=== PATIENT | female | born 1940 | race Caucasian/White ===

== ENCOUNTER → 2018-07-30 07:32 | Outpatient (REF) | payer MEDICARE, MEDICAID, SELFPAY ==
[2018-07-30 08:50] LABS: Hemoglobin A1C% w Est Avg Glu 9.5 % (4.0-6.0)
[2018-07-30 09:23] LABS: Cholesterol 132 mg/dL (140-199); HDL Cholesterol 46 mg/dL (40-60); LDL Cholesterol Calculated 44 mg/dL (<100); Triglycerides 208 mg/dL (35-150)
== END ==
LOC: LAB 07:32
PROVIDERS: Visit Provider Internal Medicine
DX: E78.5 Hyperlipidemia, unspecified (principal)
CPT/HCPCS: 36415; 80061; 83036

== ENCOUNTER → 2018-09-19 07:28 | Outpatient (REF) | payer MEDICARE, MEDICAID, SELFPAY ==
[2018-09-19 09:17] LABS: BUN Creatinine Ratio 21.7 (6-22); Blood Urea Nitrogen 26 mg/dL (7-17); Calcium 9.3 mg/dL (8.4-10.2); Carbon Dioxide 27 mmol/L (22-32); Chloride 104 mmol/L (98-107); Estimated Glomerular Filt Rate 43.6 mL/min (>60); Glucose 163 mg/dL (80-110); HEMOLYSIS < 15 (0-50); Potassium 3.9 mmol/L (3.4-5.1); Sodium 142 mmol/L (137-145)
== END ==
LOC: LAB 07:28
PROVIDERS: Visit Provider Internal Medicine
DX: N18.9 Chronic kidney disease, unspecified (principal)
CPT/HCPCS: 36415; 80048

== ENCOUNTER → 2018-10-24 07:31 | Outpatient (REF) | payer MEDICARE, MEDICAID, SELFPAY ==
[2018-10-24 09:04] LABS: Hemoglobin A1C% w Est Avg Glu 9.9 % (4.0-6.0)
== END ==
LOC: LAB 07:31
PROVIDERS: Visit Provider Internal Medicine
DX: E11.9 Type 2 diabetes mellitus without complications (principal)
CPT/HCPCS: 36415; 83036

== ENCOUNTER → 2018-11-21 06:53 | Outpatient (REF) | payer MEDICARE, MEDICAID, SELFPAY ==
[2018-11-21 07:58] LABS: Add Manual Diff / Slide Review NO; Basophils Percent Auto 1.2 % (0-2); Eosinophils Percent Auto 7.3 % (2-4); Hematocrit 35.4 % (36-46); Hemoglobin 11.6 g/dL (12.0-16.0); Lymphocytes Percent Auto 36.9 % (25-40); Mean Corpuscular HGB Conc 32.8 % (30-36); Mean Corpuscular Hemoglobin 28.4 PG (26-34); Mean Corpuscular Volume 86.6 fL (80-100); Monocytes Percent Auto 7.7 % (3-14); Neutrophils Absolute Auto 2800 /uL (1500-7000); Neutrophils Percent Auto 46.9 % (50-75); Platelet Count 186 X10^3/uL (150-400); Red Blood Cell Count 4.09 X10^6/uL (4.0-5.2); Red Cell Distribution Width 14.2 % (11.6-14.8); White Blood Cell Count 5.9 X10^3/uL (4.5-11.0)
[2018-11-21 08:08] LABS: Hemoglobin A1C% w Est Avg Glu 9.5 % (4.0-6.0)
[2018-11-21 08:10] LABS: BUN Creatinine Ratio 22.1 (6-22); Blood Urea Nitrogen 31 mg/dL (7-17); Calcium 9.2 mg/dL (8.4-10.2); Carbon Dioxide 27 mmol/L (22-32); Chloride 103 mmol/L (98-107); Estimated Glomerular Filt Rate 36.5 mL/min (>60); Glucose 222 mg/dL (80-110); HEMOLYSIS 27 (0-50); Potassium 4.4 mmol/L (3.4-5.1); Sodium 140 mmol/L (137-145)
== END ==
LOC: LAB 06:53
PROVIDERS: Visit Provider Internal Medicine
DX: E11.9 Type 2 diabetes mellitus without complications (principal)
CPT/HCPCS: 36415; 80048; 83036; 85025

== ENCOUNTER → 2018-12-20 13:08 | Outpatient (REF) | payer MEDICARE, MEDICAID, SELFPAY ==
[2018-12-20 14:00] LABS: Add Manual Diff / Slide Review NO; Basophils Absolute Auto 0 /uL (0-100); Basophils Percent Auto 0.6 % (0-2); Eosinophils Absolute Auto 300 /uL (0-450); Eosinophils Percent Auto 4.8 % (2-4); Hemoglobin 11.4 g/dL (12.0-16.0); Lymphocytes Absolute Auto 2100 /uL (1100-4500); Lymphocytes Percent Auto 28.3 % (25-40); Mean Corpuscular HGB Conc 33.6 % (30-36); Mean Corpuscular Hemoglobin 28.9 PG (26-34); Monocytes Absolute Auto 600 /uL (0-900); Monocytes Percent Auto 8.1 % (3-14); Neutrophils Absolute Auto 4300 /uL (1500-7000); Neutrophils Percent Auto 58.2 % (50-75); Platelet Count 188 X10^3/uL (150-400); Red Blood Cell Count 3.95 X10^6/uL (4.0-5.2); Red Cell Distribution Width 14.4 % (11.6-14.8); White Blood Cell Count 7.3 X10^3/uL (4.5-11.0)
[2018-12-20 14:03] LABS: BUN Creatinine Ratio 18.6 (6-22); Blood Urea Nitrogen 26 mg/dL (7-17); Calcium 9.2 mg/dL (8.4-10.2); Carbon Dioxide 27 mmol/L (22-32); Chloride 99 mmol/L (98-107); Estimated Glomerular Filt Rate 36.5 mL/min (>60); Glucose 298 mg/dL (80-110); HEMOLYSIS < 15 (0-50); Potassium 4.3 mmol/L (3.4-5.1); Sodium 137 mmol/L (137-145)
== END ==
LOC: LAB 13:08
PROVIDERS: Visit Provider Internal Medicine
DX: R05 Cough (principal); J40 Bronchitis, not specified as acute or chronic
CPT/HCPCS: 80048; 85025

== ENCOUNTER → 2018-12-26 06:59 | Outpatient (REF) | payer MEDICARE, MEDICAID, SELFPAY ==
[2018-12-26 07:59] LABS: BUN Creatinine Ratio 22.3 (6-22); Blood Urea Nitrogen 29 mg/dL (7-17); Calcium 9.3 mg/dL (8.4-10.2); Carbon Dioxide 29 mmol/L (22-32); Chloride 102 mmol/L (98-107); Estimated Glomerular Filt Rate 39.7 mL/min (>60); Glucose 74 mg/dL (80-110); HEMOLYSIS 43 (0-50); Potassium 4.1 mmol/L (3.4-5.1); Sodium 140 mmol/L (137-145)
== END ==
LOC: LAB 06:59
PROVIDERS: Visit Provider Internal Medicine
DX: N18.9 Chronic kidney disease, unspecified (principal)
CPT/HCPCS: 36415; 80048

== ENCOUNTER → 2019-01-16 07:47 | Outpatient (REF) | payer MEDICARE, MEDICAID, SELFPAY ==
[2019-01-16 08:44] LABS: Blood Urea Nitrogen 28 mg/dL (7-17); Calcium 9.4 mg/dL (8.4-10.2); Carbon Dioxide 29 mmol/L (22-32); Chloride 100 mmol/L (98-107); Estimated Glomerular Filt Rate 36.5 mL/min (>60); Glucose 143 mg/dL (80-110); HEMOLYSIS < 15 (0-50); Potassium 4.3 mmol/L (3.4-5.1); Sodium 138 mmol/L (137-145)
== END ==
LOC: LAB 07:47
PROVIDERS: Visit Provider Nurse Practitioner Family
DX: N18.9 Chronic kidney disease, unspecified (principal)
CPT/HCPCS: 36415; 80048

== ENCOUNTER → 2019-01-23 07:09 | Outpatient (REF) | payer MEDICARE, MEDICAID, SELFPAY ==
[2019-01-23 07:58] LABS: Add Manual Diff / Slide Review NO; Basophils Absolute Auto 100 /uL (0-100); Basophils Percent Auto 0.8 % (0-2); Eosinophils Absolute Auto 400 /uL (0-450); Eosinophils Percent Auto 5.8 % (2-4); Hemoglobin 11.9 g/dL (12.0-16.0); Lymphocytes Absolute Auto 3000 /uL (1100-4500); Lymphocytes Percent Auto 39.7 % (25-40); Mean Corpuscular HGB Conc 33.1 % (30-36); Mean Corpuscular Hemoglobin 28.9 PG (26-34); Mean Corpuscular Volume 87.2 fL (80-100); Monocytes Absolute Auto 500 /uL (0-900); Monocytes Percent Auto 6.8 % (3-14); Neutrophils Absolute Auto 3600 /uL (1500-7000); Neutrophils Percent Auto 46.9 % (50-75); Platelet Count 202 X10^3/uL (150-400); Red Blood Cell Count 4.13 X10^6/uL (4.0-5.2); Red Cell Distribution Width 13.6 % (11.6-14.8); White Blood Cell Count 7.6 X10^3/uL (4.5-11.0)
[2019-01-23 08:17] LABS: Hemoglobin A1C% w Est Avg Glu 9.1 % (4.0-6.0)
[2019-01-23 08:50] LABS: BUN Creatinine Ratio 20.7 (6-22); Blood Urea Nitrogen 29 mg/dL (7-17); Calcium 9.5 mg/dL (8.4-10.2); Carbon Dioxide 28 mmol/L (22-32); Chloride 104 mmol/L (98-107); Estimated Glomerular Filt Rate 36.5 mL/min (>60); Glucose 119 mg/dL (80-110); HEMOLYSIS < 15 (0-50); Sodium 140 mmol/L (137-145)
[2019-01-23 18:47] LABS: Appearance Urine UA CLEAR; Bilirubin Urine UA NEGATIVE (NEGATIVE); Color Urine UA YELLOW; Glucose Urine UA 2+ g/dL (Negative); Ketones Urine UA NEGATIVE (NEGATIVE); Leukocyte Esterase Urine UA 1+ (NEGATIVE); Nitrite Urine UA POSITIVE (Negative); Occult Blood Urine UA 1+ (Negative); Protein Urine UA 1+ (Negative); Specific Gravity Urine UA 1.025 (1.000-1.035); Urobilinogen Urine UA 0.2 E.U./dL (0.2)
[2019-01-23 18:54] LABS: Amorphous Sediment Urine 2+; Bacteria Urine Many (>30); Culture Indicated Urine Specimen Cultured; RBC Urine 1-5/HPF (0-5/HPF); Squamous Epithelial Cell Urine 1-5 /HPF; Transitional Epi Cells Urine 5-10/HPF (0-5/HPF); WBC Urine 30-100/HPF (0-5/HPF)
== END ==
LOC: LAB 07:09
PROVIDERS: Visit Provider Nurse Practitioner Family
DX: Z79.899 Other long term (current) drug therapy (principal)
CPT/HCPCS: 36415; 80048; 81001; 83036; 85025; 87077; 87086; 87186

== ENCOUNTER → 2019-02-25 08:36 | Outpatient (REF) | payer MEDICARE, MEDICAID, SELFPAY ==
[2019-02-25 09:10] LABS: BUN Creatinine Ratio 22.1 (6-22); Blood Urea Nitrogen 31 mg/dL (7-17); Calcium 9.8 mg/dL (8.4-10.2); Carbon Dioxide 30 mmol/L (22-32); Chloride 103 mmol/L (98-107); Estimated Glomerular Filt Rate 36.5 mL/min (>60); Glucose 87 mg/dL (80-110); HEMOLYSIS < 15 (0-50); Potassium 4.1 mmol/L (3.4-5.1); Sodium 140 mmol/L (137-145)
[2019-02-25 10:02] LABS: Hemoglobin A1C% w Est Avg Glu 9.2 % (4.0-6.0)
== END ==
LOC: LAB 08:36
PROVIDERS: Nurse Practitioner Family; Visit Provider Registered Nurse
DX: E11.9 Type 2 diabetes mellitus without complications (principal); N18.9 Chronic kidney disease, unspecified
CPT/HCPCS: 36415; 80048; 83036

== ENCOUNTER → 2019-03-31 10:37 | Outpatient (CLI) | payer MEDICARE, MEDICAID, SELFPAY ==
--- NOTE | 2019-03-31 | DI.CT.S_ITS ---
PROCEDURE: CT CHEST WO CON INDICATIONS: CHRONIC COUGH TECHNIQUE: Noncontrast 5 mm thick sections acquired from the pulmonary apices to the posterior costophrenic angles. 7 mm thick coronal and sagittal MIP reformats were then acquired. For radiation dose reduction, the following was used: automated exposure control, adjustment of mA and/or kV according to patient size. COMPARISON: None. FINDINGS: Image quality: Excellent. Lungs and pleura: No acute air space opacities. No pleural effusions or pneumothorax. Central and peripheral airways are patent and normal in caliber. Mediastinum: Heart size is normal. No pericardial effusion. No mediastinal adenopathy by size criteria. Thoracic aorta and central pulmonary arteries are normal in size. Esophagus is normal in caliber. No hiatal hernia. Bones and chest wall: No suspicious bony lesions. No vertebral body compression fractures. No axillary or supraclavicular adenopathy by size criteria. Thyroid gland appears normal where well visualized. Abdomen: Visualized upper abdominal solid organs and bowel loops appear normal in the absence of contrast. Note is made of what appears to be a single small 3 x 4 mm calcification within the gallbladder lumen seen at the inferior margin of the imaging. IMPRESSION: Source of chronic cough is not found. Incidental note made of a 3 x 4 mm calculus within the posterior gallbladder lumen at the inferior imaging margin. No adjacent inflammation. Dictated by: Kane Estrada M.D. on 03/31/2019 at 14:20 Approved by: Kane Estrada M.D. on 03/31/2019 at 14:21
== END ==
PROVIDERS: Visit Provider Internal Medicine
DX: R05 Cough (principal); K80.20 Calculus of gallbladder without cholecystitis without obstruction
CPT/HCPCS: 71250

== ENCOUNTER → 2019-04-01 07:00 | Outpatient (ROUT) | payer MEDICARE, MEDICAID, SELFPAY ==
[2019-04-01 09:08] LABS: Blood Urea Nitrogen 26 mg/dL (7-17); Calcium 9.6 mg/dL (8.4-10.2); Carbon Dioxide 32 mmol/L (22-32); Chloride 100 mmol/L (98-107); Estimated Glomerular Filt Rate 39.7 mL/min (>60); Glucose 141 mg/dL (80-110); HEMOLYSIS < 15 (0-50); Potassium 3.4 mmol/L (3.4-5.1); Sodium 142 mmol/L (137-145)
== END ==
PROVIDERS: Visit Provider Internal Medicine
DX: I10 Essential (primary) hypertension (principal); Z79.899 Other long term (current) drug therapy
CPT/HCPCS: 36415; 80048

== ENCOUNTER → 2019-04-24 07:21 | Outpatient (ROUT) | payer MEDICARE, MEDICAID, SELFPAY ==
[2019-04-24 08:11] LABS: Add Manual Diff / Slide Review NO; Basophils Absolute Auto 100 /uL (0-100); Basophils Percent Auto 0.9 % (0-2); Eosinophils Absolute Auto 500 /uL (0-450); Eosinophils Percent Auto 6.7 % (2-4); Hematocrit 35.3 % (36-46); Hemoglobin A1C% w Est Avg Glu 9.7 % (4.0-6.0); Lymphocytes Absolute Auto 2500 /uL (1100-4500); Lymphocytes Percent Auto 36.1 % (25-40); Mean Corpuscular HGB Conc 33.9 % (30-36); Mean Corpuscular Hemoglobin 29.2 PG (26-34); Mean Corpuscular Volume 86.2 fL (80-100); Monocytes Absolute Auto 600 /uL (0-900); Monocytes Percent Auto 7.9 % (3-14); Neutrophils Absolute Auto 3400 /uL (1500-7000); Neutrophils Percent Auto 48.4 % (50-75); Platelet Count 190 X10^3/uL (150-400); Red Cell Distribution Width 13.6 % (11.6-14.8)
[2019-04-24 08:13] LABS: BUN Creatinine Ratio 22.1 (6-22); Blood Urea Nitrogen 31 mg/dL (7-17); Calcium 9.3 mg/dL (8.4-10.2); Carbon Dioxide 36 mmol/L (22-32); Chloride 96 mmol/L (98-107); Estimated Glomerular Filt Rate 36.5 mL/min (>60); Glucose 172 mg/dL (80-110); HEMOLYSIS < 15 (0-50); Potassium 2.9 mmol/L (3.4-5.1); Sodium 139 mmol/L (137-145)
== END ==
PROVIDERS: Visit Provider Nurse Practitioner Family
DX: N18.9 Chronic kidney disease, unspecified (principal); E11.9 Type 2 diabetes mellitus without complications
CPT/HCPCS: 36415; 80048; 83036; 85025

== ENCOUNTER → 2019-04-29 07:23 | Outpatient (ROUT) | payer MEDICARE, MEDICAID, SELFPAY ==
[2019-04-29 08:33] LABS: HEMOLYSIS < 15 (0-50); Magnesium 1.6 mg/dL (1.6-2.3)
== END ==
PROVIDERS: Visit Provider Internal Medicine
DX: E87.6 Hypokalemia (principal)
CPT/HCPCS: 36415; 83735; 84132

== ENCOUNTER → 2019-05-01 07:06 | Outpatient (ROUT) | payer MEDICARE, MEDICAID, SELFPAY ==
[2019-05-01 08:27] LABS: HEMOLYSIS < 15 (0-50); Potassium 3.4 mmol/L (3.4-5.1)
== END ==
PROVIDERS: Visit Provider Nurse Practitioner Family
DX: N28.9 Disorder of kidney and ureter, unspecified (principal)
CPT/HCPCS: 36415; 84132

== ENCOUNTER → 2019-05-04 03:48 | Outpatient (ROUT) | payer MEDICARE, MEDICAID, SELFPAY | PROVIDERS: Visit Provider Internal Medicine | DX: H44.002 Unspecified purulent endophthalmitis, left eye (principal) | CPT/HCPCS: 87070; 87077; 87186; 87205 ==

== ENCOUNTER → 2019-05-06 11:51 | Outpatient (ROUT) | payer MEDICARE, MEDICAID, SELFPAY | PROVIDERS: Visit Provider Internal Medicine | DX: J02.9 Acute pharyngitis, unspecified (principal) | CPT/HCPCS: 87070 ==

== ENCOUNTER → 2019-05-08 07:20 | Outpatient (ROUT) | payer MEDICARE, MEDICAID, SELFPAY ==
[2019-05-08 08:59] LABS: BUN Creatinine Ratio 17.8 (6-22); Blood Urea Nitrogen 32 mg/dL (7-17); Calcium 9.2 mg/dL (8.4-10.2); Carbon Dioxide 33 mmol/L (22-32); Chloride 94 mmol/L (98-107); Estimated Glomerular Filt Rate 27.3 mL/min (>60); Glucose 322 mg/dL (80-110); HEMOLYSIS 22 (0-50); Potassium 3.9 mmol/L (3.4-5.1); Sodium 137 mmol/L (137-145)
== END ==
PROVIDERS: Visit Provider Nurse Practitioner Family
DX: E87.6 Hypokalemia (principal); I10 Essential (primary) hypertension; Z79.899 Other long term (current) drug therapy
CPT/HCPCS: 36415; 80048

== ENCOUNTER → 2019-05-13 08:27 | Outpatient (ROUT) | payer MEDICARE, MEDICAID, SELFPAY ==
[2019-05-13 10:31] LABS: BUN Creatinine Ratio 17.5 (6-22); Blood Urea Nitrogen 28 mg/dL (7-17); Calcium 9.3 mg/dL (8.4-10.2); Carbon Dioxide 30 mmol/L (22-32); Chloride 97 mmol/L (98-107); Estimated Glomerular Filt Rate 31.3 mL/min (>60); Glucose 222 mg/dL (80-110); HEMOLYSIS < 15 (0-50); Potassium 4.2 mmol/L (3.4-5.1); Sodium 137 mmol/L (137-145)
== END ==
PROVIDERS: Visit Provider Internal Medicine
DX: N18.9 Chronic kidney disease, unspecified (principal); N17.9 Acute kidney failure, unspecified
CPT/HCPCS: 36415; 80048

== ENCOUNTER → 2019-05-29 07:04 | Outpatient (ROUT) | payer MEDICARE, MEDICAID, SELFPAY ==
[2019-05-29 07:56] LABS: Add Manual Diff / Slide Review NO; Basophils Absolute Auto 100 /uL (0-100); Basophils Percent Auto 1.3 % (0-2); Eosinophils Absolute Auto 500 /uL (0-450); Eosinophils Percent Auto 10.1 % (2-4); Hematocrit 38.1 % (36-46); Hemoglobin 12.2 g/dL (12.0-16.0); Lymphocytes Absolute Auto 2400 /uL (1100-4500); Lymphocytes Percent Auto 45.8 % (25-40); Mean Corpuscular HGB Conc 32.2 % (30-36); Mean Corpuscular Hemoglobin 28.1 PG (26-34); Mean Corpuscular Volume 87.4 fL (80-100); Monocytes Absolute Auto 400 /uL (0-900); Monocytes Percent Auto 7.1 % (3-14); Neutrophils Absolute Auto 1900 /uL (1500-7000); Neutrophils Percent Auto 35.7 % (50-75); Platelet Count 218 X10^3/uL (150-400); Red Blood Cell Count 4.36 X10^6/uL (4.0-5.2); Red Cell Distribution Width 14.8 % (11.6-14.8); White Blood Cell Count 5.3 X10^3/uL (4.5-11.0)
[2019-05-29 08:13] LABS: Alanine Aminotransferase 22 IU/L (9-52); Albumin 3.6 g/dL (3.5-5.0); Albumin Globulin Ratio 1.2 (1.0-2.8); Alkaline Phosphatase 67 U/L (38-126); Aspartate Aminotransferase 25 IU/L (14-36); BUN Creatinine Ratio 17.5 (6-22); Bilirubin Total 0.3 mg/dL (0.2-1.3); Blood Urea Nitrogen 21 mg/dL (7-17); Calcium 9.4 mg/dL (8.4-10.2); Carbon Dioxide 30 mmol/L (22-32); Chloride 104 mmol/L (98-107); Estimated Glomerular Filt Rate 43.4 mL/min (>60); Globulin 2.9 g/dL (1.7-4.1); Glucose 156 mg/dL (80-110); HEMOLYSIS 15 (0-50); Potassium 4.2 mmol/L (3.4-5.1); Sodium 140 mmol/L (137-145); Total Protein 6.5 g/dL (6.3-8.2)
== END ==
PROVIDERS: Visit Provider Nurse Practitioner Family
DX: I10 Essential (primary) hypertension (principal); Z79.899 Other long term (current) drug therapy; E11.9 Type 2 diabetes mellitus without complications; N18.9 Chronic kidney disease, unspecified
CPT/HCPCS: 36415; 80053; 85025

== ENCOUNTER → 2019-07-03 07:06 | Outpatient (ROUT) | payer MEDICARE, MEDICAID, SELFPAY ==
[2019-07-03 07:34] LABS: Add Manual Diff / Slide Review NO; Basophils Absolute Auto 100 /uL (0-100); Basophils Percent Auto 0.9 % (0-2); Eosinophils Absolute Auto 600 /uL (0-450); Eosinophils Percent Auto 8.9 % (2-4); Hematocrit 37.7 % (36-46); Hemoglobin 12.4 g/dL (12.0-16.0); Lymphocytes Absolute Auto 2900 /uL (1100-4500); Lymphocytes Percent Auto 43.9 % (25-40); Mean Corpuscular Hemoglobin 28.3 PG (26-34); Mean Corpuscular Volume 85.8 fL (80-100); Monocytes Absolute Auto 400 /uL (0-900); Monocytes Percent Auto 6.7 % (3-14); Neutrophils Absolute Auto 2600 /uL (1500-7000); Neutrophils Percent Auto 39.6 % (50-75); Platelet Count 202 X10^3/uL (150-400); Red Blood Cell Count 4.39 X10^6/uL (4.0-5.2); Red Cell Distribution Width 14.7 % (11.6-14.8); White Blood Cell Count 6.6 X10^3/uL (4.5-11.0)
[2019-07-03 07:54] LABS: Hemoglobin A1C% w Est Avg Glu 9.5 % (4.0-6.0)
[2019-07-03 08:44] LABS: Blood Urea Nitrogen 18 mg/dL (7-17); Calcium 9.3 mg/dL (8.4-10.2); Carbon Dioxide 31 mmol/L (22-32); Chloride 104 mmol/L (98-107); Estimated Glomerular Filt Rate 43.4 mL/min (>60); Glucose 107 mg/dL (80-110); HEMOLYSIS < 15 (0-50); Potassium 3.9 mmol/L (3.4-5.1); Sodium 141 mmol/L (137-145)
== END ==
PROVIDERS: Visit Provider Nurse Practitioner Family
DX: N18.9 Chronic kidney disease, unspecified (principal); E11.9 Type 2 diabetes mellitus without complications
CPT/HCPCS: 36415; 80048; 83036; 85025

== ENCOUNTER → 2019-07-21 09:26 | Outpatient (CLI) | payer MEDICARE, MEDICAID, SELFPAY ==
--- NOTE | 2019-07-21 | DI.MRI.S_ITS ---
PROCEDURE: MR CERVICAL SPINE WO CON INDICATIONS: CERVICAL RADICULOPATHY TECHNIQUE: Noncontrast sagittal T1 spin echo and T2 fast spin echo, sagittal STIR, foraminal oblique sagittal T2 fast spin echo, and axial gradient echo or T2 fast spin echo through the cervical spine. COMPARISON: [facility], CR, XR CHEST 2V, 03/15/2018, 10:43. [facility], CT, CT CHEST WO CON, 03/31/2019, 11:08. FINDINGS: Image quality: Diagnostic Alignment and Curvature: There is normal bony alignment. Bone Marrow: Marrow demonstrates normal overall signal. Spinal Cord: Visualized spinal cord has normal size and signal. No cerebellar tonsillar herniation. Paraspinous Soft Tissues: No paravertebral masses. Prevertebral soft tissues are normal in thickness. C2-C3: The disc height is well-preserved. Loss of disc signal is seen at this level. A mild degree of generalized disc osteophyte complex is seen. Mild bilateral neural foraminal narrowing is seen. No significant central canal narrowing is seen. C3-C4: The disc height is well-preserved. Loss of disc signal is seen at this level. Moderate generalized disc osteophyte complex is seen. There is moderate to prominent right-sided and moderate left-sided neural foraminal narrowing seen. There is moderate to severe right-sided and moderate left-sided neural foraminal narrowing seen. Mild central canal narrowing is seen. C4-C5: Moderate loss of disc height is seen. Loss of disc signal is seen. Moderate to prominent disc osteophyte complex is seen. Uncovertebral joint hypertrophy is seen at this level. Moderate facet joint hypertrophy is seen. Moderate to severe bilateral neural foraminal narrowing is seen, right worse than left. Moderate central canal narrowing is seen. C5-C6: Moderate loss of disc height is seen. Loss of disc signal is seen. Moderate generalized disc osteophyte complex is seen. [id number] facet hypertrophy is seen. There is moderate to severe bilateral neural foraminal narrowing seen, right worse than left. Moderate central canal narrowing is seen, with associated mass effect upon the ventral spinal cord. C6-C7: There is at least moderate loss of disc height and disc signal. Moderate to prominent disc osteophyte complex is seen. There is moderate to severe bilateral neural foraminal narrowing seen, right worse than left. Moderate central canal narrowing is seen. C7-T1: Moderate loss of disc height is seen. Loss of disc signal is seen. Moderate generalized disc osteophyte complex is seen. Moderate to severe bilateral neural foraminal narrowing is seen. Moderate central canal narrowing is seen. IMPRESSION: Multiple levels of relatively prominent cervical spine degenerative changes are seen, which are overall most prominent at the C6-C7 level. Dictated by: Jonny Canas M.D. on 07/21/2019 at 10:43 Approved by: Jonny Canas M.D. on 07/21/2019 at 10:49
== END ==
PROVIDERS: Visit Provider Registered Nurse
DX: M47.22 Other spondylosis with radiculopathy, cervical region (principal)
CPT/HCPCS: 72141

== ENCOUNTER → 2019-09-26 08:06 | Outpatient (ROUT) | payer MEDICARE, MEDICAID, SELFPAY ==
[2019-09-26 09:55] LABS: Free T3, Triiodothyronine Free 3.33 pg/mL (2.77-5.27); Free T4, Direct Thyroxine 0.77 ng/dL (0.78-2.19)
[2019-09-26 10:08] LABS: Thyroid Stimulating Hormone 1.29 uIU/mL (0.47-4.68)
== END ==
PROVIDERS: Visit Provider Internal Medicine
DX: E03.9 Hypothyroidism, unspecified (principal)
CPT/HCPCS: 36415; 84439; 84443; 84481

== ENCOUNTER → 2019-10-02 07:41 | Outpatient (ROUT) | payer MEDICARE, MEDICAID, SELFPAY ==
[2019-10-02 08:09] LABS: BUN Creatinine Ratio 17.7 (6-22); Blood Urea Nitrogen 23 mg/dL (7-17); Calcium 9.3 mg/dL (8.4-10.2); Carbon Dioxide 30 mmol/L (22-32); Chloride 104 mmol/L (98-107); Estimated Glomerular Filt Rate 39.6 mL/min (>60); Glucose 112 mg/dL (80-110); HEMOLYSIS < 15 (0-50); Potassium 3.9 mmol/L (3.4-5.1); Sodium 139 mmol/L (137-145)
[2019-10-02 08:12] LABS: Hemoglobin A1C% w Est Avg Glu 9.2 % (4.0-6.0)
== END ==
PROVIDERS: Visit Provider Nurse Practitioner Family
DX: E11.9 Type 2 diabetes mellitus without complications (principal)
CPT/HCPCS: 36415; 80048; 83036

== ENCOUNTER → 2019-10-10 14:53 | Outpatient (ROUT) | payer MEDICARE, MEDICAID, SELFPAY ==
[2019-10-10 15:17] LABS: BUN Creatinine Ratio 14.6 (6-22); Blood Urea Nitrogen 19 mg/dL (7-17); Carbon Dioxide 29 mmol/L (22-32); Chloride 101 mmol/L (98-107); Estimated Glomerular Filt Rate 39.6 mL/min (>60); Glucose 351 mg/dL (80-110); HEMOLYSIS < 15 (0-50); Magnesium 1.5 mg/dL (1.6-2.3); Potassium 4.1 mmol/L (3.4-5.1); Sodium 137 mmol/L (137-145)
== END ==
PROVIDERS: Visit Provider Internal Medicine
DX: N18.9 Chronic kidney disease, unspecified (principal); R25.1 Tremor, unspecified
CPT/HCPCS: 80048; 83735

== ENCOUNTER → 2019-12-25 07:37 | Outpatient (ROUT) | payer MEDICARE, MEDICAID, SELFPAY ==
[2019-12-25 08:20] LABS: Blood Urea Nitrogen 24 mg/dL (7-17); Calcium 9.1 mg/dL (8.4-10.2); Carbon Dioxide 28 mmol/L (22-32); Chloride 104 mmol/L (98-107); Estimated Glomerular Filt Rate 43.4 mL/min (>60); Glucose 136 mg/dL (80-110); HEMOLYSIS 39 (0-50); Potassium 4.5 mmol/L (3.4-5.1); Sodium 140 mmol/L (137-145)
[2019-12-25 19:28] LABS: Appearance Urine UA CLEAR; Bilirubin Urine UA NEGATIVE (NEGATIVE); Color Urine UA YELLOW; Glucose Urine UA 1+ g/dL (Negative); Ketones Urine UA NEGATIVE (NEGATIVE); Leukocyte Esterase Urine UA TRACE (NEGATIVE); Nitrite Urine UA POSITIVE (Negative); Occult Blood Urine UA TRACE-LYSED (Negative); Protein Urine UA 1+ (Negative); Urobilinogen Urine UA 0.2 E.U./dL (0.2)
[2019-12-25 19:37] LABS: RBC Urine 1-5/HPF (0-5/HPF); WBC Urine 5-10/HPF (0-5/HPF)
[2019-12-25 19:38] LABS: Bacteria Urine Many (>30); Culture Indicated Urine Specimen Cultured; Squamous Epithelial Cell Urine 1-5 /HPF (0-5/HPF)
== END ==
PROVIDERS: Nurse Practitioner Family; Visit Provider Internal Medicine
DX: I10 Essential (primary) hypertension (principal)
CPT/HCPCS: 36415; 80048; 81001; 87077; 87086; 87186

== ENCOUNTER → 2020-01-01 07:40 | Outpatient (ROUT) | payer MEDICARE, MEDICAID, SELFPAY ==
[2020-01-01 08:24] LABS: Add Manual Diff / Slide Review NO; Basophils Absolute Auto 100 /uL (0-100); Basophils Percent Auto 0.8 % (0-2); Eosinophils Absolute Auto 500 /uL (0-450); Eosinophils Percent Auto 6.2 % (2-4); Hematocrit 39.2 % (36-46); Hemoglobin 12.9 g/dL (12.0-16.0); Lymphocytes Absolute Auto 2900 /uL (1100-4500); Lymphocytes Percent Auto 38.7 % (25-40); Mean Corpuscular Hemoglobin 28.9 PG (26-34); Mean Corpuscular Volume 87.4 fL (80-100); Monocytes Absolute Auto 400 /uL (0-900); Monocytes Percent Auto 5.9 % (3-14); Neutrophils Absolute Auto 3700 /uL (1500-7000); Neutrophils Percent Auto 48.4 % (50-75); Platelet Count 202 X10^3/uL (150-400); Red Blood Cell Count 4.48 X10^6/uL (4.0-5.2); Red Cell Distribution Width 14.1 % (11.6-14.8); White Blood Cell Count 7.6 X10^3/uL (4.5-11.0)
[2020-01-01 08:47] LABS: BUN Creatinine Ratio 16.2 (6-22); Blood Urea Nitrogen 21 mg/dL (7-17); Calcium 9.7 mg/dL (8.4-10.2); Carbon Dioxide 27 mmol/L (22-32); Chloride 105 mmol/L (98-107); Estimated Glomerular Filt Rate 39.6 mL/min (>60); Glucose 150 mg/dL (80-110); HEMOLYSIS < 15 (0-50); Sodium 142 mmol/L (137-145)
== END ==
PROVIDERS: Visit Provider Nurse Practitioner Family
DX: I10 Essential (primary) hypertension (principal)
CPT/HCPCS: 36415; 80048; 85025

== ENCOUNTER → 2020-01-06 07:53 | Outpatient (ROUT) | payer MEDICARE, MEDICAID, SELFPAY ==
[2020-01-06 08:29] LABS: Hemoglobin A1C% w Est Avg Glu 8.8 % (4.0-6.0)
[2020-01-06 08:51] LABS: BUN Creatinine Ratio 14.6 (6-22); Blood Urea Nitrogen 19 mg/dL (7-17); Calcium 9.8 mg/dL (8.4-10.2); Carbon Dioxide 30 mmol/L (22-32); Chloride 103 mmol/L (98-107); Estimated Glomerular Filt Rate 39.6 mL/min (>60); Glucose 131 mg/dL (80-110); HEMOLYSIS < 15 (0-50); Potassium 4.1 mmol/L (3.4-5.1); Sodium 143 mmol/L (137-145)
== END ==
PROVIDERS: Visit Provider Nurse Practitioner Family
DX: E11.9 Type 2 diabetes mellitus without complications (principal)
CPT/HCPCS: 36415; 80048; 83036

== ENCOUNTER → 2020-03-30 08:48 | Outpatient (ROUT) | payer MEDICARE, MEDICAID, SELFPAY ==
[2020-03-30 10:15] LABS: Hemoglobin A1C% w Est Avg Glu 8.4 % (4.0-6.0)
[2020-03-30 10:28] LABS: Blood Urea Nitrogen 23 mg/dL (7-17); Calcium 8.9 mg/dL (8.4-10.2); Carbon Dioxide 27 mmol/L (22-32); Chloride 108 mmol/L (98-107); Cholesterol 112 mg/dL (140-199); Glucose 119 mg/dL (80-110); HDL Cholesterol 40 mg/dL (40-60); HEMOLYSIS 18 (0-50); LDL Cholesterol Calculated 40 mg/dL (<100); Potassium 4.2 mmol/L (3.4-5.1); Sodium 142 mmol/L (137-145); Triglycerides 162 mg/dL (35-150)
== END ==
PROVIDERS: Visit Provider Nurse Practitioner Family
DX: E11.9 Type 2 diabetes mellitus without complications (principal); N18.9 Chronic kidney disease, unspecified; E78.5 Hyperlipidemia, unspecified
CPT/HCPCS: 36415; 80048; 80061; 83036

== ENCOUNTER → 2020-06-28 21:26 | Outpatient (ROUT) | payer MEDICARE, MEDICAID, SELFPAY ==
[2020-06-28 22:14] LABS: Bilirubin Urine UA NEGATIVE (NEGATIVE); Color Urine UA YELLOW; Glucose Urine UA NEGATIVE (Negative); Ketones Urine UA NEGATIVE (NEGATIVE); Leukocyte Esterase Urine UA TRACE (NEGATIVE); Nitrite Urine UA POSITIVE (Negative); Occult Blood Urine UA TRACE-INTACT (Negative); Protein Urine UA 3+ (Negative); Specific Gravity Urine UA >=1.030 (1.000-1.035); Urobilinogen Urine UA 0.2 E.U./dL (0.2)
[2020-06-28 22:24] LABS: Appearance Urine UA CLOUDY
[2020-06-28 23:23] LABS: Bacteria Urine Many (>30); Culture Indicated Urine Specimen Cultured; RBC Urine 1-5/HPF (0-5/HPF); Squamous Epithelial Cell Urine 1-5 /HPF (0-5/HPF); WBC Urine 10-30/HPF (0-5/HPF)
== END ==
PROVIDERS: Visit Provider Internal Medicine
DX: R30.0 Dysuria (principal); R35.0 Frequency of micturition
CPT/HCPCS: 81001; 87077; 87086; 87186

== ENCOUNTER → 2020-07-08 08:22 | Outpatient (ROUT) | payer MEDICARE, MEDICAID, SELFPAY ==
[2020-07-08 08:39] LABS: Add Manual Diff / Slide Review NO; Basophils Absolute Auto 100 /uL (0-100); Basophils Percent Auto 0.8 % (0-2); Eosinophils Absolute Auto 400 /uL (0-450); Eosinophils Percent Auto 6.2 % (2-4); Hemoglobin 11.6 g/dL (12.0-16.0); Lymphocytes Absolute Auto 2300 /uL (1100-4500); Lymphocytes Percent Auto 37.4 % (25-40); Mean Corpuscular HGB Conc 33.1 % (30-36); Mean Corpuscular Volume 87.7 fL (80-100); Monocytes Absolute Auto 500 /uL (0-900); Monocytes Percent Auto 7.6 % (3-14); Neutrophils Absolute Auto 3000 /uL (1500-7000); Platelet Count 177 X10^3/uL (150-400); Red Cell Distribution Width 13.8 % (11.6-14.8); White Blood Cell Count 6.2 X10^3/uL (4.5-11.0)
[2020-07-08 08:54] LABS: BUN Creatinine Ratio 12.4 (6-22); Blood Urea Nitrogen 17 mg/dL (7-17); Calcium 8.8 mg/dL (8.4-10.2); Carbon Dioxide 29 mmol/L (22-32); Chloride 106 mmol/L (98-107); Estimated Glomerular Filt Rate 37.2 mL/min (>60); Glucose 108 mg/dL (80-110); HEMOLYSIS < 15 (0-50); Potassium 4.1 mmol/L (3.4-5.1); Sodium 139 mmol/L (137-145)
== END ==
PROVIDERS: Visit Provider Nurse Practitioner Family
DX: R60.9 Edema, unspecified (principal); E11.9 Type 2 diabetes mellitus without complications; N39.0 Urinary tract infection, site not specified
CPT/HCPCS: 36415; 80048; 85025

== ENCOUNTER → 2020-08-02 16:41 | Outpatient (ROUT) | payer MEDICARE, MEDICAID, SELFPAY ==
[2020-08-02 17:07] LABS: Appearance Urine UA CLEAR; Bilirubin Urine UA NEGATIVE (NEGATIVE); Color Urine UA YELLOW; Glucose Urine UA NEGATIVE (Negative); Ketones Urine UA NEGATIVE (NEGATIVE); Leukocyte Esterase Urine UA 1+ (NEGATIVE); Nitrite Urine UA NEGATIVE (Negative); Occult Blood Urine UA 1+ (Negative); Protein Urine UA 2+ (Negative); Specific Gravity Urine UA 1.025 (1.000-1.035); Urobilinogen Urine UA 0.2 E.U./dL (0.2)
[2020-08-02 17:11] LABS: Bacteria Urine Many (>30); Culture Indicated Urine Specimen Cultured; Granular Casts Urine 1-5/LPF; Hyaline Casts Urine 1-5/LPF; Mucus Urine 2+ (Negative); RBC Urine 1-5/HPF (0-5/HPF); Renal Epithelial Cells Urine 0-1/HPF (0-1/HPF); Squamous Epithelial Cell Urine 1-5 /HPF (0-5/HPF); Transitional Epi Cells Urine 1-5/HPF (0-5/HPF); WBC Urine 10-30/HPF (0-5/HPF)
== END ==
PROVIDERS: Visit Provider Internal Medicine
DX: R30.0 Dysuria (principal); R39.15 Urgency of urination; R35.0 Frequency of micturition
CPT/HCPCS: 81001; 87077; 87086; 87186

== ENCOUNTER → 2020-08-05 11:44 | Outpatient (ROUT) | payer MEDICARE, MEDICAID, SELFPAY ==
[2020-08-05 11:52] LABS: Add Manual Diff / Slide Review NO; Basophils Absolute Auto 100 /uL (0-100); Basophils Percent Auto 0.9 % (0-2); Eosinophils Absolute Auto 400 /uL (0-450); Eosinophils Percent Auto 6.2 % (2-4); Hematocrit 36.9 % (36-46); Hemoglobin 12.3 g/dL (12.0-16.0); Lymphocytes Absolute Auto 2500 /uL (1100-4500); Lymphocytes Percent Auto 35.6 % (25-40); Mean Corpuscular HGB Conc 33.5 % (30-36); Mean Corpuscular Hemoglobin 29.2 PG (26-34); Mean Corpuscular Volume 87.4 fL (80-100); Monocytes Absolute Auto 500 /uL (0-900); Neutrophils Absolute Auto 3500 /uL (1500-7000); Neutrophils Percent Auto 50.3 % (50-75); Platelet Count 187 X10^3/uL (150-400); Red Blood Cell Count 4.22 X10^6/uL (4.0-5.2); Red Cell Distribution Width 13.8 % (11.6-14.8)
[2020-08-05 12:05] LABS: BUN Creatinine Ratio 19.3 (6-22); Blood Urea Nitrogen 23 mg/dL (7-17); Calcium 9.2 mg/dL (8.4-10.2); Carbon Dioxide 27 mmol/L (22-32); Chloride 107 mmol/L (98-107); Estimated Glomerular Filt Rate 43.8 mL/min (>60); Glucose 182 mg/dL (80-110); HEMOLYSIS < 15 (0-50); Potassium 4.5 mmol/L (3.4-5.1); Sodium 141 mmol/L (137-145)
== END ==
PROVIDERS: Visit Provider Internal Medicine
DX: M54.5 Low back pain (principal)
CPT/HCPCS: 80048; 85025

== ENCOUNTER → 2020-09-30 18:58 | Outpatient (ROUT) | payer MEDICARE, MEDICAID, SELFPAY ==
[2020-09-30 19:01] LABS: RBC Urine None Seen (0-5/HPF); WBC Urine None Seen (0-5/HPF)
[2020-09-30 19:22] LABS: Appearance Urine UA SL CLOUDY; Bilirubin Urine UA NEGATIVE (NEGATIVE); Color Urine UA YELLOW; Glucose Urine UA TRACE g/dL (Negative); Ketones Urine UA NEGATIVE (NEGATIVE); Leukocyte Esterase Urine UA NEGATIVE (NEGATIVE); Nitrite Urine UA NEGATIVE (Negative); Occult Blood Urine UA TRACE-INTACT (Negative); Protein Urine UA 2+ (Negative); Specific Gravity Urine UA 1.015 (1.000-1.035); Urobilinogen Urine UA 0.2 E.U./dL (0.2)
[2020-09-30 19:32] LABS: pH Urine UA 5.5 (4.5-8.0)
[2020-09-30 19:33] LABS: Bacteria Urine Many (>30); Culture Indicated Urine Specimen Cultured
== END ==
PROVIDERS: Visit Provider Nurse Practitioner Family
DX: R10.30 Lower abdominal pain, unspecified (principal); R35.0 Frequency of micturition
CPT/HCPCS: 81001; 87077; 87086; 87186

== ENCOUNTER → 2020-10-21 07:39 | Outpatient (ROUT) | payer MEDICARE, MEDICAID, SELFPAY ==
[2020-10-21 08:48] LABS: BUN Creatinine Ratio 16.8 (6-22); Blood Urea Nitrogen 21 mg/dL (7-17); Calcium 9.1 mg/dL (8.4-10.2); Carbon Dioxide 35 mmol/L (22-32); Chloride 105 mmol/L (98-107); Estimated Glomerular Filt Rate 41.3 mL/min (>60); Glucose 93 mg/dL (80-110); HEMOLYSIS < 15 (0-50); Sodium 143 mmol/L (137-145)
== END ==
PROVIDERS: Visit Provider Nurse Practitioner Family
DX: N18.9 Chronic kidney disease, unspecified (principal)
CPT/HCPCS: 36415; 80048

== ENCOUNTER → 2020-10-28 08:29 | Outpatient (ROUT) | payer MEDICARE, MEDICAID, SELFPAY ==
[2020-10-28 09:05] LABS: Alanine Aminotransferase 13 IU/L (<35); Albumin 3.8 g/dL (3.5-5.0); Albumin Globulin Ratio 1.3 (1.0-2.8); Alkaline Phosphatase 61 U/L (38-126); Aspartate Aminotransferase 25 IU/L (14-36); BUN Creatinine Ratio 16.8 (6-22); Bilirubin Total 0.3 mg/dL (0.2-1.3); Blood Urea Nitrogen 20 mg/dL (7-17); Calcium 9.1 mg/dL (8.4-10.2); Carbon Dioxide 33 mmol/L (22-32); Chloride 105 mmol/L (98-107); Estimated Glomerular Filt Rate 43.8 mL/min (>60); Globulin 2.9 g/dL (1.7-4.1); Glucose 90 mg/dL (80-110); HEMOLYSIS < 15 (0-50); Potassium 3.8 mmol/L (3.4-5.1); Sodium 140 mmol/L (137-145); Total Protein 6.7 g/dL (6.3-8.2)
== END ==
PROVIDERS: Visit Provider Nurse Practitioner Gerontology
DX: N18.9 Chronic kidney disease, unspecified (principal); Z79.899 Other long term (current) drug therapy
CPT/HCPCS: 36415; 80053

== ENCOUNTER → 2021-01-16 18:16 | Outpatient (ROUT) | payer MEDICARE, MEDICAID, SELFPAY ==
[2021-01-16 18:21] LABS: RBC Urine None Seen (0-5/HPF)
[2021-01-16 18:26] LABS: Appearance Urine UA CLOUDY; Bilirubin Urine UA NEGATIVE (NEGATIVE); Color Urine UA YELLOW; Glucose Urine UA 1+ g/dL (Negative); Ketones Urine UA NEGATIVE (NEGATIVE); Leukocyte Esterase Urine UA NEGATIVE (NEGATIVE); Nitrite Urine UA NEGATIVE (Negative); Occult Blood Urine UA 1+ (Negative); Protein Urine UA 2+ (Negative); Urobilinogen Urine UA 0.2 E.U./dL (0.2)
[2021-01-16 18:48] LABS: Bacteria Urine Many (>30); Culture Indicated Urine Specimen Cultured; Squamous Epithelial Cell Urine 0-1 /HPF (0-5/HPF); WBC Urine 10-30/HPF (0-5/HPF)
== END ==
PROVIDERS: Visit Provider Nurse Practitioner Family
DX: R39.89 Other symptoms and signs involving the genitourinary system (principal)
CPT/HCPCS: 81001; 87077; 87086; 87186

== ENCOUNTER → 2021-01-18 08:41 | Outpatient (ROUT) | payer MEDICARE, MEDICAID, SELFPAY ==
[2021-01-18 09:00] LABS: Add Manual Diff / Slide Review NO; Basophils Absolute Auto 100 /uL (0-100); Basophils Percent Auto 0.8 % (0-2); Eosinophils Absolute Auto 400 /uL (0-450); Eosinophils Percent Auto 5.7 % (2-4); Hematocrit 36.8 % (36-46); Lymphocytes Absolute Auto 2500 /uL (1100-4500); Mean Corpuscular HGB Conc 32.6 % (30-36); Mean Corpuscular Hemoglobin 28.9 PG (26-34); Mean Corpuscular Volume 88.5 fL (80-100); Monocytes Absolute Auto 500 /uL (0-900); Monocytes Percent Auto 7.5 % (3-14); Neutrophils Absolute Auto 3500 /uL (1500-7000); Platelet Count 211 X10^3/uL (150-400); Red Blood Cell Count 4.15 X10^6/uL (4.0-5.2); Red Cell Distribution Width 13.8 % (11.6-14.8)
[2021-01-18 09:13] LABS: Blood Urea Nitrogen 19 mg/dL (7-17); Calcium 9.2 mg/dL (8.4-10.2); Carbon Dioxide 29 mmol/L (22-32); Chloride 107 mmol/L (98-107); Estimated Glomerular Filt Rate 43.8 mL/min (>60); Glucose 90 mg/dL (80-110); HEMOLYSIS < 15 (0-50); Sodium 141 mmol/L (137-145)
== END ==
PROVIDERS: Visit Provider Nurse Practitioner Family
DX: N18.9 Chronic kidney disease, unspecified (principal)
CPT/HCPCS: 36415; 80048; 85025

== ENCOUNTER → 2021-01-25 08:46 | Outpatient (ROUT) | payer MEDICARE, MEDICAID, SELFPAY ==
[2021-01-25 09:21] LABS: Add Manual Diff / Slide Review NO; Basophils Absolute Auto 100 /uL (0-100); Basophils Percent Auto 1.2 % (0-2); Eosinophils Absolute Auto 400 /uL (0-450); Eosinophils Percent Auto 5.7 % (2-4); Hematocrit 37.7 % (36-46); Hemoglobin 12.3 g/dL (12.0-16.0); Lymphocytes Absolute Auto 2700 /uL (1100-4500); Lymphocytes Percent Auto 38.9 % (25-40); Mean Corpuscular HGB Conc 32.6 % (30-36); Mean Corpuscular Volume 89.1 fL (80-100); Monocytes Absolute Auto 400 /uL (0-900); Monocytes Percent Auto 6.2 % (3-14); Neutrophils Absolute Auto 3400 /uL (1500-7000); Platelet Count 213 X10^3/uL (150-400); Red Blood Cell Count 4.23 X10^6/uL (4.0-5.2); Red Cell Distribution Width 13.7 % (11.6-14.8)
[2021-01-25 09:41] LABS: BUN Creatinine Ratio 13.1 (6-22); Blood Urea Nitrogen 23 mg/dL (7-17); Calcium 9.5 mg/dL (8.4-10.2); Carbon Dioxide 26 mmol/L (22-32); Chloride 107 mmol/L (98-107); Estimated Glomerular Filt Rate 27.9 mL/min (>60); Glucose 95 mg/dL (80-110); HEMOLYSIS < 15 (0-50); Potassium 4.5 mmol/L (3.4-5.1); Sodium 141 mmol/L (137-145)
[2021-01-25 12:55] LABS: Clostridium Difficile Tox PCR Positive for C. diff
[2021-01-26 14:34] LABS: C difficie Toxins A and B, EIA Positive (Negative)
== END ==
PROVIDERS: Visit Provider Nurse Practitioner Gerontology
DX: R19.7 Diarrhea, unspecified (principal); N18.9 Chronic kidney disease, unspecified
CPT/HCPCS: 36415; 80048; 85025; 87493

== ENCOUNTER → 2021-02-01 08:00 | Outpatient (ROUT) | payer MEDICARE, MEDICAID, SELFPAY ==
[2021-02-01 08:50] LABS: Add Manual Diff / Slide Review NO; Basophils Absolute Auto 100 /uL (0-100); Basophils Percent Auto 1.7 % (0-2); Eosinophils Absolute Auto 300 /uL (0-450); Eosinophils Percent Auto 4.8 % (2-4); Hemoglobin 12.3 g/dL (12.0-16.0); Lymphocytes Absolute Auto 2700 /uL (1100-4500); Lymphocytes Percent Auto 40.9 % (25-40); Mean Corpuscular HGB Conc 33.1 % (30-36); Mean Corpuscular Hemoglobin 29.4 PG (26-34); Mean Corpuscular Volume 88.6 fL (80-100); Monocytes Absolute Auto 500 /uL (0-900); Neutrophils Absolute Auto 3000 /uL (1500-7000); Neutrophils Percent Auto 45.6 % (50-75); Platelet Count 192 X10^3/uL (150-400); Red Blood Cell Count 4.18 X10^6/uL (4.0-5.2); Red Cell Distribution Width 13.5 % (11.6-14.8); White Blood Cell Count 6.5 X10^3/uL (4.5-11.0)
[2021-02-01 09:14] LABS: Blood Urea Nitrogen 24 mg/dL (7-17); Calcium 9.4 mg/dL (8.4-10.2); Carbon Dioxide 28 mmol/L (22-32); Chloride 106 mmol/L (98-107); Estimated Glomerular Filt Rate 38.5 mL/min (>60); Glucose 97 mg/dL (80-110); HEMOLYSIS < 15 (0-50); Potassium 4.6 mmol/L (3.4-5.1); Sodium 140 mmol/L (137-145)
== END ==
PROVIDERS: Visit Provider Nurse Practitioner Family
DX: N17.9 Acute kidney failure, unspecified (principal); A04.72 Enterocolitis due to Clostridium difficile, not specified as recurrent
CPT/HCPCS: 36415; 80048; 85025

== ENCOUNTER → 2021-02-15 10:16 | Outpatient (ROUT) | payer MEDICARE, MEDICAID, SELFPAY ==
[2021-02-15 11:42] LABS: Add Manual Diff / Slide Review NO; Basophils Absolute Auto 0 /uL (0-100); Basophils Percent Auto 0.5 % (0-2); Eosinophils Absolute Auto 400 /uL (0-450); Eosinophils Percent Auto 6.5 % (2-4); Hematocrit 33.4 % (36-46); Hemoglobin 11.2 g/dL (12.0-16.0); Lymphocytes Absolute Auto 2300 /uL (1100-4500); Lymphocytes Percent Auto 35.6 % (25-40); Mean Corpuscular HGB Conc 33.4 % (30-36); Mean Corpuscular Hemoglobin 29.7 PG (26-34); Mean Corpuscular Volume 89.1 fL (80-100); Monocytes Absolute Auto 400 /uL (0-900); Monocytes Percent Auto 6.6 % (3-14); Neutrophils Absolute Auto 3200 /uL (1500-7000); Neutrophils Percent Auto 50.8 % (50-75); Platelet Count 173 X10^3/uL (150-400); Red Blood Cell Count 3.75 X10^6/uL (4.0-5.2); Red Cell Distribution Width 13.5 % (11.6-14.8); White Blood Cell Count 6.4 X10^3/uL (4.5-11.0)
[2021-02-15 12:16] LABS: Blood Urea Nitrogen 22 mg/dL (7-17); Calcium 8.7 mg/dL (8.4-10.2); Carbon Dioxide 28 mmol/L (22-32); Chloride 104 mmol/L (98-107); Glucose 174 mg/dL (80-110); HEMOLYSIS < 15 (0-50); Potassium 4.2 mmol/L (3.4-5.1); Sodium 139 mmol/L (137-145)
[2021-02-15 12:31] LABS: BUN Creatinine Ratio 15.1 (6-22); Estimated Glomerular Filt Rate 34.6 mL/min (>60)
== END ==
PROVIDERS: Visit Provider Nurse Practitioner Family
DX: A49.8 Other bacterial infections of unspecified site (principal)
CPT/HCPCS: 36415; 80048; 85025

== ENCOUNTER → 2021-03-01 07:55 | Outpatient (ROUT) | payer MEDICARE, MEDICAID, SELFPAY ==
[2021-03-01 09:35] LABS: BUN Creatinine Ratio 15.8 (6-22); Blood Urea Nitrogen 23 mg/dL (7-17); Calcium 9.5 mg/dL (8.4-10.2); Carbon Dioxide 31 mmol/L (22-32); Chloride 103 mmol/L (98-107); Estimated Glomerular Filt Rate 34.6 mL/min (>60); Glucose 137 mg/dL (80-110); HEMOLYSIS < 15 (0-50); Potassium 4.4 mmol/L (3.4-5.1); Sodium 140 mmol/L (137-145)
== END ==
PROVIDERS: Visit Provider Nurse Practitioner Family
DX: N18.9 Chronic kidney disease, unspecified (principal)
CPT/HCPCS: 36415; 80048

== ENCOUNTER → 2021-03-15 07:29 | Outpatient (ROUT) | payer MEDICARE, MEDICAID, SELFPAY ==
[2021-03-15 08:59] LABS: Cholesterol 145 mg/dL (140-199); HDL Cholesterol 57 mg/dL (40-60); LDL Cholesterol Calculated 46 mg/dL (<100); Triglycerides 208 mg/dL (35-150)
== END ==
PROVIDERS: Visit Provider Nurse Practitioner Gerontology
DX: E78.5 Hyperlipidemia, unspecified (principal)
CPT/HCPCS: 36415; 80061

== ENCOUNTER → 2021-03-22 08:05 | Outpatient (ROUT) | payer MEDICARE, MEDICAID, SELFPAY ==
[2021-03-22 08:51] LABS: BUN Creatinine Ratio 16.5 (6-22); Blood Urea Nitrogen 21 mg/dL (7-17); Calcium 9.2 mg/dL (8.4-10.2); Carbon Dioxide 29 mmol/L (22-32); Chloride 102 mmol/L (98-107); Estimated Glomerular Filt Rate 40.6 mL/min (>60); Glucose 193 mg/dL (80-110); HEMOLYSIS < 15 (0-50); Potassium 4.3 mmol/L (3.4-5.1); Sodium 139 mmol/L (137-145)
== END ==
PROVIDERS: Visit Provider Nurse Practitioner Family
DX: N18.9 Chronic kidney disease, unspecified (principal)
CPT/HCPCS: 36415; 80048

== ENCOUNTER → 2021-03-29 08:21 | Outpatient (ROUT) | payer MEDICARE, MEDICAID, SELFPAY ==
[2021-03-29 09:22] LABS: BUN Creatinine Ratio 18.7 (6-22); Blood Urea Nitrogen 23 mg/dL (7-17); Calcium 9.6 mg/dL (8.4-10.2); Carbon Dioxide 28 mmol/L (22-32); Chloride 104 mmol/L (98-107); Estimated Glomerular Filt Rate 42.1 mL/min (>60); Glucose 179 mg/dL (80-110); HEMOLYSIS < 15 (0-50); Potassium 4.3 mmol/L (3.4-5.1); Sodium 139 mmol/L (137-145)
== END ==
PROVIDERS: Visit Provider Internal Medicine
DX: Z79.899 Other long term (current) drug therapy (principal)
CPT/HCPCS: 36415; 80048

== ENCOUNTER → 2021-04-05 14:08 | Outpatient (CLI) | payer MEDICARE, MEDICAID, SELFPAY ==
--- NOTE | 2021-04-05 14:16 | DI.US.S_ITS ---
PROCEDURE: US ABDOMEN LIMITED INDICATIONS: RIGHT UPPER QUADRANT PAIN TECHNIQUE: Real-time focused scanning was performed of the abdomen, with image documentation. COMPARISON: None. FINDINGS: Liver measures 17.0 cm in length. There is diffuse increased echogenicity throughout. No focal hepatic lesion. There are numerous gallstones. 5.7 mm gallstone seen at the gallbladder neck demonstrates non mobile appearance. No definite gallbladder wall thickening the gallbladder wall measures 1.4 mm. No pericholecystic fluid or sonographic Bruce sign. Intra and extrahepatic bile ducts appear nondilated. There is dilatation of the pancreatic duct at the head measuring 6 mm. Otherwise pancreas is grossly unremarkable. IMPRESSION: Cholelithiasis. Elsewhere, no additional specific sonographic criteria for acute cholecystitis. Recommend clinical correlation and with LFTs. Prominent pancreatic ductal dilatation at the head, of unclear etiology or age. This could be further assessed with MRCP or pancreatic protocol contrast enhanced MRI as clinically necessary. Coarse echogenic liver suggesting diffuse hepatocellular disease/fatty infiltration. Please correlate with LFTs. Dictated by: Juan Causey M.D. on 04/05/2021 at 15:59 Approved by: Juan Causey M.D. on 04/05/2021 at 16:01
[2021-04-05 15:54] LABS: Add Manual Diff / Slide Review NO; Basophils Absolute Auto 100 /uL (0-100); Basophils Percent Auto 0.7 % (0-2); Eosinophils Absolute Auto 300 /uL (0-450); Eosinophils Percent Auto 3.9 % (2-4); Hematocrit 39.5 % (36-46); Hemoglobin 12.9 g/dL (12.0-16.0); Lymphocytes Absolute Auto 2600 /uL (1100-4500); Lymphocytes Percent Auto 33.6 % (25-40); Mean Corpuscular HGB Conc 32.8 % (30-36); Mean Corpuscular Hemoglobin 29.1 PG (26-34); Mean Corpuscular Volume 88.6 fL (80-100); Monocytes Absolute Auto 400 /uL (0-900); Monocytes Percent Auto 5.4 % (3-14); Neutrophils Absolute Auto 4400 /uL (1500-7000); Neutrophils Percent Auto 56.4 % (50-75); Platelet Count 240 X10^3/uL (150-400); Red Blood Cell Count 4.45 X10^6/uL (4.0-5.2); Red Cell Distribution Width 13.3 % (11.6-14.8); White Blood Cell Count 7.9 X10^3/uL (4.5-11.0)
[2021-04-05 16:09] LABS: Alanine Aminotransferase 15 IU/L (<35); Albumin 4.4 g/dL (3.5-5.0); Albumin Globulin Ratio 1.4 (1.0-2.8); Alkaline Phosphatase 116 U/L (38-126); Amylase 77 U/L (30-110); Aspartate Aminotransferase 24 IU/L (14-36); BUN Creatinine Ratio 17.4 (6-22); Bilirubin Total 0.3 mg/dL (0.2-1.3); Blood Urea Nitrogen 23 mg/dL (7-17); Calcium 10.1 mg/dL (8.4-10.2); Carbon Dioxide 30 mmol/L (22-32); Chloride 104 mmol/L (98-107); Estimated Glomerular Filt Rate 38.8 mL/min (>60); Globulin 3.2 g/dL (1.7-4.1); Glucose 149 mg/dL (80-110); HEMOLYSIS < 15 (0-50); Potassium 4.4 mmol/L (3.4-5.1); Sodium 143 mmol/L (137-145); Total Protein 7.6 g/dL (6.3-8.2)
== END ==
PROVIDERS: PCP Internal Medicine; Referring Provider Nurse Practitioner Gerontology; Visit Provider Internal Medicine
DX: R10.11 Right upper quadrant pain (principal); K80.20 Calculus of gallbladder without cholecystitis without obstruction; K86.89 Other specified diseases of pancreas
CPT/HCPCS: 36415; 76705; 80053; 82150; 85025

== ENCOUNTER → 2021-04-06 15:17 | Outpatient (CLI) | payer MEDICARE, MEDICAID, SELFPAY ==
--- NOTE | 2021-04-06 | DI.RAD.S_ITS ---
PROCEDURE: XR RIBS RT 2V INDICATIONS: PAIN TECHNIQUE: 2 views of the right ribs were acquired. COMPARISON: [facility], CT, CT CHEST WO CON, 03/31/2019, 11:08. FINDINGS: Surgical changes and devices: None. Bones and chest wall: Question of nondisplaced fracture at the right lateral 9th rib. No dislocations. No suspicious bony lesions. Overlying soft tissues appear unremarkable. Lungs and pleura: The visualized lung appears clear. No pleural effusions or pneumothorax are visible. IMPRESSION: Motion artifact. Question of nondisplaced fracture at the right lateral 9th rib. Correlate for point tenderness. Dictated by: Luis Alberto Garcia M.D. on 04/06/2021 at 17:25 Approved by: Luis Alberto Garcia M.D. on 04/06/2021 at 17:27
--- NOTE | 2021-04-06 15:24 | DI.RAD.S_ITS ---
PROCEDURE: XR CHEST 2V INDICATIONS: Chest pain/Dyspnea/Hx of fall TECHNIQUE: 2 views of the chest were acquired. COMPARISON: [facility], CR, XR RIBS RT 2V, 04/06/2021, 15:34. [facility], CT, CT CHEST WO CON, 03/31/2019, 11:08. FINDINGS: Surgical changes and devices: None. Lungs and pleura: Prominent diffuse interstitial markings bilaterally, this appears similar to 2018. No consolidation. No pleural effusions or pneumothorax. Mediastinum: Mediastinal contours are normal. Heart size is normal. Bones and chest wall: No suspicious bony abnormalities. No fractures identified on this exam. Soft tissues appear unremarkable. IMPRESSION: No acute cardiopulmonary abnormality. Prominent diffuse interstitial markings. This could represent pulmonary edema or interstitial lung disease. Dictated by: Luis Alberto Garcia M.D. on 04/06/2021 at 17:22 Approved by: Luis Alberto aGrcia M.D. on 04/06/2021 at 17:25
[2021-04-06 16:49] LABS: D Dimer 337 ng/mL (<230)
== END ==
PROVIDERS: PCP Internal Medicine; Referring Provider Internal Medicine; Visit Provider Internal Medicine
DX: R06.00 Dyspnea, unspecified (principal); R07.9 Chest pain, unspecified; Z91.81 History of falling
CPT/HCPCS: 36415; 71046; 71100; 85379

== ENCOUNTER → 2021-04-07 07:52 | Outpatient (ROUT) | payer MEDICARE, MEDICAID, SELFPAY ==
[2021-04-07 08:55] LABS: NT-proBNP (BNP-Adult 18+) 212 pg/mL (<450)
== END ==
PROVIDERS: PCP Internal Medicine; Visit Provider Internal Medicine
DX: I50.9 Heart failure, unspecified (principal)
CPT/HCPCS: 36415; 83880

== ENCOUNTER → 2021-06-21 07:47 | Outpatient (ROUT) | payer MEDICARE, MEDICAID, SELFPAY ==
[2021-06-21 09:14] LABS: BUN Creatinine Ratio 16.8 (6-22); Blood Urea Nitrogen 20 mg/dL (7-17); Calcium 9.6 mg/dL (8.4-10.2); Carbon Dioxide 27 mmol/L (22-32); Chloride 104 mmol/L (98-107); Estimated Glomerular Filt Rate 43.6 mL/min (>60); Glucose 160 mg/dL (80-110); HEMOLYSIS < 15 (0-50); Potassium 3.8 mmol/L (3.4-5.1); Sodium 141 mmol/L (137-145)
== END ==
PROVIDERS: PCP Internal Medicine; Visit Provider Nurse Practitioner Family
DX: N18.9 Chronic kidney disease, unspecified (principal)
CPT/HCPCS: 36415; 80048

== ENCOUNTER → 2021-06-27 12:59 | Outpatient (ROUT) | payer MEDICARE, MEDICAID, SELFPAY ==
[2021-06-27 13:10] LABS: Appearance Urine UA CLOUDY; Bilirubin Urine UA NEGATIVE (NEGATIVE); Color Urine UA YELLOW; Glucose Urine UA 2+ g/dL (Negative); Ketones Urine UA NEGATIVE (NEGATIVE); Leukocyte Esterase Urine UA TRACE (NEGATIVE); Nitrite Urine UA NEGATIVE (Negative); Occult Blood Urine UA 1+ (Negative); Protein Urine UA 3+ (Negative); Specific Gravity Urine UA 1.025 (1.000-1.035); Urobilinogen Urine UA 0.2 E.U./dL (0.2)
[2021-06-27 13:28] LABS: Bacteria Urine Many (>30); Culture Indicated Urine Specimen Cultured; RBC Urine 5-10/HPF (0-5/HPF); WBC Urine 10-30/HPF (0-5/HPF)
== END ==
PROVIDERS: PCP Internal Medicine; Visit Provider Nurse Practitioner Gerontology
DX: R30.0 Dysuria (principal); R35.0 Frequency of micturition; R10.819 Abdominal tenderness, unspecified site
CPT/HCPCS: 81001; 87077; 87086; 87186

== ENCOUNTER → 2021-06-28 16:47 | Outpatient (ROUT) | payer MEDICARE, MEDICAID, SELFPAY ==
[2021-06-28 18:00] LABS: Clostridium Difficile Tox PCR Negative for C. diff (Negative)
== END ==
PROVIDERS: PCP Internal Medicine; Visit Provider Internal Medicine
DX: R19.7 Diarrhea, unspecified (principal)
CPT/HCPCS: 87493

== ENCOUNTER → 2021-07-12 08:51 | Outpatient (ROUT) | payer MEDICARE, MEDICAID, SELFPAY ==
[2021-07-12 10:24] LABS: BUN Creatinine Ratio 28.6 (6-22); Blood Urea Nitrogen 46 mg/dL (7-17); Calcium 9.4 mg/dL (8.4-10.2); Carbon Dioxide 28 mmol/L (22-32); Chloride 106 mmol/L (98-107); Estimated Glomerular Filt Rate 30.8 mL/min (>60); Glucose 219 mg/dL (80-110); HEMOLYSIS < 15 (0-50); Potassium 4.6 mmol/L (3.4-5.1); Sodium 140 mmol/L (137-145)
== END ==
PROVIDERS: PCP Internal Medicine; Visit Provider Nurse Practitioner Family
DX: Z51.81 Encounter for therapeutic drug level monitoring (principal)
CPT/HCPCS: 36415; 80048

== ENCOUNTER → 2021-07-19 07:57 | Outpatient (ROUT) | payer MEDICARE, MEDICAID, SELFPAY ==
[2021-07-19 08:21] LABS: Add Manual Diff / Slide Review NO; Basophils Absolute Auto 0 /uL (0-100); Basophils Percent Auto 0.7 % (0-2); Eosinophils Absolute Auto 400 /uL (0-450); Eosinophils Percent Auto 6.2 % (2-4); Hematocrit 39.1 % (36-46); Hemoglobin 12.6 g/dL (12.0-16.0); Lymphocytes Absolute Auto 3100 /uL (1100-4500); Mean Corpuscular HGB Conc 32.2 % (30-36); Mean Corpuscular Hemoglobin 28.8 PG (26-34); Mean Corpuscular Volume 89.4 fL (80-100); Monocytes Absolute Auto 400 /uL (0-900); Monocytes Percent Auto 5.9 % (3-14); Neutrophils Absolute Auto 3000 /uL (1500-7000); Neutrophils Percent Auto 43.2 % (50-75); Platelet Count 203 X10^3/uL (150-400); Red Blood Cell Count 4.37 X10^6/uL (4.0-5.2); Red Cell Distribution Width 13.4 % (11.6-14.8)
[2021-07-19 08:47] LABS: BUN Creatinine Ratio 24.5 (6-22); Blood Urea Nitrogen 35 mg/dL (7-17); Calcium 9.3 mg/dL (8.4-10.2); Carbon Dioxide 27 mmol/L (22-32); Chloride 106 mmol/L (98-107); Estimated Glomerular Filt Rate 35.3 mL/min (>60); Glucose 238 mg/dL (80-110); HEMOLYSIS < 15 (0-50); Potassium 4.5 mmol/L (3.4-5.1); Sodium 140 mmol/L (137-145)
== END ==
PROVIDERS: PCP Internal Medicine; Visit Provider Nurse Practitioner Family
DX: N18.9 Chronic kidney disease, unspecified (principal); R19.7 Diarrhea, unspecified
CPT/HCPCS: 36415; 80048; 85025; 87177; 87205

== ENCOUNTER → 2021-08-04 16:46 | Outpatient (ROUT) | payer MEDICARE, MEDICAID, SELFPAY ==
[2021-08-04 17:06] LABS: Appearance Urine UA SL CLOUDY; Bilirubin Urine UA NEGATIVE (NEGATIVE); Color Urine UA YELLOW; Glucose Urine UA 1+ g/dL (Negative); Ketones Urine UA NEGATIVE (NEGATIVE); Leukocyte Esterase Urine UA TRACE (NEGATIVE); Nitrite Urine UA NEGATIVE (Negative); Occult Blood Urine UA 3+ (Negative); Protein Urine UA 1+ (Negative); Urobilinogen Urine UA 0.2 E.U./dL (0.2)
[2021-08-04 17:14] LABS: Bacteria Urine Many (>30); Culture Indicated Urine Specimen Cultured; RBC Urine 30-100/HPF (0-5/HPF); WBC Urine 30-100/HPF (0-5/HPF)
== END ==
PROVIDERS: PCP Internal Medicine; Visit Provider Nurse Practitioner Family
DX: N39.0 Urinary tract infection, site not specified (principal)
CPT/HCPCS: 81001; 87077; 87086; 87186

== ENCOUNTER → 2021-08-05 12:58 | Outpatient (ROUT) | payer MEDICARE, MEDICAID, SELFPAY ==
[2021-08-05 15:00] LABS: Clostridium Difficile Tox PCR Negative for C. diff (Negative)
== END ==
PROVIDERS: PCP Internal Medicine; Visit Provider Nurse Practitioner Family
DX: R19.7 Diarrhea, unspecified (principal)
CPT/HCPCS: 87493

== ENCOUNTER → 2021-08-09 16:52 | Outpatient (ROUT) | payer MEDICARE, MEDICAID, SELFPAY ==
[2021-08-09 16:59] LABS: Add Manual Diff / Slide Review NO; Basophils Absolute Auto 100 /uL (0-100); Eosinophils Absolute Auto 500 /uL (0-450); Eosinophils Percent Auto 6.7 % (2-4); Hematocrit 36.9 % (36-46); Hemoglobin 12.1 g/dL (12.0-16.0); Lymphocytes Absolute Auto 2400 /uL (1100-4500); Lymphocytes Percent Auto 34.7 % (25-40); Mean Corpuscular HGB Conc 32.7 % (30-36); Mean Corpuscular Hemoglobin 29.3 PG (26-34); Mean Corpuscular Volume 89.5 fL (80-100); Monocytes Absolute Auto 400 /uL (0-900); Monocytes Percent Auto 6.3 % (3-14); Neutrophils Absolute Auto 3600 /uL (1500-7000); Neutrophils Percent Auto 51.3 % (50-75); Platelet Count 182 X10^3/uL (150-400); Red Blood Cell Count 4.12 X10^6/uL (4.0-5.2); Red Cell Distribution Width 13.5 % (11.6-14.8)
[2021-08-09 17:06] LABS: BUN Creatinine Ratio 31.5 (6-22); Blood Urea Nitrogen 45 mg/dL (7-17); Calcium 9.2 mg/dL (8.4-10.2); Carbon Dioxide 25 mmol/L (22-32); Chloride 103 mmol/L (98-107); Estimated Glomerular Filt Rate 35.3 mL/min (>60); Glucose 353 mg/dL (80-110); HEMOLYSIS < 15 (0-50); Sodium 135 mmol/L (137-145)
[2021-08-09 17:17] LABS: Potassium 5.5 mmol/L (3.4-5.1)
== END ==
PROVIDERS: PCP Internal Medicine; Visit Provider Internal Medicine
DX: R30.0 Dysuria (principal); R10.9 Unspecified abdominal pain; R11.0 Nausea
CPT/HCPCS: 80048; 85025

== ENCOUNTER → 2021-08-12 20:07 | Outpatient (ROUT) | payer MEDICARE, MEDICAID, SELFPAY ==
[2021-08-12 20:26] LABS: BUN Creatinine Ratio 24.3 (6-22); Blood Urea Nitrogen 35 mg/dL (7-17); Calcium 9.4 mg/dL (8.4-10.2); Carbon Dioxide 27 mmol/L (22-32); Chloride 103 mmol/L (98-107); Glucose 291 mg/dL (80-110); HEMOLYSIS < 15 (0-50); Potassium 4.7 mmol/L (3.4-5.1); Sodium 137 mmol/L (137-145)
== END ==
PROVIDERS: PCP Internal Medicine; Visit Provider Internal Medicine
DX: E87.5 Hyperkalemia (principal); N19 Unspecified kidney failure
CPT/HCPCS: 80048

== ENCOUNTER → 2021-08-16 07:53 | Outpatient (ROUT) | payer MEDICARE, MEDICAID, SELFPAY ==
[2021-08-16 09:31] LABS: BUN Creatinine Ratio 23.9 (6-22); Blood Urea Nitrogen 37 mg/dL (7-17); Calcium 9.2 mg/dL (8.4-10.2); Carbon Dioxide 30 mmol/L (22-32); Chloride 102 mmol/L (98-107); Estimated Glomerular Filt Rate 32.2 mL/min (>60); Glucose 235 mg/dL (80-110); HEMOLYSIS < 15 (0-50); Potassium 4.4 mmol/L (3.4-5.1); Sodium 137 mmol/L (137-145)
== END ==
PROVIDERS: PCP Internal Medicine; Visit Provider Nurse Practitioner Family
DX: N18.9 Chronic kidney disease, unspecified (principal)
CPT/HCPCS: 36415; 80048

== ENCOUNTER → 2021-08-19 13:50 | Outpatient (CLI) | payer MEDICARE, MEDICAID, SELFPAY ==
--- NOTE | 2021-08-19 | DI.MRI.S_ITS ---
PROCEDURE: MR ABDOMEN WO/W CON INDICATIONS: Other specified diseases of pancreas TECHNIQUE: Coronal HASTE, axial 2D FLASH in- and [id number]; axial breath-hold T2 FSE with fat saturation from the hepatic dome to the iliac crests. Oblique coronal thin-slice and radial thick slab HASTE through the biliary system. Dynamic axial VIBE during administration of contrast. Post-contrast coronal VIBE or 2D FLASH with fat saturation from the hepatic dome to the iliac crests. Optional diffusion weighted imaging and ADC may be performed. COMPARISON: [facility], US, US ABDOMEN LIMITED, 04/05/2021, 14:23. FINDINGS: Image quality: There is extensive motion artifact limiting evaluation. Pancreas and biliary system: The gallbladder is nondistended with a few small filling defects consistent with gallstones. No biliary ductal dilatation. No discrete filling defects to suggest choledocholithiasis. The pancreatic duct is at the upper limits of normal in caliber, measuring 3-4 mm. No definite obstruting mass identified. No peripancreatic edema or fluid collections. Solid organs: The liver demonstrates signal dropout on [id number] imaging consistent with fatty infiltration. No discrete hepatic mass identified, with evaluation limited by motion artifact. The spleen is normal in size. No adrenal nodules. Kidneys demonstrate no hydronephrosis. Nodes and vessels: No retroperitoneal or mesenteric adenopathy by size criteria. Aorta and inferior vena cava are normal in size. Bowel and peritoneum: Visualized bowel loops are normal in caliber. No free fluid. Lung bases: No basal pleural effusions. Heart size is mildly enlarged. Bones and soft tissues: No ventral hernias. Bone marrow is normal in overall signal. IMPRESSION: 1. Pancreatic duct is at the upper limits of normal in caliber. No discrete pancreatic mass identified. 2. No MRI evidence of pancreatitis. 3. Cholelithiasis without biliary ductal dilatation or definite choledocholithiasis. Dictated by: Bassem Acosta M.D. on 08/22/2021 at 9:47 Approved by: Bassem Acosta M.D. on 08/22/2021 at 10:11
== END ==
PROVIDERS: PCP Internal Medicine; Referring Provider Internal Medicine; Visit Provider Nurse Practitioner Family
DX: K86.89 Other specified diseases of pancreas (principal); K80.20 Calculus of gallbladder without cholecystitis without obstruction
CPT/HCPCS: 74183; A9579

== ENCOUNTER → 2021-09-01 12:52 | Outpatient (ROUT) | payer MEDICARE, MEDICAID, SELFPAY ==
[2021-09-01 12:57] LABS: Add Manual Diff / Slide Review NO; Basophils Absolute Auto 0 /uL (0-100); Basophils Percent Auto 0.4 % (0-2); Eosinophils Absolute Auto 200 /uL (0-450); Eosinophils Percent Auto 1.7 % (2-4); Hematocrit 35.4 % (36-46); Hemoglobin 11.6 g/dL (12.0-16.0); Lymphocytes Absolute Auto 4700 /uL (1100-4500); Lymphocytes Percent Auto 41.9 % (25-40); Mean Corpuscular HGB Conc 32.7 % (30-36); Mean Corpuscular Hemoglobin 28.8 PG (26-34); Mean Corpuscular Volume 87.9 fL (80-100); Monocytes Absolute Auto 700 /uL (0-900); Monocytes Percent Auto 6.6 % (3-14); Neutrophils Absolute Auto 5600 /uL (1500-7000); Neutrophils Percent Auto 49.4 % (50-75); Platelet Count 255 X10^3/uL (150-400); Red Blood Cell Count 4.03 X10^6/uL (4.0-5.2); Red Cell Distribution Width 13.5 % (11.6-14.8); White Blood Cell Count 11.3 X10^3/uL (4.5-11.0)
[2021-09-01 13:10] LABS: BUN Creatinine Ratio 26.9 (6-22); Blood Urea Nitrogen 46 mg/dL (7-17); Calcium 9.3 mg/dL (8.4-10.2); Carbon Dioxide 29 mmol/L (22-32); Chloride 99 mmol/L (98-107); Estimated Glomerular Filt Rate 28.7 mL/min (>60); Glucose 150 mg/dL (80-110); HEMOLYSIS < 15 (0-50); Potassium 3.8 mmol/L (3.4-5.1); Sodium 139 mmol/L (137-145)
[2021-09-01 16:34] LABS: NT-proBNP (BNP-Adult 18+) 240 pg/mL (<450)
== END ==
PROVIDERS: PCP Internal Medicine; Visit Provider Nurse Practitioner Family
DX: R60.9 Edema, unspecified (principal); R41.0 Disorientation, unspecified
CPT/HCPCS: 80048; 83880; 85025

== ENCOUNTER → 2021-09-13 08:28 | Outpatient (ROUT) | payer MEDICARE, MEDICAID, SELFPAY ==
[2021-09-13 09:24] LABS: BUN Creatinine Ratio 23.7 (6-22); Blood Urea Nitrogen 33 mg/dL (7-17); Calcium 9.5 mg/dL (8.4-10.2); Carbon Dioxide 32 mmol/L (22-32); Chloride 105 mmol/L (98-107); Estimated Glomerular Filt Rate 36.5 mL/min (>60); Glucose 206 mg/dL (80-110); HEMOLYSIS < 15 (0-50); Potassium 3.7 mmol/L (3.4-5.1); Sodium 143 mmol/L (137-145)
== END ==
PROVIDERS: PCP Internal Medicine; Visit Provider Nurse Practitioner Family
DX: N18.9 Chronic kidney disease, unspecified (principal)
CPT/HCPCS: 36415; 80048

== ENCOUNTER 2021-09-23 16:12 | Emergency (ER) | payer MEDICARE, MEDICAID, SELFPAY ==
[2021-09-23] VITALS (23 sets, daily range): BP systolic 138–218; BP diastolic 75–163; PULSE 79–91; RESP 18–25; TEMP 37.3–37.7; O2SAT 92–96; BMI 34.9
--- NOTE | 2021-09-23 16:33 | DI.RAD.S_ITS ---
PROCEDURE: XR CHEST 1V INDICATIONS: Covid 19 TECHNIQUE: One view of the chest was acquired. COMPARISON: [facility], CR, XR RIBS RT 2V, 04/06/2021, 15:34. [facility], CR, XR CHEST 2V, 04/06/2021, 15:32. [facility], CR, XR CHEST 2V, 03/15/2018, 10:43. FINDINGS: Surgical changes and devices: None. Lungs and pleura: Interstitial prominence is decreased and could be related to technique. No consolidation. No pleural effusions or pneumothorax. Mediastinum: Mediastinal contours appear unchanged. Heart size is at the upper limits of normal. Bones and chest wall: No suspicious bony lesions. Overlying soft tissues appear unremarkable. IMPRESSION: No focal airspace opacities identified. Dictated by: Luis Alberto Garcia M.D. on 09/23/2021 at 16:53 Approved by: Luis Alberto Garcia M.D. on 09/23/2021 at 16:55
[2021-09-23 17:16] LABS: Add Manual Diff / Slide Review NO; Basophils Absolute Auto 0 /uL (0-100); Basophils Percent Auto 0.6 % (0-2); Eosinophils Absolute Auto 200 /uL (0-450); Eosinophils Percent Auto 2.9 % (2-4); Hematocrit 36.1 % (36-46); Hemoglobin 11.9 g/dL (12.0-16.0); Lymphocytes Absolute Auto 1200 /uL (1100-4500); Mean Corpuscular Hemoglobin 29.3 PG (26-34); Mean Corpuscular Volume 88.8 fL (80-100); Monocytes Absolute Auto 800 /uL (0-900); Monocytes Percent Auto 12.7 % (3-14); Neutrophils Absolute Auto 4100 /uL (1500-7000); Neutrophils Percent Auto 64.8 % (50-75); Platelet Count 176 X10^3/uL (150-400); Red Blood Cell Count 4.06 X10^6/uL (4.0-5.2); White Blood Cell Count 6.4 X10^3/uL (4.5-11.0)
[2021-09-23 17:25] LABS: D Dimer 212 ng/mL (<230)
[2021-09-23 17:26] LABS: Lactate (Lactic Acid) 1.5 mmol/L (0.7-2.1)
[2021-09-23 17:27] LABS: BUN Creatinine Ratio 21.5 (6-22); Blood Urea Nitrogen 32 mg/dL (7-17); Calcium 9.4 mg/dL (8.4-10.2); Carbon Dioxide 28 mmol/L (22-32); Chloride 100 mmol/L (98-107); Creatine Kinase 57 U/L (30-135); Estimated Glomerular Filt Rate 33.7 mL/min (>60); Glucose 346 mg/dL (80-110); HEMOLYSIS < 15 (0-50); Magnesium 1.6 mg/dL (1.6-2.3); Potassium 3.9 mmol/L (3.4-5.1); Sodium 136 mmol/L (137-145)
[2021-09-23 17:39] LABS: NT-proBNP (BNP-Adult 18+) 241 pg/mL (<450); Troponin I < 0.012 ng/mL (0.01-0.034)
[2021-09-23 17:59] LABS: COVID19 -Nasal RAPID POSITIVE (Negative)
--- NOTE | 2021-09-23 18:07 | ED.SOB ---
HPI - SOB/Dyspnea General Chief Complaint: Shortness of Breath/Dyspnea Stated Complaint: Covid + Time Seen by Provider: 09/23/21 16:30 Source: patient Mode of arrival: EMS Limitations: no limitations History of Present Illness HPI Narrative: The patient arrives from [facility] due to reported difficulty breathing. She has COVID. Upon arrival she is normotensive, afebrile, with O2 sats in the upper 90s on room air. The patient is very poor historian. She has a mild headache. His no visual changes or sore throat. She has no chest discomfort, cough or dyspnea. She has no GI symptoms. She denies edema. Her med list obtain. She is treated for hypertension, diabetes, neuropathy, hyperlipidemia, and osteoarthritis. She has no chronic respiratory illnesses. Related Data Allergies Allergy/AdvReac Type Severity Reaction Status Date / Time No Known Drug Allergies Allergy Verified 09/23/21 16:20 Review of Systems Review of Systems Narrative: See HPI. RS is quite limited due to the patient's inability to communicate her medical situation. Patient History Medical History (Updated 09/23/21 @ 19:09 by Nabor Finnegan MD) Diabetes Hyperlipidemia Hypertension Major depression Neuropathy Osteoarthritis Social History Smoking Status: Unknown if ever smoked Smoking Status: Unknown if ever smoked alcohol intake frequency: holidays/special occasions only Substance Use Type: does not use Exam Initial Vital Signs Initial Vital Signs: Vital Signs Temperature 99.1 F 09/23/21 16:15 Pulse Rate 88 09/23/21 16:15 Respiratory Rate 19 09/23/21 16:15 Blood Pressure 191/86 H 09/23/21 16:15 Pulse Oximetry 96 09/23/21 16:15 Const General: cooperative and comfortable Nutritional Appearance: obese HENMT Head: normocephalic and atraumatic Ears: TM's normal bilaterally Face and sinus: sinuses tender Mouth: oral mucosae normal Throat: posterior oropharynx normal Eyes Conjunctivae: conjunctivae normal Pupils: PERRL EOM: EOM intact bilaterally Neck Neck: normal visual inspection and full ROM Chest Chest: normal inspection of the chest Resp Effort & Inspection: normal respiratory effort Auscultation: clear to auscultation bilaterally Cardio Rate: regular rate Rhythm: regular rhythm Heart Sounds: S1 normal, S2 normal and no murmurs GI Inspection: obesity Palpation: soft, No mass and No tender Auscultation: normal bowel sounds Back/Spine/Pelvis Back: normal to inspection Skin General: no rashes or lesions noted Neuro General: patient alert, patient awake and oriented (Oriented to person place.) Extrem General: normal to inspection, full ROM, no pedal edema and no calf tenderness Psych Appearance: grossly normal Mental Status: mental status grossly normal Course Course Course Narrative: The patient positive for COVID. She is not coughing. Lungs are clear. O2 sats on room air are 96%. Her chest x-ray is clear. She is doing okay. A note initial blood pressure was 200 systolic. I gave her labetalol. She has four hypertensive medications prescribed. She has as needed clonidine prescribed, 0.1 mg was given. Her blood pressures improved prior to discharge. The case was discussed with Dr. Fenton. Regeneron may be given at the facility. Orders Ordered: ED Orders 09/23/21 16:31 Consult to Respiratory Therapy Evaluate & Treat Blood Culture Stat 09/23/21 16:33 XR chest 1V Stat 09/23/21 17:05 Basic Metabolic Panel Stat Complete Blood Count AUTO DIFF Stat D Dimer Stat Lactate (Lactic Acid) Stat Magnesium Stat NT-proBNP (BNP-Adult 18+) Stat Troponin & CK Cardiac Panel Stat 09/23/21 17:42 COVID19 -Nasal swab/Pre-Proc Stat Discontinued Medications Labetalol HCl (Labetalol 20 Mg/4 Ml Syringe) 10 mg IV NOW ONE Stop: 09/23/21 18:17 Last Admin: 09/23/21 18:29 Dose: 10 mg Documented by: ANN-MARIE Vital Signs Vital signs: Vital Signs - 8 hr 09/23/21 16:15 09/23/21 16:39 09/23/21 17:00 Temperature 99.1 F Pulse Rate 88 85 85 Respiratory Rate 19 24 23 Blood Pressure 191/86 H Pulse Oximetry 96 94 94 09/23/21 17:01 09/23/21 17:30 09/23/21 17:31 Temperature Pulse Rate 87 87 91 H Respiratory Rate 25 H 23 24 Blood Pressure 196/75 H 214/163 H Pulse Oximetry 96 96 96 09/23/21 17:45 09/23/21 18:00 09/23/21 18:01 Temperature Pulse Rate 80 83 86 Respiratory Rate 18 19 24 Blood Pressure 201/76 H Pulse Oximetry 95 94 92 09/23/21 18:15 09/23/21 18:28 09/23/21 18:29 Temperature 99.9 F H Pulse Rate 85 81 81 Respiratory Rate 24 21 Blood Pressure 202/83 H 202/83 H Pulse Oximetry 94 95 MDM - SOB/Dyspnea Lab Data Result diagrams: 09/23/21 17:05 09/23/21 17:05 Labs: Lab Results 09/23/21 09/23/21 09/23/21 Range/Units 17:05 17:05 17:05 WBC 6.4 (4.5-11.0) X10^3/uL RBC 4.06 (4.0-5.2) X10^6/uL Hgb 11.9 L (12.0-16.0) g/dL Hct 36.1 (36-46) % MCV 88.8 (80-100) fL MCH 29.3 (26-34) PG MCHC 33.0 (30-36) % RDW 14.0 (11.6-14.8) % Plt Count 176 (150-400) X10^3/uL Neut % (Auto) 64.8 (50-75) % Lymph % (Auto) 19.0 L (25-40) % [place] % (Auto) 12.7 (3-14) % Eos % (Auto) 2.9 (2-4) % Baso % (Auto) 0.6 (0-2) % Neut # (Auto) 4100 (3319-9121) /uL Lymph # (Auto) 1200 (6990-3431) /uL [place] # (Auto) 800 (0-900) /uL Eos # (Auto) 200 (0-450) /uL Baso # (Auto) 0 (0-100) /uL D-Dimer 212 (<230) ng/mL Sodium 136 L (137-145) mmol/L Potassium 3.9 (3.4-5.1) mmol/L Chloride 100 (98-107) mmol/L Carbon Dioxide 28 (22-32) mmol/L BUN 32 H (7-17) mg/dL Creatinine 1.49 H (0.52-1.04) mg/dL Estimated GFR 33.7 L (>60) mL/min BUN/Creatinine Ratio 21.5 (6-22) Glucose 346 H (80-110) mg/dL Lactate (0.7-2.1) mmol/L Calcium 9.4 (8.4-10.2) mg/dL Magnesium 1.6 (1.6-2.3) mg/dL Total Creatine Kinase 57 (30-135) U/L CK-MB (CK-2) TNP CK-MB (CK-2) Rel Index TNP Troponin I < 0.012 (0.01-0.034) ng/mL NT-Pro-B Natriuret Pep 241 (<450) pg/mL SARS-CoV-2 (PCR) (Negative) 09/23/21 09/23/21 Range/Units 17:05 17:42 WBC (4.5-11.0) X10^3/uL RBC (4.0-5.2) X10^6/uL Hgb (12.0-16.0) g/dL Hct (36-46) % MCV (80-100) fL MCH (26-34) PG MCHC (30-36) % RDW (11.6-14.8) % Plt Count (150-400) X10^3/uL Neut % (Auto) (50-75) % Lymph % (Auto) (25-40) % [place] % (Auto) (3-14) % Eos % (Auto) (2-4) % Baso % (Auto) (0-2) % Neut # (Auto) (3645-6885) /uL Lymph # (Auto) (7464-5536) /uL [place] # (Auto) (0-900) /uL Eos # (Auto) (0-450) /uL Baso # (Auto) (0-100) /uL D-Dimer (<230) ng/mL Sodium (137-145) mmol/L Potassium (3.4-5.1) mmol/L Chloride (98-107) mmol/L Carbon Dioxide (22-32) mmol/L BUN (7-17) mg/dL Creatinine (0.52-1.04) mg/dL Estimated GFR (>60) mL/min BUN/Creatinine Ratio (6-22) Glucose (80-110) mg/dL Lactate 1.5 (0.7-2.1) mmol/L Calcium (8.4-10.2) mg/dL Magnesium (1.6-2.3) mg/dL Total Creatine Kinase (30-135) U/L CK-MB (CK-2) CK-MB (CK-2) Rel Index Troponin I (0.01-0.034) ng/mL NT-Pro-B Natriuret Pep (<450) pg/mL SARS-CoV-2 (PCR) Positive H (Negative) Discharge Plan Departure Patient Disposition: Home Clinical Impression: COVID-19 Hypertension Qualifiers: Hypertension type: unspecified Qualified Code(s): I10 - Essential (primary) hypertension Instructions: DI for COVID-19 (Suspected or Confirmed ) Activity Restrictions/Additional Instructions: Continue current medications. Your case was discussed with Dr. Fenton. She will follow-up with you at living facility. Referrals: Angle Fenton MD [Primary Care Provider] -
[2021-09-23] MEDS: LABETALOL 20 MG/4 ML SYRINGE 10 MG IV (18:29)
[2021-09-23] MEDS: cloNIDine 0.1 MG TABLET PO (18:55)
[2021-09-23] MEDS: ACETAMINOPHEN 325 MG TABLET 975 MG PO (19:24)
== END 2021-09-23 20:17 | disposition home or self-care (01) ==
PROVIDERS: Emergency Provider Emergency Medicine; PCP Internal Medicine
DX: U07.1 COVID-19 (principal); I10 Essential (primary) hypertension
CPT/HCPCS: 36415; 71045; 80048; 82550; 83605; 83735; 83880; 84484; 85025; 85379; 87635; 96374; 99284; C9803

== ENCOUNTER → 2021-10-11 08:14 | Outpatient (ROUT) | payer MEDICARE, MEDICAID, SELFPAY ==
[2021-10-11 09:09] LABS: BUN Creatinine Ratio 22.2 (6-22); Blood Urea Nitrogen 34 mg/dL (7-17); Carbon Dioxide 33 mmol/L (22-32); Chloride 100 mmol/L (98-107); Estimated Glomerular Filt Rate 32.7 mL/min (>60); Glucose 132 mg/dL (80-110); HEMOLYSIS < 15 (0-50); Potassium 3.7 mmol/L (3.4-5.1); Sodium 140 mmol/L (137-145)
== END ==
PROVIDERS: PCP Internal Medicine; Visit Provider Nurse Practitioner Gerontology
DX: N18.9 Chronic kidney disease, unspecified (principal)
CPT/HCPCS: 36415; 80048

== ENCOUNTER → 2021-10-13 18:34 | Outpatient (ROUT) | payer MEDICARE, MEDICAID, SELFPAY ==
[2021-10-13 19:20] LABS: Appearance Urine UA CLEAR; Bilirubin Urine UA NEGATIVE (NEGATIVE); Color Urine UA YELLOW; Glucose Urine UA 2+ g/dL (Negative); Ketones Urine UA NEGATIVE (NEGATIVE); Leukocyte Esterase Urine UA NEGATIVE (NEGATIVE); Nitrite Urine UA NEGATIVE (Negative); Occult Blood Urine UA TRACE-LYSED (Negative); Protein Urine UA 2+ (Negative); Specific Gravity Urine UA 1.015 (1.000-1.035); Urobilinogen Urine UA 0.2 E.U./dL (0.2)
[2021-10-13 19:53] LABS: pH Urine UA 6.5 (4.5-8.0)
[2021-10-13 19:54] LABS: Bacteria Urine None Seen; Culture Indicated Urine Cult Not Indicated; RBC Urine None Seen (0-5/HPF); Squamous Epithelial Cell Urine 0-1 /HPF (0-5/HPF); WBC Urine 0-1/HPF (0-5/HPF)
== END ==
PROVIDERS: PCP Internal Medicine; Visit Provider Internal Medicine
DX: R30.0 Dysuria (principal); R35.0 Frequency of micturition; R39.15 Urgency of urination
CPT/HCPCS: 81001

== ENCOUNTER → 2021-12-03 18:15 | Outpatient (ROUT) | payer MEDICARE, MEDICAID, SELFPAY ==
[2021-12-03 18:25] LABS: Appearance Urine UA CLEAR; Bilirubin Urine UA NEGATIVE (NEGATIVE); Color Urine UA YELLOW; Glucose Urine UA 2+ g/dL (Negative); Ketones Urine UA TRACE (NEGATIVE); Leukocyte Esterase Urine UA NEGATIVE (NEGATIVE); Nitrite Urine UA NEGATIVE (Negative); Occult Blood Urine UA TRACE-LYSED (Negative); Protein Urine UA 2+ (Negative); Specific Gravity Urine UA 1.015 (1.000-1.035); Urobilinogen Urine UA 0.2 E.U./dL (0.2)
[2021-12-03 18:31] LABS: Amorphous Sediment Urine 1+; Bacteria Urine Many (>30); Culture Indicated Urine Specimen Cultured; RBC Urine 0-1/HPF (0-5/HPF); WBC Urine 5-10/HPF (0-5/HPF)
== END ==
PROVIDERS: PCP Internal Medicine; Visit Provider Internal Medicine
DX: N39.0 Urinary tract infection, site not specified (principal)
CPT/HCPCS: 81001; 87077; 87086; 87186

== ENCOUNTER → 2022-01-10 07:59 | Outpatient (ROUT) | payer MEDICARE, MEDICAID, SELFPAY ==
[2022-01-10 08:56] LABS: Add Manual Diff / Slide Review NO; Basophils Absolute Auto 100 /uL (0-100); Basophils Percent Auto 0.7 % (0-2); Eosinophils Absolute Auto 300 /uL (0-450); Eosinophils Percent Auto 4.8 % (2-4); Hematocrit 36.2 % (36-46); Hemoglobin 12.2 g/dL (12.0-16.0); Lymphocytes Absolute Auto 2900 /uL (1100-4500); Lymphocytes Percent Auto 41.1 % (25-40); Mean Corpuscular HGB Conc 33.8 % (30-36); Mean Corpuscular Hemoglobin 29.1 PG (26-34); Mean Corpuscular Volume 86.2 fL (80-100); Monocytes Absolute Auto 400 /uL (0-900); Monocytes Percent Auto 6.3 % (3-14); Neutrophils Absolute Auto 3300 /uL (1500-7000); Neutrophils Percent Auto 47.1 % (50-75); Platelet Count 208 X10^3/uL (150-400); Red Cell Distribution Width 13.4 % (11.6-14.8)
[2022-01-10 09:23] LABS: Alanine Aminotransferase 15 IU/L (<35); Albumin 4.1 g/dL (3.5-5.0); Albumin Globulin Ratio 1.3 (1.0-2.8); Alkaline Phosphatase 72 U/L (38-126); Aspartate Aminotransferase 21 IU/L (14-36); Bilirubin Total 0.3 mg/dL (0.2-1.3); Blood Urea Nitrogen 32 mg/dL (7-17); Calcium 9.5 mg/dL (8.4-10.2); Carbon Dioxide 31 mmol/L (22-32); Chloride 102 mmol/L (98-107); Estimated Glomerular Filt Rate 40.1 mL/min (>60); Globulin 3.1 g/dL (1.7-4.1); Glucose 194 mg/dL (80-110); HEMOLYSIS < 15 (0-50); Lipase 74 U/L (23-300); Potassium 3.7 mmol/L (3.4-5.1); Sodium 138 mmol/L (137-145); Total Protein 7.2 g/dL (6.3-8.2)
[2022-01-10 09:32] LABS: Hemoglobin A1C% w Est Avg Glu 11.6 % (4.0-6.0)
== END ==
PROVIDERS: PCP Internal Medicine; Visit Provider Nurse Practitioner Family
DX: E11.9 Type 2 diabetes mellitus without complications (principal); R10.84 Generalized abdominal pain
CPT/HCPCS: 36415; 80053; 83036; 83690; 85025

== ENCOUNTER → 2022-01-19 19:42 | Outpatient (ROUT) | payer MEDICARE, MEDICAID, SELFPAY ==
[2022-01-19 20:04] LABS: Appearance Urine UA SL CLOUDY; Bilirubin Urine UA NEGATIVE (NEGATIVE); Color Urine UA YELLOW; Glucose Urine UA 2+ g/dL (Negative); Ketones Urine UA NEGATIVE (NEGATIVE); Leukocyte Esterase Urine UA 1+ (NEGATIVE); Nitrite Urine UA NEGATIVE (Negative); Occult Blood Urine UA TRACE-INTACT (Negative); Protein Urine UA 2+ (Negative); Urobilinogen Urine UA 0.2 E.U./dL (0.2)
[2022-01-19 20:17] LABS: Bacteria Urine Many (>30); Culture Indicated Urine Specimen Cultured; RBC Urine 0-1/HPF (0-5/HPF); Squamous Epithelial Cell Urine 1-5 /HPF (0-5/HPF); Transitional Epi Cells Urine 1-5/HPF (0-5/HPF); WBC Urine 10-30/HPF (0-5/HPF)
== END ==
PROVIDERS: Visit Provider Nurse Practitioner Family
DX: R10.9 Unspecified abdominal pain (principal)
CPT/HCPCS: 81001; 87077; 87086; 87186

== ENCOUNTER → 2022-02-09 10:40 | Outpatient (CLI) | payer MEDICARE, MEDICAID, SELFPAY ==
--- NOTE | 2022-02-09 | DI.US.S_ITS ---
PROCEDURE: US ABDOMEN COMPLETE INDICATIONS: ABDOMINAL PAIN TECHNIQUE: Real-time scanning was performed of the abdominal and retroperitoneal organs, with image documentation. COMPARISON: [facility], MR, MR ABDOMEN WO/W CON, 08/19/2021, 14:01. FINDINGS: Liver: Liver is diffusely increased in echogenicity. No focal hepatic abnormalities identified. Normal hepatic size. Gallbladder: Solitary gallstones present. No gallbladder wall thickening or pericholecystic fluid. Negative sonographic Bruce sign. Biliary ducts: Intrahepatic bile ducts are non-dilated. Extrahepatic bile duct caliber measures 7.4 mm. Normal is 6-7 mm or less in diameter, or 10 mm or less post-cholecystectomy. Pancreas: Visualized portions of the pancreas are sonographically normal. Spleen: Spleen is normal in size and homogeneous in echotexture. Kidneys: Kidneys are normal in size and echotexture. Right kidney measures 10.4 cm long; left kidney measures 10.1 cm long. No hydronephrosis or nephrolithiasis. No solid masses. Aorta: Visualized aorta is normal in caliber at less than 3 cm. [place]: Not well seen. IVC: Intrahepatic inferior vena cava is patent. Miscellaneous: No free abdominal fluid. IMPRESSION: 1. Increased hepatic echogenicity noted possibly related to hepatic steatosis but other sources of hepatocellular disease cannot be excluded. Recommend clinical correlation. 2. Cholelithiasis without acute cholecystitis. If sonographically occult acute cholecystitis is suspected, nuclear medicine HIDA scan could be performed for further evaluation. Dictated by: Adair Teran RRA Interpreted: Jean-Pierre Ingram MD on 02/09/2022 at 11:43 Approved by: Jean-Pierre Ingram M.D. on 02/09/2022 at 12:40
== END ==
PROVIDERS: PCP Internal Medicine; Referring Provider Nurse Practitioner Gerontology; Visit Provider Nurse Practitioner Gerontology
DX: K80.20 Calculus of gallbladder without cholecystitis without obstruction; R10.9 Unspecified abdominal pain
CPT/HCPCS: 76700

== ENCOUNTER → 2022-02-21 07:50 | Outpatient (ROUT) | payer MEDICARE, MEDICAID, SELFPAY ==
[2022-02-21 08:29] LABS: Alanine Aminotransferase 13 IU/L (<35); Albumin 3.9 g/dL (3.5-5.0); Albumin Globulin Ratio 1.3 (1.0-2.8); Alkaline Phosphatase 72 U/L (38-126); Aspartate Aminotransferase 20 IU/L (14-36); BUN Creatinine Ratio 24.4 (6-22); Bilirubin Total 0.4 mg/dL (0.2-1.3); Blood Urea Nitrogen 33 mg/dL (7-17); Calcium 9.3 mg/dL (8.4-10.2); Carbon Dioxide 31 mmol/L (22-32); Chloride 103 mmol/L (98-107); Estimated Glomerular Filt Rate 39.7 mL/min (>60); Glucose 166 mg/dL (80-110); HEMOLYSIS < 15 (0-50); Potassium 3.8 mmol/L (3.4-5.1); Sodium 142 mmol/L (137-145); Total Protein 6.9 g/dL (6.3-8.2)
== END ==
PROVIDERS: PCP Internal Medicine; Visit Provider Nurse Practitioner Gerontology
DX: N18.9 Chronic kidney disease, unspecified (principal)
CPT/HCPCS: 36415; 80053

== ENCOUNTER 2022-03-21 18:22 | Emergency (ER) | payer MEDICARE, MEDICAID, SELFPAY ==
[2022-03-21] VITALS (8 sets, daily range): BP systolic 166–234; BP diastolic 70–99; PULSE 62–80; RESP 19–24; TEMP 36.6; O2SAT 92–97; BMI 41.3
--- NOTE | 2022-03-21 18:31 | DI.CT.S_ITS ---
PROCEDURE: CT HEAD/BRAIN WO CON INDICATIONS: fall, hit head, on plavix, headache, hx dementia, left shoul TECHNIQUE: Noncontrast 4.5 mm thick angled axial sections acquired from the foramen magnum to the vertex, with coronal and sagittal reformats. For radiation dose reduction, the following was used: automated exposure control, adjustment of mA and/or kV according to patient size. COMPARISON: None. FINDINGS: Image quality: Excellent. CSF spaces: Basal cisterns are patent. No extra-axial fluid collections. The ventricles are symmetric in size and shape. Brain: No intracranial bleeds or masses. There is cerebral volume loss for age, with resultant ventricular and sulcal prominence. There are periventricular and deep white matter chronic small vessel ischemic changes. There is basal ganglia calcification. There is intracranial internal carotid artery atherosclerosis. Skull and face: Calvarium and visualized facial bones appear intact, without suspicious lesions. Sinuses: There is mucosal thickening in maxillary sinuses bilaterally. The mastoids are clear. IMPRESSION: 1. No acute intracranial abnormalities. 2. Cerebral volume loss and chronic microvascular ischemic changes. 3. Bilateral maxillary sinus disease. Dictated by: Jean-Pierre Ingram M.D. on 03/21/2022 at 18:01 Approved by: Jean-Pierre Ingram M.D. on 03/21/2022 at 18:03
--- NOTE | 2022-03-21 18:31 | DI.RAD.S_ITS ---
PROCEDURE: XR CHEST 1V INDICATIONS: fall, hit head, on plavix, headache, hx dementia, left shoul TECHNIQUE: One view of the chest was acquired. COMPARISON: [facility], CR, XR CHEST 1V, 09/23/2021, 16:37. [facility], CR, XR CHEST 2V, 04/06/2021, 15:32. FINDINGS: Surgical changes and devices: None. Lungs and pleura: There is interstitial prominence. No focal consolidation. No pleural effusions or pneumothorax. Mediastinum: Mediastinal contours appear normal. Heart size is normal. Bones and chest wall: No suspicious bony lesions. Overlying soft tissues appear unremarkable. IMPRESSION: No acute cardiopulmonary disease. Dictated by: Jean-Pierre Ingram M.D. on 03/21/2022 at 17:56 Approved by: Jean-Pierre Ingram M.D. on 03/21/2022 at 17:57
--- NOTE | 2022-03-21 18:31 | DI.RAD.S_ITS ---
PROCEDURE: XR SHOULDER LT MIN 2V INDICATIONS: fall, hit head, on plavix, headache, hx dementia, left shoul TECHNIQUE: 3 views of the shoulder were acquired. COMPARISON: None. FINDINGS: Bones: No fractures or dislocations. No suspicious bony lesions. Moderate degenerative joint disease. Visualized ribs appear intact. Soft tissues: No suspicious soft tissue calcifications. IMPRESSION: 1. No acute osseous abnormalities. If clinical symptoms persist or clinical suspicion for pathology is high, a repeat examination in 7-10 days, or advanced imaging such as CT or MRI is suggested for further evaluation. 2. Moderate degenerative joint disease. Dictated by: Jean-Pierre Ingram M.D. on 03/21/2022 at 18:09 Approved by: Jean-Pierre Ingram M.D. on 03/21/2022 at 18:11
--- NOTE | 2022-03-21 18:31 | DI.CT.S_ITS ---
PROCEDURE: CT CERVICAL SPINE WO CON INDICATIONS: fall, hit head, on plavix, headache, hx dementia, left shoul TECHNIQUE: Noncontrast 3 mm thick sections acquired from the skull base to the T4 level. Sagittal and coronal reformats were then constructed. For radiation dose reduction, the following was used: automated exposure control, adjustment of mA and/or kV according to patient size. COMPARISON: None. FINDINGS: Image quality: Excellent. Bones: No fractures or dislocations. There is mild levoscoliosis. Severe degenerative changes are noted in cervical spine. There is grade 1 anterolisthesis of C3 on C4. Visualized superior ribs are intact. Soft tissues: Prevertebral soft tissues are normal in thickness. No paravertebral hematomas. No apical pneumothoraces. There are atherosclerotic calcifications in carotid arteries bilaterally. IMPRESSION: 1. No acute cervical spine injuries. 2. Severe degenerative changes in cervical spine. Dictated by: Jean-Pierre Ingram M.D. on 03/21/2022 at 17:58 Approved by: Jean-Pierre Ingram M.D. on 03/21/2022 at 18:00
--- NOTE | 2022-03-21 18:32 | ED_ITS ---
HPI - Fall General Chief Complaint: Fall Stated Complaint: GLF Time Seen by Provider: 03/21/22 18:30 Source: patient and EMS Mode of arrival: EMS Limitations: no limitations History of Present Illness HPI Narrative: This is an 81-year-old female with history of dementia and diabetes. Patient is reportedly at her baseline mental status. She does not recall her fall but is reported by caregivers at her facility that she was walking to the scale, was walking too quickly lost her balance and fell into the wall. She did hit her head. She has headache that developed 2 hours after the incident. She is on Plavix. She has some left shoulder pain. She also has some discomfort in her knees. Patient denies any current chest pain. No nausea or vomiting. No GI or urinary symptoms. Related Data Home Medications Medication Instructions Recorded Confirmed albuterol sulfate 90 mcg/actuation 2 puff INHALATION TID 03/21/22 03/21/22 aerosol inhaler amlodipine 10 mg tablet 10 mg PO DAILY 03/21/22 03/21/22 chlorthalidone 25 mg tablet 12.5 mg PO BEDTIME 03/21/22 03/21/22 chlorthalidone 25 mg tablet 25 mg PO DAILY 03/21/22 03/21/22 citalopram 10 mg tablet 10 mg PO DAILY 03/21/22 03/21/22 clonidine HCl 0.1 mg tablet 0.1 mg PO DAILY 03/21/22 03/21/22 clopidogrel 75 mg tablet 75 mg PO DAILY 03/21/22 03/21/22 fluticasone propionate 110 2 puff INHALATION BID 03/21/22 03/21/22 mcg/actuation HFA aerosol inhaler (Flovent HFA) gabapentin 300 mg capsule 300 mg PO BID 03/21/22 03/21/22 insulin glargine 100 unit/mL (3 44 unit SUBCUT BID 03/21/22 03/21/22 mL) subcutaneous pen (Lantus Solostar U-100 Insulin) insulin lispro 100 unit/mL 6 unit SUBCUT DAILY 03/21/22 03/21/22 subcutaneous pen (Humalog KwikPen (U-100) Insulin) loratadine 10 mg tablet (Allergy 10 mg PO DAILY 03/21/22 03/21/22 Relief (loratadine)) lorazepam 0.5 mg tablet 0.5 mg PO Q4HR PRN 03/21/22 03/21/22 metformin 1,000 mg tablet 1,000 mg PO BID 03/21/22 03/21/22 metoprolol tartrate 25 mg tablet 25 mg PO BID 03/21/22 03/21/22 simvastatin 20 mg tablet 20 mg PO BEDTIME 03/21/22 03/21/22 Previous Rx's Medication Instructions Recorded nitrofurantoin 100 mg PO BID 5 Days #10 cap 03/21/22 monohydrate/macrocrystals 100 mg capsule (Macrobid) Allergies Allergy/AdvReac Type Severity Reaction Status Date / Time Penicillins Allergy Unknown Verified 03/21/22 18:32 procaine [From Novocain] Allergy Unknown Verified 03/21/22 18:32 Review of Systems Review of Systems ROS Unobtainable: All systems reviewed & are unremarkable except as noted in HPI and below Patient History Medical History Diabetes Hyperlipidemia Hypertension Major depression Neuropathy Osteoarthritis Social History Smoking Status: Never smoker Smoking Status: Never smoker alcohol intake frequency: holidays/special occasions only Substance Use Type: does not use Exam Initial Vital Signs Initial Vital Signs: Vital Signs Temperature 97.8 F 03/21/22 18:30 Pulse Rate 72 03/21/22 18:30 Respiratory Rate 20 03/21/22 18:30 Blood Pressure 196/80 H 03/21/22 18:30 Pulse Oximetry 96 03/21/22 18:30 GEN:Patient appears in mild distress. HEAD: No evidence of trauma, no raccoon/Amaya sign. NECK: Nontender, painless range of motion, trachea midline Positive Nexus criteria, there is no midline line tenderness, distracting injury, + altered mental status (dementia reportedly a baseline) no neuro deficit, recent EtOH. EYES: PERRLA, EOMI ENT: External inspection normal, trachea is midline, TM's are normal no hemotypanum, Nares are clear, no septal hematoma, no dental or oral injury, airway is normal and with normal occlusion, No bony tenderness RESP: Chest is nontender and has symmetric movement, no ecchymosis, breath sounds are normal no crackles, wheezes or rales CVS: Heart sounds are normal, no murmur noted, No JVD. ABG/GI: Nontender, soft, normal bowel sounds, no distention, no organomegaly, pelvic rock is negative NEURO: Oriented AOx3, neuro is grossly intact, sensation and motor is normal all 4 extremities moving, cranial nerves II through XII are intact, GCS is 14 PSYCH: Normal mood and affect SKIN: Intact, warm and dry, no crepitus and without decubitus BACK: No CVA tenderness, no vertebral tenderness, no step-off's, no crepitus EXT: Atraumatic, patient's left shoulder has some tenderness over the AC joint she has full digit. No crepitus, no ecchymosis or skin changes appreciated. 5/5 muscle strength in upper extremities. Patient able to lift both legs off the bed without issue. Are nontender, no pedal edema, normal color and temperature, normal range of motion of extremities with normal tendon exam, 2+ pulses in all four extremities Scores GCS Slater coma scale eye opening: Spontaneous Herb coma scale verbal response: Orientated Herb coma scale motor response: Obey commands Herb coma scale total score: 15 Course Orders Ordered: Discontinued Medications Acetaminophen (Acetaminophen 325 Mg Tablet) 650 mg PO NOW ONE Stop: 03/21/22 18:33 Last Admin: 03/21/22 19:08 Dose: 650 mg Documented by: CIARA Clonidine HCl (Clonidine 0.1 Mg Tablet) 0.1 mg PO NOW ONE Stop: 03/21/22 20:04 Last Admin: 03/21/22 20:12 Dose: 0.1 mg Documented by: CIARA Dextrose (Dextrose 50 % In Water 25 Gm/50 Ml Syringe) 25 gm IV PRN PRN; Protocol PRN Reason: Hypoglycemia Sodium Chloride (Normal Saline 0.9%) 1,000 mls @ 1,000 mls/hr IV BOLUS ONE Stop: 03/21/22 19:30 Last Infusion: 03/21/22 21:28 Dose: 0 mls/hr Documented by: Admin: 03/21/22 19:08 Dose: 1,000 mls/hr Documented by: CIARA Insulin Human Lispro (Insulin Lispro 100 Unit/Ml 3ml Vial) 5 unit SUBCUT NOW ONE Stop: 03/21/22 20:05 Last Admin: 03/21/22 20:13 Dose: 5 unit Documented by: CIARA Cosigned by: KAILASH Nitrofurantoin Macrocrystals (Nitrofurantoin 100mg Prepack) 1 bottle MISC SEEINSTR ONE Stop: 03/21/22 20:49 Nitrofurantoin Macrocrystals (Nitrofurantoin Er 100 Mg Capsule) 100 mg PO NOW ONE Stop: 03/21/22 21:27 Last Admin: 03/21/22 21:29 Dose: 100 mg Documented by: CIARA Reevaluation(s) Reevaluation #1: On recheck patient mentation has continued to be the same. Vital Signs Vital signs: Vital Signs - 8 hr 03/21/22 18:30 Temperature 97.8 F Pulse Rate 72 Respiratory Rate 20 Blood Pressure 196/80 H Pulse Oximetry 96 - Fall Lab Data Result diagrams: 03/21/22 18:35 03/21/22 18:35 Labs: Lab Results 03/21/22 03/21/22 03/21/22 Range/Units 18:35 18:35 18:35 WBC 6.3 (4.5-11.0) X10^3/uL RBC 4.18 (4.0-5.2) X10^6/uL Hgb 12.1 (12.0-16.0) g/dL Hct 36.6 (36-46) % MCV 87.5 (80-100) fL MCH 29.0 (26-34) PG MCHC 33.1 (30-36) % RDW 13.4 (11.6-14.8) % Plt Count 191 (150-400) X10^3/uL Neut % (Auto) 58.6 (50-75) % Lymph % (Auto) 30.3 (25-40) % Barber % (Auto) 6.9 (3-14) % Eos % (Auto) 3.5 (2-4) % Baso % (Auto) 0.7 (0-2) % Neut # (Auto) 3700 (6674-1391) /uL Lymph # (Auto) 1900 (4246-1910) /uL Barber # (Auto) 400 (0-900) /uL Eos # (Auto) 200 (0-450) /uL Baso # (Auto) 0 (0-100) /uL PT 10.0 L (10.1-12.7) SECONDS INR 0.9 (0.9-1.3) APTT 33 (26.4-36.2) SECONDS Sodium 136 L (137-145) mmol/L Potassium 4.4 (3.4-5.1) mmol/L Chloride 97 L (98-107) mmol/L Carbon Dioxide 29 (22-32) mmol/L BUN 39 H (7-17) mg/dL Creatinine 1.63 H (0.52-1.04) mg/dL Estimated GFR 32 L (>60) mL/min BUN/Creatinine Ratio 23.9 H (6-22) Glucose 429 H (80-110) mg/dL Calcium 9.3 (8.4-10.2) mg/dL Total Bilirubin 0.3 (0.2-1.3) mg/dL AST 23 (14-36) IU/L ALT 20 (<35) IU/L Alkaline Phosphatase 111 (38-126) U/L Total Protein 7.5 (6.3-8.2) g/dL Albumin 4.5 (3.5-5.0) g/dL Globulin 3.0 (1.7-4.1) g/dL Albumin/Globulin Ratio 1.5 (1.0-2.8) Procalcitonin 0.07 (<0.5) ng/mL Urine Color Urine Appearance Urine pH (4.5-8.0) Ur Specific Ramona (1.000-1.035) Urine Protein (Negative) Urine Glucose (UA) (Negative) g/dL Urine Ketones (NEGATIVE) Urine Occult Blood (Negative) Urine Nitrate (Negative) Urine Bilirubin (NEGATIVE) Urine Urobilinogen (0.2) E.U./dL Ur Leukocyte Esterase (NEGATIVE) Urine RBC (0-5/HPF) Urine WBC (0-5/HPF) Ur Squamous Epith Cells (0-5/HPF) Ur Transition Epith Cell (0-5/HPF) Urine Bacteria (None) Ur Culture Indicated? Ketones 0.12 (<0.27) mmol/L 03/21/22 Range/Units 19:58 WBC (4.5-11.0) X10^3/uL RBC (4.0-5.2) X10^6/uL Hgb (12.0-16.0) g/dL Hct (36-46) % MCV (80-100) fL MCH (26-34) PG MCHC (30-36) % RDW (11.6-14.8) % Plt Count (150-400) X10^3/uL Neut % (Auto) (50-75) % Lymph % (Auto) (25-40) % Barber % (Auto) (3-14) % Eos % (Auto) (2-4) % Baso % (Auto) (0-2) % Neut # (Auto) (7544-8184) /uL Lymph # (Auto) (8027-6098) /uL Barber # (Auto) (0-900) /uL Eos # (Auto) (0-450) /uL Baso # (Auto) (0-100) /uL PT (10.1-12.7) SECONDS INR (0.9-1.3) APTT (26.4-36.2) SECONDS Sodium (137-145) mmol/L Potassium (3.4-5.1) mmol/L Chloride (98-107) mmol/L Carbon Dioxide (22-32) mmol/L BUN (7-17) mg/dL Creatinine (0.52-1.04) mg/dL Estimated GFR (>60) mL/min BUN/Creatinine Ratio (6-22) Glucose (80-110) mg/dL Calcium (8.4-10.2) mg/dL Total Bilirubin (0.2-1.3) mg/dL AST (14-36) IU/L ALT (<35) IU/L Alkaline Phosphatase (38-126) U/L Total Protein (6.3-8.2) g/dL Albumin (3.5-5.0) g/dL Globulin (1.7-4.1) g/dL Albumin/Globulin Ratio (1.0-2.8) Procalcitonin (<0.5) ng/mL Urine Color Yellow Urine Appearance Clear Urine pH 5.0 (4.5-8.0) Ur Specific Ramona 1.020 (1.000-1.035) Urine Protein 1+ H (Negative) Urine Glucose (UA) 2+ H (Negative) g/dL Urine Ketones Negative (NEGATIVE) Urine Occult Blood Trace-intact (Negative) Urine Nitrate Negative (Negative) Urine Bilirubin Negative (NEGATIVE) Urine Urobilinogen 0.2 (0.2) E.U./dL Ur Leukocyte Esterase Negative (NEGATIVE) Urine RBC 1-5/hpf (0-5/HPF) Urine WBC 5-10/hpf H (0-5/HPF) Ur Squamous Epith Cells 0-1 /hpf (0-5/HPF) Ur Transition Epith Cell 0-1/hpf (0-5/HPF) Urine Bacteria None seen (None) Ur Culture Indicated? Specimen cultured Ketones (<0.27) mmol/L Point of Care Testing Glucose POC [address] scan - head: Radiologist's Impression: Ramonita Nesbitt??81??F??1940 ? Allergy/Adv: Penicillins, procaine Close Shoulder X-Ray (Signed) Michelle Ingram - 03/21/[address] (Signed) Michelle Ingram - 03/21/22 Chest X-Ray (Signed) Michelle Ingram - 03/21/[address] (Signed) Michelle Ingram - 03/21/22 Abdomen Ultrasound (Signed) Michelle Ingram - 02/09/22 Chest X-Ray (Signed) Call,Luis Alberto - 09/23/21 Abdomen MRI (Signed) Bassem Acosta - 08/19/21 Chest X-Ray (Signed) Call,Luis Alberto - 04/06/21 Ribs X-Ray (Signed) Call,Luis Alberto - 04/06/21 Abdomen Ultrasound (Signed) Juan Causey - 04/05/21 Cervical Spine MRI (Signed) Jonny Canas - 07/21/[address] (Signed) Kane Estrada - 03/31/19 DI Result CC 06/13/18 Chest X-Ray (Signed) Rodrick Gastelum - 03/15/18 Launch?[place] [address] CT Scan Report Signed Patient: Ramonita Nesbitt MR#: [id number] : 1940 Acct:[id number] Age/Sex: 81 / F Date of Service: 03/21/22 Loc: ED Accession Number: [id number] ?? Procedure: CT head/brain wo con Ordering Provider: Lotus Mendoza D.O. PROCEDURE:? CT HEAD/BRAIN WO CON ? INDICATIONS:? fall, hit head, on plavix, headache, hx dementia, left shoul ? TECHNIQUE:? Noncontrast 4.5 mm thick angled axial sections acquired from the foramen magnum to the vertex, with coronal and sagittal reformats.? For radiation dose reduction, the following was used:? automated exposure control, adjustment of mA and/or kV according to patient size.? ? COMPARISON:? None. ? FINDINGS:? Image quality:? Excellent.? ? CSF spaces:? Basal cisterns are patent.? No extra-axial fluid collections.? The ventricles are symmetric in size and shape.? ? Brain:? No intracranial bleeds or masses.? There is cerebral volume loss for age, with resultant ventricular and sulcal prominence.? There are periventricular and deep white matter chronic small vessel ischemic changes.? There is basal ganglia calcifi cation. There is intracranial internal carotid artery atherosclerosis.? ? Skull and face:? Calvarium and visualized facial bones appear intact, without suspicious lesions.? ? Sinuses:? There is mucosal thickening in maxillary sinuses bilaterally.? The mastoids are clear.? ? IMPRESSION:? ? 1. No acute intracranial abnormalities. 2. Cerebral volume loss and chronic microvascular ischemic changes. 3.? Bilateral maxillary sinus disease. ? ? Dictated by: Jean-Pierre Ingram M.D. on 03/21/2022 at 18:01 ? ? Approved by: Jean-Pierre Ingram M.D. on 03/21/2022 at 18:03?? Extremity x-ray #1: Radiologist's Impression: [place] [address] XRay Report Signed Patient: Ramonita Nesbitt MR#: [id number] : 1940 Acct:[id number] Age/Sex: 81 / F Date of Service: 03/21/22 Loc: ED Accession Number: [id number] ?? Procedure: XR shoulder LT min 2V Ordering Provider: Lotus Mendoza D.O. PROCEDURE:? XR SHOULDER LT MIN 2V ? INDICATIONS:? fall, hit head, on plavix, headache, hx dementia, left shoul ? TECHNIQUE:? 3 views of the shoulder were acquired.? ? COMPARISON:? None. ? FINDINGS:? ? Bones:? No fractures or dislocations.? No suspicious bony lesions.? Moderate degenerative joint disease.? Visualized ribs appear intact.? ? Soft tissues:? No suspicious soft tissue calcifications.? ? IMPRESSION:? ? 1. No acute osseous abnormalities.? If clinical symptoms persist or clinical suspicion for pathology is high, a repeat examination in 7-10 days, or advanced imaging such as CT or MRI is suggested for further evaluation. ? 2. Moderate degenerative joint disease.? Dictated by: Jean-Pierre Ingram M.D. on 03/21/2022 at 18:09 ? ? Approved by: Jean-Pierre Ingram M.D. on 03/21/2022 at 18:11 Chest x-ray: Radiologist's Impression: Ramonita Nesbitt??81??F??1940 ? Allergy/Adv: Penicillins, procaine Close Shoulder X-Ray (Signed) Michelle Ingram - 03/21/[address] (Signed) Michelle Ingram - 03/21/22 Chest X-Ray (Signed) Michelle Ingram - 03/21/[address] (Signed) Michelle Ingram - 03/21/22 Abdomen Ultrasound (Signed) Michelle Ingram - 02/09/22 Chest X-Ray (Signed) Call,Luis Alberto - 09/23/21 Abdomen MRI (Signed) Bassem Acosta - 08/19/21 Chest X-Ray (Signed) Call,Luis Alberto - 04/06/21 Ribs X-Ray (Signed) Call,Luis Alberto - 04/06/21 Abdomen Ultrasound (Signed) Juan Causey - 04/05/21 Cervical Spine MRI (Signed) Jonny Canas - 07/21/[address] (Signed) Kane Estrada - 03/31/19 DI Result CC 06/13/18 Chest X-Ray (Signed) Rodrick Gastelum - 03/15/18 Launch?[address] [address] XRay Report Signed Patient: Ramonita Nesbitt MR#: [id number] : 1940 Acct:[id number] Age/Sex: 81 / F Date of Service: 03/21/22 Loc: ED Accession Number: [id number] ?? Procedure: XR chest 1V Ordering Provider: Lotus Mendoza D.O. PROCEDURE:? XR CHEST 1V ? INDICATIONS:? fall, hit head, on plavix, headache, hx dementia, left shoul ? TECHNIQUE:? One view of the chest was acquired.? ? COMPARISON:? [facility], CR, XR CHEST 1V, 09/23/2021, 16:37.? [facility], CR, XR CHEST 2V, 04/06/2021, 15:32. ? FINDINGS:? ? Surgical changes and devices:? None.? ? Lungs and pleura:? There is interstitial prominence.? No focal consolidation.? No pleural effusions or pneumothorax.? ? Mediastinum:? Mediastinal contours appear normal.? Heart size is normal.? ? Bones and chest wall:? No suspicious bony lesions.? Overlying soft tissues appear unremarkable.? ? IMPRESSION:? No acute cardiopulmonary disease. ? ? Dictated by: Jean-Pierre Ingram M.D. on 03/21/2022 at 17:56 ? ? Approved by: Jean-Pierre Ingram M.D. on 03/21/2022 at 17:57?? MDM Narrative Medical decision making narrative: This is an 81-year-old female with reported dementia at her reported baseline. Patient knows her name she knows she is at the hospital but does not of the town or year. Patient had a witnessed ground level fall where she lost her balance and fell into a wall. Patient began complaining of headache and arrives approximately 2 hours after the incident. She is on Plavix necessitating evaluation with head CT based on her chronic dementia as well. Head CT and C- spine were obtained, patient has good movement at the shoulder but x-ray was also obtained. Glucose was reportedly 500 by EMS she does have a history of diabetes. She believes she has taken her medications today but does not know what they are called. Patient has not had her Catapres or metoprolol today on evaluation. She also takes insulin including Humalog. Patient's imaging is negative for fracture or bleed. Patient has good range of motion of shoulder. She had her labs show an elevated glucose but no signs of DKA, patient blood pressure improved after dose of oral Catapres and her home dose, she has possible UTI based on her urine sample and was started on oral antibiotic. Patient was given a dose of Humalog and fluids and glucose was improving to the 300 range. Patient appears to be appropriate for discharge back to her facility for continued management of her diabetes. Discharge Plan Departure Patient Disposition: Home Clinical Impression: Left shoulder pain, Fall from ground level, Acute UTI Instructions: DI for Urinary Tract Infection (UTI) Activity Restrictions/Additional Instructions: Follow-up with your physician for recheck. Continue home medications as prescribed. Your urine shows changes consistent with infection. Take antibiotics until completely gone. Prescription sent to [facility] in [place]. Please return for fevers, altered mental status, new chest pain or shortness of breath, persistent vomiting, new numbness, weakness or loss of sensation or other new or concerning symptoms. Prescriptions: New nitrofurantoin monohyd/m-cryst [Macrobid] 100 mg capsule 100 mg PO BID 5 Days Qty: 10 0RF Rx Instructions: must administer with a meal/food No Action clonidine HCl 0.1 mg Tablet 0.1 mg PO DAILY 0RF citalopram 10 mg Tablet 10 mg PO DAILY 0RF clopidogrel 75 mg Tablet 75 mg PO DAILY 0RF chlorthalidone 25 mg Tablet 25 mg PO DAILY 0RF Rx Instructions: give if systolic BP is more than 150/ chlorthalidone 25 mg Tablet 12.5 mg PO BEDTIME 0RF lorazepam 0.5 mg Tablet 0.5 mg PO Q4HR PRN (Reason: Anxiety) 0RF amlodipine 10 mg tablet 10 mg PO DAILY 0RF simvastatin 20 mg Tablet 20 mg PO BEDTIME 0RF metformin 1,000 mg Tablet 1,000 mg PO BID 0RF gabapentin 300 mg Capsule 300 mg PO BID 0RF albuterol sulfate 90 mcg/actuation Hfa Aerosol Inhaler 2 puff INHALATION TID 0RF loratadine [Allergy Relief (loratadine)] 10 mg Tablet 10 mg PO DAILY 0RF Flovent HFA 110 mcg/actuation Hfa Aerosol Inhaler 2 puff INHALATION BID 0RF insulin lispro [Humalog KwikPen Insulin] 100 unit/mL Insulin Pen 6 unit SUBCUT DAILY 0RF metoprolol tartrate 25 mg Tablet 25 mg PO BID 0RF Lantus Solostar U-100 Insulin 100 unit/mL (3 mL) Insulin Pen 44 unit SUBCUT BID 0RF Referrals: Angle Fenton MD [Primary Care Provider] -
[2022-03-21 18:51] LABS: Add Manual Diff / Slide Review NO; Basophils Absolute Auto 0 /uL (0-100); Basophils Percent Auto 0.7 % (0-2); Eosinophils Absolute Auto 200 /uL (0-450); Eosinophils Percent Auto 3.5 % (2-4); Hematocrit 36.6 % (36-46); Hemoglobin 12.1 g/dL (12.0-16.0); Lymphocytes Absolute Auto 1900 /uL (1100-4500); Lymphocytes Percent Auto 30.3 % (25-40); Mean Corpuscular HGB Conc 33.1 % (30-36); Mean Corpuscular Volume 87.5 fL (80-100); Monocytes Absolute Auto 400 /uL (0-900); Monocytes Percent Auto 6.9 % (3-14); Neutrophils Absolute Auto 3700 /uL (1500-7000); Neutrophils Percent Auto 58.6 % (50-75); Platelet Count 191 X10^3/uL (150-400); Red Blood Cell Count 4.18 X10^6/uL (4.0-5.2); Red Cell Distribution Width 13.4 % (11.6-14.8); White Blood Cell Count 6.3 X10^3/uL (4.5-11.0)
[2022-03-21 18:57] LABS: HEMOLYSIS < 15 (0-50)
[2022-03-21 19:00] LABS: INR 0.9 (0.9-1.3)
[2022-03-21 19:03] LABS: PTT Partial Thromboplastin Tim 33 SECONDS (26.4-36.2)
[2022-03-21 19:04] LABS: Alanine Aminotransferase 20 IU/L (<35); Albumin 4.5 g/dL (3.5-5.0); Albumin Globulin Ratio 1.5 (1.0-2.8); Alkaline Phosphatase 111 U/L (38-126); Aspartate Aminotransferase 23 IU/L (14-36); BUN Creatinine Ratio 23.9 (6-22); Bilirubin Total 0.3 mg/dL (0.2-1.3); Blood Urea Nitrogen 39 mg/dL (7-17); Calcium 9.3 mg/dL (8.4-10.2); Carbon Dioxide 29 mmol/L (22-32); Chloride 97 mmol/L (98-107); Estimated Glomerular Filt Rate 32 mL/min (>60); Glucose 429 mg/dL (80-110); Potassium 4.4 mmol/L (3.4-5.1); Sodium 136 mmol/L (137-145); Total Protein 7.5 g/dL (6.3-8.2)
[2022-03-21] MEDS: SODIUM CHLORIDE 0.9% 1,000 ML 1000 ML IV (19:08)
[2022-03-21] MEDS: ACETAMINOPHEN 325 MG TABLET 650 MG PO (19:08)
[2022-03-21 19:20] LABS: Procalcitonin 0.07 ng/mL (<0.5)
[2022-03-21 19:34] LABS: Ketones (Beta-Hydroxybutyrate) 0.12 mmol/L (<0.27)
[2022-03-21] MEDS: cloNIDine 0.1 MG TABLET PO (20:12)
[2022-03-21] MEDS: INSULIN LISPRO 100 UNIT/ML 3ML VIAL SUBCUT (20:13)
[2022-03-21 20:16] LABS: Appearance Urine UA CLEAR; Bilirubin Urine UA NEGATIVE (NEGATIVE); Color Urine UA YELLOW; Glucose Urine UA 2+ g/dL (Negative); Ketones Urine UA NEGATIVE (NEGATIVE); Leukocyte Esterase Urine UA NEGATIVE (NEGATIVE); Nitrite Urine UA NEGATIVE (Negative); Occult Blood Urine UA TRACE-INTACT (Negative); Protein Urine UA 1+ (Negative); Urobilinogen Urine UA 0.2 E.U./dL (0.2)
[2022-03-21 20:32] LABS: Bacteria Urine None Seen; Culture Indicated Urine Specimen Cultured; RBC Urine 1-5/HPF (0-5/HPF); Squamous Epithelial Cell Urine 0-1 /HPF (0-5/HPF); Transitional Epi Cells Urine 0-1/HPF (0-5/HPF); WBC Urine 5-10/HPF (0-5/HPF)
[2022-03-21] MEDS: NITROFURANTOIN ER 100 MG CAPSULE PO (21:29)
== END 2022-03-21 21:39 | disposition home or self-care (01) ==
PROVIDERS: Emergency Provider Emergency Medicine; PCP Internal Medicine
DX: M25.512 Pain in left shoulder (principal); M25.562 Pain in left knee; M25.561 Pain in right knee; N39.0 Urinary tract infection, site not specified; W18.30XA Fall on same level, unspecified, initial encounter; Z79.01 Long term (current) use of anticoagulants
CPT/HCPCS: 36415; 70450; 71045; 72125; 73030; 80053; 81001; 82009; 82962; 84145; 85025; 85610; 85730; 87077; 87086; 87186; 96372; 99284; J1815

== ENCOUNTER → 2022-03-28 08:10 | Outpatient (ROUT) | payer MEDICARE, MEDICAID, SELFPAY ==
[2022-03-28 08:44] LABS: Blood Urea Nitrogen 43 mg/dL (7-17); Carbon Dioxide 30 mmol/L (22-32); Chloride 104 mmol/L (98-107); Estimated Glomerular Filt Rate 21 mL/min (>60); Glucose 127 mg/dL (80-110); HEMOLYSIS < 15 (0-50); Potassium 3.9 mmol/L (3.4-5.1); Sodium 140 mmol/L (137-145)
== END ==
PROVIDERS: PCP Internal Medicine; Visit Provider Nurse Practitioner Family
DX: R60.9 Edema, unspecified (principal); N18.9 Chronic kidney disease, unspecified
CPT/HCPCS: 36415; 80048

== ENCOUNTER → 2022-04-04 08:15 | Outpatient (ROUT) | payer MEDICARE, MEDICAID, SELFPAY ==
[2022-04-04 09:04] LABS: BUN Creatinine Ratio 24.1 (6-22); Blood Urea Nitrogen 33 mg/dL (7-17); Calcium 9.6 mg/dL (8.4-10.2); Carbon Dioxide 30 mmol/L (22-32); Chloride 102 mmol/L (98-107); Estimated Glomerular Filt Rate 39 mL/min (>60); Glucose 224 mg/dL (80-110); HEMOLYSIS < 15 (0-50); Potassium 4.3 mmol/L (3.4-5.1); Sodium 141 mmol/L (137-145)
== END ==
PROVIDERS: PCP Internal Medicine; Visit Provider Nurse Practitioner Family
DX: N17.9 Acute kidney failure, unspecified (principal)
CPT/HCPCS: 36415; 80048

== ENCOUNTER → 2022-05-02 08:01 | Outpatient (ROUT) | payer MEDICARE, MEDICAID, SELFPAY ==
[2022-05-02 08:55] LABS: Add Manual Diff / Slide Review NO; Basophils Absolute Auto 0 /uL (0-100); Basophils Percent Auto 0.7 % (0-2); Eosinophils Absolute Auto 400 /uL (0-450); Eosinophils Percent Auto 7.6 % (2-4); Hematocrit 37.7 % (36-46); Hemoglobin 12.2 g/dL (12.0-16.0); Lymphocytes Absolute Auto 2300 /uL (1100-4500); Mean Corpuscular HGB Conc 32.3 % (30-36); Mean Corpuscular Hemoglobin 28.6 PG (26-34); Mean Corpuscular Volume 88.4 fL (80-100); Monocytes Absolute Auto 400 /uL (0-900); Monocytes Percent Auto 7.6 % (3-14); Neutrophils Absolute Auto 2300 /uL (1500-7000); Neutrophils Percent Auto 42.1 % (50-75); Platelet Count 207 X10^3/uL (150-400); Red Blood Cell Count 4.27 X10^6/uL (4.0-5.2); Red Cell Distribution Width 13.9 % (11.6-14.8); White Blood Cell Count 5.6 X10^3/uL (4.5-11.0)
[2022-05-02 09:09] LABS: BUN Creatinine Ratio 24.8 (6-22); Blood Urea Nitrogen 34 mg/dL (7-17); Calcium 9.4 mg/dL (8.4-10.2); Carbon Dioxide 32 mmol/L (22-32); Chloride 102 mmol/L (98-107); Estimated Glomerular Filt Rate 39 mL/min (>60); Glucose 197 mg/dL (80-110); HEMOLYSIS < 15 (0-50); Potassium 3.8 mmol/L (3.4-5.1); Sodium 143 mmol/L (137-145)
[2022-05-02 09:11] LABS: Hemoglobin A1C% w Est Avg Glu 10.1 % (4.0-6.0)
[2022-05-14 19:28] LABS: Appearance Urine UA CLOUDY; Bilirubin Urine UA NEGATIVE (NEGATIVE); Color Urine UA YELLOW; Glucose Urine UA 1+ g/dL (Negative); Ketones Urine UA NEGATIVE (NEGATIVE); Leukocyte Esterase Urine UA 1+ (NEGATIVE); Nitrite Urine UA POSITIVE (Negative); Occult Blood Urine UA 2+ (Negative); Protein Urine UA 3+ (Negative); Specific Gravity Urine UA >=1.030 (1.000-1.035); Urobilinogen Urine UA 0.2 E.U./dL (0.2)
[2022-05-14 19:32] LABS: RBC Urine 1-5/HPF (0-5/HPF); WBC Urine 30-100/HPF (0-5/HPF)
[2022-05-14 19:33] LABS: Amorphous Sediment Urine 1+; Bacteria Urine Many (>30); Mucus Urine 1+ (Negative); Squamous Epithelial Cell Urine 0-1 /HPF (0-5/HPF)
== END ==
PROVIDERS: PCP Internal Medicine; Visit Provider Nurse Practitioner Gerontology
DX: E11.9 Type 2 diabetes mellitus without complications (principal)
CPT/HCPCS: 36415; 80048; 81001; 83036; 85025; 87077; 87086; 87186

== ENCOUNTER → 2022-05-30 08:14 | Outpatient (ROUT) | payer MEDICARE, MEDICAID, SELFPAY ==
[2022-05-30 09:37] LABS: BUN Creatinine Ratio 20.6 (6-22); Blood Urea Nitrogen 28 mg/dL (7-17); Calcium 9.2 mg/dL (8.4-10.2); Carbon Dioxide 27 mmol/L (22-32); Chloride 102 mmol/L (98-107); Estimated Glomerular Filt Rate 39 mL/min (>60); Glucose 180 mg/dL (80-110); HEMOLYSIS < 15 (0-50); Potassium 3.7 mmol/L (3.4-5.1); Sodium 140 mmol/L (137-145)
== END ==
PROVIDERS: PCP Internal Medicine; Visit Provider Nurse Practitioner Family
DX: N18.9 Chronic kidney disease, unspecified (principal)
CPT/HCPCS: 36415; 80048

== ENCOUNTER → 2022-06-10 10:42 | Outpatient (ROUT) | payer MEDICARE, MEDICAID, SELFPAY ==
[2022-06-10 10:53] LABS: Appearance Urine UA CLOUDY; Bilirubin Urine UA NEGATIVE (NEGATIVE); Color Urine UA YELLOW; Glucose Urine UA TRACE g/dL (Negative); Ketones Urine UA NEGATIVE (NEGATIVE); Leukocyte Esterase Urine UA 1+ (NEGATIVE); Nitrite Urine UA NEGATIVE (Negative); Occult Blood Urine UA 1+ (Negative); Protein Urine UA 3+ (Negative); Specific Gravity Urine UA 1.025 (1.000-1.035); Urobilinogen Urine UA 0.2 E.U./dL (0.2)
[2022-06-10 10:54] LABS: Amorphous Sediment Urine 1+; RBC Urine 1-5/HPF (0-5/HPF); Squamous Epithelial Cell Urine 0-1 /HPF (0-5/HPF); WBC Urine 30-100/HPF (0-5/HPF)
[2022-06-10 10:55] LABS: Bacteria Urine Many (>30); Culture Indicated Urine Specimen Cultured; Mucus Urine 1+ (Negative)
== END ==
PROVIDERS: PCP Internal Medicine; Visit Provider Internal Medicine
DX: R41.82 Altered mental status, unspecified (principal)
CPT/HCPCS: 81001; 87077; 87086; 87186

== ENCOUNTER → 2022-06-15 19:12 | Outpatient (ROUT) | payer MEDICARE, MEDICAID, SELFPAY ==
[2022-06-15 19:27] LABS: Add Manual Diff / Slide Review NO; Basophils Absolute Auto 100 /uL (0-100); Basophils Percent Auto 0.6 % (0-2); Eosinophils Absolute Auto 400 /uL (0-450); Eosinophils Percent Auto 4.9 % (2-4); Hematocrit 35.8 % (36-46); Hemoglobin 11.7 g/dL (12.0-16.0); Lymphocytes Absolute Auto 2600 /uL (1100-4500); Lymphocytes Percent Auto 30.5 % (25-40); Mean Corpuscular HGB Conc 32.6 % (30-36); Mean Corpuscular Hemoglobin 28.8 PG (26-34); Mean Corpuscular Volume 88.3 fL (80-100); Monocytes Absolute Auto 700 /uL (0-900); Monocytes Percent Auto 8.2 % (3-14); Neutrophils Absolute Auto 4800 /uL (1500-7000); Neutrophils Percent Auto 55.8 % (50-75); Platelet Count 218 X10^3/uL (150-400); Red Blood Cell Count 4.05 X10^6/uL (4.0-5.2); Red Cell Distribution Width 14.2 % (11.6-14.8); White Blood Cell Count 8.6 X10^3/uL (4.5-11.0)
[2022-06-15 20:04] LABS: BUN Creatinine Ratio 21.3 (6-22); Blood Urea Nitrogen 39 mg/dL (7-17); Calcium 8.3 mg/dL (8.4-10.2); Carbon Dioxide 29 mmol/L (22-32); Chloride 97 mmol/L (98-107); Estimated Glomerular Filt Rate 27 mL/min (>60); Glucose 331 mg/dL (80-110); HEMOLYSIS < 15 (0-50); Potassium 3.6 mmol/L (3.4-5.1); Sodium 137 mmol/L (137-145)
== END ==
PROVIDERS: PCP Internal Medicine; Visit Provider Nurse Practitioner Family
DX: R10.9 Unspecified abdominal pain (principal); R19.7 Diarrhea, unspecified; N18.9 Chronic kidney disease, unspecified
CPT/HCPCS: 80048; 85025

== ENCOUNTER → 2022-07-24 11:10 | Outpatient (CLI) | payer MEDICARE, MEDICAID, SELFPAY ==
--- NOTE | 2022-07-24 | DI.CT.S_ITS ---
PROCEDURE: CT KIDNEY URETER BLADDER (KUB) INDICATIONS: URINARY TRACT INFECTION TECHNIQUE: Axial sections were acquired from the lung bases to the pubic symphysis. Coronal and sagittal reformats were performed. For radiation dose reduction, the following was used: automated exposure control, adjustment of mA and/or kV according to patient size. COMPARISON: None. FINDINGS: Image quality: Excellent. Lung bases: Unremarkable. Heart: No significant findings. URINARY: Right Kidney: Under rotated right kidney without hydronephrosis or nephrolithiasis. Physiologic perinephric stranding. Right Ureter: No hydroureter or urolithiasis. Left Kidney: Normal renal contour. No hydronephrosis or nephrolithiasis. Symmetric physiologic perinephric stranding. Left Ureter: No hydroureter or urolithiasis. Bladder: There is very mild perivesicular inflammation seen best on the coronal images. No bladder calculi. ABDOMEN: Liver: The liver is mainly normal signal, however there is a wedge-shaped area of heterogeneous density along the inferior margin of segment V but without discrete mass effect. Gallbladder: A single subcentimeter stone is dependent within the gallbladder body. No wall thickening. Biliary ducts: Nondilated. Pancreas: Normal. Spleen: Unremarkable. Adrenal Glands: No nodules. Stomach and Bowel: There are surgical changes of bowel anastomosis in the right lower quadrant. Small bowel is largely decompressed. There is semi solid stool throughout the colon. No pericolonic inflammation. The stomach is decompressed. Peritoneum: No abnormal intraperitoneal fluid. No free air. Ventral Wall: Tiny fat containing periumbilical hernia. Abdominal Nodes: No suspicious retroperitoneal adenopathy. No mesenteric mass. Vessels: Aorta and inferior vena cava are normal in size. Mild abdominal aortic atherosclerotic calcification. PELVIS: Pelvic Organs: The uterus is absent. Ovarian tissue was not identified Pelvic Nodes: Mildly prominent bilateral external iliac chain lymph nodes, left greater than right Miscellaneous: No inguinal hernias are seen. Bones: . Multilevel disc degeneration and prominent endplate spurring throughout the spine. IMPRESSION: 1. No obstructive uropathy or urinary calcification. 2. Mild perivesicular inflammation consistent with known history of urinary tract infection. 3. Mild bilateral pelvic adenopathy, presumably reactive to cystitis. Dictated by: Lesia Britton M.D. on 07/24/2022 at 16:20 Approved by: Lesia Britton M.D. on 07/24/2022 at 16:33
== END ==
PROVIDERS: PCP Internal Medicine; Referring Provider Internal Medicine; Visit Provider Registered Nurse
DX: N39.0 Urinary tract infection, site not specified (principal); R59.0 Localized enlarged lymph nodes
CPT/HCPCS: 74176

== ENCOUNTER → 2022-07-26 09:34 | Outpatient (CLI) | payer MEDICARE, MEDICAID, SELFPAY ==
[2022-07-26 10:35] LABS: Add Manual Diff / Slide Review NO; Basophils Absolute Auto 0 /uL (0-100); Basophils Percent Auto 0.7 % (0-2); Eosinophils Absolute Auto 500 /uL (0-450); Eosinophils Percent Auto 6.7 % (2-4); Hematocrit 38.3 % (36-46); Hemoglobin 12.7 g/dL (12.0-16.0); Lymphocytes Absolute Auto 2200 /uL (1100-4500); Mean Corpuscular HGB Conc 33.1 % (30-36); Mean Corpuscular Hemoglobin 29.1 PG (26-34); Mean Corpuscular Volume 87.9 fL (80-100); Monocytes Absolute Auto 400 /uL (0-900); Monocytes Percent Auto 6.4 % (3-14); Neutrophils Absolute Auto 3600 /uL (1500-7000); Neutrophils Percent Auto 53.2 % (50-75); Platelet Count 205 X10^3/uL (150-400); Red Blood Cell Count 4.36 X10^6/uL (4.0-5.2); White Blood Cell Count 6.8 X10^3/uL (4.5-11.0)
[2022-07-26 10:59] LABS: Alanine Aminotransferase 16 IU/L (<35); Albumin Globulin Ratio 1.3 (1.0-2.8); Alkaline Phosphatase 84 U/L (38-126); Aspartate Aminotransferase 20 IU/L (14-36); BUN Creatinine Ratio 23.2 (6-22); Bilirubin Total 0.4 mg/dL (0.2-1.3); Blood Urea Nitrogen 32 mg/dL (7-17); Calcium 8.8 mg/dL (8.4-10.2); Carbon Dioxide 28 mmol/L (22-32); Chloride 98 mmol/L (98-107); Estimated Glomerular Filt Rate 38 mL/min (>60); Globulin 3.1 g/dL (1.7-4.1); Glucose 377 mg/dL (80-110); HEMOLYSIS < 15 (0-50); Potassium 3.9 mmol/L (3.4-5.1); Sodium 138 mmol/L (137-145); Total Protein 7.1 g/dL (6.3-8.2)
[2022-07-26 19:21] LABS: Appearance Urine UA CLOUDY; Bilirubin Urine UA NEGATIVE (NEGATIVE); Color Urine UA YELLOW; Glucose Urine UA TRACE g/dL (Negative); Ketones Urine UA TRACE (NEGATIVE); Leukocyte Esterase Urine UA TRACE (NEGATIVE); Nitrite Urine UA NEGATIVE (Negative); Occult Blood Urine UA 1+ (Negative); Protein Urine UA 2+ (Negative); Specific Gravity Urine UA 1.015 (1.000-1.035); Urobilinogen Urine UA 0.2 E.U./dL (0.2)
[2022-07-26 19:27] LABS: Bacteria Urine Many (>30); Culture Indicated Urine Specimen Cultured; RBC Urine 0-1/HPF (0-5/HPF); Squamous Epithelial Cell Urine 0-1 /HPF (0-5/HPF); Transitional Epi Cells Urine 0-1/HPF (0-5/HPF); WBC Urine 10-30/HPF (0-5/HPF)
== END ==
PROVIDERS: PCP Internal Medicine; Referring Provider Nurse Practitioner Gerontology; Visit Provider Nurse Practitioner Gerontology
DX: E11.9 Type 2 diabetes mellitus without complications (principal); I10 Essential (primary) hypertension
CPT/HCPCS: 80053; 81001; 85025; 87077; 87086; 87186

== ENCOUNTER → 2022-08-01 07:36 | Outpatient (ROUT) | payer MEDICARE, MEDICAID, SELFPAY ==
[2022-08-01 08:52] LABS: Hemoglobin A1C% w Est Avg Glu 9.6 % (4.0-6.0)
[2022-08-01 09:24] LABS: BUN Creatinine Ratio 20.9 (6-22); Blood Urea Nitrogen 31 mg/dL (7-17); Calcium 9.2 mg/dL (8.4-10.2); Carbon Dioxide 34 mmol/L (22-32); Chloride 99 mmol/L (98-107); Estimated Glomerular Filt Rate 35 mL/min (>60); Glucose 145 mg/dL (80-110); HEMOLYSIS < 15 (0-50); Potassium 3.4 mmol/L (3.4-5.1); Sodium 140 mmol/L (137-145)
== END ==
PROVIDERS: PCP Internal Medicine; Visit Provider Nurse Practitioner Family
DX: N18.9 Chronic kidney disease, unspecified (principal); E11.9 Type 2 diabetes mellitus without complications
CPT/HCPCS: 36415; 80048; 83036

== ENCOUNTER → 2022-08-15 22:16 | Outpatient (ROUT) | payer MEDICARE, MEDICAID, SELFPAY ==
[2022-08-15 22:23] LABS: Appearance Urine UA CLOUDY; Bilirubin Urine UA NEGATIVE (NEGATIVE); Color Urine UA YELLOW; Glucose Urine UA 1+ g/dL (Negative); Ketones Urine UA NEGATIVE (NEGATIVE); Leukocyte Esterase Urine UA TRACE (NEGATIVE); Nitrite Urine UA NEGATIVE (Negative); Occult Blood Urine UA TRACE-LYSED (Negative); Protein Urine UA 1+ (Negative); Urobilinogen Urine UA 0.2 E.U./dL (0.2)
[2022-08-15 22:32] LABS: Bacteria Urine Many (>30); Culture Indicated Urine Specimen Cultured; RBC Urine None Seen (0-5/HPF); Squamous Epithelial Cell Urine 1-5 /HPF (0-5/HPF); WBC Urine 5-10/HPF (0-5/HPF)
== END ==
PROVIDERS: PCP Internal Medicine; Visit Provider Nurse Practitioner Gerontology
DX: R39.15 Urgency of urination (principal)
CPT/HCPCS: 81001; 87077; 87086; 87186

== ENCOUNTER → 2022-08-24 15:55 | Outpatient (CLI) | payer MEDICARE, MEDICAID, SELFPAY ==
--- NOTE | 2022-08-24 15:57 | DI.US.S_ITS ---
PROCEDURE: US PERIPH VENOUS LOW EXTREM RT INDICATIONS: RT LEG SWELLING/RULE OUT DVT TECHNIQUE: Real-time imaging, as well as color and pulse Doppler interrogation, were performed of the lower extremity deep veins from the inguinal ligament to the popliteal fossa. COMPARISON: None. FINDINGS: The common femoral, femoral and popliteal veins are normally compressible, and free of intraluminal thrombus. Color and pulse Doppler demonstrate normal phasic intraluminal flow. There is normal augmentation response to distal compression maneuver. IMPRESSION: No deep venous thrombosis identified within the right lower extremity. Dictated by: Adair Teran [facility] Interpreted: Shad Hernandez MD on 08/24/2022 at 16:56 Approved by: Shad Hernandez M.D. on 08/25/2022 at 8:55
== END ==
PROVIDERS: PCP Internal Medicine; Referring Provider Nurse Practitioner Family; Visit Provider Nurse Practitioner Family
DX: R22.41 Localized swelling, mass and lump, right lower limb (principal)
CPT/HCPCS: 93971

== ENCOUNTER → 2022-09-05 13:46 | Outpatient (ROUT) | payer MEDICARE, MEDICAID, SELFPAY ==
[2022-09-05 13:55] LABS: BUN Creatinine Ratio 19.5 (6-22); Blood Urea Nitrogen 32 mg/dL (7-17); Calcium 9.1 mg/dL (8.4-10.2); Carbon Dioxide 28 mmol/L (22-32); Chloride 99 mmol/L (98-107); Estimated Glomerular Filt Rate 31 mL/min (>60); Glucose 183 mg/dL (80-110); HEMOLYSIS < 15 (0-50); Sodium 140 mmol/L (137-145)
== END ==
PROVIDERS: PCP Internal Medicine; Visit Provider Nurse Practitioner Family
DX: N18.9 Chronic kidney disease, unspecified (principal)
CPT/HCPCS: 80048

== ENCOUNTER → 2022-10-10 07:57 | Outpatient (ROUT) | payer MEDICARE, MEDICAID, SELFPAY ==
[2022-10-10 10:08] LABS: BUN Creatinine Ratio 22.5 (6-22); Blood Urea Nitrogen 34 mg/dL (7-17); Calcium 9.4 mg/dL (8.4-10.2); Carbon Dioxide 30 mmol/L (22-32); Chloride 103 mmol/L (98-107); Estimated Glomerular Filt Rate 35 mL/min (>60); Glucose 152 mg/dL (80-110); HEMOLYSIS < 15 (0-50); Potassium 3.8 mmol/L (3.4-5.1); Sodium 141 mmol/L (137-145)
== END ==
PROVIDERS: PCP Internal Medicine; Visit Provider Nurse Practitioner Gerontology
DX: N18.9 Chronic kidney disease, unspecified (principal)
CPT/HCPCS: 36415; 80048

== ENCOUNTER → 2023-01-02 08:24 | Outpatient (ROUT) | payer MEDICARE, MEDICAID, SELFPAY ==
[2023-01-02 08:47] LABS: Add Manual Diff / Slide Review NO; Basophils Absolute Auto 0 /uL (0-100); Basophils Percent Auto 0.9 % (0-2); Eosinophils Absolute Auto 300 /uL (0-450); Eosinophils Percent Auto 7.2 % (2-4); Hematocrit 33.9 % (36-46); Hemoglobin 11.3 g/dL (12.0-16.0); Lymphocytes Absolute Auto 1800 /uL (1100-4500); Lymphocytes Percent Auto 38.3 % (25-40); Mean Corpuscular HGB Conc 33.4 % (30-36); Mean Corpuscular Hemoglobin 29.5 PG (26-34); Mean Corpuscular Volume 88.4 fL (80-100); Monocytes Absolute Auto 400 /uL (0-900); Monocytes Percent Auto 8.4 % (3-14); Neutrophils Absolute Auto 2100 /uL (1500-7000); Neutrophils Percent Auto 45.2 % (50-75); Platelet Count 158 X10^3/uL (150-400); Red Blood Cell Count 3.84 X10^6/uL (4.0-5.2); Red Cell Distribution Width 13.2 % (11.6-14.8); White Blood Cell Count 4.6 X10^3/uL (4.5-11.0)
[2023-01-02 09:13] LABS: BUN Creatinine Ratio 23.2 (6-22); Blood Urea Nitrogen 36 mg/dL (7-17); Calcium 8.8 mg/dL (8.4-10.2); Carbon Dioxide 31 mmol/L (22-32); Chloride 105 mmol/L (98-107); Estimated Glomerular Filt Rate 33 mL/min (>60); Glucose 91 mg/dL (80-110); HEMOLYSIS < 15 (0-50); Potassium 3.5 mmol/L (3.4-5.1); Sodium 141 mmol/L (137-145)
== END ==
PROVIDERS: PCP Internal Medicine; Visit Provider Nurse Practitioner Gerontology
DX: N18.9 Chronic kidney disease, unspecified (principal); D64.9 Anemia, unspecified
CPT/HCPCS: 36415; 80048; 85025

== ENCOUNTER → 2023-03-27 08:19 | Outpatient (ROUT) | payer MEDICARE, MEDICAID, SELFPAY ==
[2023-03-27 09:58] LABS: Add Manual Diff / Slide Review NO; Basophils Absolute Auto 100 /uL (0-100); Eosinophils Absolute Auto 300 /uL (0-450); Eosinophils Percent Auto 5.9 % (2-4); Hematocrit 35.1 % (36-46); Hemoglobin 11.7 g/dL (12.0-16.0); Lymphocytes Absolute Auto 1900 /uL (1100-4500); Lymphocytes Percent Auto 33.6 % (25-40); Mean Corpuscular HGB Conc 33.4 % (30-36); Mean Corpuscular Hemoglobin 29.6 PG (26-34); Mean Corpuscular Volume 88.6 fL (80-100); Monocytes Absolute Auto 500 /uL (0-900); Monocytes Percent Auto 8.8 % (3-14); Neutrophils Absolute Auto 2800 /uL (1500-7000); Neutrophils Percent Auto 50.7 % (50-75); Platelet Count 166 X10^3/uL (150-400); Red Blood Cell Count 3.96 X10^6/uL (4.0-5.2); White Blood Cell Count 5.6 X10^3/uL (4.5-11.0)
[2023-03-27 10:22] LABS: Blood Urea Nitrogen 33 mg/dL (7-17); Calcium 9.4 mg/dL (8.4-10.2); Carbon Dioxide 31 mmol/L (22-32); Chloride 101 mmol/L (98-107); Estimated Glomerular Filt Rate 35 mL/min (>60); Glucose 106 mg/dL (80-110); HEMOLYSIS < 15 (0-50); Sodium 140 mmol/L (137-145)
== END ==
PROVIDERS: PCP Internal Medicine; Visit Provider Nurse Practitioner Family
DX: N18.9 Chronic kidney disease, unspecified (principal); D64.9 Anemia, unspecified
CPT/HCPCS: 36415; 80048; 85025

== ENCOUNTER → 2023-05-22 08:13 | Outpatient (ROUT) | payer MEDICARE, MEDICAID, SELFPAY ==
[2023-05-23 03:10] LABS: Labcorp Hemoglobin (Hb) A1c 7.3 % (4.8-5.6)
== END ==
PROVIDERS: PCP Internal Medicine; Visit Provider Nurse Practitioner Gerontology
DX: E11.9 Type 2 diabetes mellitus without complications (principal)
CPT/HCPCS: 36415; 83036

== ENCOUNTER → 2023-06-28 18:06 | Outpatient (CLI) | payer MEDICARE, MEDICAID, SELFPAY ==
--- NOTE | 2023-06-28 | DI.RAD.S_ITS ---
PROCEDURE: XR FINGER RT MIN 2V INDICATIONS: Finger inj TECHNIQUE: AP hand, 2 views of the 3 finger(s) acquired. COMPARISON: None. FINDINGS: Bones: Cortical step-off and lucency again seen involving the radial styloid process. Polyarticular joint space narrowing with periarticular osteophyte formation, most notably involving the triscaphe joint as well as the interphalangeal joints. Bones are osteopenic.. No suspicious bony lesions. Soft tissues: No suspicious soft tissue calcifications. IMPRESSION: 1. Findings suspicious for radial styloid process fracture and correlation to point tenderness is recommended. 2. No definitive fracture of the 3rd digit. Dictated by: Adair GRADY Interpreted: Jimmy Aiken MD on 06/28/2023 at 20:34 Approved by: Jimmy Aiken M.D. on 06/29/2023 at 11:40
--- NOTE | 2023-06-28 | DI.RAD.S_ITS ---
PROCEDURE: XR WRIST RT MIN 3V INDICATIONS: Wrist injury TECHNIQUE: 4 views of the wrist were acquired. COMPARISON: [facility], CR, XR FINGER RT MIN 2V, 06/28/2023, 18:19. FINDINGS: Bones: Cortical step-off and lucency present involving the radial styloid process suspicious for fracture. Polyarticular joint space narrowing, severe involving the triscaphe joint. No suspicious bony lesions. Scaphoid view: Intact scaphoid. Soft tissues: No suspicious soft tissue calcifications. IMPRESSION: Cortical step-off and lucency extending through the radial styloid process suspicious for fracture. Recommend correlation to point tenderness. Dictated by: Adair GRADY Interpreted: Jimmy Aiken MD on 06/28/2023 at 20:32 Transcribed by: ES on 06/29/2023 at 8:16 Approved by: Jimmy Aiken M.D. on 06/29/2023 at 11:39
== END ==
PROVIDERS: PCP Internal Medicine; Referring Provider Nurse Practitioner Gerontology; Visit Provider Nurse Practitioner Gerontology
DX: S60.211A Contusion of right wrist, initial encounter (principal); M25.531 Pain in right wrist; X58.XXXA Exposure to other specified factors, initial encounter
CPT/HCPCS: 73110; 73140

== ENCOUNTER → 2023-07-03 07:50 | Outpatient (ROUT) | payer MEDICARE, MEDICAID, SELFPAY ==
[2023-07-03 08:50] LABS: Add Manual Diff / Slide Review NO; Basophils Absolute Auto 0 /uL (0-100); Basophils Percent Auto 0.8 % (0-2); Eosinophils Absolute Auto 300 /uL (0-450); Eosinophils Percent Auto 6.1 % (2-4); Hematocrit 34.8 % (36-46); Hemoglobin 11.6 g/dL (12.0-16.0); Lymphocytes Absolute Auto 1600 /uL (1100-4500); Lymphocytes Percent Auto 29.2 % (25-40); Mean Corpuscular HGB Conc 33.2 % (30-36); Mean Corpuscular Hemoglobin 29.6 PG (26-34); Mean Corpuscular Volume 89.3 fL (80-100); Monocytes Absolute Auto 400 /uL (0-900); Monocytes Percent Auto 7.3 % (3-14); Neutrophils Absolute Auto 3100 /uL (1500-7000); Neutrophils Percent Auto 56.6 % (50-75); Platelet Count 227 X10^3/uL (150-400); Red Cell Distribution Width 13.6 % (11.6-14.8); White Blood Cell Count 5.5 X10^3/uL (4.5-11.0)
[2023-07-03 09:03] LABS: Alanine Aminotransferase 20 IU/L (<35); Albumin 4.3 g/dL (3.5-5.0); Albumin Globulin Ratio 1.6 (1.0-2.8); Alkaline Phosphatase 74 U/L (38-126); Aspartate Aminotransferase 26 IU/L (14-36); BUN Creatinine Ratio 21.5 (6-22); Bilirubin Total 0.3 mg/dL (0.2-1.3); Blood Urea Nitrogen 29 mg/dL (7-17); Calcium 9.5 mg/dL (8.4-10.2); Carbon Dioxide 28 mmol/L (22-32); Chloride 101 mmol/L (98-107); Estimated Glomerular Filt Rate 39 mL/min (>60); Globulin 2.7 g/dL (1.7-4.1); Glucose 67 mg/dL (80-110); HEMOLYSIS < 15 (0-50); Potassium 4.1 mmol/L (3.4-5.1); Sodium 139 mmol/L (137-145)
[2023-07-03 09:04] LABS: Hemoglobin A1C% w Est Avg Glu 6.6 % (4.0-6.0)
== END ==
PROVIDERS: PCP Internal Medicine; Visit Provider Nurse Practitioner Gerontology
DX: E11.22 Type 2 diabetes mellitus with diabetic chronic kidney disease (principal); I12.9 Hypertensive chronic kidney disease with stage 1 through stage 4 chronic kidney disease, or unspecified chronic kidney disease; N18.9 Chronic kidney disease, unspecified; D63.1 Anemia in chronic kidney disease
CPT/HCPCS: 36415; 80053; 83036; 85025

== ENCOUNTER → 2023-08-16 20:52 | Outpatient (ROUT) | payer MEDICARE, MEDICAID, SELFPAY ==
[2023-08-16 21:08] LABS: Appearance Urine UA CLOUDY; Bilirubin Urine UA NEGATIVE (NEGATIVE); Color Urine UA YELLOW; Glucose Urine UA NEGATIVE (Negative); Ketones Urine UA NEGATIVE (NEGATIVE); Leukocyte Esterase Urine UA NEGATIVE (NEGATIVE); Nitrite Urine UA NEGATIVE (Negative); Occult Blood Urine UA NEGATIVE (Negative); Protein Urine UA 1+ (Negative); Urobilinogen Urine UA 0.2 E.U./dL (0.2)
[2023-08-16 22:08] LABS: RBC Urine 0-1/HPF (0-5/HPF)
[2023-08-16 22:09] LABS: Bacteria Urine Many (>30); Culture Indicated Urine Specimen Cultured; Squamous Epithelial Cell Urine None Seen (0-5/HPF); WBC Urine 5-10/HPF (0-5/HPF)
== END ==
PROVIDERS: PCP Internal Medicine; Visit Provider Internal Medicine
DX: R32 Unspecified urinary incontinence (principal); R35.0 Frequency of micturition; R39.15 Urgency of urination
CPT/HCPCS: 81001; 87077; 87086; 87186

== ENCOUNTER → 2023-09-11 07:43 | Outpatient (ROUT) | payer MEDICARE, MEDICAID, SELFPAY ==
[2023-09-11 08:18] LABS: Add Manual Diff / Slide Review NO; Basophils Absolute Auto 100 /uL (0-100); Eosinophils Absolute Auto 300 /uL (0-450); Eosinophils Percent Auto 6.4 % (2-4); Hematocrit 32.5 % (36-46); Hemoglobin 10.8 g/dL (12.0-16.0); Lymphocytes Absolute Auto 1900 /uL (1100-4500); Lymphocytes Percent Auto 35.8 % (25-40); Mean Corpuscular HGB Conc 33.2 % (30-36); Mean Corpuscular Hemoglobin 29.1 PG (26-34); Mean Corpuscular Volume 87.9 fL (80-100); Monocytes Absolute Auto 400 /uL (0-900); Monocytes Percent Auto 7.6 % (3-14); Neutrophils Absolute Auto 2600 /uL (1500-7000); Neutrophils Percent Auto 49.2 % (50-75); Platelet Count 167 X10^3/uL (150-400); Red Blood Cell Count 3.69 X10^6/uL (4.0-5.2); Red Cell Distribution Width 14.3 % (11.6-14.8); White Blood Cell Count 5.3 X10^3/uL (4.5-11.0)
[2023-09-11 08:30] LABS: Hemoglobin A1C% w Est Avg Glu 7.2 % (4.0-6.0)
[2023-09-11 08:39] LABS: Alanine Aminotransferase 18 IU/L (<35); Albumin Globulin Ratio 1.5 (1.0-2.8); Alkaline Phosphatase 74 U/L (38-126); Aspartate Aminotransferase 21 IU/L (14-36); BUN Creatinine Ratio 26.6 (6-22); Bilirubin Total 0.3 mg/dL (0.2-1.3); Blood Urea Nitrogen 33 mg/dL (7-17); Calcium 9.5 mg/dL (8.4-10.2); Carbon Dioxide 27 mmol/L (22-32); Chloride 102 mmol/L (98-107); Estimated Glomerular Filt Rate 43 mL/min (>60); Globulin 2.6 g/dL (1.7-4.1); Glucose 95 mg/dL (80-110); HEMOLYSIS < 15 (0-50); Potassium 3.9 mmol/L (3.4-5.1); Sodium 139 mmol/L (137-145); Total Protein 6.6 g/dL (6.3-8.2)
== END ==
PROVIDERS: PCP Internal Medicine; Visit Provider Nurse Practitioner Family
DX: E11.9 Type 2 diabetes mellitus without complications (principal)
CPT/HCPCS: 36415; 80053; 83036; 85025

== ENCOUNTER → 2024-06-28 15:01 | Outpatient (ROUT) | payer MEDICARE, MEDICAID, SELFPAY ==
[2024-06-28 15:19] LABS: Appearance Urine UA SL CLOUDY; Bilirubin Urine UA NEGATIVE (NEGATIVE); Color Urine UA YELLOW; Glucose Urine UA NEGATIVE (Negative); Ketones Urine UA NEGATIVE (NEGATIVE); Leukocyte Esterase Urine UA TRACE (NEGATIVE); Nitrite Urine UA NEGATIVE (Negative); Occult Blood Urine UA NEGATIVE (Negative); Protein Urine UA 1+ (Negative); Urobilinogen Urine UA 0.2 E.U./dL (0.2)
[2024-06-28 15:28] LABS: pH Urine UA 5.5 (4.5-8.0)
[2024-06-28 15:29] LABS: Bacteria Urine Many (>30); RBC Urine None Seen (0-5/HPF); Squamous Epithelial Cell Urine None Seen (0-5/HPF); Urine Volume 10mL (spun); WBC Urine 5-10/HPF (0-5/HPF)
== END ==
PROVIDERS: PCP Internal Medicine; Visit Provider Registered Nurse
DX: R41.0 Disorientation, unspecified (principal); R45.1 Restlessness and agitation
CPT/HCPCS: 81001; 87077; 87086; 87186

== ENCOUNTER → 2024-07-02 06:11 | Outpatient (ROUT) | payer MEDICARE, MEDICAID, SELFPAY ==
[2024-07-02 07:09] LABS: Add Manual Diff / Slide Review NO; Basophils Absolute Auto 100 /uL (0-100); Basophils Percent Auto 1.1 % (0-2); Eosinophils Absolute Auto 400 /uL (0-450); Eosinophils Percent Auto 6.5 % (2-4); Hematocrit 37.6 % (36-46); Hemoglobin 12.3 g/dL (12.0-16.0); Lymphocytes Absolute Auto 2500 /uL (1100-4500); Lymphocytes Percent Auto 40.5 % (25-40); Mean Corpuscular HGB Conc 32.8 % (30-36); Mean Corpuscular Hemoglobin 29.5 PG (26-34); Monocytes Absolute Auto 400 /uL (0-900); Neutrophils Absolute Auto 2800 /uL (1500-7000); Neutrophils Percent Auto 44.9 % (50-75); Platelet Count 180 X10^3/uL (150-400); Red Blood Cell Count 4.18 X10^6/uL (4.0-5.2); Red Cell Distribution Width 13.9 % (11.6-14.8); White Blood Cell Count 6.2 X10^3/uL (4.5-11.0)
[2024-07-02 07:26] LABS: Alanine Aminotransferase 93 IU/L (<35); Albumin 4.3 g/dL (3.5-5.0); Albumin Globulin Ratio 1.4 (1.0-2.8); Alkaline Phosphatase 183 U/L (38-126); Aspartate Aminotransferase 50 IU/L (14-36); BUN Creatinine Ratio 26.1 (6-22); Bilirubin Total 0.5 mg/dL (0.2-1.3); Blood Urea Nitrogen 35 mg/dL (7-17); Calcium 9.5 mg/dL (8.4-10.2); Carbon Dioxide 28 mmol/L (22-32); Chloride 106 mmol/L (98-107); Estimated Glomerular Filt Rate 39 mL/min (>60); Glucose 67 mg/dL (80-110); HEMOLYSIS < 15 (0-50); Potassium 3.6 mmol/L (3.4-5.1); Sodium 143 mmol/L (137-145); Total Protein 7.3 g/dL (6.3-8.2)
[2024-07-02 21:12] LABS: Thyroid Stimulating Hormone 0.432 uIU/mL (0.47-4.68)
[2024-07-02 21:48] LABS: Folate > 20.0 ng/mL (2.76-20.0); Vitamin B12 319 pg/mL (239-931)
[2024-07-02 22:26] LABS: Hemoglobin A1C% w Est Avg Glu 6.8 % (4.0-6.0)
== END ==
PROVIDERS: PCP Internal Medicine; Visit Provider Registered Nurse
DX: E11.9 Type 2 diabetes mellitus without complications (principal); I10 Essential (primary) hypertension; R41.0 Disorientation, unspecified; R45.1 Restlessness and agitation
CPT/HCPCS: 36415; 80053; 82607; 82746; 83036; 84443; 85025

== ENCOUNTER 2024-07-16 16:21 | Emergency (ER) | payer MEDICARE, MEDICAID, SELFPAY ==
[2024-07-16] VITALS (27 sets, daily range): BP systolic 158–215; BP diastolic 70–111; PULSE 44–56; RESP 10–29; TEMP 36.4; O2SAT 93–98; BMI 36.8
--- NOTE | 2024-07-16 16:38 | EKG_ITS ---
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
[2024-07-16 16:48] LABS: Add Manual Diff / Slide Review NO; Basophils Absolute Auto 0 /uL (0-100); Basophils Percent Auto 0.5 % (0-2); Eosinophils Absolute Auto 400 /uL (0-450); Eosinophils Percent Auto 6.9 % (2-4); Hematocrit 36.8 % (36-46); Hemoglobin 12.1 g/dL (12.0-16.0); Lymphocytes Absolute Auto 1800 /uL (1100-4500); Lymphocytes Percent Auto 28.9 % (25-40); Mean Corpuscular Hemoglobin 29.7 PG (26-34); Mean Corpuscular Volume 90.1 fL (80-100); Monocytes Absolute Auto 400 /uL (0-900); Monocytes Percent Auto 7.2 % (3-14); Neutrophils Absolute Auto 3500 /uL (1500-7000); Neutrophils Percent Auto 56.5 % (50-75); Platelet Count 200 X10^3/uL (150-400); Red Blood Cell Count 4.09 X10^6/uL (4.0-5.2); Red Cell Distribution Width 13.6 % (11.6-14.8); White Blood Cell Count 6.2 X10^3/uL (4.5-11.0)
[2024-07-16 16:50] LABS: Prothrombin Time 11.4 SECONDS (9.4-12.5)
[2024-07-16 17:00] LABS: Alanine Aminotransferase 168 IU/L (<35); Albumin 4.1 g/dL (3.5-5.0); Albumin Globulin Ratio 1.2 (1.0-2.8); Alkaline Phosphatase 232 U/L (38-126); Aspartate Aminotransferase 55 IU/L (14-36); BUN Creatinine Ratio 26.8 (6-22); Bilirubin Total 0.7 mg/dL (0.2-1.3); Blood Urea Nitrogen 45 mg/dL (7-17); Calcium 9.4 mg/dL (8.4-10.2); Carbon Dioxide 29 mmol/L (22-32); Chloride 102 mmol/L (98-107); Estimated Glomerular Filt Rate 30 mL/min (>60); Globulin 3.4 g/dL (1.7-4.1); Glucose 142 mg/dL (80-110); Lipase 1248 U/L (23-300); Potassium 3.9 mmol/L (3.4-5.1); Sodium 139 mmol/L (137-145); Total Protein 7.5 g/dL (6.3-8.2)
[2024-07-16 17:01] LABS: HEMOLYSIS 88 (0-50)
[2024-07-16] MEDS: SODIUM CHLORIDE 0.9% 1,000 ML 1000 ML IV (17:24)
--- NOTE | 2024-07-16 17:30 | PC.NURSE ---
Addendum entered by Ruthann Kee R.N. 07/16/24 22:54: Pt has also needed PO meds crushed. Original Note: Facility called. At baseline pt is usually able to have full conversations, though speech is slow, she can be understood. Baseline mobility is ambulatory with walker, incontinent. Since Sunday pt has had increasing confusion and staff now unable to understand speech, it is slurred/slow. Increased weakness and unable to walk with walker. Has been needing wheelchair. Also having explosive/foul smelling diarrhea. Provider notified of pt status. Verbal orders received.
--- NOTE | 2024-07-16 17:42 | PC.NURSE ---
Addendum entered by Oksana Dsouza R.N. 07/16/24 18:03: Notified provider of patient confusion and of low HR in the 40's. Provider ordered fluids, see MAR Original Note: Patient is unable to participate in the assessment, patient is a/ox1 and cannot answer questions relating to the assessment other than marah jenkins
--- NOTE | 2024-07-16 17:43 | DI.CT.S_ITS ---
PROCEDURE: CT ABDOMEN PELVIS WO CON INDICATIONS: N/V, inc Lipase; GFR 30 no IV contrast TECHNIQUE: Axial sections were acquired from the lung bases to the pubic symphysis. Coronal and sagittal reformats were performed. For radiation dose reduction, the following was used: automated exposure control, adjustment of mA and/or kV according to patient size. COMPARISON: [facility], CT, CT KIDNEY URETER BLADDER (KUB), 07/24/2022, 11:20. FINDINGS: Image quality: Diagnostic. Peritoneum: There is no pneumoperitoneum. There is no ascites. Bones: There is no acute osseous abnormality. The visualized vertebral body height are preserved. Diffuse idiopathic skeletal hyperostosis of the lower thoracic spine. Dextrocurvature of the lumbar spine with the apex at L2. Lower Chest: Linear parenchymal banding/scarring at the lung bases. Four-chamber cardiomegaly and moderate-severe coronary artery calcifications Liver: The liver is within normal limits. Gallbladder: Pericholecystic edema/gallbladder wall thickening up to 8 millimeter (2/35). No radiopaque cholelithiasis. Biliary Ducts: Extrahepatic common bile duct dilatation up to 20 mm (2/39). Pancreas: Unchanged focal calcification at the uncinate process of the pancreas. No peripancreatic fat stranding no peripancreatic fluid collections. Spleen: The spleen is within normal limits. Adrenal glands: No adrenal nodularity. Kidneys: Atrophic appearance of the kidneys. No hydronephrosis or obstructive urolithiasis. Bladder: No abnormal wall thickening. Stomach: The stomach is within normal limits. Bowel: Scattered colonic diverticulosis. The bowel is within normal limits. There is no bowel obstruction. Status post prior appendectomy. Lymph Nodes: There is no retroperitoneal, mesenteric, or inguinal lymphadenopathy. Vascular: Mild aortoiliac atherosclerosis without aneurysmal dilatation. IMPRESSION: 1. Possible acute cholecystitis with choledocholithiasis. Consider a right upper quadrant ultrasound for confirmation/identification of obstructing gallstones. 2. No CT evidence of acute interstitial edematous pancreatitis. No peripancreatic fluid collections. Dictated by: Caleb aBch M.D. on 07/16/2024 at 19:13 Approved by: Caleb Bach M.D. on 07/16/2024 at 19:23
--- NOTE | 2024-07-16 18:01 | PC.NURSE ---
Yashira RN and Claudette PEARSON straight catheterized this patient because per her facility she is incontinent of bowel and bladder. Performed hood care, placed her in a gown, and placed warm blankets on her. Call light is in reach.
[2024-07-16 18:12] LABS: Appearance Urine UA CLEAR; Bilirubin Urine UA NEGATIVE (NEGATIVE); Color Urine UA YELLOW; Glucose Urine UA NEGATIVE (Negative); Ketones Urine UA NEGATIVE (NEGATIVE); Leukocyte Esterase Urine UA NEGATIVE (NEGATIVE); Nitrite Urine UA NEGATIVE (Negative); Occult Blood Urine UA NEGATIVE (Negative); Protein Urine UA TRACE (Negative); Specific Gravity Urine UA 1.015 (1.000-1.035); Urobilinogen Urine UA 0.2 E.U./dL (0.2)
[2024-07-16 18:22] LABS: pH Urine UA 5.5 (4.5-8.0)
[2024-07-16 18:24] LABS: Bacteria Urine Many (>30); Culture Indicated Urine Cult Not Indicated; RBC Urine 0-1/HPF (0-5/HPF); Squamous Epithelial Cell Urine 0-1 /HPF (0-5/HPF); Urine Volume 10mL (spun); WBC Urine 0-1/HPF (0-5/HPF)
--- NOTE | 2024-07-16 18:48 | ED_ITS ---
HPI - Nausea/Vomiting/Diarrhea General Chief complaint: Nausea/Vomiting/Diarrhea Stated complaint: diarrhea/possible cdiff Time Seen by Provider: 07/16/24 17:42 History of Present Illness HPI Narrative: 84-year-old female with history of CVA with residual aphasia, dementia, hypertension, diabetes presents from [facility] concern for possible urinary tract infection or C diff. patient has confusion and mild aphasia at baseline, however per EMS the patient's baseline status is ?able to hold a conversation?. For the last 2-3 days she has had worsening confusion as well as ?explosive diarrhea?. My arrival patient is oriented to self only, denying any complaints or pain. Related Data Home Medications Medication Instructions Recorded Confirmed albuterol sulfate 90 mcg/actuation 2 puff inhalation TID 03/21/22 07/16/24 aerosol inhaler chlorthalidone 25 mg tablet 12.5 mg PO BEDTIME htn 03/21/22 07/16/24 chlorthalidone 25 mg tablet 25 mg PO QAM 03/21/22 07/16/24 citalopram 10 mg tablet 10 mg PO DAILY depression 03/21/22 07/16/24 clonidine HCl 0.1 mg tablet 0.1 mg PO DAILY htn 03/21/22 07/16/24 clopidogrel 75 mg tablet 75 mg PO DAILY 03/21/22 07/16/24 gabapentin 300 mg capsule 600 mg PO BID 03/21/22 07/16/24 insulin glargine 100 unit/mL (3 36 unit SUBCUT BID 03/21/22 07/16/24 mL) subcutaneous pen (Lantus Solostar U-100 Insulin) insulin lispro 100 unit/mL See Rx Instructions .Route .COMPLEX 03/21/22 07/16/24 subcutaneous pen (Humalog KwikPen (U-100) Insulin) loratadine 10 mg tablet (Allergy 10 mg PO DAILY allergies 03/21/22 07/16/24 Relief (loratadine)) metoprolol tartrate 25 mg tablet 50 mg PO BID 03/21/22 07/16/24 simvastatin 20 mg tablet 20 mg PO BEDTIME 03/21/22 07/16/24 nystatin 100,000 unit/gram topical 1 applic topical BID 08/22/22 07/16/24 powder amlodipine 10 mg tablet 10 mg PO DAILY 11/20/22 07/16/24 acetaminophen 500 mg tablet 1,000 mg PO TID Pain 07/16/24 07/16/24 albuterol sulfate 90 mcg/actuation 2 puff inhalation Q2H PRN Wheezing 07/16/24 07/16/24 aerosol inhaler baclofen 10 mg tablet 10 mg PO TID 07/16/24 07/16/24 clonidine HCl 0.1 mg tablet 0.1 mg PO PRN PRN Hypertension 07/16/24 07/16/24 cyclosporine 0.05 % eye drops in a 1 drp EYE-BOTH BID 07/16/24 07/16/24 dropperette loperamide 2 mg tablet (Imodium 2 mg PO Q6H PRN Diarrhea 07/16/24 07/16/24 A-D) ondansetron HCl 4 mg tablet 4 mg PO Q4H 07/16/24 07/16/24 quetiapine 25 mg tablet 12.5 mg PO DAILY 07/16/24 07/16/24 Allergies Allergy/AdvReac Type Severity Reaction Status Date / Time Penicillins Allergy Unknown Verified 11/20/22 13:31 procaine [From Novocain] Allergy Unknown Verified 11/20/22 13:31 Patient History Medical History Postmenopausal atrophic vaginitis Recurrent UTI (urinary tract infection) Bacterial UTI Cerebral infarction Dementia Edema Major depression Osteoarthritis Neuropathy Hyperlipidemia Diabetes Hypertension Family History Family/Other Diabetes mellitus Social History marital status: number of children: 2 Smoking Status: Never smoker Smoking Status: Never smoker alcohol intake frequency: holidays/special occasions only Substance Use Type: does not use Exam Initial Vital Signs Initial Vital Signs: Vital Signs Temperature 97.5 F L 07/16/24 16:26 Pulse Rate 52 L 07/16/24 16:26 Respiratory Rate 20 07/16/24 16:26 Blood Pressure 181/74 H 07/16/24 16:26 Pulse Oximetry 96 07/16/24 16:26 Oxygen Delivery Method Room Air 07/16/24 16:26 Const: awake, responsive, no acute distress, appears debilitated, frail, chronically unwell Cardiac: bradycardia, regular rhythm RESP: unlabored, clear bilaterally, no wheezing GI: Soft, nontender, nondistended Skin: Warm, Dry, intact, no rashes Neuro: AO x1, CN II-XII grossly intact, moves all extremities Course Orders Ordered: ED Orders 07/16/24 19:39 US abdomen limited Stat 07/16/24 23:40 Lipase Stat 07/17/24 01:00 Ammonia (NH3) Stat Discontinued Medications Sodium Chloride (Normal Saline 0.9%) 1,000 mls @ 1,000 mls/hr IV BOLUS ONE Stop: 07/16/24 18:13 Last Infusion: 07/16/24 18:49 Dose: Infused Documented By: Admin: 07/16/24 17:24 Dose: 1,000 mls/hr Documented By: CAESAR Ondansetron HCl (Ondansetron 4 Mg/2 Ml Inj) 4 mg IV NOW PRN PRN Reason: Nausea And Vomiting Vital Signs Vital signs: Vital Signs - 8 hr 07/16/24 20:30 07/16/24 20:32 07/16/24 20:32 Temperature Pulse Rate 54 L 52 L Respiratory Rate 13 13 Blood Pressure 215/87 H Pulse Oximetry 96 98 Oxygen Delivery Method 07/16/24 20:40 07/16/24 20:40 07/16/24 21:00 Temperature Pulse Rate 47 L 53 L Respiratory Rate 17 22 Blood Pressure 193/79 H Pulse Oximetry 97 95 Oxygen Delivery Method 07/16/24 21:01 07/16/24 21:01 07/16/24 21:30 Temperature Pulse Rate 50 L 51 L Respiratory Rate 10 L 11 L Blood Pressure 170/72 H Pulse Oximetry 97 97 Oxygen Delivery Method 07/16/24 21:31 07/16/24 21:31 07/16/24 21:42 Temperature Pulse Rate 50 L 44 L Respiratory Rate 16 19 Blood Pressure 187/111 H Pulse Oximetry 97 96 Oxygen Delivery Method Room Air 07/16/24 21:42 07/16/24 22:00 07/16/24 22:30 Temperature Pulse Rate 46 L 46 L Respiratory Rate 25 H 12 Blood Pressure 208/79 H Pulse Oximetry 97 96 Oxygen Delivery Method 07/16/24 23:00 07/16/24 23:30 07/17/24 00:00 Temperature Pulse Rate 53 L 56 L 61 Respiratory Rate 23 17 19 Blood Pressure Pulse Oximetry 93 96 97 Oxygen Delivery Method 07/17/24 00:30 07/17/24 01:00 07/17/24 01:07 Temperature Pulse Rate 51 L 50 L 58 L Respiratory Rate 16 16 14 Blood Pressure Pulse Oximetry 97 96 97 Oxygen Delivery Method 07/17/24 01:07 07/17/24 03:03 Temperature 97.9 F Pulse Rate 52 L Respiratory Rate 17 Blood Pressure 181/67 H 168/68 H Pulse Oximetry 95 Oxygen Delivery Method Room Air MDM - Nausea/Vomiting/Diarrhea Differential Diagnosis Differential diagnosis: Likely traveler's diarrhea, food poisoning and gastroenteritis Lab Data 07/16/24 16:25 07/16/24 16:25 Labs: Lab Results 07/16/24 07/16/24 07/16/24 Range/Units 16:25 17:55 23:40 WBC 6.2 (4.5-11.0) X10^3/uL RBC 4.09 (4.0-5.2) X10^6/uL Hgb 12.1 (12.0-16.0) g/dL Hct 36.8 (36-46) % MCV 90.1 (80-100) fL MCH 29.7 (26-34) PG MCHC 33.0 (30-36) % RDW 13.6 (11.6-14.8) % Plt Count 200 (150-400) X10^3/uL Neut % (Auto) 56.5 (50-75) % Lymph % (Auto) 28.9 (25-40) % [place] % (Auto) 7.2 (3-14) % Eos % (Auto) 6.9 H (2-4) % Baso % (Auto) 0.5 (0-2) % Neut # (Auto) 3500 (3375-3509) /uL Lymph # (Auto) 1800 (5690-9074) /uL [place] # (Auto) 400 (0-900) /uL Eos # (Auto) 400 (0-450) /uL Baso # (Auto) 0 (0-100) /uL PT 11.4 (9.4-12.5) SECONDS INR 1.0 (0.9-1.3) Sodium 139 (137-145) mmol/L Potassium 3.9 (3.4-5.1) mmol/L Chloride 102 (98-107) mmol/L Carbon Dioxide 29 (22-32) mmol/L BUN 45 H (7-17) mg/dL Creatinine 1.68 H (0.52-1.04) mg/dL Estimated GFR 30 L (>60) mL/min BUN/Creatinine Ratio 26.8 H (6-22) Glucose 142 H (80-110) mg/dL Calcium 9.4 (8.4-10.2) mg/dL Total Bilirubin 0.7 (0.2-1.3) mg/dL AST 55 H (14-36) IU/L ALT 168 H (<35) IU/L Alkaline Phosphatase 232 H (38-126) U/L Ammonia (9-30) umol/L Total Protein 7.5 (6.3-8.2) g/dL Albumin 4.1 (3.5-5.0) g/dL Globulin 3.4 (1.7-4.1) g/dL Albumin/Globulin Ratio 1.2 (1.0-2.8) Lipase 1248 H 1152 H (23-300) U/L Urine Color Yellow Urine Appearance Clear Urine pH 5.5 (4.5-8.0) Ur Specific [place] 1.015 (1.000-1.035) Urine Protein Trace H (Negative) Urine Glucose (UA) Negative (Negative) g/dL Urine Ketones Negative (NEGATIVE) Urine Occult Blood Negative (Negative) Urine Nitrate Negative (Negative) Urine Bilirubin Negative (NEGATIVE) Urine Urobilinogen 0.2 (0.2) E.U./dL Ur Leukocyte Esterase Negative (NEGATIVE) Urine RBC 0-1/hpf (0-5/HPF) Urine WBC 0-1/hpf (0-5/HPF) Ur Squamous Epith Cells 0-1 /hpf (0-5/HPF) Urine Bacteria Many (>30) H (None) Ur Culture Indicated? Cult not indicated Vol Urine Centrifuged 10ml (spun) 07/17/24 Range/Units 01:00 WBC (4.5-11.0) X10^3/uL RBC (4.0-5.2) X10^6/uL Hgb (12.0-16.0) g/dL Hct (36-46) % MCV (80-100) fL MCH (26-34) PG MCHC (30-36) % RDW (11.6-14.8) % Plt Count (150-400) X10^3/uL Neut % (Auto) (50-75) % Lymph % (Auto) (25-40) % [place] % (Auto) (3-14) % Eos % (Auto) (2-4) % Baso % (Auto) (0-2) % Neut # (Auto) (1388-7182) /uL Lymph # (Auto) (3985-1181) /uL [place] # (Auto) (0-900) /uL Eos # (Auto) (0-450) /uL Baso # (Auto) (0-100) /uL PT (9.4-12.5) SECONDS INR (0.9-1.3) Sodium (137-145) mmol/L Potassium (3.4-5.1) mmol/L Chloride (98-107) mmol/L Carbon Dioxide (22-32) mmol/L BUN (7-17) mg/dL Creatinine (0.52-1.04) mg/dL Estimated GFR (>60) mL/min BUN/Creatinine Ratio (6-22) Glucose (80-110) mg/dL Calcium (8.4-10.2) mg/dL Total Bilirubin (0.2-1.3) mg/dL AST (14-36) IU/L ALT (<35) IU/L Alkaline Phosphatase (38-126) U/L Ammonia < 9 L (9-30) umol/L Total Protein (6.3-8.2) g/dL Albumin (3.5-5.0) g/dL Globulin (1.7-4.1) g/dL Albumin/Globulin Ratio (1.0-2.8) Lipase (23-300) U/L Urine Color Urine Appearance Urine pH (4.5-8.0) Ur Specific [place] (1.000-1.035) Urine Protein (Negative) Urine Glucose (UA) (Negative) g/dL Urine Ketones (NEGATIVE) Urine Occult Blood (Negative) Urine Nitrate (Negative) Urine Bilirubin (NEGATIVE) Urine Urobilinogen (0.2) E.U./dL Ur Leukocyte Esterase (NEGATIVE) Urine RBC (0-5/HPF) Urine WBC (0-5/HPF) Ur Squamous Epith Cells (0-5/HPF) Urine Bacteria (None) Ur Culture Indicated? Vol Urine Centrifuged Point of Care Testing Glucose POC [address] scan - abdomen/pelvis: Radiologist's Impression: PROCEDURE: CT ABDOMEN PELVIS WO CON INDICATIONS: N/V, inc Lipase; GFR 30 no IV contrast TECHNIQUE: Axial sections were acquired from the lung bases to the pubic symphysis. Coronal and sagittal reformats were performed. For radiation dose reduction, the following was used: automated exposure control, adjustment of mA and/or kV according to patient size. COMPARISON: [facility], CT, CT KIDNEY URETER BLADDER (KUB), 07/24/2022, 11:20. FINDINGS: Image quality: Diagnostic. Peritoneum: There is no pneumoperitoneum. There is no ascites. Bones: There is no acute osseous abnormality. The visualized vertebral body height are preserved. Diffuse idiopathic skeletal hyperostosis of the lower thoracic spine. Dextrocurvature of the lumbar spine with the apex at L2. Lower Chest: Linear parenchymal banding/scarring at the lung bases. Four- chamber cardiomegaly and moderate-severe coronary artery calcifications Liver: The liver is within normal limits. Gallbladder: Pericholecystic edema/gallbladder wall thickening up to 8 millimeter (2/35). No radiopaque cholelithiasis. Biliary Ducts: Extrahepatic common bile duct dilatation up to 20 mm (2/39). Pancreas: Unchanged focal calcification at the uncinate process of the pancreas. No peripancreatic fat stranding no peripancreatic fluid collections. Spleen: The spleen is within normal limits. Adrenal glands: No adrenal nodularity. Kidneys: Atrophic appearance of the kidneys. No hydronephrosis or obstructive urolithiasis. Bladder: No abnormal wall thickening. Stomach: The stomach is within normal limits. Bowel: Scattered colonic diverticulosis. The bowel is within normal limits. There is no bowel obstruction. Status post prior appendectomy. Lymph Nodes: There is no retroperitoneal, mesenteric, or inguinal lymphadenopathy. Vascular: Mild aortoiliac atherosclerosis without aneurysmal dilatation. IMPRESSION: 1. Possible acute cholecystitis with choledocholithiasis. Consider a right upper quadrant ultrasound for confirmation/identification of obstructing gallstones. 2. No CT evidence of acute interstitial edematous pancreatitis. No peripancreatic fluid collections. Dictated by: Caleb Bach M.D. on 07/16/2024 at 19:13 Approved by: Caleb Bach M.D. on 07/16/2024 at 19:23 CT scan - head: Radiologist's Impression: PROCEDURE: CT HEAD/BRAIN WO CON INDICATIONS: INCREASING CONFUSION TECHNIQUE: Noncontrast 4.5 mm thick angled axial sections acquired from the foramen magnum to the vertex, with coronal and sagittal reformats. For radiation dose reduction, the following was used: automated exposure control, adjustment of mA and/or kV according to patient size. COMPARISON: [facility], CT, CT HEAD/BRAIN WO CON, 03/21/2022, 18:38. FINDINGS: Image quality: Diagnostic. CSF spaces: Basal cisterns are patent. No extra-axial fluid collections. The ventricles are symmetric in size and shape. Brain: No intracranial bleeds or masses. There is cerebral volume loss for age, with resultant ventricular and sulcal prominence. There are periventricular and deep white matter chronic small vessel ischemic changes. There is intracranial internal carotid artery atherosclerosis. Skull and face: Calvarium and visualized facial bones appear intact, without suspicious lesions. Sinuses: Visualized sinuses and mastoids are clear. IMPRESSION: No acute intracranial pathology. Dictated by: Caleb Bach M.D. on 07/16/2024 at 19:36 Approved by: Caleb Bach M.D. on 07/16/2024 at 19:38 US - abdomen: Radiologist's Impression: PROCEDURE: US ABDOMEN LIMITED INDICATIONS: ELEVATED LIPASE, POSS RODRI ON CT TECHNIQUE: Real-time focused scanning was performed of the abdomen, with image documentation. COMPARISON: [facility], CT, CT ABDOMEN PELVIS WO CON, 07/16/2024, 17:47. [facility], US, US ABDOMEN COMPLETE, 02/09/2022, 10:54. FINDINGS: The gallbladder contains dependent sludge. The wall is thickened up to 4 mm. There is no pericholecystic fluid and no sonographic Bruce sign per the technologist. The common bile duct is dilated at 1.8 cm. There is no visible intrahepatic biliary dilatation. Visible portions of the liver demonstrate hyperechoic echotexture. The pancreas demonstrates dilated duct measuring up to 5.4 mm. No sonographic findings in the pancreatic head. IMPRESSION: Pancreaticobiliary ductal dilatation without visible calcification. Recommend MRCP if the patient could tolerate breath holds. Gallbladder sludge and wall thickening. No specific findings for acute cholecystitis. Mild hepatic steatosis. Dictated by: Lesia Britton M.D. on 07/16/2024 at 23:01 Approved by: Lesia Britton M.D. on 07/16/2024 at 23:03 [facility] Narrative Medical decision making narrative: Nontoxic patient presenting for reported explosive diarrhea and slight worsening of baseline confusion. Patient oriented to self, denying any complaints or pain at this time. Laboratory work reviewed, WBC count 6.2, hemoglobin 12.1, platelet count 200, sodium 139, potassium 3.9, creatinine 1.68, GFR 30, AST 55, ALT 168, alk phos 232, ammonia less than 9, lipase 1248. Liver enzymes not markedly different from results obtained from 07/02/2024. Lipase elevation of uncertain chronicity. Although patient was denying any abdominal pain in it abdomen is soft with out tenderness on exam a CT of the abdomen and pelvis will be ordered. CT brain ordered for further assessment of reports of confusion. CT of the abdomen and pelvis shows possible acute cholecystitis. No CT evidence of pancreatitis. Ultrasound of the abdomen and pelvis ordered for further assessment. Patient has been here for several hours without bowel movement, unable to obtain stool sample. Ultrasound shows pancreatic or biliary ductal dilation without visible calcification. Report states recommend MRCP if patient could tolerate breath holds. Based on patient's mental status as well as body habitus I do not believe that patient [place] able to cooperate with breath holds, and it was unlikely that she would fit into the MRI machine. CT brain negative for acute findings. Laboratory work, imaging results, patient's exam discussed with Dr. Billy of General surgery. Recommended outpatient follow up. At this point patient has been in our emergency department for nearly 9 hours without production of stool sample. I highly doubt C diff at this [place]. Patient discharged back to [facility] in stable condition. Discharge Plan Departure Patient Disposition: Home Clinical Impression: Elevated liver enzymes Instructions: DI for Diarrhea and Traveler's Diarrhea -- Adult Activity Restrictions/Additional Instructions: The laboratory work today showed a mild elevation in liver enzymes, overall not significantly changed compared to June of 2024. CT and ultrasound imaging showed gallbladder sludge, mild dilation in the pancreas and liver ducts, but no evidence for acute cholecystitis. CT brain did not show any abnormalities. Urine did not show signs of infection. No stool sample able to be obtained despite multiple hours in the emergency department. I recommend close follow up on liver enzymes. If she starts having abdominal pain she should come back for repeat evaluation. Prescriptions: No Action clonidine HCl 0.1 mg Tablet 0.1 mg PO DAILY citalopram 10 mg Tablet 10 mg PO DAILY clopidogrel 75 mg Tablet 75 mg PO DAILY chlorthalidone 25 mg Tablet 25 mg PO QAM Rx Instructions: give if systolic BP is more than 150/ chlorthalidone 25 mg Tablet 12.5 mg PO BEDTIME simvastatin 20 mg Tablet 20 mg PO BEDTIME gabapentin 300 mg Capsule 600 mg PO BID albuterol sulfate 90 mcg/actuation Hfa Aerosol Inhaler 2 puff INHALATION TID loratadine [Allergy Relief (loratadine)] 10 mg Tablet 10 mg PO DAILY insulin lispro [Humalog KwikPen Insulin] 100 unit/mL Insulin Pen See Rx Instructions .ROUTE .COMPLEX Rx Instructions: RX instructions in chart daily dose and sliding scale metoprolol tartrate 25 mg Tablet 50 mg PO BID insulin glargine [Lantus Solostar U-100 Insulin] 100 unit/mL (3 mL) Insulin Pen 36 unit SUBCUT BID Rx Instructions: Hold if blood sugar less than 80 quetiapine 25 mg tablet 12.5 mg PO DAILY Rx Instructions: Give daily at 1400 clonidine HCl 0.1 mg tablet 0.1 mg PO PRN PRN (Reason: Hypertension) ondansetron HCl [Zofran] 4 mg Tablet 4 mg PO Q4H loperamide [Imodium A-D] 2 mg Tablet 2 mg PO Q6H PRN (Reason: Diarrhea) acetaminophen 500 mg tablet 1,000 mg PO TID baclofen 10 mg tablet 10 mg PO TID albuterol sulfate [ProAir HFA] 90 mcg/actuation Hfa Aerosol Inhaler 2 puff INHALATION Q2H PRN (Reason: Wheezing) cyclosporine 0.05 % dropperette 1 drp EYE-BOTH BID nystatin 100,000 unit/gram powder 1 applic topical BID amlodipine 10 mg tablet 10 mg PO DAILY Rx Instructions: Hold for systolic less than 100 and HR less than 60 Referrals: Angle Fenton MD [Primary Care Provider] - Stand Alone Forms: Patient Portal/API
--- NOTE | 2024-07-16 19:17 | DI.CT.S_ITS ---
PROCEDURE: CT HEAD/BRAIN WO CON INDICATIONS: INCREASING CONFUSION TECHNIQUE: Noncontrast 4.5 mm thick angled axial sections acquired from the foramen magnum to the vertex, with coronal and sagittal reformats. For radiation dose reduction, the following was used: automated exposure control, adjustment of mA and/or kV according to patient size. COMPARISON: [facility], CT, CT HEAD/BRAIN WO CON, 03/21/2022, 18:38. FINDINGS: Image quality: Diagnostic. CSF spaces: Basal cisterns are patent. No extra-axial fluid collections. The ventricles are symmetric in size and shape. Brain: No intracranial bleeds or masses. There is cerebral volume loss for age, with resultant ventricular and sulcal prominence. There are periventricular and deep white matter chronic small vessel ischemic changes. There is intracranial internal carotid artery atherosclerosis. Skull and face: Calvarium and visualized facial bones appear intact, without suspicious lesions. Sinuses: Visualized sinuses and mastoids are clear. IMPRESSION: No acute intracranial pathology. Dictated by: Caleb Bach M.D. on 07/16/2024 at 19:36 Approved by: Caleb Bach M.D. on 07/16/2024 at 19:38
--- NOTE | 2024-07-16 19:39 | DI.US.S_ITS ---
PROCEDURE: US ABDOMEN LIMITED INDICATIONS: ELEVATED LIPASE, POSS RODRI ON CT TECHNIQUE: Real-time focused scanning was performed of the abdomen, with image documentation. COMPARISON: [facility], CT, CT ABDOMEN PELVIS WO CON, 07/16/2024, 17:47. [facility], US, US ABDOMEN COMPLETE, 02/09/2022, 10:54. FINDINGS: The gallbladder contains dependent sludge. The wall is thickened up to 4 mm. There is no pericholecystic fluid and no sonographic Bruce sign per the technologist. The common bile duct is dilated at 1.8 cm. There is no visible intrahepatic biliary dilatation. Visible portions of the liver demonstrate hyperechoic echotexture. The pancreas demonstrates dilated duct measuring up to 5.4 mm. No sonographic findings in the pancreatic head. IMPRESSION: Pancreaticobiliary ductal dilatation without visible calcification. Recommend MRCP if the patient could tolerate breath holds. Gallbladder sludge and wall thickening. No specific findings for acute cholecystitis. Mild hepatic steatosis. Dictated by: Lesia Britton M.D. on 07/16/2024 at 23:01 Approved by: Lesia Britton M.D. on 07/16/2024 at 23:03
--- NOTE | 2024-07-16 21:47 | PC.NURSE ---
Patient has had no bowel movements since being in the department, patient has urinated several times using the bedpan. The patient is able make her bathroom needs known.
--- NOTE | 2024-07-16 21:49 | PC.NURSE ---
Patient was found to have ripped out her IV, patient states it was hurting. Gauze and cobain applied, patient given warm blankets
--- NOTE | 2024-07-16 23:05 | PC.NURSE ---
Patients blood sugar was 65, provider notified and she said to give some juice or jello. This RN gave the patient orange juice and crackers and peanut butter. Will recheck
[2024-07-17] VITALS: PULSE 61; RESP 19; O2SAT 97
[2024-07-17 00:09] LABS: Lipase 1152 U/L (23-300)
[2024-07-17 00:30] VITALS: PULSE 51; RESP 16; O2SAT 97
[2024-07-17 01:00] VITALS: PULSE 50; RESP 16; O2SAT 96
[2024-07-17 01:07] VITALS: BP 181/67; PULSE 58; RESP 14; O2SAT 97
[2024-07-17 01:19] LABS: Ammonia (NH3) < 9 umol/L (9-30)
--- NOTE | 2024-07-17 01:37 | PC.NURSE ---
Report called to [facility] at [facility]
[2024-07-17 03:03] VITALS: BP 168/68; PULSE 52; RESP 17; TEMP 36.6; O2SAT 95
== END 2024-07-17 03:05 | disposition home or self-care (01) ==
PROVIDERS: Emergency Medicine; Emergency Provider Emergency Medicine; PCP Internal Medicine
DX: R74.8 Abnormal levels of other serum enzymes (principal); R19.7 Diarrhea, unspecified; R10.9 Unspecified abdominal pain; R41.0 Disorientation, unspecified; R00.1 Bradycardia, unspecified; I44.0 Atrioventricular block, first degree; Z79.899 Other long term (current) drug therapy
CPT/HCPCS: 36415; 51701; 70450; 74176; 76705; 80053; 81001; 82140; 82962; 83690; 85025; 85610; 93005; 93010; 96360; 99284

== ENCOUNTER 2024-08-01 07:58 | Emergency (ER) | payer MEDICARE, MEDICAID, SELFPAY ==
[2024-08-01] VITALS (55 sets, daily range): BP systolic 134–206; BP diastolic 60–112; PULSE 0–69; RESP 9–32; TEMP 36.2–36.6; O2SAT 93–100
--- NOTE | 2024-08-01 08:03 | DI.CT.S_ITS ---
PROCEDURE: CT ANGIO HEAD AND NECK INDICATIONS: Altered mental status, on Eliquis TECHNIQUE: After the administration of intravenous contrast, 1 mm thick sections acquired from the aortic arch through the [place] of [place]. 3-dimensional qcopngo-hpmxvpzya-bhzlubmypn (MIP) and/or volume rendering reformats were acquired of the central intracranial vasculature and neck separately. For radiation dose reduction, the following was used: automated exposure control, adjustment of mA and/or kV according to patient size. COMPARISON: [facility], CT, CT HEAD/BRAIN WO CON, 08/01/2024, 8:29. FINDINGS: Image quality: Diagnostic. BRAIN: CSF spaces: Ventricles are normal in size and shape. Basal cisterns are patent. No extra-axial fluid collections. Brain: Accompanying head CT demonstrates no acute intracranial process. Skull and face: Calvarium and facial bones appear intact, without suspicious lesions. Orbits appear normal. Sinuses: Sinuses and mastoids are clear. HEAD CT ANGIOGRAPHY: Anterior circulation: Intracranial internal carotid arteries are normal in size and flow. The flow within the paired anterior cerebral arteries is normal and symmetric. The flow within the middle cerebral arteries is normal and symmetric. The anterior communicating artery is seen. No aneurysms are seen. Posterior circulation: Visualized portions of the vertebral arteries demonstrate normal caliber, and join to form a normal appearing basilar artery. Flow within the posterior cerebral arteries is normal and symmetric. No aneurysms are seen. NECK CT ANGIOGRAPHY: Carotid system: The great vessels demonstrate a conventional anatomy as they arise from the aortic arch. The origins of the common carotid arteries appear patent. The common carotid arteries demonstrate normal caliber and courses. Mild bilateral less than 50% proximal internal carotid artery stenosis. Posterior circulation: The origins of the vertebral arteries both appear widely patent. The more superior extracranial portions of both vertebral arteries also demonstrate normal courses and calibers. They join to form a normal appearing basilar artery. Soft tissues: Visualized neck soft tissues demonstrate no suspicious abnormalities. Bones: No suspicious bony lesions. Diffuse cervical spondylitic change. Findings include exuberant right C3-C4 facet arthropathy with associated bony foraminal narrowing. There is bony foraminal narrowing at other levels. There is a degree of canal stenosis at C5-C6 and C6-C7. IMPRESSION: No significant intracranial arterial abnormality is seen. Bilateral less than 50% proximal internal carotid artery stenosis. Cervical spondylitic change. Any quantitative measurements of stenosis were performed using NASCET criteria. Dictated by: Imer Ramirez M.D. on 08/01/2024 at 8:52 Approved by: Imer Ramirez M.D. on 08/01/2024 at 8:58
--- NOTE | 2024-08-01 08:04 | EKG_ITS ---
[address] [address] Test Date: 2024-08-01 Pat Name: Ramonita Nesbitt Department: [facility] Room: Gender: Female Medical Equipment Repair Technician: MATIAS : 1940 Requested By: Order Number: [id number] Reading MD: Panda Hernandez Measurements Intervals [place] Rate: 51 P: 55 NE: 184 QRS: 14 QRSD: 82 T: 80 QT: 486 QTc: 447 Interpretive Statements Sinus bradycardia with premature supraventricular complexes Electronically Signed On 08-01-2024 8:46:25 PDT by Panda Hernandez
--- NOTE | 2024-08-01 08:04 | DI.CT.S_ITS ---
PROCEDURE: CT HEAD/BRAIN WO CON INDICATIONS: Nonambulatory, on Eliquis TECHNIQUE: Noncontrast 4.5 mm thick angled axial sections acquired from the foramen magnum to the vertex, with coronal and sagittal reformats. For radiation dose reduction, the following was used: automated exposure control, adjustment of mA and/or kV according to patient size. COMPARISON: [facility], CT, CT HEAD/BRAIN WO CON, 07/16/2024, 19:22. FINDINGS: Image quality: Diagnostic. CSF spaces: Basal cisterns are patent. No extra-axial fluid collections. The ventricles are symmetric in size and shape. Brain: No intracranial bleeds or masses. There is cerebral volume loss for age, with resultant ventricular and sulcal prominence. There are periventricular and deep white matter chronic small vessel ischemic changes. There is intracranial internal carotid artery atherosclerosis. Skull and face: Calvarium and visualized facial bones appear intact, without suspicious lesions. Sinuses: Visualized sinuses and mastoids are clear. IMPRESSION: No acute intracranial pathology. Dictated by: Imer Ramirez M.D. on 08/01/2024 at 8:45 Approved by: Imer Ramirez M.D. on 08/01/2024 at 8:45
[2024-08-01 08:09] LABS: Add Manual Diff / Slide Review NO; Basophils Absolute Auto 0 /uL (0-100); Basophils Percent Auto 0.8 % (0-2); Eosinophils Absolute Auto 300 /uL (0-450); Eosinophils Percent Auto 5.7 % (2-4); Hematocrit 36.2 % (36-46); Hemoglobin 12.1 g/dL (12.0-16.0); Lymphocytes Absolute Auto 1800 /uL (1100-4500); Lymphocytes Percent Auto 29.3 % (25-40); Mean Corpuscular HGB Conc 33.5 % (30-36); Mean Corpuscular Hemoglobin 29.8 PG (26-34); Mean Corpuscular Volume 89.1 fL (80-100); Monocytes Absolute Auto 600 /uL (0-900); Monocytes Percent Auto 9.2 % (3-14); Neutrophils Absolute Auto 3300 /uL (1500-7000); Platelet Count 168 X10^3/uL (150-400); Red Blood Cell Count 4.06 X10^6/uL (4.0-5.2); Red Cell Distribution Width 13.5 % (11.6-14.8); White Blood Cell Count 6.1 X10^3/uL (4.5-11.0)
--- NOTE | 2024-08-01 08:12 | DI.US.S_ITS ---
PROCEDURE: US ABDOMEN LIMITED INDICATIONS: RUQ US eval for GB pathology TECHNIQUE: Real-time scanning was performed of the abdominal and retroperitoneal organs, with image documentation. COMPARISON: [facility], CT, CT ABDOMEN PELVIS WO CON, 07/16/2024, 17:47. [facility], US, US ABDOMEN LIMITED, 07/16/2024, 20:16. FINDINGS: Liver: Liver is normal in size and mildly increased in echotexture. However, on recent CT, there is no diffuse hepatic steatosis. Gallbladder: Diffuse bladder wall thickening, measuring 5.6 mm. No stones. Minimal fluid adjacent to the gallbladder. No sonographic Bruce sign. Biliary ducts: Diffuse dilated ducts, with the common duct measuring 14.0 mm, with a common duct stone noted. Pancreas: Visualized portions of the pancreas are sonographically normal. Miscellaneous: No free abdominal fluid. IMPRESSION: 1. There is a distal common duct stone with dilatation of the extrahepatic duct. 2. Diffuse gallbladder wall thickening without stones noted. Cannot exclude acalculous cholecystitis. MRCP may potentially be helpful, versus referral to an interventional ERCP forest technician. Dictated by: Imer Ramirez M.D. on 08/01/2024 at 10:03 Approved by: Imer Ramirez M.D. on 08/01/2024 at 10:07
--- NOTE | 2024-08-01 08:13 | ED.GENADULT ---
HPI - General Adult <Young Chavez DO - Last Filed: 08/02/24 07:10> General Chief complaint: Altered Mental Status Stated complaint: AMS Time Seen by Provider: 08/01/24 07:58 Source: patient and EMS Mode of arrival: EMS Limitations: other (Nonverbal, dementia) History of Present Illness HPI narrative: Patient is an 84-year-old female who lives at [facility] in the [facility] care facility. Has a history of dementia. Is nonambulatory at baseline per EMS reports. Was seen here in the emergency department within the past 3 weeks. Was diagnosed with right upper quadrant pain, potential choledocholithiasis. According to that note the plan was for outpatient follow-up given her chronic medical issues. She returns in the emergency department today forearm evaluation of altered mental status. She was on anticoagulation per report. Unsure last known normal but seems to be sometime yesterday afternoon. According to the note from earlier this month the patient is normally verbal and can express wishes. Here in the emergency department the patient is nonverbal although she does follow commands. She was able to squeeze my hand. She was able to express that she was having a headache, no chest pain but was having abdominal pain. At baseline patient is bradycardic and hypertensive Related Data Home Medications Medication Instructions Recorded Confirmed albuterol sulfate 90 mcg/actuation 2 puff inhalation TID 03/21/22 08/01/24 aerosol inhaler chlorthalidone 25 mg tablet 12.5 mg PO BEDTIME htn 03/21/22 08/01/24 chlorthalidone 25 mg tablet 25 mg PO QAM 03/21/22 08/01/24 citalopram 10 mg tablet 10 mg PO QAM depression 03/21/22 08/01/24 clonidine HCl 0.1 mg tablet 0.1 mg PO DAILY htn 03/21/22 08/01/24 clopidogrel 75 mg tablet 75 mg PO QAM 03/21/22 08/01/24 gabapentin 300 mg capsule 600 mg PO TID 03/21/22 08/01/24 insulin glargine 100 unit/mL (3 36 unit SUBCUT BID 03/21/22 08/01/24 mL) subcutaneous pen (Lantus Solostar U-100 Insulin) insulin lispro 100 unit/mL See Rx Instructions .Route .COMPLEX 03/21/22 08/01/24 subcutaneous pen (Humalog KwikPen (U-100) Insulin) loratadine 10 mg tablet (Allergy 10 mg PO QAM allergies 03/21/22 08/01/24 Relief (loratadine)) metoprolol tartrate 25 mg tablet 50 mg PO BID 03/21/22 08/01/24 simvastatin 20 mg tablet 20 mg PO BEDTIME 03/21/22 08/01/24 nystatin 100,000 unit/gram topical 1 applic topical BID 08/22/22 08/01/24 powder amlodipine 10 mg tablet 10 mg PO QAM 11/20/22 08/01/24 acetaminophen 500 mg tablet 1,000 mg PO TID Pain 07/16/24 08/01/24 albuterol sulfate 90 mcg/actuation 2 puff inhalation Q2H PRN Wheezing 07/16/24 08/01/24 aerosol inhaler baclofen 10 mg tablet 10 mg PO TID 07/16/24 08/01/24 clonidine HCl 0.1 mg tablet 0.1 mg PO Q12HR 07/16/24 08/01/24 cyclosporine 0.05 % eye drops in a 1 drp EYE-BOTH BID 07/16/24 08/01/24 dropperette loperamide 2 mg tablet (Imodium 2 mg PO Q6H PRN Diarrhea 07/16/24 08/01/24 A-D) ondansetron HCl 4 mg tablet 4 mg PO Q4H PRN nausea/vomiting 07/16/24 08/01/24 quetiapine 25 mg tablet 12.5 mg PO DAILY 07/16/24 08/01/24 fluticasone furoate 100 1 inh inhalation QAM 08/01/24 08/01/24 mcg/actuation blister powder for inhalation Allergies Allergy/AdvReac Type Severity Reaction Status Date / Time Penicillins Allergy Unknown Verified 08/01/24 17:33 procaine [From Novocain] Allergy Unknown Verified 08/01/24 17:33 Review of Systems <Young Chavez DO - Last Filed: 08/02/24 07:10> Review of Systems Narrative: See HPI Patient History <Young Chavez DO - Last Filed: 08/02/24 07:10> Medical History Postmenopausal atrophic vaginitis Recurrent UTI (urinary tract infection) Bacterial UTI Cerebral infarction Dementia Edema Major depression Osteoarthritis Neuropathy Hyperlipidemia Diabetes Hypertension Family History Family/Other Diabetes mellitus Social History marital status: number of children: 2 Smoking Status: Never smoker Smoking Status: Never smoker alcohol intake frequency: holidays/special occasions only Substance Use Type: does not use Exam <Young Chavez DO - Last Filed: 08/02/24 07:10> Initial Vital Signs Initial Vital Signs: Vital Signs Pulse Rate 50 L 08/01/24 08:02 Respiratory Rate 17 08/01/24 08:02 Pulse Oximetry 94 08/01/24 08:02 Oxygen Delivery Method Room Air 08/01/24 08:02 Const General: comfortable and No ill appearing HENMT Head: normal to inspection Resp Effort & Inspection: normal respiratory effort Auscultation: clear to auscultation bilaterally Cardio Rate: bradycardic Rhythm: regular rhythm GI Inspection: normal to inspection and non-distended Skin General: no rashes or lesions noted Neuro General: patient alert, patient awake and moves all extremities Other: Patient was able to follow commands. But was nonverbal. She does move all 4 extremities by squeezing her hands and wiggling her toes. Extrem Other: No gross deformities <Immanuel Kaufman MD - Last Filed: 08/02/24 01:17> Initial Vital Signs Initial Vital Signs: Vital Signs Pulse Rate 50 L 08/01/24 08:02 Respiratory Rate 17 08/01/24 08:02 Pulse Oximetry 94 08/01/24 08:02 Oxygen Delivery Method Room Air 08/01/24 08:02 Scores <Young Chavez DO - Last Filed: 08/02/24 07:10> GCS [place] coma scale eye opening: To sound [place] coma scale verbal response: None [place] coma scale motor response: Obey commands Her[place] coma scale total score: 10 <Immanuel Kaufman MD - Last Filed: 08/02/24 01:17> GCS [place] coma scale total score: 10 Course <Young Chavez DO - Last Filed: 08/02/24 07:10> Orders Ordered: Discontinued Medications Albuterol (Albuterol Hfa Mdi 60 Puff/8 Gm Inhaler) 2 puff INH Q4HR PRN PRN Reason: Wheezing Albuterol (Albuterol 2.5 Mg/3 Ml Neb (Adult)) 2.5 mg INH Q4HR PRN PRN Reason: Wheezing Amlodipine Besylate (Amlodipine 5 Mg Tablet) 10 mg PO NOW ONE Stop: 08/01/24 15:15 Last Admin: 08/01/24 15:30 Dose: 10 mg Documented By: SAVANNAH Amlodipine Besylate (Amlodipine 5 Mg Tablet) 10 mg PO DAILY [facility] Atorvastatin Calcium (Atorvastatin 20 Mg Tablet) 10 mg PO BEDTIME BENIGNO Last Admin: 08/01/24 20:59 Dose: 10 mg Documented By: KATHERINE Baclofen (Baclofen 10 Mg Tablet) 10 mg PO TID [facility] Last Admin: 08/01/24 20:58 Dose: 10 mg Documented By: KATHERINE Chlorthalidone (Chlorthalidone 25 Mg Tablet) 25 mg PO DAILY [facility] Chlorthalidone (Chlorthalidone 25 Mg Tablet) 12.5 mg PO BEDTIME [facility] Last Admin: 08/01/24 20:59 Dose: 12.5 mg Documented By: KATHERINE Citalopram Hydrobromide (Citalopram 10 Mg Tablet) 10 mg PO DAILY [facility] Clonidine HCl (Clonidine 0.1 Mg Tablet) 0.1 mg PO NOW ONE Stop: 08/01/24 15:15 Last Admin: 08/01/24 15:31 Dose: 0.1 mg Documented By: SAVANNAH Clonidine HCl (Clonidine 0.1 Mg Tablet) 0.1 mg PO DAILY [facility] Gabapentin (Gabapentin 600 Mg Tablet) 600 mg PO TID [facility] Last Admin: 08/01/24 20:58 Dose: 600 mg Documented By: KATHERINE Sodium Chloride (Normal Saline 0.9%) 1,000 mls @ 125 mls/hr IV CONT [facility]ENIGNO Last Admin: 08/01/24 17:39 Dose: 125 mls/hr Documented By: Infusion: 08/01/24 16:36 Dose: Infused Documented By: Admin: 08/01/24 08:36 Dose: 125 mls/hr Documented By: DONY Ceftriaxone Sodium 1,000 mg/ (Sodium Chloride) 100 mls @ 200 mls/hr IV NOW ONE Stop: 08/01/24 10:43 Last Infusion: 08/01/24 12:14 Dose: Infused Documented By: Admin: 08/01/24 11:35 Dose: 200 mls/hr Documented By: SAVANNAH Metronidazole (Flagyl) 500 mg in 100 mls @ 100 mls/hr IV NOW ONE Stop: 08/01/24 21:14 Last Infusion: 08/01/24 21:48 Dose: Infused Documented By: Admin: 08/01/24 20:48 Dose: 100 mls/hr Documented By: KATHERINE Insulin Glargine (Insulin Glargine 100 Unit/Ml 3ml Pen) 36 unit SUBCUT BID [facility] Last Admin: 08/01/24 20:55 Dose: 36 unit Documented By: KATHERINE Co-signed By: STEPHEN Metoprolol Tartrate (Metoprolol Ir 25 Mg Tablet) 50 mg PO BID [facility] Last Admin: 08/01/24 20:58 Dose: 50 mg Documented By: KATHERINE Ondansetron HCl (Ondansetron 4 Mg Odt) 4 mg SL Q6HR PRN PRN Reason: Nausea And Vomiting Quetiapine Fumarate (Quetiapine 25 Mg Tablet) 12.5 mg PO NOW ONE Stop: 08/01/24 17:22 Last Admin: 08/01/24 17:39 Dose: 12.5 mg Documented By: SAMUEL Quetiapine Fumarate (Quetiapine 25 Mg Tablet) 12.5 mg PO DAILY [facility] Vital Signs Vital signs: Vital Signs - 8 hr 08/01/24 17:30 08/01/24 17:31 08/01/24 17:31 Temperature Pulse Rate 45 L 46 L Respiratory Rate 12 11 L Blood Pressure 137/60 Pulse Oximetry 96 99 Oxygen Delivery Method 08/01/24 18:02 08/01/24 18:05 08/01/24 18:05 Temperature Pulse Rate 53 L 55 L Respiratory Rate 15 Blood Pressure 180/77 H Pulse Oximetry 100 100 Oxygen Delivery Method 08/01/24 18:30 08/01/24 18:31 08/01/24 18:31 Temperature Pulse Rate 53 L 53 L Respiratory Rate 11 L 10 L Blood Pressure 159/67 H Pulse Oximetry 94 95 Oxygen Delivery Method Room Air 08/01/24 19:00 08/01/24 19:01 08/01/24 19:01 Temperature Pulse Rate 52 L 53 L Respiratory Rate 11 L 11 L Blood Pressure 134/75 Pulse Oximetry 95 95 Oxygen Delivery Method 08/01/24 19:30 08/01/24 19:31 08/01/24 19:31 Temperature Pulse Rate 54 L 54 L Respiratory Rate 13 13 Blood Pressure 147/98 H Pulse Oximetry 99 98 Oxygen Delivery Method 08/01/24 20:00 08/01/24 20:01 08/01/24 20:01 Temperature Pulse Rate 57 L 57 L Respiratory Rate 14 21 Blood Pressure 166/81 H Pulse Oximetry 97 95 Oxygen Delivery Method 08/01/24 20:30 08/01/24 20:31 08/01/24 20:31 Temperature Pulse Rate 69 59 L Respiratory Rate 31 H 20 Blood Pressure 206/79 H Pulse Oximetry Oxygen Delivery Method 08/01/24 21:00 08/01/24 21:01 08/01/24 21:01 Temperature Pulse Rate 65 63 Respiratory Rate 20 21 Blood Pressure 154/66 H Pulse Oximetry Oxygen Delivery Method 08/01/24 21:30 08/01/24 21:30 08/01/24 21:36 Temperature 97.8 F Pulse Rate 65 50 L Respiratory Rate 21 17 Blood Pressure 149/112 H Pulse Oximetry Oxygen Delivery Method Room Air Room Air 08/01/24 21:36 08/01/24 22:00 Temperature 97.6 F Pulse Rate Respiratory Rate Blood Pressure 160/67 H Pulse Oximetry Oxygen Delivery Method <Immanuel Kaufman MD - Last Filed: 08/02/24 01:17> Orders Ordered: Discontinued Medications Albuterol (Albuterol Hfa Mdi 60 Puff/8 Gm Inhaler) 2 puff INH Q4HR PRN PRN Reason: Wheezing Albuterol (Albuterol 2.5 Mg/3 Ml Neb (Adult)) 2.5 mg INH Q4HR PRN PRN Reason: Wheezing Amlodipine Besylate (Amlodipine 5 Mg Tablet) 10 mg PO NOW ONE Stop: 08/01/24 15:15 Last Admin: 08/01/24 15:30 Dose: 10 mg Documented By: SAVANNAH Amlodipine Besylate (Amlodipine 5 Mg Tablet) 10 mg PO DAILY [facility] Atorvastatin Calcium (Atorvastatin 20 Mg Tablet) 10 mg PO BEDTIME [facility] Last Admin: 08/01/24 20:59 Dose: 10 mg Documented By: KATHERINE Baclofen (Baclofen 10 Mg Tablet) 10 mg PO TID [facility] Last Admin: 08/01/24 20:58 Dose: 10 mg Documented By: KATHERINE Chlorthalidone (Chlorthalidone 25 Mg Tablet) 25 mg PO DAILY [facility] Chlorthalidone (Chlorthalidone 25 Mg Tablet) 12.5 mg PO BEDTIME [facility] Last Admin: 08/01/24 20:59 Dose: 12.5 mg Documented By: KATHERINE Citalopram Hydrobromide (Citalopram 10 Mg Tablet) 10 mg PO DAILY [facility] Clonidine HCl (Clonidine 0.1 Mg Tablet) 0.1 mg PO NOW ONE Stop: 08/01/24 15:15 Last Admin: 08/01/24 15:31 Dose: 0.1 mg Documented By: SAVANNAH Clonidine HCl (Clonidine 0.1 Mg Tablet) 0.1 mg PO DAILY [facility] Gabapentin (Gabapentin 600 Mg Tablet) 600 mg PO TID [facility] Last Admin: 08/01/24 20:58 Dose: 600 mg Documented By: KATHERINE Sodium Chloride (Normal Saline 0.9%) 1,000 mls @ 125 mls/hr IV CONT [facility] Last Admin: 08/01/24 17:39 Dose: 125 mls/hr Documented By: Infusion: 08/01/24 16:36 Dose: Infused Documented By: Admin: 08/01/24 08:36 Dose: 125 mls/hr Documented By: DONY Ceftriaxone Sodium 1,000 mg/ (Sodium Chloride) 100 mls @ 200 mls/hr IV NOW ONE Stop: 08/01/24 10:43 Last Infusion: 08/01/24 12:14 Dose: Infused Documented By: Admin: 08/01/24 11:35 Dose: 200 mls/hr Documented By: SAVANNAH Metronidazole (Flagyl) 500 mg in 100 mls @ 100 mls/hr IV NOW ONE Stop: 08/01/24 21:14 Last Infusion: 08/01/24 21:48 Dose: Infused Documented By: Admin: 08/01/24 20:48 Dose: 100 mls/hr Documented By: KATHERINE Insulin Glargine (Insulin Glargine 100 Unit/Ml 3ml Pen) 36 unit SUBCUT BID [facility] Last Admin: 08/01/24 20:55 Dose: 36 unit Documented By: KATHERINE Co-signed By: STEPHEN Metoprolol Tartrate (Metoprolol Ir 25 Mg Tablet) 50 mg PO BID [facility] Last Admin: 08/01/24 20:58 Dose: 50 mg Documented By: KATHERINE Ondansetron HCl (Ondansetron 4 Mg Odt) 4 mg SL Q6HR PRN PRN Reason: Nausea And Vomiting Quetiapine Fumarate (Quetiapine 25 Mg Tablet) 12.5 mg PO NOW ONE Stop: 08/01/24 17:22 Last Admin: 08/01/24 17:39 Dose: 12.5 mg Documented By: SMAUEL Quetiapine Fumarate (Quetiapine 25 Mg Tablet) 12.5 mg PO DAILY [facility] Vital Signs Vital signs: Vital Signs - 8 hr 08/01/24 17:30 08/01/24 17:31 08/01/24 17:31 Temperature Pulse Rate 45 L 46 L Respiratory Rate 12 11 L Blood Pressure 137/60 Pulse Oximetry 96 99 Oxygen Delivery Method 08/01/24 18:02 08/01/24 18:05 08/01/24 18:05 Temperature Pulse Rate 53 L 55 L Respiratory Rate 15 Blood Pressure 180/77 H Pulse Oximetry 100 100 Oxygen Delivery Method 08/01/24 18:30 08/01/24 18:31 08/01/24 18:31 Temperature Pulse Rate 53 L 53 L Respiratory Rate 11 L 10 L Blood Pressure 159/67 H Pulse Oximetry 94 95 Oxygen Delivery Method Room Air 08/01/24 19:00 08/01/24 19:01 08/01/24 19:01 Temperature Pulse Rate 52 L 53 L Respiratory Rate 11 L 11 L Blood Pressure 134/75 Pulse Oximetry 95 95 Oxygen Delivery Method 08/01/24 19:30 08/01/24 19:31 08/01/24 19:31 Temperature Pulse Rate 54 L 54 L Respiratory Rate 13 13 Blood Pressure 147/98 H Pulse Oximetry 99 98 Oxygen Delivery Method 08/01/24 20:00 08/01/24 20:01 08/01/24 20:01 Temperature Pulse Rate 57 L 57 L Respiratory Rate 14 21 Blood Pressure 166/81 H Pulse Oximetry 97 95 Oxygen Delivery Method 08/01/24 20:30 08/01/24 20:31 08/01/24 20:31 Temperature Pulse Rate 69 59 L Respiratory Rate 31 H 20 Blood Pressure 206/79 H Pulse Oximetry Oxygen Delivery Method 08/01/24 21:00 08/01/24 21:01 08/01/24 21:01 Temperature Pulse Rate 65 63 Respiratory Rate 20 21 Blood Pressure 154/66 H Pulse Oximetry Oxygen Delivery Method 08/01/24 21:30 08/01/24 21:30 08/01/24 21:36 Temperature 97.8 F Pulse Rate 65 50 L Respiratory Rate 21 17 Blood Pressure 149/112 H Pulse Oximetry Oxygen Delivery Method Room Air Room Air 08/01/24 21:36 08/01/24 22:00 Temperature 97.6 F Pulse Rate Respiratory Rate Blood Pressure 160/67 H Pulse Oximetry Oxygen Delivery Method Medical Decision Making <Young Chavez - Last Filed: 08/02/24 07:10> Medical Records Medical records reviewed: Yes I reviewed the patient's medical records. Lab Data Lab results reviewed: Yes I reviewed the patient's lab results. 08/01/24 08:01 08/01/24 08:01 Labs: Lab Results 08/01/24 08/01/24 Range/Units 08:01 08:08 WBC 6.1 (4.5-11.0) X10^3/uL RBC 4.06 (4.0-5.2) X10^6/uL Hgb 12.1 (12.0-16.0) g/dL Hct 36.2 (36-46) % MCV 89.1 (80-100) fL MCH 29.8 (26-34) PG MCHC 33.5 (30-36) % RDW 13.5 (11.6-14.8) % Plt Count 168 (150-400) X10^3/uL Neut % (Auto) 55.0 (50-75) % Lymph % (Auto) 29.3 (25-40) % [place] % (Auto) 9.2 (3-14) % Eos % (Auto) 5.7 H (2-4) % Baso % (Auto) 0.8 (0-2) % Neut # (Auto) 3300 (6404-4436) /uL Lymph # (Auto) 1800 (8681-3765) /uL [place] # (Auto) 600 (0-900) /uL Eos # (Auto) 300 (0-450) /uL Baso # (Auto) 0 (0-100) /uL PT 10.6 (9.4-12.5) SECONDS INR 0.9 (0.9-1.3) APTT 35 (25.1-36.5) SECONDS Sodium 142 (137-145) mmol/L Potassium 3.5 (3.4-5.1) mmol/L Chloride 104 (98-107) mmol/L Carbon Dioxide 31 (22-32) mmol/L BUN 50 H (7-17) mg/dL Creatinine 1.60 H (0.52-1.04) mg/dL Estimated GFR 32 L (>60) mL/min BUN/Creatinine Ratio 31.3 H (6-22) Glucose 138 H (80-110) mg/dL Lactate 1.6 (0.7-2.1) mmol/L Calcium 9.4 (8.4-10.2) mg/dL Total Bilirubin 0.5 (0.2-1.3) mg/dL AST 28 (14-36) IU/L ALT 24 (<35) IU/L Alkaline Phosphatase 118 (38-126) U/L Total Creatine Kinase 101 (30-135) U/L Troponin I < 0.012 (0.01-0.034) ng/mL Total Protein 6.9 (6.3-8.2) g/dL Albumin 3.9 (3.5-5.0) g/dL Globulin 3.0 (1.7-4.1) g/dL Albumin/Globulin Ratio 1.3 (1.0-2.8) Lipase 272 (23-300) U/L Procalcitonin 0.132 (<0.5) ng/mL Urine Color Yellow Urine Appearance Clear Urine pH 6.5 (4.5-8.0) Ur Specific [place] 1.015 (1.000-1.035) Urine Protein 2+ H (Negative) Urine Glucose (UA) Negative (Negative) g/dL Urine Ketones Negative (NEGATIVE) Urine Occult Blood Trace-intact (Negative) Urine Nitrate Positive H (Negative) Urine Bilirubin Negative (NEGATIVE) Urine Urobilinogen 0.2 (0.2) E.U./dL Ur Leukocyte Esterase 1+ H (NEGATIVE) Urine RBC 1-5/hpf (0-5/HPF) Urine WBC >100/hpf H (0-5/HPF) Ur Squamous Epith Cells 1-5 /hpf (0-5/HPF) Urine Bacteria Many (>30) H (None) Ur Culture Indicated? Specimen cultured Vol Urine Centrifuged 10ml (spun) Ethyl Alcohol < 10 ( - 10) mg/dL Point of Care Testing Glucose POC 118 Point of care testing: Point of Care Testing Glucose POC [address] scan - head: Radiologist's Impression: PROCEDURE: CT HEAD/BRAIN WO CON INDICATIONS: Nonambulatory, on Eliquis TECHNIQUE: Noncontrast 4.5 mm thick angled axial sections acquired from the foramen magnum to the vertex, with coronal and sagittal reformats. For radiation dose reduction, the following was used: automated exposure control, adjustment of mA and/or kV according to patient size. COMPARISON: [facility], CT, CT HEAD/BRAIN WO CON, 07/16/2024, 19:22. FINDINGS: Image quality: Diagnostic. CSF spaces: Basal cisterns are patent. No extra-axial fluid collections. The ventricles are symmetric in size and shape. Brain: No intracranial bleeds or masses. There is cerebral volume loss for age, with resultant ventricular and sulcal prominence. There are periventricular and deep white matter chronic small vessel ischemic changes. There is intracranial internal carotid artery atherosclerosis. Skull and face: Calvarium and visualized facial bones appear intact, without suspicious lesions. Sinuses: Visualized sinuses and mastoids are clear. IMPRESSION: No acute intracranial pathology. CTA - brain/neck: Radiologist's Impression: PROCEDURE: CT ANGIO HEAD AND NECK INDICATIONS: Altered mental status, on Eliquis TECHNIQUE: After the administration of intravenous contrast, 1 mm thick sections acquired from the aortic arch through the [place] of [place]. 3-dimensional zjqwyjx-eriozkbew-wtlzwteiks (MIP) and/or volume rendering reformats were acquired of the central intracranial vasculature and neck separately. For radiation dose reduction, the following was used: automated exposure control, adjustment of mA and/or kV according to patient size. COMPARISON: [facility], CT, CT HEAD/BRAIN WO CON, 08/01/2024, 8:29. FINDINGS: Image quality: Diagnostic. BRAIN: CSF spaces: Ventricles are normal in size and shape. Basal cisterns are patent. No extra-axial fluid collections. Brain: Accompanying head CT demonstrates no acute intracranial process. Skull and face: Calvarium and facial bones appear intact, without suspicious lesions. Orbits appear normal. Sinuses: Sinuses and mastoids are clear. HEAD CT ANGIOGRAPHY: Anterior circulation: Intracranial internal carotid arteries are normal in size and flow. The flow within the paired anterior cerebral arteries is normal and symmetric. The flow within the middle cerebral arteries is normal and symmetric. The anterior communicating artery is seen. No aneurysms are seen. Posterior circulation: Visualized portions of the vertebral arteries demonstrate normal caliber, and join to form a normal appearing basilar artery. Flow within the posterior cerebral arteries is normal and symmetric. No aneurysms are seen. NECK CT ANGIOGRAPHY: Carotid system: The great vessels demonstrate a conventional anatomy as they arise from the aortic arch. The origins of the common carotid arteries appear patent. The common carotid arteries demonstrate normal caliber and courses. Mild bilateral less than 50% proximal internal carotid artery stenosis. Posterior circulation: The origins of the vertebral arteries both appear widely patent. The more superior extracranial portions of both vertebral arteries also demonstrate normal courses and calibers. They join to form a normal appearing basilar artery. Soft tissues: Visualized neck soft tissues demonstrate no suspicious abnormalities. Bones: No suspicious bony lesions. Diffuse cervical spondylitic change. Findings include exuberant right C3-C4 facet arthropathy with associated bony foraminal narrowing. There is bony foraminal narrowing at other levels. There is a degree of canal stenosis at C5-C6 and C6-C7. IMPRESSION: No significant intracranial arterial abnormality is seen. Bilateral less than 50% proximal internal carotid artery stenosis. Cervical spondylitic change. Any quantitative measurements of stenosis were performed using NASCET criteria. US - abdomen: Radiologist's Impression: PROCEDURE: US ABDOMEN LIMITED INDICATIONS: RUQ US eval for GB pathology TECHNIQUE: Real-time scanning was performed of the abdominal and retroperitoneal organs, with image documentation. COMPARISON: [facility], CT, CT ABDOMEN PELVIS WO CON, 07/16/2024, 17:47. [facility], US, US ABDOMEN LIMITED, 07/16/2024, 20:16. FINDINGS: Liver: Liver is normal in size and mildly increased in echotexture. However, on recent CT, there is no diffuse hepatic steatosis. Gallbladder: Diffuse bladder wall thickening, measuring 5.6 mm. No stones. Minimal fluid adjacent to the gallbladder. No sonographic Bruce sign. Biliary ducts: Diffuse dilated ducts, with the common duct measuring 14.0 mm, with a common duct stone noted. Pancreas: Visualized portions of the pancreas are sonographically normal. Miscellaneous: No free abdominal fluid. IMPRESSION: 1. There is a distal common duct stone with dilatation of the extrahepatic duct. 2. Diffuse gallbladder wall thickening without stones noted. Cannot exclude acalculous cholecystitis. MRCP may potentially be helpful, versus referral to an interventional ERCP assistant librarian. ECG Data Attestation: I personally reviewed and interpreted this ECG as follows: Interpretation: Bradycardia Ventricular rate of [address] T changes MDM Narrative Medical decision making narrative: We were able to confirm that the patient is not on anticoagulation except for Plavix. Her last dose was the morning of 07/31/2024. On ultrasound today it does show diffuse gallbladder wall thickening and common bile duct stone noticed on the ultrasound. Her LFTs today are normal to include her bilirubin. They were elevated on 07/16/2024 when she was seen here in the ER. It does not appear that she was followed up with General surgery since her last visit here in the ER. Her head CT and CTA of the head neck are unremarkable. Low suspicion for CVA or acute intracranial hemorrhage. She does have a nitrite positive urine and other findings consistent with a urinary tract infection. She was given a dose of Rocephin in the emergency department. I had a discussion with the patient's sonTo Keita. Phone number [phone]. He was the power of wafer abrading machine tender. We were able to locate a PLOST forearm. She was a DNR/DNI with limited interventions however her son states that she would be okay with the procedure to alleviate discomfort. I did discuss the case with Dr. Billy with general surgery who stated that she most likely did not need an MRCP since the stone was seen on ultrasound. I discussed the case with Dr. [facility] at [facility] who agrees to see the patient in transfer. Awaiting discussion with internal medicine. Anticipate transfer for ERCP. Care turned over to Dr. Kaufman night ED physician to continue to observe until disposition. <Immanuel Kaufman MD - Last Filed: 08/02/24 01:17> Lab Data Labs: Lab Results 08/01/24 08/01/24 Range/Units 08:01 08:08 WBC 6.1 (4.5-11.0) X10^3/uL RBC 4.06 (4.0-5.2) X10^6/uL Hgb 12.1 (12.0-16.0) g/dL Hct 36.2 (36-46) % MCV 89.1 (80-100) fL MCH 29.8 (26-34) PG MCHC 33.5 (30-36) % RDW 13.5 (11.6-14.8) % Plt Count 168 (150-400) X10^3/uL Neut % (Auto) 55.0 (50-75) % Lymph % (Auto) 29.3 (25-40) % [place] % (Auto) 9.2 (3-14) % Eos % (Auto) 5.7 H (2-4) % Baso % (Auto) 0.8 (0-2) % Neut # (Auto) 3300 ([id number]) /uL Lymph # (Auto) 1800 ([id number]) /uL [place] # (Auto) 600 (0-900) /uL Eos # (Auto) 300 (0-450) /uL Baso # (Auto) 0 (0-100) /uL PT 10.6 (9.4-12.5) SECONDS INR 0.9 (0.9-1.3) APTT 35 (25.1-36.5) SECONDS Sodium 142 (137-145) mmol/L Potassium 3.5 (3.4-5.1) mmol/L Chloride 104 (98-107) mmol/L Carbon Dioxide 31 (22-32) mmol/L BUN 50 H (7-17) mg/dL Creatinine 1.60 H (0.52-1.04) mg/dL Estimated GFR 32 L (>60) mL/min BUN/Creatinine Ratio 31.3 H (6-22) Glucose 138 H (80-110) mg/dL Lactate 1.6 (0.7-2.1) mmol/L Calcium 9.4 (8.4-10.2) mg/dL Total Bilirubin 0.5 (0.2-1.3) mg/dL AST 28 (14-36) IU/L ALT 24 (<35) IU/L Alkaline Phosphatase 118 (38-126) U/L Total Creatine Kinase 101 (30-135) U/L Troponin I < 0.012 (0.01-0.034) ng/mL Total Protein 6.9 (6.3-8.2) g/dL Albumin 3.9 (3.5-5.0) g/dL Globulin 3.0 (1.7-4.1) g/dL Albumin/Globulin Ratio 1.3 (1.0-2.8) Lipase 272 (23-300) U/L Procalcitonin 0.132 (<0.5) ng/mL Urine Color Yellow Urine Appearance Clear Urine pH 6.5 (4.5-8.0) Ur Specific [place] 1.015 (1.000-1.035) Urine Protein 2+ H (Negative) Urine Glucose (UA) Negative (Negative) g/dL Urine Ketones Negative (NEGATIVE) Urine Occult Blood Trace-intact (Negative) Urine Nitrate Positive H (Negative) Urine Bilirubin Negative (NEGATIVE) Urine Urobilinogen 0.2 (0.2) E.U./dL Ur Leukocyte Esterase 1+ H (NEGATIVE) Urine RBC 1-5/hpf (0-5/HPF) Urine WBC >100/hpf H (0-5/HPF) Ur Squamous Epith Cells 1-5 /hpf (0-5/HPF) Urine Bacteria Many (>30) H (None) Ur Culture Indicated? Specimen cultured Vol Urine Centrifuged 10ml (spun) Ethyl Alcohol < 10 ( - 10) mg/dL Point of Care Testing Glucose POC 118 Point of care testing: Point of Care Testing Glucose POC 118 MDM Narrative Medical decision making narrative: We were able to confirm that the patient is not on anticoagulation except for Plavix. Her last dose was the morning of 07/31/2024. On ultrasound today it does show diffuse gallbladder wall thickening and common bile duct stone noticed on the ultrasound. Her LFTs today are normal to include her bilirubin. They were elevated on 07/16/2024 when she was seen here in the ER. It does not appear that she was followed up with General surgery since her last visit here in the ER. Her head CT and CTA of the head neck are unremarkable. Low suspicion for CVA or acute intracranial hemorrhage. She does have a nitrite positive urine and other findings consistent with a urinary tract infection. She was given a dose of Rocephin in the emergency department. I had a discussion with the patient's sonTo Keita. Phone number [phone]. He was the power of wafer abrading machine tender. We were able to locate a PLOST forearm. She was a DNR/DNI with limited interventions however her son states that she would be okay with the procedure to alleviate discomfort. I did discuss the case with Dr. Billy with general surgery who stated that she most likely did not need an MRCP since the stone was seen on ultrasound. I discussed the case with Dr. Beach G[facility]ology at [facility] who agrees to see the patient in transfer. Awaiting discussion with internal medicine. Anticipate transfer for ERCP. Care turned over to Dr. Kaufman night ED physician to continue to observe until disposition. 08/01/2024 at 6:00 p.m.Mandeep. Sign-out from Dr. Chavez. 84-year-old female with history of dementia, resident at [facility] care facility, noted to have abdominal pain at the facility, also decreased communication, no trauma or injuries known, CT head negative, CT angiogram head and neck studies negative. Liver functions normal. Ultrasound right upper quadrant showed stone present in the common bile duct. She had recently been seen here 07/16/2024 with T bili 3 and increased LFTs and gallstone also in the common bile duct, advised at that time to have outpatient MRI, no MRCP done thus far. Case was discussed by Dr Chavez with GI at [facility] Dr. Beach, who will consult. Awaiting call back from hospitalist in their system. Patient apparently is DNR code status, medical power of wafer abrading machine tender son does want treatment for this likely reversible condition. Await call back from outside hospitalist. Assumed care. 2014, case discussed with hospitalist Dr. Rangel at [facility] in [facility], accepts patient for transfer, requests additional antibiotic IV Flagyl, aware of prior IV ceftriaxone antibiotic. IV Flagyl ordered. Bed assigned, transfer by ground EMS. Patient agreeable to plan. Critical Care Time <Immanuel Kaufman MD - Last Filed: 08/02/24 01:17> Critical Care Time Critical Care Time: Yes Total Critical Care Time: 35 Attestation: The high probability of a clinically significant, sudden or life threatening deterioration of the [gastrointestinal, abdominopelvic, genitourinary] system(s) required my full and direct attention, intervention and personal management. The aggregate critical care time was [35] minutes. This time is in addition to time spent performing reported procedures but includes the following: [x] Data Review and interpretation [x] Patient assessment and monitoring of vital signs [x] Documentation [x] Medication orders and management Discharge Plan Departure Patient Disposition: [facility] Clinical Impression: Choledocholithiasis, Urinary tract infection Prescriptions: No Action clonidine HCl 0.1 mg Tablet 0.1 mg PO DAILY Rx Instructions: takes in afternoon citalopram 10 mg Tablet 10 mg PO QAM clopidogrel 75 mg Tablet 75 mg PO QAM chlorthalidone 25 mg Tablet 25 mg PO QAM chlorthalidone 25 mg Tablet 12.5 mg PO BEDTIME simvastatin 20 mg Tablet 20 mg PO BEDTIME gabapentin 300 mg Capsule 600 mg PO TID albuterol sulfate 90 mcg/actuation Hfa Aerosol Inhaler 2 puff INHALATION TID loratadine [Allergy Relief (loratadine)] 10 mg Tablet 10 mg PO QAM insulin lispro [Humalog KwikPen Insulin] 100 unit/mL Insulin Pen See Rx Instructions .ROUTE .COMPLEX Rx Instructions: RX instructions in chart daily dose and sliding scale metoprolol tartrate 25 mg Tablet 50 mg PO BID Rx Instructions: hold for systolic bp < 100 or pulse less than 60 insulin glargine [Lantus Solostar U-100 Insulin] 100 unit/mL (3 mL) Insulin Pen 36 unit SUBCUT BID Rx Instructions: Hold if blood sugar less than 80 quetiapine 25 mg tablet 12.5 mg PO DAILY Rx Instructions: Give daily at 1400 clonidine HCl 0.1 mg tablet 0.1 mg PO Q12HR Rx Instructions: for systolic > 150 ondansetron HCl [Zofran] 4 mg Tablet 4 mg PO Q4H PRN (Reason: nausea/vomiting) loperamide [Imodium A-D] 2 mg Tablet 2 mg PO Q6H PRN (Reason: Diarrhea) acetaminophen 500 mg tablet 1,000 mg PO TID baclofen 10 mg tablet 10 mg PO TID albuterol sulfate [ProAir HFA] 90 mcg/actuation Hfa Aerosol Inhaler 2 puff INHALATION Q2H PRN (Reason: Wheezing) cyclosporine 0.05 % dropperette 1 drp EYE-BOTH BID fluticasone furoate 100 mcg/actuation Blister With Device 1 inh INHALATION QAM nystatin 100,000 unit/gram powder 1 applic topical BID amlodipine 10 mg tablet 10 mg PO QAM Rx Instructions: Hold for systolic less than 100 and HR less than 60 Referrals: Angle Fenton MD [Primary Care Provider] -
[2024-08-01 08:16] LABS: INR 0.9 (0.9-1.3); Prothrombin Time 10.6 SECONDS (9.4-12.5)
[2024-08-01 08:19] LABS: PTT Partial Thromboplastin Tim 35 SECONDS (25.1-36.5)
[2024-08-01 08:21] LABS: Blood Urea Nitrogen 50 mg/dL (7-17); Carbon Dioxide 31 mmol/L (22-32); Chloride 104 mmol/L (98-107); Creatine Kinase 101 U/L (30-135); HEMOLYSIS < 15 (0-50); Potassium 3.5 mmol/L (3.4-5.1); Sodium 142 mmol/L (137-145)
[2024-08-01 08:22] LABS: Alanine Aminotransferase 24 IU/L (<35); Albumin 3.9 g/dL (3.5-5.0); Albumin Globulin Ratio 1.3 (1.0-2.8); Alkaline Phosphatase 118 U/L (38-126); Aspartate Aminotransferase 28 IU/L (14-36); BUN Creatinine Ratio 31.3 (6-22); Bilirubin Total 0.5 mg/dL (0.2-1.3); Calcium 9.4 mg/dL (8.4-10.2); Estimated Glomerular Filt Rate 32 mL/min (>60); Ethanol (ETOH) < 10 mg/dL; Glucose 138 mg/dL (80-110); Lactate (Lactic Acid) 1.6 mmol/L (0.7-2.1); Lipase 272 U/L (23-300); Total Protein 6.9 g/dL (6.3-8.2)
[2024-08-01 08:33] LABS: Troponin I < 0.012 ng/mL (0.01-0.034)
[2024-08-01 08:33] LABS: Appearance Urine UA CLEAR; Bilirubin Urine UA NEGATIVE (NEGATIVE); Color Urine UA YELLOW; Glucose Urine UA NEGATIVE (Negative); Ketones Urine UA NEGATIVE (NEGATIVE); Leukocyte Esterase Urine UA 1+ (NEGATIVE); Nitrite Urine UA POSITIVE (Negative); Occult Blood Urine UA TRACE-INTACT (Negative); Protein Urine UA 2+ (Negative); Specific Gravity Urine UA 1.015 (1.000-1.035); Urobilinogen Urine UA 0.2 E.U./dL (0.2)
[2024-08-01] MEDS: SODIUM CHLORIDE 0.9% 1,000 ML 125 ML IV ×2 (08:36→17:39)
[2024-08-01 08:37] LABS: Procalcitonin 0.132 ng/mL (<0.5)
[2024-08-01 08:46] LABS: pH Urine UA 6.5 (4.5-8.0)
[2024-08-01 08:59] LABS: Bacteria Urine Many (>30); Culture Indicated Urine Specimen Cultured; RBC Urine 1-5/HPF (0-5/HPF); Squamous Epithelial Cell Urine 1-5 /HPF (0-5/HPF); Urine Volume 10mL (spun); WBC Urine >100/HPF (0-5/HPF)
--- NOTE | 2024-08-01 10:06 | PC.NURSE ---
This RN and two phlebotomists unable to obtain blood for blood culture. MD Chavez aware.
[2024-08-01] MEDS: cefTRIAXone 1,000 MG in SODIUM CHLORIDE 0.9% 100 ML 200 MG IV (11:35)
--- NOTE | 2024-08-01 12:22 | PC.NURSE ---
Patient's heart rate in the high 30s and resting. Patient did not appear to be in distress. Provider notified. Will continue to monitor.
[2024-08-01] MEDS: AMLODIPINE 5 MG TABLET 10 MG PO (15:30)
[2024-08-01] MEDS: cloNIDine 0.1 MG TABLET PO (15:31)
--- NOTE | 2024-08-01 17:31 | PC.NURSE ---
Per Dr. Chavez, contraindicated for pharmacological prophylaxis for VTE r/t pending surgery.
[2024-08-01] MEDS: QUETIAPINE 25 MG TABLET 12.5 MG PO (17:39)
--- NOTE | 2024-08-01 18:08 | PC.NURSE ---
Patient was given a hospital bed and moved in to room 10. She was given a purewick cath and call gates was placed within reach
[2024-08-01] MEDS: metroNIDAZOLE 500 MG/100 ML PIGGYBACK 100 MG IV (20:48)
[2024-08-01] MEDS: INSULIN GLARGINE 100 UNIT/ML 3ML PEN 36 UNIT SUBCUT (20:55)
[2024-08-01] MEDS: GABAPENTIN 600 MG TABLET PO (20:58)
[2024-08-01] MEDS: BACLOFEN 10 MG TABLET PO (20:58)
[2024-08-01] MEDS: METOPROLOL IR 25 MG TABLET 50 MG PO (20:58)
[2024-08-01] MEDS: CHLORTHALIDONE 25 MG TABLET 12.5 MG PO (20:59)
[2024-08-01] MEDS: ATORVASTATIN 20 MG TABLET 10 MG PO (20:59)
== END 2024-08-01 21:50 | disposition short-term general hospital (02) ==
PROVIDERS: Emergency Medicine; Emergency Provider Emergency Medicine; PCP Internal Medicine
DX: K80.50 Calculus of bile duct without cholangitis or cholecystitis without obstruction (principal); N39.0 Urinary tract infection, site not specified; R10.11 Right upper quadrant pain; F03.90 Unspecified dementia, unspecified severity, without behavioral disturbance, psychotic disturbance, mood disturbance, and anxiety; R00.1 Bradycardia, unspecified; I10 Essential (primary) hypertension; E78.5 Hyperlipidemia, unspecified; Z79.899 Other long term (current) drug therapy; R40.2422 Glasgow coma scale score 9-12, at arrival to emergency department; Z79.01 Long term (current) use of anticoagulants
CPT/HCPCS: 36415; 70450; 70496; 70498; 76705; 80053; 80320; 81001; 82550; 82962; 83605; 83690; 84145; 84484; 85025; 85610; 85730; 87077; 87086; 87186; 93005; 96361; 96365; 96367; 96372; 99285; 99291; A9270; J0696

== ENCOUNTER 2024-09-04 23:45 | Inpatient (IN) | payer MEDICARE, MEDICAID, SELFPAY ==
--- NOTE | 2024-09-04 23:44 | DI.CT.S_ITS ---
PROCEDURE: CT HEAD/BRAIN WO CON INDICATIONS: GLF, takes thinners, headache TECHNIQUE: Noncontrast 4.5 mm thick angled axial sections acquired from the foramen magnum to the vertex, with coronal and sagittal reformats. For radiation dose reduction, the following was used: automated exposure control, adjustment of mA and/or kV according to patient size. COMPARISON: [facility], CT, CT HEAD/BRAIN WO CON, 08/01/2024, 8:29. [facility], CT, CT HEAD/BRAIN WO CON, 07/16/2024, 19:22. FINDINGS: Image quality: Diagnostic. CSF spaces: Basal cisterns are patent. No extra-axial fluid collections. The ventricles are symmetric in size and shape. Brain: No acute intracranial hemorrhage or mass effect. There is cerebral volume loss for age, with resultant ventricular and sulcal prominence. There are periventricular and deep white matter chronic small vessel ischemic changes. There is intracranial internal carotid artery atherosclerosis. Skull and face: Calvarium and visualized facial bones appear intact, without suspicious lesions. Sinuses: Visualized sinuses and mastoids are clear. IMPRESSION: No acute intracranial pathology. Approved by: Shahab Cruz M.D. on 09/05/2024 at 0:23
--- NOTE | 2024-09-04 23:44 | DI.CT.S_ITS ---
PROCEDURE: CT CERVICAL SPINE WO CON INDICATIONS: GLF, dementia, eval for Csp injury TECHNIQUE: Noncontrast 3 mm thick sections acquired from the skull base to the T4 level. Sagittal and coronal reformats were then constructed. For radiation dose reduction, the following was used: automated exposure control, adjustment of mA and/or kV according to patient size. COMPARISON: [facility], CT, CT CERVICAL SPINE WO CON, 03/21/2022, 18:38. FINDINGS: Image quality: Excellent. Bones: No acute fractures or dislocations. Visualized superior ribs are intact. Multilevel disc space narrowing and degenerative endplate changes. Multilevel uncovertebral joint and facet hypertrophy. Soft tissues: Prevertebral soft tissues are normal in thickness. No paravertebral hematomas. No apical pneumothoraces. IMPRESSION: No acute displaced fracture or traumatic subluxation. Approved by: Shahab Cruz M.D. on 09/05/2024 at 0:25
[2024-09-04 23:46] VITALS: BP 144/59; PULSE 41; RESP 18; TEMP 36.6; O2SAT 96
--- NOTE | 2024-09-04 23:49 | ED.GENADULT ---
HPI - General Adult General Chief complaint: Fall Stated complaint: fall on thinners Time Seen by Provider: 09/04/24 23:48 History of Present Illness HPI narrative: 84-year-old female resident at [facility], had possible fall, takes blood thinner medications, apparently had complained of headache there, now denying pain in head or any pain elsewhere. She denies sensation of trouble breathing. Limited due to history of dementia, no other historians available. No reported emesis. No reported black or red stools. Related Data Home Medications Medication Instructions Recorded Confirmed albuterol sulfate 90 mcg/actuation 2 puff inhalation TID 03/21/22 08/01/24 aerosol inhaler chlorthalidone 25 mg tablet 12.5 mg PO BEDTIME htn 03/21/22 08/01/24 chlorthalidone 25 mg tablet 25 mg PO QAM 03/21/22 08/01/24 citalopram 10 mg tablet 10 mg PO QAM depression 03/21/22 08/01/24 clonidine HCl 0.1 mg tablet 0.1 mg PO DAILY htn 03/21/22 08/01/24 clopidogrel 75 mg tablet 75 mg PO QAM 03/21/22 08/01/24 gabapentin 300 mg capsule 600 mg PO TID 03/21/22 08/01/24 insulin glargine 100 unit/mL (3 36 unit SUBCUT BID 03/21/22 08/01/24 mL) subcutaneous pen (Lantus Solostar U-100 Insulin) insulin lispro 100 unit/mL See Rx Instructions .Route .COMPLEX 03/21/22 08/01/24 subcutaneous pen (Humalog KwikPen (U-100) Insulin) loratadine 10 mg tablet (Allergy 10 mg PO QAM allergies 03/21/22 08/01/24 Relief (loratadine)) metoprolol tartrate 25 mg tablet 50 mg PO BID 03/21/22 08/01/24 simvastatin 20 mg tablet 20 mg PO BEDTIME 03/21/22 08/01/24 nystatin 100,000 unit/gram topical 1 applic topical BID 08/22/22 08/01/24 powder amlodipine 10 mg tablet 10 mg PO QAM 11/20/22 08/01/24 acetaminophen 500 mg tablet 1,000 mg PO TID Pain 07/16/24 08/01/24 albuterol sulfate 90 mcg/actuation 2 puff inhalation Q2H PRN Wheezing 07/16/24 08/01/24 aerosol inhaler baclofen 10 mg tablet 10 mg PO TID 07/16/24 08/01/24 clonidine HCl 0.1 mg tablet 0.1 mg PO Q12HR 07/16/24 08/01/24 cyclosporine 0.05 % eye drops in a 1 drp EYE-BOTH BID 07/16/24 08/01/24 dropperette loperamide 2 mg tablet (Imodium 2 mg PO Q6H PRN Diarrhea 07/16/24 08/01/24 A-D) ondansetron HCl 4 mg tablet 4 mg PO Q4H PRN nausea/vomiting 07/16/24 08/01/24 quetiapine 25 mg tablet 12.5 mg PO DAILY 07/16/24 08/01/24 fluticasone furoate 100 1 inh inhalation QAM 08/01/24 08/01/24 mcg/actuation blister powder for inhalation Allergies Allergy/AdvReac Type Severity Reaction Status Date / Time Penicillins Allergy Unknown Verified 08/01/24 17:33 procaine [From Novocain] Allergy Unknown Verified 08/01/24 17:33 Review of Systems Review of Systems Narrative: Limited due to patient dementia, and lack of other historian Patient History Medical History Postmenopausal atrophic vaginitis Recurrent UTI (urinary tract infection) Bacterial UTI Cerebral infarction Dementia Edema Major depression Osteoarthritis Neuropathy Hyperlipidemia Diabetes Hypertension Family History Family/Other Diabetes mellitus Social History marital status: number of children: 2 Smoking Status: Never smoker Smoking Status: Never smoker alcohol intake frequency: holidays/special occasions only Substance Use Type: does not use Exam Narrative Exam Narrative: GENERAL: Well-developed patient, in mild distress. HEAD: Atraumatic. Normocephalic. EYES: Pupils equal round and reactive. Extraocular motions intact. No scleral icterus. No injection or drainage. ENT: Nose without bleeding, purulent drainage. Throat without erythema, tonsillar hypertrophy or exudate. Airway patent. NECK: Trachea midline. Non tender CARDIOVASCULAR: Slow rate regular rhythm without murmurs, gallops, or rubs. RESPIRATORY: Clear to auscultation. Breath sounds equal bilaterally. No wheezes, rales, or rhonchi. GASTROINTESTINAL: Abdomen soft, non-tender, nondistended. EXTREMITIES: No edema or joint tenderness. BACK: Nontender without deformity or crepitance. No flank tenderness. NEURO: AOx3. Motor functions grossly nonfocal SKIN: No rash or erythema of visible areas Initial Vital Signs Initial Vital Signs: Vital Signs Temperature 97.8 F 09/04/24 23:46 Pulse Rate 41 L 09/04/24 23:46 Respiratory Rate 18 09/04/24 23:46 Blood Pressure 144/59 H 09/04/24 23:46 Pulse Oximetry 96 09/04/24 23:46 Oxygen Delivery Method Room Air 09/04/24 23:46 Course Orders Ordered: ED Orders 09/04/24 23:44 CT cervical spine wo con Stat CT head/brain wo con Stat 09/05/24 00:03 XR chest 1V Stat EKG-12 Lead Stat EKG-12 Lead Stat 09/05/24 00:37 Complete Blood Count AUTO DIFF Stat Comprehensive Metabolic Panel Stat Lipase Stat Troponin & CK Cardiac Panel Stat Acetaminophen (Acetaminophen 325 Mg Tablet) 650 mg PO Q6H PRN PRN Reason: Fever/Mild Pain (1-3) Albuterol (Albuterol Hfa Mdi 60 Puff/8 Gm Inhaler) 2 puff INH TID BENIGNO Albuterol (Albuterol Hfa Mdi 60 Puff/8 Gm Inhaler) 2 puff INH Q2H PRN PRN Reason: Wheezing Atorvastatin Calcium (Atorvastatin 20 Mg Tablet) 10 mg PO BEDTIME [facility] Clonidine HCl (Clonidine 0.1 Mg Tablet) 0.1 mg PO Q12HR [facility] Clopidogrel Bisulfate (Clopidogrel 75 Mg Tablet) 75 mg PO DAILY [facility] Last Admin: 09/05/24 04:10 Dose: Not Given Documented By: Gabapentin (Gabapentin 300 Mg Capsule) 600 mg PO TID [facility] Heparin Sodium (Porcine) (Heparin 5,000 Unit/Ml Vial) 5,000 unit SUBCUT BID [facility] Dextrose (D10w) 100 mls @ 1,200 mls/hr IV PRN PRN PRN Reason: Hypoglycemia Insulin Glargine (Insulin Glargine 100 Unit/Ml 3ml Pen) 36 unit SUBCUT BID [facility] Insulin Human Lispro (Insulin Lispro 100 Unit/Ml 3ml Vial) 0 unit SUBCUT ACHS BENIGNO; Protocol Loperamide HCl (Loperamide 2 Mg Capsule) 2 mg PO Q6H PRN PRN Reason: Diarrhea Loratadine (Loratadine 10 Mg Tablet) 10 mg PO DAILY BENIGNO Naloxone HCl (Naloxone 0.4 Mg/Ml Vial) 0.2 mg IV Q2MIN PRN PRN Reason: Opiate Reversal Quetiapine Fumarate (Quetiapine 25 Mg Tablet) 12.5 mg PO 1400 BENIGNO Discontinued Medications Albuterol (Albuterol 2.5 Mg/3 Ml Neb (Adult)) 2.5 mg INH NOW ONE Stop: 09/05/24 00:10 Last Admin: 09/05/24 00:20 Dose: 2.5 mg Documented By: Sodium Chloride (Normal Saline 0.9%) 1,000 mls @ 250 mls/hr IV BOLUS ONE Stop: 09/05/24 05:21 Last Admin: 09/05/24 02:00 Dose: 250 mls/hr Documented By: AB Vital Signs Vital signs: Vital Signs - 8 hr 09/04/24 23:46 09/04/24 23:51 09/05/24 00:00 Temperature 97.8 F Pulse Rate 41 L 42 L 37 L Respiratory Rate 18 Blood Pressure 144/59 H Pulse Oximetry 96 96 96 Oxygen Delivery Method Room Air Fraction of Inspired Oxygen 09/05/24 00:01 09/05/24 00:01 09/05/24 00:15 Temperature Pulse Rate 37 L Respiratory Rate 10 L Blood Pressure 125/58 L 123/51 L Pulse Oximetry 95 Oxygen Delivery Method Room Air Fraction of Inspired Oxygen 09/05/24 00:15 09/05/24 00:24 09/05/24 00:30 Temperature Pulse Rate 38 L 39 L 38 L Respiratory Rate 15 16 10 L Blood Pressure Pulse Oximetry 94 96 94 Oxygen Delivery Method Room Air Fraction of Inspired Oxygen 21 09/05/24 01:00 09/05/24 01:20 09/05/24 01:20 Temperature Pulse Rate 38 L 39 L Respiratory Rate 12 13 Blood Pressure 152/66 H Pulse Oximetry 94 94 Oxygen Delivery Method Room Air Fraction of Inspired Oxygen Medical Decision Making Lab Data Lab results reviewed: Yes I reviewed the patient's lab results. 09/05/24 00:37 09/05/24 00:37 Labs: Lab Results 09/05/24 Range/Units 00:37 WBC 6.7 (4.5-11.0) X10^3/uL RBC 3.76 L (4.0-5.2) X10^6/uL Hgb 11.4 L (12.0-16.0) g/dL Hct 33.4 L (36-46) % MCV 88.8 (80-100) fL MCH 30.4 (26-34) PG MCHC 34.2 (30-36) % RDW 13.5 (11.6-14.8) % Plt Count 175 (150-400) X10^3/uL Neut % (Auto) 49.6 L (50-75) % Lymph % (Auto) 36.7 (25-40) % [place] % (Auto) 7.5 (3-14) % Eos % (Auto) 5.4 H (2-4) % Baso % (Auto) 0.8 (0-2) % Neut # (Auto) 3300 (4098-6326) /uL Lymph # (Auto) 2500 (8952-1469) /uL [place] # (Auto) 500 (0-900) /uL Eos # (Auto) 400 (0-450) /uL Baso # (Auto) 100 (0-100) /uL Sodium 133 L (137-145) mmol/L Potassium 3.4 (3.4-5.1) mmol/L Chloride 96 L (98-107) mmol/L Carbon Dioxide 27 (22-32) mmol/L BUN 45 H (7-17) mg/dL Creatinine 1.93 H (0.52-1.04) mg/dL Estimated GFR 25 L (>60) mL/min BUN/Creatinine Ratio 23.3 H (6-22) Glucose 202 H (80-110) mg/dL Calcium 9.1 (8.4-10.2) mg/dL Total Bilirubin 0.5 (0.2-1.3) mg/dL AST 27 (14-36) IU/L ALT 22 (<35) IU/L Alkaline Phosphatase 101 (38-126) U/L Total Creatine Kinase 241 H (30-135) U/L Troponin I 0.017 (0.01-0.034) ng/mL Total Protein 7.2 (6.3-8.2) g/dL Albumin 3.9 (3.5-5.0) g/dL Globulin 3.3 (1.7-4.1) g/dL Albumin/Globulin Ratio 1.2 (1.0-2.8) Lipase 128 (23-300) U/L Imaging Data Chest x-ray: Radiologist's Impression: [address] [address] XRay Report Signed Patient: Ramonita Nesbitt MR#: [id number] : 1940 Acct:[id number] Age/Sex: 84 / F Date of Service: 09/05/24 Loc: ED Accession Number: [id number] Procedure: XR chest 1V Ordering Provider: Immanuel Kaufman MD PROCEDURE: XR CHEST 1V INDICATIONS: chest pain TECHNIQUE: One view of the chest was acquired. COMPARISON: [facility], CR, XR CHEST 1V, 03/21/2022, 18:21. [facility], CR, XR CHEST 1V, 09/23/2021, 16:37. FINDINGS: Surgical changes and devices: None. Lungs and pleura: Mild bilateral interstitial prominence. No focal consolidation. No pleural effusion or pneumothorax. Low lung volumes are seen bilaterally. Mediastinum: Cardiac silhouette is borderline enlarged. Bones and chest wall: No suspicious bony lesions. Overlying soft tissues appear unremarkable. IMPRESSION: Low lung volumes with mild interstitial prominence. Borderline cardiomegaly. Approved by: Shahab Cruz M.D. on 09/05/2024 at 0:28 CT scan - head: Radiologist's Impression: [address] [address] [address] Scan Report Signed Patient: Ramonita Nesbitt MR#: [id number] : 1940 Acct:[id number] Age/Sex: 84 / F Date of Service: 09/04/24 Loc: ED Accession Number: [id number] Procedure: CT head/brain wo con Ordering Provider: Immanuel Kaufman MD PROCEDURE: CT HEAD/BRAIN WO CON INDICATIONS: GLF, takes thinners, headache TECHNIQUE: Noncontrast 4.5 mm thick angled axial sections acquired from the foramen magnum to the vertex, with coronal and sagittal reformats. For radiation dose reduction, the following was used: automated exposure control, adjustment of mA and/or kV according to patient size. COMPARISON: [facility], CT, CT HEAD/BRAIN WO CON, 08/01/2024, 8:29. [facility], CT, CT HEAD/BRAIN WO CON, 07/16/2024, 19:22. FINDINGS: Image quality: Diagnostic. CSF spaces: Basal cisterns are patent. No extra-axial fluid collections. The ventricles are symmetric in size and shape. Brain: No acute intracranial hemorrhage or mass effect. There is cerebral volume loss for age, with resultant ventricular and sulcal prominence. There are periventricular and deep white matter chronic small vessel ischemic changes. There is intracranial internal carotid artery atherosclerosis. Skull and face: Calvarium and visualized facial bones appear intact, without suspicious lesions. Sinuses: Visualized sinuses and mastoids are clear. IMPRESSION: No acute intracranial pathology. Approved by: Shahab Cruz M.D. on 09/05/2024 at 0:23 CT - cervical spine: Radiologist's Impression: [place] [address] CT Scan Report Signed Patient: Ramonita Nesbitt MR#: [id number] : 1940 Acct:[id number] Age/Sex: 84 / F Date of Service: 09/04/24 Loc: ED Accession Number: [id number] Procedure: CT cervical spine wo con Ordering Provider: Immanuel Kaufman MD PROCEDURE: CT CERVICAL SPINE WO CON INDICATIONS: GLF, dementia, eval for Csp injury TECHNIQUE: Noncontrast 3 mm thick sections acquired from the skull base to the T4 level. Sagittal and coronal reformats were then constructed. For radiation dose reduction, the following was used: automated exposure control, adjustment of mA and/or kV according to patient size. COMPARISON: [facility], CT, CT CERVICAL SPINE WO CON, 03/21/2022, 18:38. FINDINGS: Image quality: Excellent. Bones: No acute fractures or dislocations. Visualized superior ribs are intact. Multilevel disc space narrowing and degenerative endplate changes. Multilevel uncovertebral joint and facet hypertrophy. Soft tissues: Prevertebral soft tissues are normal in thickness. No paravertebral hematomas. No apical pneumothoraces. IMPRESSION: No acute displaced fracture or traumatic subluxation. Approved by: Shahab Cruz M.D. on 09/05/2024 at 0:25 ECG Data Attestation: I personally reviewed and interpreted this ECG as follows: Interpretation: Sinus bradycardia with rate of 40, no obvious ST segment elevation or depression changes. OR 200, QRS 102, QTC 423. MDM Narrative Medical decision making narrative: 84-year-old female with possible fall, blood thinner medications, unclear if there was any loss of consciousness, sinus bradycardia noted, med list from facility includes metoprolol and clonidine. She now denies pain, however history of dementia, very limited history. No gross injury patterns on face or scalp, nor extremities, nor trunk. CT head and cervical spine study requested. EKG, chest x-ray, labs pending including troponin. No digoxin noted on med list Will query [facility] facility for any POLST or other advanced directive information. Pacer pads in place, albuterol on her medication list, we will give SVN albuterol to see if it improves her heart rate. BP okay so far with low HR. Hold metoprolol, hold clonidine. Heart rate still fairly low, 37 beats per minute, sometimes improved to 45 beats per minute, systolic blood pressure 120s. Consider admission on telemetry while holding beta-matty and/or clonidine medications, to see if heart rate improves, to reduce [facility]. Will contact hospitalist [phone], case discussed with hospitalist Dr. Templeton who accepts patient for admission to observation Discharge Plan Departure Patient Disposition: Admitted as Observation Clinical Impression: Sinus bradycardia, History of dementia Admit Date/Time: 09/05/24 01:27 Admit Provider: Harrison Tomlin
[2024-09-04 23:51] VITALS: PULSE 42; O2SAT 96
[2024-09-05] VITALS (14 sets, daily range): BP systolic 123–152; BP diastolic 31–66; PULSE 37–78; RESP 10–22; TEMP 35.8–36.7; O2SAT 94–97; BMI 33.3
--- NOTE | 2024-09-05 00:03 | DI.RAD.S_ITS ---
PROCEDURE: XR CHEST 1V INDICATIONS: chest pain TECHNIQUE: One view of the chest was acquired. COMPARISON: [facility], CR, XR CHEST 1V, 03/21/2022, 18:21. [facility], CR, XR CHEST 1V, 09/23/2021, 16:37. FINDINGS: Surgical changes and devices: None. Lungs and pleura: Mild bilateral interstitial prominence. No focal consolidation. No pleural effusion or pneumothorax. Low lung volumes are seen bilaterally. Mediastinum: Cardiac silhouette is borderline enlarged. Bones and chest wall: No suspicious bony lesions. Overlying soft tissues appear unremarkable. IMPRESSION: Low lung volumes with mild interstitial prominence. Borderline cardiomegaly. Approved by: Shahab Cruz M.D. on 09/05/2024 at 0:28
--- NOTE | 2024-09-05 00:03 | EKG_ITS ---
[address] [address] Test Date: 2024-09-05 Pat Name: Ramonita Nesbitt Department: Room: Gender: Female Dowel Pointer: ANALISA : 1940 Requested By: Order Number: [id number] Reading MD: Panda Hernandez Measurements Intervals Alpha Rate: 40 P: 61 NC: 200 QRS: 6 QRSD: 102 T: 79 QT: 520 QTc: 423 Interpretive Statements Critical Test Result: Low HR Marked sinus bradycardia with premature atrial complexes Minimal voltage criteria for LVH, may be normal variant ( R in aVL ) Nonspecific ST and T wave abnormality Electronically Signed On 09-05-2024 9:06:46 PDT by Panda Hernandez
--- NOTE | 2024-09-05 00:18 | PC.NURSE ---
HR jessica to 37. MD aware, pt placed on pacer pads.
[2024-09-05] MEDS: ALBUTEROL 2.5 MG/3 ML NEB (ADULT) INH (00:20)
[2024-09-05 00:50] LABS: Add Manual Diff / Slide Review NO; Basophils Absolute Auto 100 /uL (0-100); Basophils Percent Auto 0.8 % (0-2); Eosinophils Absolute Auto 400 /uL (0-450); Eosinophils Percent Auto 5.4 % (2-4); Hematocrit 33.4 % (36-46); Hemoglobin 11.4 g/dL (12.0-16.0); Lymphocytes Absolute Auto 2500 /uL (1100-4500); Lymphocytes Percent Auto 36.7 % (25-40); Mean Corpuscular HGB Conc 34.2 % (30-36); Mean Corpuscular Hemoglobin 30.4 PG (26-34); Mean Corpuscular Volume 88.8 fL (80-100); Monocytes Absolute Auto 500 /uL (0-900); Monocytes Percent Auto 7.5 % (3-14); Neutrophils Absolute Auto 3300 /uL (1500-7000); Neutrophils Percent Auto 49.6 % (50-75); Platelet Count 175 X10^3/uL (150-400); Red Blood Cell Count 3.76 X10^6/uL (4.0-5.2); Red Cell Distribution Width 13.5 % (11.6-14.8); White Blood Cell Count 6.7 X10^3/uL (4.5-11.0)
[2024-09-05 01:01] LABS: Alanine Aminotransferase 22 IU/L (<35); Albumin 3.9 g/dL (3.5-5.0); Albumin Globulin Ratio 1.2 (1.0-2.8); Alkaline Phosphatase 101 U/L (38-126); Aspartate Aminotransferase 27 IU/L (14-36); Bilirubin Total 0.5 mg/dL (0.2-1.3); Calcium 9.1 mg/dL (8.4-10.2); Carbon Dioxide 27 mmol/L (22-32); Chloride 96 mmol/L (98-107); Creatine Kinase 241 U/L (30-135); Globulin 3.3 g/dL (1.7-4.1); Glucose 202 mg/dL (80-110); HEMOLYSIS < 15 (0-50); Lipase 128 U/L (23-300); Potassium 3.4 mmol/L (3.4-5.1); Sodium 133 mmol/L (137-145); Total Protein 7.2 g/dL (6.3-8.2)
[2024-09-05 01:12] LABS: Troponin I 0.017 ng/mL (0.01-0.034)
[2024-09-05 01:13] LABS: BUN Creatinine Ratio 23.3 (6-22); Blood Urea Nitrogen 45 mg/dL (7-17); Estimated Glomerular Filt Rate 25 mL/min (>60)
--- NOTE | 2024-09-05 01:28 | PC.NURSE ---
Attempted to call Bossman son pts POA. Unable to leave message.
--- NOTE | 2024-09-05 01:41 | PC.NURSE ---
Spoke with son Bossman Nesbitt at [phone]. Reviewed most current POLST form on file dated 11/28/16. A - DNAR; B - Limited Additional Interventions; C - Signatures Son, pt and provider see Durable power of claim attorney and living will that son may have a copy of, not on file with us. D - Antibiotics: Use antibiotics if life can be prolonged and determine use or limitation of antibiotics when infection occurs, with comfort as goal. No Medically assisted nutrition by tube. Son acknowledges and states that sounds about right. At this time, pt will be placed in acute care unit under observation with telemetry and holding her medications that may have caused the bradycardia. Which in turn may have caused the fall. At this time Bossman understands all information given and available at this time and if he has further questions he will call the acute care and/or wait for providers rounding in the morning.
[2024-09-05] MEDS: SODIUM CHLORIDE 0.9% 1,000 ML 250 ML IV (02:00)
--- NOTE | 2024-09-05 04:36 | PC.ADMIT ---
[address] Admission Note: Patient admitted to AC unit from ED at 02:35 via stretcher, slide board transfer to bed. Alert, but doesn't respond verbally, does follow commands. NS bolus @ 250/hr started in ED. No s/s of pain. Sleeping shortly after admit. The patient,Ramonita Nesbitt,84 y/o, was given written information regarding hospital policies, unit procedures and contact persons. Patient's smoking status: Never smoker. Vital Signs - 8 hr 09/04/24 23:46 09/04/24 23:51 09/05/24 00:00 Temperature 97.8 F Pulse Rate 41 L 42 L 37 L Respiratory Rate 18 Blood Pressure 144/59 H Pulse Oximetry 96 96 96 Oxygen Delivery Method Room Air Fraction of Inspired Oxygen 09/05/24 00:01 09/05/24 00:01 09/05/24 00:15 Temperature Pulse Rate 37 L Respiratory Rate 10 L Blood Pressure 125/58 L 123/51 L Pulse Oximetry 95 Oxygen Delivery Method Room Air Fraction of Inspired Oxygen 09/05/24 00:15 09/05/24 00:24 09/05/24 00:30 Temperature Pulse Rate 38 L 39 L 38 L Respiratory Rate 15 16 10 L Blood Pressure Pulse Oximetry 94 96 94 Oxygen Delivery Method Room Air Fraction of Inspired Oxygen 21 09/05/24 01:00 09/05/24 01:20 09/05/24 01:20 Temperature Pulse Rate 38 L 39 L Respiratory Rate 12 13 Blood Pressure 152/66 H Pulse Oximetry 94 94 Oxygen Delivery Method Room Air Fraction of Inspired Oxygen 09/05/24 01:30 09/05/24 01:31 09/05/24 01:31 Temperature Pulse Rate 40 L 41 L Respiratory Rate 14 14 Blood Pressure 125/60 Pulse Oximetry 95 95 Oxygen Delivery Method Room Air Fraction of Inspired Oxygen 09/05/24 01:46 09/05/24 01:46 09/05/24 02:00 Temperature Pulse Rate 40 L Respiratory Rate 14 Blood Pressure 125/58 L 134/59 L Pulse Oximetry 94 Oxygen Delivery Method Fraction of Inspired Oxygen 09/05/24 02:00 Temperature Pulse Rate 40 L Respiratory Rate 13 Blood Pressure Pulse Oximetry 95 Oxygen Delivery Method Room Air Fraction of Inspired Oxygen
--- NOTE | 2024-09-05 05:30 | P.HP_ITS ---
History of Present Illness History of Present Illness Date Patient Seen: 09/05/24 Time Patient Seen: 03:00 Chief complaint: fall on thinners Narrative: 84 y/o resident of [facility], with PMH of CVA, OA, dementia, depression, DM with neuropathy, CKD, HTN, HLD, atrophic vaginitis, recurrent UTI, sent to ER after she developed headache and had suspected GLF at facility. Patient unable to provide comprehensive history due to dementia. ED workup showing sinus bradycardia. She has no chest pain, pressure, palpitations, dyspnea and takes metoprolol and clonidine at home. Additionally, it seems she has an MICHAEL over CKD stage 3a or b Placed in observation on telemetry, off BB and clonidine, [facility] Medical History (Updated 09/05/24 @ 05:51 by Harrison Templeton MD) Postmenopausal atrophic vaginitis Recurrent UTI (urinary tract infection) Bacterial UTI Cerebral infarction Dementia Edema Major depression Osteoarthritis Neuropathy Hyperlipidemia Diabetes Hypertension Family History Family/Other Diabetes mellitus Social History marital status: number of children: 2 Smoking Status: Never smoker Meds Home Medications and Allergies Home Medications Medication Instructions Recorded Confirmed Type albuterol sulfate 90 mcg/actuation 2 puff inhalation TID 03/21/22 08/01/24 History aerosol inhaler chlorthalidone 25 mg tablet 12.5 mg PO BEDTIME htn 03/21/22 08/01/24 History chlorthalidone 25 mg tablet 25 mg PO QAM 03/21/22 08/01/24 History citalopram 10 mg tablet 10 mg PO QAM depression 03/21/22 08/01/24 History clonidine HCl 0.1 mg tablet 0.1 mg PO DAILY htn 03/21/22 08/01/24 History clopidogrel 75 mg tablet 75 mg PO QAM 03/21/22 08/01/24 History gabapentin 300 mg capsule 600 mg PO TID 03/21/22 08/01/24 History insulin glargine 100 unit/mL (3 36 unit SUBCUT BID 03/21/22 08/01/24 History mL) subcutaneous pen (Lantus Solostar U-100 Insulin) insulin lispro 100 unit/mL See Rx Instructions .Route .COMPLEX 03/21/22 08/01/24 History subcutaneous pen (Humalog KwikPen (U-100) Insulin) loratadine 10 mg tablet (Allergy 10 mg PO QAM allergies 03/21/22 08/01/24 History Relief (loratadine)) metoprolol tartrate 25 mg tablet 50 mg PO BID 03/21/22 08/01/24 History simvastatin 20 mg tablet 20 mg PO BEDTIME 03/21/22 08/01/24 History nystatin 100,000 unit/gram topical 1 applic topical BID 08/22/22 08/01/24 History powder amlodipine 10 mg tablet 10 mg PO QAM 11/20/22 08/01/24 History acetaminophen 500 mg tablet 1,000 mg PO TID Pain 07/16/24 08/01/24 History albuterol sulfate 90 mcg/actuation 2 puff inhalation Q2H PRN Wheezing 07/16/24 08/01/24 History aerosol inhaler baclofen 10 mg tablet 10 mg PO TID 07/16/24 08/01/24 History clonidine HCl 0.1 mg tablet 0.1 mg PO Q12HR 07/16/24 08/01/24 History cyclosporine 0.05 % eye drops in a 1 drp EYE-BOTH BID 07/16/24 08/01/24 History dropperette loperamide 2 mg tablet (Imodium 2 mg PO Q6H PRN Diarrhea 07/16/24 08/01/24 History A-D) ondansetron HCl 4 mg tablet 4 mg PO Q4H PRN nausea/vomiting 07/16/24 08/01/24 History quetiapine 25 mg tablet 12.5 mg PO DAILY 07/16/24 08/01/24 History fluticasone furoate 100 1 inh inhalation QAM 08/01/24 08/01/24 History mcg/actuation blister powder for inhalation Allergies Allergy/AdvReac Type Severity Reaction Status Date / Time Penicillins Allergy Unknown Verified 08/01/24 17:33 procaine [From Novocain] Allergy Unknown Verified 08/01/24 17:33 Review of Systems Review of Systems Narrative: unobtainable due to dementia Exam Vital Signs (past 8 hours): - 09/04/24 23:46 09/04/24 23:51 09/05/24 00:00 Temperature 97.8 F Pulse Rate 41 L 42 L 37 L Respiratory Rate 18 Blood Pressure 144/59 H Pulse Oximetry 96 96 96 Oxygen Delivery Method Room Air Fraction of Inspired Oxygen 09/05/24 00:01 09/05/24 00:01 09/05/24 00:15 Temperature Pulse Rate 37 L Respiratory Rate 10 L Blood Pressure 125/58 L 123/51 L Pulse Oximetry 95 Oxygen Delivery Method Room Air Fraction of Inspired Oxygen 09/05/24 00:15 09/05/24 00:24 09/05/24 00:30 Temperature Pulse Rate 38 L 39 L 38 L Respiratory Rate 15 16 10 L Blood Pressure Pulse Oximetry 94 96 94 Oxygen Delivery Method Room Air Fraction of Inspired Oxygen 21 09/05/24 01:00 09/05/24 01:20 09/05/24 01:20 Temperature Pulse Rate 38 L 39 L Respiratory Rate 12 13 Blood Pressure 152/66 H Pulse Oximetry 94 94 Oxygen Delivery Method Room Air Fraction of Inspired Oxygen 09/05/24 01:30 09/05/24 01:31 09/05/24 01:31 Temperature Pulse Rate 40 L 41 L Respiratory Rate 14 14 Blood Pressure 125/60 Pulse Oximetry 95 95 Oxygen Delivery Method Room Air Fraction of Inspired Oxygen 09/05/24 01:46 09/05/24 01:46 09/05/24 02:00 Temperature Pulse Rate 40 L Respiratory Rate 14 Blood Pressure 125/58 L 134/59 L Pulse Oximetry 94 Oxygen Delivery Method Fraction of Inspired Oxygen 09/05/24 02:00 Temperature Pulse Rate 40 L Respiratory Rate 13 Blood Pressure Pulse Oximetry 95 Oxygen Delivery Method Room Air Fraction of Inspired Oxygen Fraction of Inspired Oxygen 21 SaO2/FiO2 Ratio 457 Oxygen Delivery Method Room Air Const Other: in no distress, sleeps soundly Resp Other: normal respiratory effort Cardio Other: bradycardic GI Other: obese abdomen Skin Other: left heel - pressure ulcer groin / perineum - candidiasis Objective ECG Impression: Sinus bradycardia with APCs Labs 09/05/24 00:37 09/05/24 00:37 Labs: Laboratory Results - last 24 hr 09/05/24 00:37 WBC 6.7 RBC 3.76 L Hgb 11.4 L Hct 33.4 L MCV 88.8 MCH 30.4 MCHC 34.2 RDW 13.5 Plt Count 175 Neut % (Auto) 49.6 L Lymph % (Auto) 36.7 [place] % (Auto) 7.5 Eos % (Auto) 5.4 H Baso % (Auto) 0.8 Neut # (Auto) 3300 Lymph # (Auto) 2500 [place] # (Auto) 500 Eos # (Auto) 400 Baso # (Auto) 100 Sodium 133 L Potassium 3.4 Chloride 96 L Carbon Dioxide 27 BUN 45 H Creatinine 1.93 H Estimated GFR 25 L BUN/Creatinine Ratio 23.3 H Glucose 202 H Calcium 9.1 Total Bilirubin 0.5 AST 27 ALT 22 Alkaline Phosphatase 101 Total Creatine Kinase 241 H Troponin I 0.017 Total Protein 7.2 Albumin 3.9 Globulin 3.3 Albumin/Globulin Ratio 1.2 Lipase 128 Assessment & Plan Assessment and plan (1) Bradyarrhythmia: Status: Acute (2) Hypertension: Qualifiers: Hypertension type: unspecified Qualified Code(s): I10 - Essential (primary) hypertension Status: Acute (3) MICHAEL (acute kidney injury): Status: Acute (4) CKD (chronic kidney disease) stage 3, GFR 30-59 ml/min: Status: Acute (5) Dementia: Status: Acute (6) Major depression: Status: Acute (7) Diabetes: Status: Acute (8) Diabetic neuropathy: Status: Acute (9) Hyperlipidemia: Status: Acute (10) Osteoarthritis: Status: Acute (11) Recurrent UTI (urinary tract infection): Status: Acute (12) Postmenopausal atrophic vaginitis: Status: Acute (13) History of stroke: Status: Acute Assessment & Plan narrative: Bradyarrhythmia - sinus bradycardia with APCs initially, then junctional rhythm upon admission on the floor around 5 AM - has history of bradycardia - last 2 EKGs in the system showing bradycardia in 30-ies - 40-ies, one hows 1st degree AV block - w/o evidence of ACS - home metoprolol 50 mg bid and clonidine 0.1 mg bid held - on telemetry, monitored, expecting improvement off BB / clonidine HTN / CKD / MICHAEL - BP WNR, renal function below baseline - HCTZ held - metoprolol and clonidine held DM with neuropathy - Lantus, SS, CCD, gabapentin Hx of CVA / HLD - statin, Plavix - Norvasc, metoprolol and clonidine held Dementia / depression - Celexa, Seroquel Groin Candidiasis - Nystatin Lt heel pressure ulcer - offload DVT prophylaxis - heparin Time-Based Coding :: [TOTAL MINUTES] spent with patient and on the chart (including review of chart, obtaining history, exam, reviewing outside data, placing orders, documenting exam and treatment plan, and counseling patient) on [DATE].
[2024-09-05] MEDS: AMLODIPINE 5 MG TABLET 10 MG PO ×2 (06:27→11:24)
[2024-09-05] MEDS: CITALOPRAM 10 MG TABLET PO ×2 (06:27→11:25)
[2024-09-05 06:55] LABS: Add Manual Diff / Slide Review NO; Basophils Absolute Auto 0 /uL (0-100); Basophils Percent Auto 0.6 % (0-2); Eosinophils Absolute Auto 300 /uL (0-450); Eosinophils Percent Auto 4.9 % (2-4); Hematocrit 35.3 % (36-46); Lymphocytes Absolute Auto 2500 /uL (1100-4500); Mean Corpuscular HGB Conc 34.1 % (30-36); Mean Corpuscular Hemoglobin 30.6 PG (26-34); Mean Corpuscular Volume 89.7 fL (80-100); Monocytes Absolute Auto 400 /uL (0-900); Monocytes Percent Auto 7.3 % (3-14); Neutrophils Absolute Auto 2300 /uL (1500-7000); Neutrophils Percent Auto 42.2 % (50-75); Platelet Count 162 X10^3/uL (150-400); Red Blood Cell Count 3.93 X10^6/uL (4.0-5.2); Red Cell Distribution Width 13.9 % (11.6-14.8); White Blood Cell Count 5.5 X10^3/uL (4.5-11.0)
[2024-09-05 06:58] LABS: BUN Creatinine Ratio 24.4 (6-22); Blood Urea Nitrogen 41 mg/dL (7-17); Carbon Dioxide 27 mmol/L (22-32); Chloride 101 mmol/L (98-107); Estimated Glomerular Filt Rate 30 mL/min (>60); Glucose 175 mg/dL (80-110); HEMOLYSIS < 15 (0-50); Potassium 3.3 mmol/L (3.4-5.1); Sodium 137 mmol/L (137-145)
--- NOTE | 2024-09-05 07:47 | PM.HP.1 ---
History of Present Illness History of Present Illness Date Patient Seen: 09/05/24 Chief complaint: fall on thinners Narrative: From night doctor: 84 y/o resident of [facility], with PMH of CVA, OA, dementia, depression, DM with neuropathy, CKD, HTN, HLD, atrophic vaginitis, recurrent UTI, sent to ER after she developed headache and had suspected GLF at facility. Patient unable to provide comprehensive history due to dementia. ED workup showing sinus bradycardia. She has no chest pain, pressure, palpitations, dyspnea and takes metoprolol and clonidine at home. Additionally, it seems she has an MICHAEL over CKD stage 3a or b Placed in observation on telemetry, off BB and clonidine. Additional information: She has significant cognitive impairment and really can not provide any detailed history. She denies pain or feeling lightheaded. She was not oriented to place or time. [facility] Medical History Postmenopausal atrophic vaginitis Recurrent UTI (urinary tract infection) Bacterial UTI Cerebral infarction Dementia Edema Major depression Osteoarthritis Neuropathy Hyperlipidemia Diabetes Hypertension Family History Family/Other Diabetes mellitus Social History marital status: number of children: 2 Smoking Status: Never smoker Meds Home Medications and Allergies Home Medications Medication Instructions Recorded Confirmed Type albuterol sulfate 90 mcg/actuation 2 puff inhalation TID 03/21/22 08/01/24 History aerosol inhaler chlorthalidone 25 mg tablet 12.5 mg PO BEDTIME htn 03/21/22 08/01/24 History chlorthalidone 25 mg tablet 25 mg PO QAM 03/21/22 08/01/24 History citalopram 10 mg tablet 10 mg PO QAM depression 03/21/22 08/01/24 History clonidine HCl 0.1 mg tablet 0.1 mg PO DAILY htn 03/21/22 08/01/24 History clopidogrel 75 mg tablet 75 mg PO QAM 03/21/22 08/01/24 History gabapentin 300 mg capsule 600 mg PO TID 03/21/22 08/01/24 History insulin glargine 100 unit/mL (3 36 unit SUBCUT BID 03/21/22 08/01/24 History mL) subcutaneous pen (Lantus Solostar U-100 Insulin) insulin lispro 100 unit/mL See Rx Instructions .Route .COMPLEX 03/21/22 08/01/24 History subcutaneous pen (Humalog KwikPen (U-100) Insulin) loratadine 10 mg tablet (Allergy 10 mg PO QAM allergies 03/21/22 08/01/24 History Relief (loratadine)) metoprolol tartrate 25 mg tablet 50 mg PO BID 03/21/22 08/01/24 History simvastatin 20 mg tablet 20 mg PO BEDTIME 03/21/22 08/01/24 History nystatin 100,000 unit/gram topical 1 applic topical BID 08/22/22 08/01/24 History powder amlodipine 10 mg tablet 10 mg PO QAM 11/20/22 08/01/24 History acetaminophen 500 mg tablet 1,000 mg PO TID Pain 07/16/24 08/01/24 History albuterol sulfate 90 mcg/actuation 2 puff inhalation Q2H PRN Wheezing 07/16/24 08/01/24 History aerosol inhaler baclofen 10 mg tablet 10 mg PO TID 07/16/24 08/01/24 History clonidine HCl 0.1 mg tablet 0.1 mg PO Q12HR 07/16/24 08/01/24 History cyclosporine 0.05 % eye drops in a 1 drp EYE-BOTH BID 07/16/24 08/01/24 History dropperette loperamide 2 mg tablet (Imodium 2 mg PO Q6H PRN Diarrhea 07/16/24 08/01/24 History A-D) ondansetron HCl 4 mg tablet 4 mg PO Q4H PRN nausea/vomiting 07/16/24 08/01/24 History quetiapine 25 mg tablet 12.5 mg PO DAILY 07/16/24 08/01/24 History fluticasone furoate 100 1 inh inhalation QAM 08/01/24 08/01/24 History mcg/actuation blister powder for inhalation Allergies Allergy/AdvReac Type Severity Reaction Status Date / Time Penicillins Allergy Unknown Verified 08/01/24 17:33 procaine [From Novocain] Allergy Unknown Verified 08/01/24 17:33 Review of Systems Review of Systems Narrative: Not obtainable due to cognitive impairment. Exam Vital Signs (past 8 hours): - 09/04/24 23:51 09/05/24 00:00 09/05/24 00:01 Temperature Pulse Rate 42 L 37 L Respiratory Rate Blood Pressure 125/58 L Pulse Oximetry 96 96 Oxygen Delivery Method Fraction of Inspired Oxygen 09/05/24 00:01 09/05/24 00:15 09/05/24 00:15 Temperature Pulse Rate 37 L 38 L Respiratory Rate 10 L 15 Blood Pressure 123/51 L Pulse Oximetry 95 94 Oxygen Delivery Method Room Air Fraction of Inspired Oxygen 09/05/24 00:24 09/05/24 00:30 09/05/24 01:00 Temperature Pulse Rate 39 L 38 L 38 L Respiratory Rate 16 10 L 12 Blood Pressure Pulse Oximetry 96 94 94 Oxygen Delivery Method Room Air Room Air Fraction of Inspired Oxygen 21 09/05/24 01:20 09/05/24 01:20 09/05/24 01:30 Temperature Pulse Rate 39 L 40 L Respiratory Rate 13 14 Blood Pressure 152/66 H Pulse Oximetry 94 95 Oxygen Delivery Method Fraction of Inspired Oxygen 09/05/24 01:31 09/05/24 01:31 09/05/24 01:42 Temperature Pulse Rate 41 L Respiratory Rate 14 Blood Pressure 125/60 Pulse Oximetry 95 Oxygen Delivery Method Room Air Room Air Fraction of Inspired Oxygen 09/05/24 01:46 09/05/24 01:46 09/05/24 02:00 Temperature Pulse Rate 40 L Respiratory Rate 14 Blood Pressure 125/58 L 134/59 L Pulse Oximetry 94 Oxygen Delivery Method Fraction of Inspired Oxygen 09/05/24 02:00 09/05/24 06:17 Temperature 96.4 F L Pulse Rate 40 L 46 L Respiratory Rate 13 22 Blood Pressure 130/31 L Pulse Oximetry 95 94 Oxygen Delivery Method Room Air Fraction of Inspired Oxygen Fraction of Inspired Oxygen 21 SaO2/FiO2 Ratio 457 Oxygen Delivery Method Room Air Narrative Exam Narrative: NAD, alert and oriented to self only, fluent speech, calm. Normocephalic skull, EOMI, anicteric sclera, symmetric pupils. Oropharynx unremarkable, no droop. Neck supple, midline trachea, no adenopathy. Lungs clear, normal rate and effort. Heart regular, no murmur gallop or rub. Bradycardic Abdomen is soft, non distended and non tender. Extremities are free of edema. Skin is free of rash or lesions. Joints are not swollen or deformed. Judgment appears to be abnormal. She has significant cognitive impairment. Objective ECG Impression: Marked sinus bradycardia with premature atrial complexes Minimal voltage criteria for LVH, may be normal variant ( R in aVL ) Nonspecific ST and T wave abnormality Imaging Multiple studies:: Radiologist's impression: Chest x-ray: Clear Head CT: No abnormalities Cervical spine CT: No abnormalities Labs 09/05/24 06:39 09/05/24 06:39 Labs: Laboratory Results - last 24 hr 09/05/24 09/05/24 00:37 06:39 WBC 6.7 5.5 RBC 3.76 L 3.93 L Hgb 11.4 L 12.0 Hct 33.4 L 35.3 L MCV 88.8 89.7 MCH 30.4 30.6 MCHC 34.2 34.1 RDW 13.5 13.9 Plt Count 175 162 Neut % (Auto) 49.6 L 42.2 L Lymph % (Auto) 36.7 45.0 H [place] % (Auto) 7.5 7.3 Eos % (Auto) 5.4 H 4.9 H Baso % (Auto) 0.8 0.6 Neut # (Auto) 3300 2300 Lymph # (Auto) 2500 2500 [place] # (Auto) 500 400 Eos # (Auto) 400 300 Baso # (Auto) 100 0 Sodium 133 L 137 Potassium 3.4 3.3 L Chloride 96 L 101 Carbon Dioxide 27 27 BUN 45 H 41 H Creatinine 1.93 H 1.68 H Estimated GFR 25 L 30 L BUN/Creatinine Ratio 23.3 H 24.4 H Glucose 202 H 175 H Calcium 9.1 9.0 Total Bilirubin 0.5 AST 27 ALT 22 Alkaline Phosphatase 101 Total Creatine Kinase 241 H Troponin I 0.017 Total Protein 7.2 Albumin 3.9 Globulin 3.3 Albumin/Globulin Ratio 1.2 Lipase 128 Assessment & Plan Assessment & Plan narrative: 1. Bradycardia, present on admission and active. 2. HTN, present on admission and active. 3. CKD 3, present on admission and active. - BP WNR, renal function below baseline - HCTZ held - metoprolol and clonidine held 4. DM with neuropathy, present on admission and active. - Lantus, SS, CCD, gabapentin 5. Hx of CVA / HLD, present on admission and active. - statin, Plavix - Norvasc, metoprolol and clonidine held 6. Dementia / depression, present on admission and active. - Celexa, Seroquel 7. Groin Candidiasis, present on admission and active. - Nystatin 8. Lt heel pressure ulcer, present on admission and active. - offload PLAN: -metoprolol washout and telemetry. Anticipate 2 midnights of medically necessary hospital care, this supports inpatient status. Full code. DVT prophylaxis - heparin JONO: 09/06, back to [facility]. Time-Based Coding :: 35 min spent with patient and on the chart (including review of chart, obtaining history, exam, reviewing outside data, placing orders, documenting exam and treatment plan, and counseling patient) on 09/05. Quality MIPS - Admit I confirm the patient?s Advance Care Plan is present, Code status is documented, Surrogate decision maker is in patient?s record [If Yes, STOP here]: Yes MIPS - Meds 'Current medications' to include all prescriptions, [id number] products, herbals, cannabis/cannabidiol products, and vitamin/mineral/dietary (nutritional) supplements. I have utilized all available resources to obtain, update, or review the patient?s current medications. [If Yes, STOP here]: Yes
[2024-09-05] MEDS: HEPARIN 5,000 UNIT/ML VIAL 5000 UNIT SUBCUT ×2 (08:55→20:19)
[2024-09-05] MEDS: INSULIN LISPRO 100 UNIT/ML 3ML VIAL SUBCUT ×4 (08:56→20:20)
[2024-09-05] MEDS: INSULIN GLARGINE 100 UNIT/ML 3ML PEN 36 UNIT SUBCUT ×2 (08:57→20:20)
[2024-09-05] MEDS: GABAPENTIN 300 MG CAPSULE 600 MG PO ×2 (11:24→20:18)
[2024-09-05] MEDS: NYSTATIN POWDER 15GM 1 APPLIC TOP (11:24)
[2024-09-05] MEDS: CLOPIDOGREL 75 MG TABLET PO (11:25)
[2024-09-05] MEDS: LORATADINE 10 MG TABLET PO (11:25)
--- NOTE | 2024-09-05 12:05 | CM.DANOTE ---
DCP Assessment Note: Pt is a 84yo female, resident of [place], is admitted for bradycardia. Patient has a hx of CKD, DM, dementia, and left heel ulcer. Pt is a resident at [facility] ([facility]). Pt's Primary Care Provider is Dr. Angle Fenton and insurance is Medicare and Medicaid. Reviewed chart and team rounds for pt's medical status and initial discharge needs. DCP met w/patient at bedside; introduced self and role. Patient was found in chair, not oriented due to dementia, cooperative with assessment. Pt confirmed living situation at [facility] and that son is her primary POA. DCP spoke with pt's son, Bossman, who lives in [place], [place]. It is reported that pt utilizes a wheelchair at baseline. Per son, no needs identified at this time for extra support NADEGE. DCP attempted to confirm with [facility] that pt will have transport back to their facility when medically cleared, no answer after two attempts. (ph# [phone]) Plan: Anticipating discharge back to [facility] when medically cleared, anticipating discharge on 09/06. CM team will follow closely for coordination of discharge plans. CHRISTOPHER Cottrell Discharge Planning/Care Management CM Discharge Assessment Start: 09/05/24 12:03 Freq: Status: Active Protocol: Document 09/05/24 12:03 MW (Rec: 09/05/24 12:05 MW [id number]) Discharge Planning Assessment Assigned Bioinformatics Software Engineer CAROL Schwartz DPOA/Assigned Designee Name Bossman Nesbitt, Son/POA Contact Information [phone] Advance Directives? Yes: polst Advance Directives on File Yes: polst History Provided By Family Member,Medical Record Has Patient been admitted in last 30 No days? Prior Living Arrangements Assisted Living Comment [facility] Household Members none Type of transporation used prior to Relies on Others admit Facility Name Admitted From: [facility] Independent with ADL's No Is patient alert and oriented? No: Hx of Severe dementia Discharge Plan Assisted Living Facility Whiteboard Updated in Patient Room with Yes name and ext. # of Bioinformatics Software Engineer Comment [phone] Review Status In Process Please Provide Date Initial DC 09/05/24 Assessment Was Performed Next Review Type Continued Stay Review
[2024-09-05] MEDS: ACETAMINOPHEN 325 MG TABLET 975 MG PO ×2 (12:56→20:18)
[2024-09-05] MEDS: QUETIAPINE 25 MG TABLET 12.5 MG PO (14:10)
--- NOTE | 2024-09-05 17:26 | PC.NURSE ---
LOC: Intitially would not get oob, didn't want her meds or eat bkft. Pt is globally disoriented, only responds to name. Doesn't understand the call light. She must have a bed alarm or chair alarm at all times. Tends to perseverate. Pt -> Go...go...go... go.. go. Since she was wanting sleep she was given warm blankets and when she woke up later she was smiling, ready for lunch. She was able to speak in longer sentences but remained confused. She thought she was 31 years old, home, helping take care of her 4 children. Thought it was 1952. She has been pleasant the rest of the day with a quick smile. Cardiac: HR in the low 40's and occ down to 38. Initially this am when she got up her heart rate was in the 50's with movement. Denied dizziness. Up to bathroom and in the chair. Later this evening she got up in the hallways and walked. Heart rate was briefly up to the 70's. She is back in bed after her walk and sleeping. Currently her heart rate is in the low 50's. Have not seen the heart rate in the 40's this evening.
[2024-09-05] MEDS: ATORVASTATIN 20 MG TABLET 10 MG PO (20:19)
[2024-09-06] VITALS: BP 122/47; PULSE 61; RESP 18; TEMP 36.1; O2SAT 94
[2024-09-06] MEDS: NYSTATIN POWDER 15GM 1 APPLIC TOP ×2 (01:14→09:40)
[2024-09-06 04:00] VITALS: BP 147/62; PULSE 56; RESP 14; TEMP 36.3; O2SAT 96
[2024-09-06 08:00] VITALS: BP 130/39; PULSE 57; RESP 16; TEMP 36.6; O2SAT 94
[2024-09-06] MEDS: ACETAMINOPHEN 325 MG TABLET 975 MG PO ×2 (09:39→14:26)
[2024-09-06] MEDS: HEPARIN 5,000 UNIT/ML VIAL 5000 UNIT SUBCUT (09:39)
[2024-09-06] MEDS: CLOPIDOGREL 75 MG TABLET PO (09:40)
[2024-09-06] MEDS: CITALOPRAM 10 MG TABLET PO (09:40)
[2024-09-06] MEDS: GABAPENTIN 300 MG CAPSULE 600 MG PO ×2 (09:40→14:27)
[2024-09-06] MEDS: LORATADINE 10 MG TABLET PO (09:40)
[2024-09-06] MEDS: AMLODIPINE 5 MG TABLET 10 MG PO (09:40)
[2024-09-06] MEDS: INSULIN GLARGINE 100 UNIT/ML 3ML PEN 36 UNIT SUBCUT (10:04)
--- NOTE | 2024-09-06 10:04 | PM.DS.1 ---
History of Present Illness History of Present Illness Date Patient Seen: 09/06/24 Time Patient Seen: 10:04 Chief complaint: fall on thinners Narrative: From night doctor: 84 y/o resident of [facility], with PMH of CVA, OA, dementia, depression, DM with neuropathy, CKD, HTN, HLD, atrophic vaginitis, recurrent UTI, sent to ER after she developed headache and had suspected GLF at facility. Patient unable to provide comprehensive history due to dementia. ED workup showing sinus bradycardia. She has no chest pain, pressure, palpitations, dyspnea and takes metoprolol and clonidine at home. Additionally, it seems she has an IMCHAEL over CKD stage 3a or b Placed in observation on telemetry, off BB and clonidine. Additional information: She has significant cognitive impairment and really can not provide any detailed history. She denies pain or feeling lightheaded. She was not oriented to place or time. Discharge Providers Provider Date of admission: 09/05/24 10:08 Discharge Date: 09/06/24 Primary care physician: Angle Fenton MD Discharge provider: Johnny Sandoval DO Summary Hospital Course Discharge Diagnosis: 1. Bradycardia, present on admission and active. 2. HTN, present on admission and active. 3. CKD 3, present on admission and active. 4. DM with neuropathy, present on admission and active. 5. Hx of CVA / HLD, present on admission and active. 6. Dementia / depression, present on admission and active. 7. Groin Candidiasis, present on admission and active. 8. Lt heel pressure ulcer, present on admission and active. Hospital Course: This is an 84 year old female who was admitted for further monitoring for probable symptomatic bradycardia. She was an unreliable historian. Her HR was as low as the upper 30s initially, but improved while holding her home metoprolol and clonidine. Her HR was steady between the upper 50s and low 60s on the day of discharge, and patient was at her reported baseline. She improved more quickly than anticipated. These home medications were held on discharge, and I do recommend repeat evaluation with PCP as an outpatient for ongoing BP management but with normal BP on amlodipine and chlorthalidone today no additional antihypertensives are recommended. No other changes to her home medications were recommended on discharge. Time Spent with Patient Time spent: Greater than 30 minutes Exam Vital Signs (past 8 hours): - 09/06/24 04:00 09/06/24 08:00 Temperature 97.3 F L 97.8 F Pulse Rate 56 L 57 L Respiratory Rate 14 16 Blood Pressure 147/62 H 130/39 L Pulse Oximetry 96 94 Oxygen Flow Rate 0 Fraction of Inspired Oxygen 21 SaO2/FiO2 Ratio 457 Oxygen Delivery Method Room Air Oxygen Flow Rate 0 Narrative Exam Narrative: NAD, alert and oriented to self only, fluent speech, calm. RRR She has significant cognitive impairment. Objective Labs 09/05/24 06:39 09/05/24 06:39 PFSH Medical History Postmenopausal atrophic vaginitis Recurrent UTI (urinary tract infection) Bacterial UTI Cerebral infarction Dementia Edema Major depression Osteoarthritis Neuropathy Hyperlipidemia Diabetes Hypertension Family History Family/Other Diabetes mellitus Social History marital status: number of children: 2 household members: none Smoking Status: Never smoker Discharge Plan Discharge Plan Patient Disposition: Assisted Living Transfer to: [facility] Discharge orders & Medications Discharge Orders: Discharge (Order); Ordered 09/06/24 Ordered By: Johnny Sandoval Prescriptions: New quetiapine 25 mg Tablet 12.5 mg PO 1400 Qty: 30 0RF Continued citalopram 10 mg Tablet 10 mg PO QAM clopidogrel 75 mg Tablet 75 mg PO QAM chlorthalidone 25 mg Tablet 25 mg PO QAM chlorthalidone 25 mg Tablet 12.5 mg PO BEDTIME simvastatin 20 mg Tablet 20 mg PO BEDTIME gabapentin 300 mg Capsule 600 mg PO TID albuterol sulfate 90 mcg/actuation Hfa Aerosol Inhaler 2 puff INHALATION TID loratadine [Allergy Relief (loratadine)] 10 mg Tablet 10 mg PO QAM insulin lispro [Humalog KwikPen Insulin] 100 unit/mL Insulin Pen See Rx Instructions .ROUTE .COMPLEX Rx Instructions: RX instructions in chart daily dose and sliding scale insulin glargine [Lantus Solostar U-100 Insulin] 100 unit/mL (3 mL) Insulin Pen 36 unit SUBCUT BID Rx Instructions: Hold if blood sugar less than 80 ondansetron HCl 4 mg Tablet 4 mg PO Q4H PRN (Reason: nausea/vomiting) loperamide [Imodium A-D] 2 mg Tablet 2 mg PO Q6H PRN (Reason: Diarrhea) acetaminophen 500 mg tablet 1,000 mg PO TID baclofen 10 mg tablet 10 mg PO TID albuterol sulfate 90 mcg/actuation Hfa Aerosol Inhaler 2 puff INHALATION Q2H PRN (Reason: Wheezing) cyclosporine 0.05 % dropperette 1 drp EYE-BOTH BID nystatin 100,000 unit/gram powder 1 applic topical BID amlodipine 10 mg tablet 10 mg PO QAM Rx Instructions: Hold for systolic less than 100 and HR less than 60 Discontinued clonidine HCl 0.1 mg Tablet 0.1 mg PO DAILY Rx Instructions: takes in afternoon metoprolol tartrate 25 mg Tablet 50 mg PO BID Rx Instructions: hold for systolic bp < 100 or pulse less than 60 clonidine HCl 0.1 mg tablet 0.1 mg PO Q12HR Rx Instructions: for systolic > 150 Follow up/Referrals: Angle Fenton MD [Primary Care Provider] - Diet/Activity/Treatments Diet: Carb-consistent/Diabetic Liquid consistency: Normal/Thin Food texture: Soft Skin/Wound/Dressing Care Skin care: Cleanze hood area and applying nystatin powder. Area is much improved. Visit Report/Discharge Packet Instructions: How to Prevent Falls, DI for Bradycardia Stand Alone Forms: Patient Portal/API, Stroke Signs & Symptoms Discharge Data Primary Care Provider: Angle Fenton
--- NOTE | 2024-09-06 11:19 | CM.DPC ---
DCP Discharge NURSING HOME Per MD, pt's meds adjusted and medically stable to discharge back to [facility] today and no identified barriers to d/c and orders placed. YAZMIN called [facility] NADEGE Lamb and updated on discharge orders and he confirms they can accept pt back today and will transport around 1500. YAZMIN called pt's son/KASEY Keita and updated on above and he confirms he is agreeable with her d/c back to [facility] today. RN already called report and confirmed time of transport for pt today. SW faxed signed med list, no new meds, and discharge summary to review to [facility]. Plan: Patient to discharge back to [facility] today via facility van at 1500. CAROL Lozano
[2024-09-06 12:00] VITALS: BP 157/71
[2024-09-06] MEDS: INSULIN LISPRO 100 UNIT/ML 3ML VIAL SUBCUT (13:16)
[2024-09-06] MEDS: QUETIAPINE 25 MG TABLET 12.5 MG PO (14:27)
--- NOTE | 2024-09-06 15:24 | CM.DPNOTE ---
DCP note, from RN, transport did not arrive leaf size picker pt. [employer] called RN report number, they will send the van right now. [employer] updated CAROL Evans
--- NOTE | 2024-09-06 18:39 | PC.NURSE ---
Discharge to [facility]. She is much improved and happy she is going home. She did not like getting lab draws or IV's. Remains globally disoriented. However she was more conversant today. Instead of thinking the year was 1950's she said simply, I don't know what year it is. Communicating more. Good appetite. Her heart rate has not fallen below 50 today and was as high as the 80's when she was amb. Report called to [facility] and given to admitting nurse. Reviewed hospital course. Questions answered. If they need more information she can return call until 1929 when this RN leaves.
== END 2024-09-06 15:30 | DRG 309 ==
LOC: ED 09-05 01:26 → AC 09-05 01:28
PROVIDERS: Admitting Provider Internal Medicine; Emergency Provider Emergency Medicine; PCP Internal Medicine; Referring Provider Emergency Medicine; Visit Provider Internal Medicine
DX: R00.1 Bradycardia, unspecified (principal); B37.89 Other sites of candidiasis; N17.9 Acute kidney failure, unspecified; F03.90 Unspecified dementia, unspecified severity, without behavioral disturbance, psychotic disturbance, mood disturbance, and anxiety; I12.9 Hypertensive chronic kidney disease with stage 1 through stage 4 chronic kidney disease, or unspecified chronic kidney disease; N18.30 Chronic kidney disease, stage 3 unspecified; F32.9 Major depressive disorder, single episode, unspecified; E11.22 Type 2 diabetes mellitus with diabetic chronic kidney disease; E11.40 Type 2 diabetes mellitus with diabetic neuropathy, unspecified; E78.5 Hyperlipidemia, unspecified; M19.90 Unspecified osteoarthritis, unspecified site; N95.2 Postmenopausal atrophic vaginitis; L89.629 Pressure ulcer of left heel, unspecified stage; R51.9 Headache, unspecified; W18.30XA Fall on same level, unspecified, initial encounter; Z87.440 Personal history of urinary (tract) infections; Z86.73 Personal history of transient ischemic attack (TIA), and cerebral infarction without residual deficits; Z79.4 Long term (current) use of insulin; Z79.02 Long term (current) use of antithrombotics/antiplatelets
CPT/HCPCS: 36415; 70450; 71045; 72125; 80048; 80053; 82550; 82962; 83690; 84484; 85025; 93005; 94640; 99284; 99285; G0378; A9270; J1644; J1815; J7613

== ENCOUNTER 2024-11-05 14:50 | Emergency (ER) | payer MEDICARE, MEDICAID, SELFPAY ==
[2024-09-05 02:35] VITALS: BMI 33.3
[2024-11-05 15:01] VITALS: BP 161/68; PULSE 62; RESP 18; TEMP 36.8; O2SAT 95
--- NOTE | 2024-11-05 15:01 | ED_ITS ---
HPI - General Adult General Chief complaint: Skin/Abscess/Foreign Body Stated complaint: Blisters on Inner Thighs Time Seen by Provider: 11/05/24 14:51 History of Present Illness HPI narrative: 84-year-old woman currently living at [facility] with a history of dementia, prior stroke, depression, diabetes, chronic kidney disease, hypertension, hyperlipidemia recurrent urinary tract infections was apparently checked by nursing staff today and there was concern for blisters on her inner thigh she is brought by medics for further evaluation. She has no specific complaints or concerns Related Data Home Medications Medication Instructions Recorded Confirmed albuterol sulfate 90 mcg/actuation 2 puff inhalation TID 03/21/22 09/05/24 aerosol inhaler chlorthalidone 25 mg tablet 12.5 mg PO BEDTIME htn 03/21/22 09/05/24 chlorthalidone 25 mg tablet 25 mg PO QAM 03/21/22 09/05/24 citalopram 10 mg tablet 10 mg PO QAM depression 03/21/22 09/05/24 clopidogrel 75 mg tablet 75 mg PO QAM 03/21/22 09/05/24 gabapentin 300 mg capsule 600 mg PO TID 03/21/22 09/05/24 insulin glargine 100 unit/mL (3 36 unit SUBCUT BID 03/21/22 09/05/24 mL) subcutaneous pen (Lantus Solostar U-100 Insulin) insulin lispro 100 unit/mL See Rx Instructions .Route .COMPLEX 03/21/22 09/05/24 subcutaneous pen (Humalog KwikPen (U-100) Insulin) loratadine 10 mg tablet (Allergy 10 mg PO QAM allergies 03/21/22 09/05/24 Relief (loratadine)) simvastatin 20 mg tablet 20 mg PO BEDTIME 03/21/22 09/05/24 nystatin 100,000 unit/gram topical 1 applic topical BID 08/22/22 09/05/24 powder amlodipine 10 mg tablet 10 mg PO QAM 11/20/22 09/05/24 acetaminophen 500 mg tablet 1,000 mg PO TID Pain 07/16/24 09/05/24 albuterol sulfate 90 mcg/actuation 2 puff inhalation Q2H PRN Wheezing 07/16/24 09/05/24 aerosol inhaler baclofen 10 mg tablet 10 mg PO TID 07/16/24 09/05/24 cyclosporine 0.05 % eye drops in a 1 drp EYE-BOTH BID 07/16/24 09/05/24 dropperette loperamide 2 mg tablet (Imodium 2 mg PO Q6H PRN Diarrhea 07/16/24 09/05/24 A-D) ondansetron HCl 4 mg tablet 4 mg PO Q4H PRN nausea/vomiting 07/16/24 09/05/24 Previous Rx's Medication Instructions Recorded quetiapine 25 mg tablet 12.5 mg (1/2 x 25 mg) PO 1400 #30 09/06/24 tabs Allergies Allergy/AdvReac Type Severity Reaction Status Date / Time Penicillins Allergy Unknown Verified 08/01/24 17:33 procaine [From Novocain] Allergy Unknown Verified 08/01/24 17:33 Patient History Medical History Postmenopausal atrophic vaginitis Recurrent UTI (urinary tract infection) Bacterial UTI Cerebral infarction Dementia Edema Major depression Osteoarthritis Neuropathy Hyperlipidemia Diabetes Hypertension Family History Family/Other Diabetes mellitus Social History marital status: number of children: 2 household members: none Smoking Status: Never smoker Smoking Status: Never smoker alcohol intake frequency: holidays/special occasions only Exam Initial Vital Signs Initial Vital Signs: Vital Signs Temperature 98.2 F 11/05/24 15:01 Pulse Rate 62 11/05/24 15:01 Respiratory Rate 18 11/05/24 15:01 Blood Pressure 161/68 H 11/05/24 15:01 Pulse Oximetry 95 11/05/24 15:01 Oxygen Delivery Method Room Air 11/05/24 15:01 General: Alert, in no acute distress, oriented to place but not events Respiratory: Able to speak in full sentences, no obvious respiratory distress Skin: Skin is warm and dry. Perineal area has some minor irritation on the left inner labia and some minor breakdown along the outer portion of the intergluteal cleft. No obvious ulceration or vesicles appreciated areas cleaned thoroughly with Barrier cream applied. Course Vital Signs Vital signs: Vital Signs - 8 hr 11/05/24 15:01 Temperature 98.2 F Pulse Rate 62 Respiratory Rate 18 Blood Pressure 161/68 H Pulse Oximetry 95 Oxygen Delivery Method Room Air Medical Decision Making MDM Narrative Medical decision making narrative: 84-year-old woman sent in from [facility] with concerns for blisters on her inner thigh. There is an area of skin irritation that is not vesicular. There is no suggestion of zoster no obvious areas of infection. The minor area of breakdown is gently cleaned and Barrier cream is applied. Patient is not showing any signs of tenderness or concern. Reassurance is given and she will be discharged back to [facility]. Discharge Plan Departure Patient Disposition: Assisted Living Clinical Impression: Perineal irritation in female Activity Restrictions/Additional Instructions: Thank you for sending read over today. With thorough evaluation of perineal and intertriginous folds she does have some skin breakdown some minor areas of irritation. I did not see any obvious vesicles and certainly nothing that looked like shingles or herpes. She did have a raised area on the inner left thigh that is from rubbing, barrier creams applied there as well. At this point I do not see anything that needs acute treatment. Prescriptions: No Action quetiapine 25 mg Tablet 12.5 mg PO 1400 Qty: 30 0RF citalopram 10 mg Tablet 10 mg PO QAM clopidogrel 75 mg Tablet 75 mg PO QAM chlorthalidone 25 mg Tablet 25 mg PO QAM chlorthalidone 25 mg Tablet 12.5 mg PO BEDTIME simvastatin 20 mg Tablet 20 mg PO BEDTIME gabapentin 300 mg Capsule 600 mg PO TID albuterol sulfate 90 mcg/actuation Hfa Aerosol Inhaler 2 puff INHALATION TID loratadine [Allergy Relief (loratadine)] 10 mg Tablet 10 mg PO QAM insulin lispro [Humalog KwikPen Insulin] 100 unit/mL Insulin Pen See Rx Instructions .ROUTE .COMPLEX Rx Instructions: RX instructions in chart daily dose and sliding scale insulin glargine [Lantus Solostar U-100 Insulin] 100 unit/mL (3 mL) Insulin Pen 36 unit SUBCUT BID Rx Instructions: Hold if blood sugar less than 80 ondansetron HCl 4 mg Tablet 4 mg PO Q4H PRN (Reason: nausea/vomiting) loperamide [Imodium A-D] 2 mg Tablet 2 mg PO Q6H PRN (Reason: Diarrhea) acetaminophen 500 mg tablet 1,000 mg PO TID baclofen 10 mg tablet 10 mg PO TID albuterol sulfate 90 mcg/actuation Hfa Aerosol Inhaler 2 puff INHALATION Q2H PRN (Reason: Wheezing) cyclosporine 0.05 % dropperette 1 drp EYE-BOTH BID nystatin 100,000 unit/gram powder 1 applic topical BID amlodipine 10 mg tablet 10 mg PO QAM Rx Instructions: Hold for systolic less than 100 and HR less than 60 Referrals: Angle Fenton MD [Primary Care Provider] -
--- NOTE | 2024-11-05 15:16 | PC.NURSE ---
Pt has skin break down, redness in gluteal fold/groin folds. Area cleaned and cream applied. Brief changed upon arrival. Pt denies pain/discomfort.
== END 2024-11-05 16:12 ==
PROVIDERS: Emergency Provider Emergency Medicine; PCP Internal Medicine
DX: L29.3 Anogenital pruritus, unspecified (principal)
CPT/HCPCS: 99281

== ENCOUNTER 2024-11-06 09:57 | Emergency (ER) | payer MEDICARE, MEDICAID, SELFPAY ==
[2024-09-05 02:35] VITALS: BMI 33.3
[2024-11-06 10:25] VITALS: BP 135/63; PULSE 57; RESP 14; TEMP 36.2; O2SAT 97
--- NOTE | 2024-11-06 11:52 | ED.SKABFB ---
HPI - Skin/Abscess/Foreign Bdy <Pauly Gale PA-C - Last Filed: 11/06/24 15:14> General Chief complaint: Skin/Abscess/Foreign Body Stated complaint: Blisters on legs Time Seen by Provider: 11/06/24 10:05 Mode of arrival: EMS History of Present Illness HPI narrative: Ms. Ramonita Nesbitt is a very pleasant 84-year-old woman with a past medical history of dementia, CVA, DM, CKD, HTN, HLD, depression who presents to the emergency department from [facility] for concern of a rash/blisters in her genital region. At this time the patient denies any pain or any concerns. She does wear briefs. She was seen in the ER yesterday for the same concern and at that time was recommended to use a topical barrier cream. Patient was sent back to the ER today for continued concern. This time patient has an erythematous rash between her thigh folds and on the vulva. No blisters or drainage. Related Data Home Medications Medication Instructions Recorded Confirmed albuterol sulfate 90 mcg/actuation 2 puff inhalation TID 03/21/22 09/05/24 aerosol inhaler chlorthalidone 25 mg tablet 12.5 mg PO BEDTIME htn 03/21/22 09/05/24 chlorthalidone 25 mg tablet 25 mg PO QAM 03/21/22 09/05/24 citalopram 10 mg tablet 10 mg PO QAM depression 03/21/22 09/05/24 clopidogrel 75 mg tablet 75 mg PO QAM 03/21/22 09/05/24 gabapentin 300 mg capsule 600 mg PO TID 03/21/22 09/05/24 insulin glargine 100 unit/mL (3 36 unit SUBCUT BID 03/21/22 09/05/24 mL) subcutaneous pen (Lantus Solostar U-100 Insulin) insulin lispro 100 unit/mL See Rx Instructions .Route .COMPLEX 03/21/22 09/05/24 subcutaneous pen (Humalog KwikPen (U-100) Insulin) loratadine 10 mg tablet (Allergy 10 mg PO QAM allergies 03/21/22 09/05/24 Relief (loratadine)) simvastatin 20 mg tablet 20 mg PO BEDTIME 03/21/22 09/05/24 nystatin 100,000 unit/gram topical 1 applic topical BID 08/22/22 09/05/24 powder amlodipine 10 mg tablet 10 mg PO QAM 11/20/22 09/05/24 acetaminophen 500 mg tablet 1,000 mg PO TID Pain 07/16/24 09/05/24 albuterol sulfate 90 mcg/actuation 2 puff inhalation Q2H PRN Wheezing 07/16/24 09/05/24 aerosol inhaler baclofen 10 mg tablet 10 mg PO TID 07/16/24 09/05/24 cyclosporine 0.05 % eye drops in a 1 drp EYE-BOTH BID 07/16/24 09/05/24 dropperette loperamide 2 mg tablet (Imodium 2 mg PO Q6H PRN Diarrhea 07/16/24 09/05/24 A-D) ondansetron HCl 4 mg tablet 4 mg PO Q4H PRN nausea/vomiting 07/16/24 09/05/24 Previous Rx's Medication Instructions Recorded quetiapine 25 mg tablet 12.5 mg (1/2 x 25 mg) PO 1400 #30 09/06/24 tabs clotrimazole 1 % topical cream 1 applic topical BID 4 weeks #45 11/06/24 grams Allergies Allergy/AdvReac Type Severity Reaction Status Date / Time Penicillins Allergy Unknown Verified 11/06/24 10:25 procaine [From Novocain] Allergy Unknown Verified 11/06/24 10:25 Review of Systems <Pauly Gale PA-C - Last Filed: 11/06/24 15:14> Review of Systems ROS Unobtainable: All systems reviewed & are unremarkable except as noted in HPI and below Patient History <Pauly Gale PA-C - Last Filed: 11/06/24 15:14> Medical History Postmenopausal atrophic vaginitis Recurrent UTI (urinary tract infection) Bacterial UTI Cerebral infarction Dementia Edema Major depression Osteoarthritis Neuropathy Hyperlipidemia Diabetes Hypertension Family History Family/Other Diabetes mellitus Social History marital status: number of children: 2 household members: none Smoking Status: Never smoker Smoking Status: Never smoker alcohol intake frequency: holidays/special occasions only Exam <Pauly Gale PA-C - Last Filed: 11/06/24 15:14> Narrative Exam Narrative: GENERAL: 84 year old patient appears stated age. HEAD: Atraumatic. Normocephalic. NECK: Trachea midline. Cervical ROM intact. CARDIOVASCULAR: Regular rate and rhythm. RESPIRATORY: ?Nonlabored respirations. ?Speaking in clear, full sentences. ? GASTROINTESTINAL: Abdomen soft, non-tender, nondistended. : Patient gave verbal consent for pelvic exam. Female nurse gate guard present for exam. On exam patient has erythema in the bilateral proximal thigh folds. She also has erythema of the labia majora and in the folds. No blisters or drainage. Patient is currently wearing a brief NEURO: Clear speech. ?Moves all 4 extremities appropriately. Initial Vital Signs Initial Vital Signs: Vital Signs Temperature 97.1 F L 11/06/24 10:25 Pulse Rate 57 L 11/06/24 10:25 Respiratory Rate 14 11/06/24 10:25 Blood Pressure 135/63 11/06/24 10:25 Pulse Oximetry 97 11/06/24 10:25 Oxygen Delivery Method Room Air 11/06/24 10:25 <Lyly Rosales MD - Last Filed: 11/07/24 08:31> Initial Vital Signs Initial Vital Signs: Vital Signs Temperature 97.1 F L 11/06/24 10:25 Pulse Rate 57 L 11/06/24 10:25 Respiratory Rate 14 11/06/24 10:25 Blood Pressure 135/63 11/06/24 10:25 Pulse Oximetry 97 11/06/24 10:25 Oxygen Delivery Method Room Air 11/06/24 10:25 Course <Pauly Gale PA-C - Last Filed: 11/06/24 15:14> Vital Signs Vital signs: Vital Signs - 8 hr 11/06/24 10:25 Temperature 97.1 F L Pulse Rate 57 L Respiratory Rate 14 Blood Pressure 135/63 Pulse Oximetry 97 Oxygen Delivery Method Room Air <Lyly Rosales MD - Last Filed: 11/07/24 08:31> Vital Signs Vital signs: Vital Signs - 8 hr 11/06/24 10:25 Temperature 97.1 F L Pulse Rate 57 L Respiratory Rate 14 Blood Pressure 135/63 Pulse Oximetry 97 Oxygen Delivery Method Room Air MDM - Skin/Abscess/Foreign Bdy <Pauly Gale PA-C - Last Filed: 11/06/24 15:14> Medical Records Attestation: I reviewed the patient's medical records. Medical records narrative: ER visit 11/05 [facility] Narrative Medical decision making narrative: 84-year-old woman with a past medical history of dementia, CVA, DM, CKD, HTN, HLD, depression who presents to the emergency department from [facility] for concern of a rash/blisters in her genital region. Differential diagnosis includes but is not limited to intertrigo, Jennifer, contact dermatitis, shingles, cellulitis, etc. On exam patient is in no acute distress, nontoxic appearing, denies any pain, vital signs appropriate. External exam was performed revealing an erythematous beefy rash of the vulva and into her thigh folds consistent with intertrigo. She was recommended barrier cream yesterday however she returns to the ER therefore we will step up treatment to clotrimazole twice daily for the next 2-4 weeks. Recommended follow up with PCP and discussed ER return precautions. Patient is stable for transfer back to assisted living at this time. Discuss everything with the patient's son, Bossman. Patient was cleaned, new brief applied. Son is driving her back to assisted living facility. She is stable for discharge at this time. Discharge Plan Departure Patient Disposition: Assisted Living Clinical Impression: Intertrigo of genital labia Instructions: DI for Intertrigo Activity Restrictions/Additional Instructions: Dear Ms. Nesbitt, Today you were evaluated for a rash in your groin. On exam you have a red rash around the vulva and in the thigh folds consistent with intertrigo. Intertrigo is a rash that often develops in the folds of the skin due to frequent moisture. This can be treated with barrier cream however as it gets worse it can be improved with an antifungal cream. I have prescribed clotrimazole antifungal cream to be applied to the area of redness twice daily for the next 2-4 weeks. This can be purchased [id number] or a prescription has been sent to the pharmacy. It is very important to completely clean the vulva and the skin folds well, pat dry and allowed to air dry before applying the cream. Please change briefs frequently and avoid sitting in a wet brief are moisture as this will make the rash worse. Please follow up with your primary care doctor within the next 2-3 days for ER follow-up. (If you do not have a PCP you can call [phone]. ?to schedule an appointment with an [facility] Primary Care Provider) IF YOU DEVELOP ANY NEW OR WORSENING SYMPTOMS, RETURN TO THE ER! Please read the attached instructions, they highlight more specific treatments and interventions for you at home. Thank you for letting me participate in your care, Pauly Gale PA-C Prescriptions: New clotrimazole 1 % cream 1 applic topical BID 28 Days Qty: 45 0RF No Action quetiapine 25 mg Tablet 12.5 mg PO 1400 Qty: 30 0RF citalopram 10 mg Tablet 10 mg PO QAM clopidogrel 75 mg Tablet 75 mg PO QAM chlorthalidone 25 mg Tablet 25 mg PO QAM chlorthalidone 25 mg Tablet 12.5 mg PO BEDTIME simvastatin 20 mg Tablet 20 mg PO BEDTIME gabapentin 300 mg Capsule 600 mg PO TID albuterol sulfate 90 mcg/actuation Hfa Aerosol Inhaler 2 puff INHALATION TID loratadine [Allergy Relief (loratadine)] 10 mg Tablet 10 mg PO QAM insulin lispro [Humalog KwikPen Insulin] 100 unit/mL Insulin Pen See Rx Instructions .ROUTE .COMPLEX Rx Instructions: RX instructions in chart daily dose and sliding scale insulin glargine [Lantus Solostar U-100 Insulin] 100 unit/mL (3 mL) Insulin Pen 36 unit SUBCUT BID Rx Instructions: Hold if blood sugar less than 80 ondansetron HCl 4 mg Tablet 4 mg PO Q4H PRN (Reason: nausea/vomiting) loperamide [Imodium A-D] 2 mg Tablet 2 mg PO Q6H PRN (Reason: Diarrhea) acetaminophen 500 mg tablet 1,000 mg PO TID baclofen 10 mg tablet 10 mg PO TID albuterol sulfate 90 mcg/actuation Hfa Aerosol Inhaler 2 puff INHALATION Q2H PRN (Reason: Wheezing) cyclosporine 0.05 % dropperette 1 drp EYE-BOTH BID nystatin 100,000 unit/gram powder 1 applic topical BID amlodipine 10 mg tablet 10 mg PO QAM Rx Instructions: Hold for systolic less than 100 and HR less than 60 Referrals: Angle Fenton MD [Primary Care Provider] - ED Sign-out <Lyly Rosales MD - Last Filed: 11/07/24 08:31> Cosign ED Attending Cosignature Attestation: I was immediately available in the department for consultation throughout this patient's visit. Lyly Rosales MD
--- NOTE | 2024-11-06 13:18 | PC.NURSE ---
Addendum entered by Mary Grace Griggs R.N. 11/06/24 14:59: 1459 Son, Bossman, arrived from [place], to take pt back to [facility]. Original Note: 1230 Pt brought back to fast track/short stay area of ED and evaluated by provider. Pt denies pain or irritation. Noted one reddened are on the posterior aspect of the upper thigh. Spoke with nurse tech at [facility] and discussed the importance of making sure that pt's brief is dry and clean and that skin is completely dry before getting dressed. Also discussed that pt will be d/c with rc for antifungal cream for redened area. Asked [facility] nurse tech if there was staff available to come and take patient home and she stated that [facility] staff will no longer be coming to get patients and that we would need to call BLS for patient or a cabulance. RN explained to [facility] nurse tech that pt does not qualify for BLS and it would be an out of pocket expense for the pt and cabulance is scheduling out for several days. [facility] stated that we would have to call pt's son to come take her home because staff would not be coming to get pt. RN clarified that nurse tech refusing to send staff.
[2024-11-06 15:24] VITALS: BP 140/66; PULSE 60; RESP 20; TEMP 37.2; O2SAT 100
== END 2024-11-06 15:26 ==
PROVIDERS: Emergency Provider Physician Assistant; PCP Internal Medicine
DX: L30.4 Erythema intertrigo (principal)
CPT/HCPCS: 99281

== ENCOUNTER 2025-05-06 06:27 | Emergency (ER) | payer MEDICARE, MEDICAID, SELFPAY ==
[2024-09-05 02:35] VITALS: BMI 33.3
[2025-05-06 06:21] VITALS: BP 199/84; PULSE 80; RESP 20; TEMP 36.6; O2SAT 92
--- NOTE | 2025-05-06 06:29 | DI.CT.S_ITS ---
PROCEDURE: CT CERVICAL SPINE WO CON INDICATIONS: GLF eval for Csp injury TECHNIQUE: Noncontrast 3 mm thick sections acquired from the skull base to the T4 level. Sagittal and coronal reformats were then constructed. For radiation dose reduction, the following was used: automated exposure control, adjustment of mA and/or kV according to patient size. COMPARISON: [facility], CT, CT CERVICAL SPINE WO CON, 09/04/2024, 23:55. FINDINGS: Image quality: Excellent. Bones: No fractures or dislocations. Multilevel degenerative changes of the cervical spine. Decreased osseous mineralization Visualized superior ribs are intact. Soft tissues: Prevertebral soft tissues are normal in thickness. No paravertebral hematomas. No apical pneumothoraces. IMPRESSION: No displaced fracture or traumatic subluxation. Findings are concordant with preliminary interpretation provided by [facility]. Dictated by: Jimmy Aiken M.D. on 05/06/2025 at 8:25 Approved by: Jimmy Aiken M.D. on 05/06/2025 at 8:29
--- NOTE | 2025-05-06 06:29 | DI.CT.S_ITS ---
PROCEDURE: CT HEAD/BRAIN WO CON INDICATIONS: GLF head trauma TECHNIQUE: Noncontrast 4.5 mm thick angled axial sections acquired from the foramen magnum to the vertex, with coronal and sagittal reformats. For radiation dose reduction, the following was used: automated exposure control, adjustment of mA and/or kV according to patient size. COMPARISON: [facility], CT, CT HEAD/BRAIN WO CON, 09/04/2024, 23:55. FINDINGS: Image quality: Diagnostic. CSF spaces: Basal cisterns are patent. No extra-axial fluid collections. The ventricles are symmetric in size and shape. Brain: No intracranial bleeds or mass effect. There is cerebral volume loss, with resultant ventricular and sulcal prominence. There are periventricular and deep white matter chronic small vessel ischemic changes. There is intracranial internal carotid artery atherosclerosis. Skull and face: Of frontal scalp hematoma without underlying fracture. Calvarium and visualized facial bones appear intact, without suspicious lesions. Sinuses: Visualized sinuses and mastoids are clear. IMPRESSION: No acute intracranial pathology. Findings are concordant with preliminary interpretation provided by [facility]. Dictated by: Jimmy Aiken M.D. on 05/06/2025 at 8:24 Approved by: Jimmy Aiken M.D. on 05/06/2025 at 8:25
--- NOTE | 2025-05-06 06:55 | ED.FALL ---
HPI - Fall General Chief Complaint: Fall Stated Complaint: fall Time Seen by Provider: 05/06/25 06:29 Source: EMS Mode of arrival: EMS History of Present Illness HPI Narrative: Patient is a 84-year-old female with a past medical history of dementia, CVA, diabetes, CKD, hypertension, hyperlipidemia, comes into the ED via EMS from dementia unit, states that she was sitting in the dining room and had a fall. Patient is at baseline according to medics, was in C-spine for precautions. Does take Plavix. Otherwise additional ROS HPI limited given patient's history of dementia. Related Data Home Medications ?Medication ?Instructions ?Recorded ?Confirmed albuterol sulfate 90 mcg/actuation 2 puff inhalation TID 03/21/22 09/05/24 aerosol inhaler chlorthalidone 25 mg tablet 12.5 mg PO BEDTIME htn 03/21/22 09/05/24 chlorthalidone 25 mg tablet 25 mg PO QAM 03/21/22 09/05/24 citalopram 10 mg tablet 10 mg PO QAM depression 03/21/22 09/05/24 clopidogrel 75 mg tablet 75 mg PO QAM 03/21/22 09/05/24 gabapentin 300 mg capsule 600 mg PO TID 03/21/22 09/05/24 insulin glargine 100 unit/mL (3 36 unit SUBCUT BID 03/21/22 09/05/24 mL) subcutaneous pen (Lantus Solostar U-100 Insulin) insulin lispro 100 unit/mL See Rx Instructions .Route .COMPLEX 03/21/22 09/05/24 subcutaneous pen (Humalog KwikPen (U-100) Insulin) loratadine 10 mg tablet (Allergy 10 mg PO QAM allergies 03/21/22 09/05/24 Relief (loratadine)) simvastatin 20 mg tablet 20 mg PO BEDTIME 03/21/22 09/05/24 nystatin 100,000 unit/gram topical 1 applic topical BID 08/22/22 09/05/24 powder amlodipine 10 mg tablet 10 mg PO QAM 11/20/22 09/05/24 acetaminophen 500 mg tablet 1,000 mg PO TID Pain 07/16/24 09/05/24 albuterol sulfate 90 mcg/actuation 2 puff inhalation Q2H PRN Wheezing 07/16/24 09/05/24 aerosol inhaler baclofen 10 mg tablet 10 mg PO TID 07/16/24 09/05/24 cyclosporine 0.05 % eye drops in a 1 drp EYE-BOTH BID 07/16/24 09/05/24 dropperette loperamide 2 mg tablet (Imodium 2 mg PO Q6H PRN Diarrhea 07/16/24 09/05/24 A-D) ondansetron HCl 4 mg tablet 4 mg PO Q4H PRN nausea/vomiting 07/16/24 09/05/24 Previous Rx's ?Medication ?Instructions ?Recorded quetiapine 25 mg tablet 12.5 mg (1/2 x 25 mg) PO 1400 #30 09/06/24 tabs Allergies Allergy/AdvReac Type Severity Reaction Status Date / Time Penicillins Allergy Unknown Verified 05/06/25 06:48 procaine (From Novocain) Allergy Unknown Verified 05/06/25 06:48 Review of Systems Review of Systems ROS Unobtainable: Unobtainable due to mental condition Patient History Medical History Postmenopausal atrophic vaginitis Recurrent UTI (urinary tract infection) Bacterial UTI Cerebral infarction Dementia Edema Major depression Osteoarthritis Neuropathy Hyperlipidemia Diabetes Hypertension Family History Family/Other Diabetes mellitus Social History marital status: number of children: 2 household members: none alcohol intake frequency: holidays/special occasions only Exam Narrative Exam Narrative: General: Cooperative, well-developed, not in acute distress HEENT: Patient with abrasion noted to the forehead, ecchymosis noted to the nose Neck: Patient in C-collar for precautions Chest: Normal to inspection, negative crepitus, no overlying erythema ecchymosis Respiratory: Normal respiratory effort, not in acute respiratory distress, clear to auscultation bilaterally negative cough, wheeze, tachypnea, rhonchi, rales Cardiology: Regular rate rhythm negative gallop, murmur, rubs GI/: No tenderness to palpation, soft, non rigid, normal to inspection, exam deferred MSK: Full active range of motion in all 4 extremities, atraumatic, no tenderness to palpation of any bony prominences Skin: No rashes or lesions noted Neuro: Patient history dementia at baseline, moving all 4 extremities spontaneously Psych: Cooperative, negative suicidal or homicidal ideations Initial Vital Signs Initial Vital Signs: Vital Signs Temperature 97.8 F 05/06/25 06:21 Pulse Rate 80 05/06/25 06:21 Respiratory Rate 20 05/06/25 06:21 Blood Pressure 199/84 H 05/06/25 06:21 Pulse Oximetry 92 05/06/25 06:21 Oxygen Delivery Method Room Air 05/06/25 06:21 Course Orders Ordered: ED Orders 05/06/25 06:29 CT cervical spine wo con Stat CT head/brain wo con Stat 05/06/25 07:32 EKG-12 Lead Stat 05/06/25 07:34 CXR [XR chest 1V] Stat 05/06/25 07:40 CBC Auto Diff [Complete Blood Count AUTO DIFF] Stat CMP [Comprehensive Metabolic Panel] Stat MAG [Magnesium] Stat Discontinued Medications Sodium Chloride (Normal Saline 0.9%) 1,000 mls @ 1,000 mls/hr IV BOLUS ONE Stop: 05/06/25 08:32 Magnesium Sulfate (Magnesium Sulfate) 2 gm in 50 mls @ 150 mls/hr IV NOW ONE Stop: 05/06/25 07:52 Last Admin: 05/06/25 08:30 Dose: Not Given Documented By: CTS Ondansetron HCl (Ondansetron 4 Mg/2 Ml Inj) 4 mg IV NOW ONE Stop: 05/06/25 07:33 Vital Signs Vital signs: Vital Signs - 8 hr 05/06/25 06:21 Temperature 97.8 F Pulse Rate 80 Respiratory Rate 20 Blood Pressure 199/84 H Pulse Oximetry 92 Oxygen Delivery Method Room Air MDM - Fall Differential Diagnosis Differential diagnosis: Likely compression fracture, concussion with loss of consciousness, concussion without loss of consciousness and other (Intracranial hemorrhage, skull fracture, cervical neck fracture) Lab Data 05/06/25 07:40 05/06/25 07:40 Labs: Lab Results 05/06/25 Range/Units 07:40 WBC 9.3 (4.5-11.0) X10^3/uL RBC 3.99 L (4.0-5.2) X10^6/uL Hgb 12.3 (12.0-16.0) g/dL Hct 36.8 (36-46) % MCV 92.3 (80-100) fL MCH 30.9 (26-34) PG MCHC 33.5 (30-36) % RDW 12.7 (11.6-14.8) % Plt Count 193 (150-400) X10^3/uL Neut % (Auto) 77.6 H (50-75) % Lymph % (Auto) 16.9 L (25-40) % [place] % (Auto) 3.8 (3-14) % Eos % (Auto) 1.3 L (2-4) % Baso % (Auto) 0.4 (0-2) % Neut # (Auto) 7200 H (5818-0567) /uL Lymph # (Auto) 1600 (0631-2851) /uL [place] # (Auto) 400 (0-900) /uL Eos # (Auto) 100 (0-450) /uL Baso # (Auto) 0 (0-100) /uL Sodium 148 H (137-145) mmol/L Potassium 3.5 (3.4-5.1) mmol/L Chloride 106 (98-107) mmol/L Carbon Dioxide 30 (22-32) mmol/L BUN 40 H (7-17) mg/dL Creatinine 1.48 H (0.52-1.04) mg/dL Estimated GFR 35 L (>60) mL/min BUN/Creatinine Ratio 27.0 H (6-22) Glucose 294 H (70-99) mg/dL Calcium 9.8 (8.4-10.2) mg/dL Magnesium 1.9 (1.6-2.3) mg/dL Total Bilirubin 0.6 (0.2-1.3) mg/dL AST 24 (14-36) IU/L ALT 16 (<35) IU/L Alkaline Phosphatase 124 (38-126) U/L Total Protein 8.3 H (6.3-8.2) g/dL Albumin 4.7 (3.5-5.0) g/dL Globulin 3.6 (1.7-4.1) g/dL Albumin/Globulin Ratio 1.3 (1.0-2.8) Imaging Data CT scan - head: Radiologist's Impression: [address] [address] [address] Scan Report Signed Patient: Ramonita Nesbitt MR#: [id number] : 1940 Acct:[id number] Age/Sex: 84 / F Date of Service: 05/06/25 Loc: ED Accession Number: [id number] Procedure: CT head/brain wo con Ordering Provider: Immanuel Kaufman MD PROCEDURE: CT HEAD/BRAIN WO CON INDICATIONS: GLF head trauma TECHNIQUE: Noncontrast 4.5 mm thick angled axial sections acquired from the foramen magnum to the vertex, with coronal and sagittal reformats. For radiation dose reduction, the following was used: automated exposure control, adjustment of mA and/or kV according to patient size. COMPARISON: [facility], CT, CT HEAD/BRAIN WO CON, 09/04/2024, 23:55. FINDINGS: Image quality: Diagnostic. CSF spaces: Basal cisterns are patent. No extra-axial fluid collections. The ventricles are symmetric in size and shape. Brain: No intracranial bleeds or mass effect. There is cerebral volume loss, with resultant ventricular and sulcal prominence. There are periventricular and deep white matter chronic small vessel ischemic changes. There is intracranial internal carotid artery atherosclerosis. Skull and face: Of frontal scalp hematoma without underlying fracture. Calvarium and visualized facial bones appear intact, without suspicious lesions. Sinuses: Visualized sinuses and mastoids are clear. IMPRESSION: No acute intracranial pathology. CT - cervical spine: Radiologist's Impression: Preliminary read showing no acute cervical spine fracture, few right thyroid lobe nodules measuring up to 12 mm MDM Narrative Medical decision making narrative: 84-year-old female with a past medical history of dementia, diabetes, hypertension, presenting from dementia unit for fall. At time of initial evaluation patient at baseline due to history of dementia, is in C-collar for precautions. Patient noted to have some ecchymosis to the face otherwise no other acute traumatic injuries noted, patient had CT scan of head and neck, CT neck without any signs of acute bony injury. On exam patient is able to move all 4 extremities spontaneously, there is an abrasion noted to the forehead with dried blood no septal hematoma noted 0730: Was informed by nursing staff that patient was attempting to get out of bed, did end up returning to her side and having 1 episode of nonbilious nonbloody emesis, patient noted to be tachycardic, lab work EKG ordered. Initial EKG showing sinus tachycardia 0833: Patient was re-evaluated no new complaints at this time, she remains normal sinus, patient CT scans negative for any acute fractures, she will be discharged home with strict return precautions back to facility Discharge Plan Departure Patient Disposition: Home Clinical Impression: Closed head injury, Ground-level fall Activity Restrictions/Additional Instructions: Please follow up with your primary care doctor Please read the discharge instructions sheet carefully and bring all papers to all doctor follow-up visits, as it may contain information that your doctor may want to see. Disease processes change and evolve, if your symptoms worsen or if you develop any new symptoms that are concerning to you please return for evaluation. Your evaluation today does not show any evidence of any life-threatening/serious illnesses requiring admission to the hospital or surgery. Please follow-up with your doctor for re-evaluation in approximately 1 day. Seek immediate medical attention for any worrisome symptoms. *If you do not have a primary care provider please contact the [facility] Resource line at [phone]. They will ask some questions about your medical history and help get you set up with a doctor in the community. Prescriptions: No Action quetiapine 25 mg Tablet 12.5 mg PO 1400 Qty: 30 0RF citalopram 10 mg Tablet 10 mg PO QAM clopidogrel 75 mg Tablet 75 mg PO QAM chlorthalidone 25 mg Tablet 25 mg PO QAM chlorthalidone 25 mg Tablet 12.5 mg PO BEDTIME simvastatin 20 mg Tablet 20 mg PO BEDTIME gabapentin 300 mg Capsule 600 mg PO TID albuterol sulfate 90 mcg/actuation Hfa Aerosol Inhaler 2 puff INHALATION TID loratadine [Allergy Relief (loratadine)] 10 mg Tablet 10 mg PO QAM insulin lispro [Humalog KwikPen Insulin] 100 unit/mL Insulin Pen See Rx Instructions .ROUTE .COMPLEX Rx Instructions: RX instructions in chart daily dose and sliding scale insulin glargine [Lantus Solostar U-100 Insulin] 100 unit/mL (3 mL) Insulin Pen 36 unit SUBCUT BID Rx Instructions: Hold if blood sugar less than 80 ondansetron HCl 4 mg Tablet 4 mg PO Q4H PRN (Reason: nausea/vomiting) loperamide [Imodium A-D] 2 mg Tablet 2 mg PO Q6H PRN (Reason: Diarrhea) acetaminophen 500 mg tablet 1,000 mg PO TID baclofen 10 mg tablet 10 mg PO TID albuterol sulfate 90 mcg/actuation Hfa Aerosol Inhaler 2 puff INHALATION Q2H PRN (Reason: Wheezing) cyclosporine 0.05 % dropperette 1 drp EYE-BOTH BID nystatin 100,000 unit/gram powder 1 applic topical BID amlodipine 10 mg tablet 10 mg PO QAM Rx Instructions: Hold for systolic less than 100 and HR less than 60 Referrals: Angle Fenton MD [Primary Care Provider, Medical] Stand Alone Forms: Patient Portal/API
[2025-05-06 07:00] VITALS: BP 161/68; PULSE 82; O2SAT 95
[2025-05-06 07:30] VITALS: O2SAT 95
--- NOTE | 2025-05-06 07:32 | EKG_ITS ---
[address] [address] Test Date: 2025-05-06 Pat Name: Ramonita Nesbitt Department: Room: Gender: Female Business Trainer: ALESHA : 1940 Requested By: Order Number: [id number] Reading MD: Richard Galicia MD Measurements Intervals [place] Rate: 133 P: [place]: QRS: 7 QRSD: 88 T: 179 QT: 302 QTc: 449 Interpretive Statements Atrial fibrillation with rapid ventricular response, converted to sinus at end of strip Cannot rule out Inferior infarct , age undetermined Marked ST abnormality, possible lateral subendocardial injury Electronically Signed On 05-06-2025 9:23:31 PDT by Richard Galicia MD
--- NOTE | 2025-05-06 07:34 | DI.RAD.S_ITS ---
PROCEDURE: XR CHEST 1V INDICATIONS: syncope TECHNIQUE: One view of the chest was acquired. COMPARISON: [facility], CR, XR CHEST 1V, 09/05/2024, 0:03. FINDINGS: Surgical changes and devices: None. Lungs and pleura: Chronic interstitial prominence. No pleural effusions or pneumothorax. Mediastinum: Mediastinal contours appear normal. Heart size is enlarged, stable. Bones and chest wall: No suspicious bony lesions. Overlying soft tissues appear unremarkable. IMPRESSION: Chronic interstitial prominence, stable cardiomegaly Dictated by: Imer Ramirez M.D. on 05/06/2025 at 8:47 Approved by: Imer Ramirez M.D. on 05/06/2025 at 8:47
[2025-05-06 07:55] LABS: Add Manual Diff / Slide Review NO; Basophils Absolute Auto 0 /uL (0-100); Basophils Percent Auto 0.4 % (0-2); Eosinophils Absolute Auto 100 /uL (0-450); Eosinophils Percent Auto 1.3 % (2-4); Hematocrit 36.8 % (36-46); Hemoglobin 12.3 g/dL (12.0-16.0); Lymphocytes Absolute Auto 1600 /uL (1100-4500); Lymphocytes Percent Auto 16.9 % (25-40); Mean Corpuscular HGB Conc 33.5 % (30-36); Mean Corpuscular Hemoglobin 30.9 PG (26-34); Mean Corpuscular Volume 92.3 fL (80-100); Monocytes Absolute Auto 400 /uL (0-900); Monocytes Percent Auto 3.8 % (3-14); Neutrophils Absolute Auto 7200 /uL (1500-7000); Neutrophils Percent Auto 77.6 % (50-75); Platelet Count 193 X10^3/uL (150-400); Red Blood Cell Count 3.99 X10^6/uL (4.0-5.2); Red Cell Distribution Width 12.7 % (11.6-14.8); White Blood Cell Count 9.3 X10^3/uL (4.5-11.0)
[2025-05-06 08:00] VITALS: PULSE 86; RESP 13; O2SAT 93
--- NOTE | 2025-05-06 08:02 | PC.NURSE ---
patient pulse ox monitor reading 154 at 0730,. in to check patient, found in bed turned to left with small amount of emesis on the floor and side of mouth, felt radial pulse, 150 bpm. ekg obtained, iv access completed with labs, abstract manager in place, dr. Loredo notified.
--- NOTE | 2025-05-06 08:06 | PC.NURSE ---
patient resolved to NSR at 0766
[2025-05-06 08:20] LABS: Alanine Aminotransferase 16 IU/L (<35); Albumin 4.7 g/dL (3.5-5.0); Albumin Globulin Ratio 1.3 (1.0-2.8); Alkaline Phosphatase 124 U/L (38-126); Aspartate Aminotransferase 24 IU/L (14-36); Bilirubin Total 0.6 mg/dL (0.2-1.3); Blood Urea Nitrogen 40 mg/dL (7-17); Calcium 9.8 mg/dL (8.4-10.2); Carbon Dioxide 30 mmol/L (22-32); Chloride 106 mmol/L (98-107); Estimated Glomerular Filt Rate 35 mL/min (>60); Globulin 3.6 g/dL (1.7-4.1); Glucose 294 mg/dL (70-99); HEMOLYSIS < 15 (0-50); Magnesium 1.9 mg/dL (1.6-2.3); Potassium 3.5 mmol/L (3.4-5.1); Sodium 148 mmol/L (137-145); Total Protein 8.3 g/dL (6.3-8.2)
[2025-05-06 08:30] VITALS: BP 177/77; PULSE 85; RESP 14; O2SAT 93
[2025-05-06] MEDS: ONDANSETRON 4 MG/2 ML INJ IV (08:45)
[2025-05-06] MEDS: SODIUM CHLORIDE 0.9% 1,000 ML 1000 ML IV (08:45)
[2025-05-06 09:55] VITALS: BP 162/74; PULSE 88; RESP 18; O2SAT 99
== END 2025-05-06 09:56 | disposition home or self-care (01) ==
PROVIDERS: Emergency Provider Student in an Organized Health Care Education/Training Program; PCP Internal Medicine
DX: S09.8XXA Other specified injuries of head, initial encounter (principal); S00.81XA Abrasion of other part of head, initial encounter; F03.90 Unspecified dementia, unspecified severity, without behavioral disturbance, psychotic disturbance, mood disturbance, and anxiety; W18.30XA Fall on same level, unspecified, initial encounter; Z79.02 Long term (current) use of antithrombotics/antiplatelets; R00.0 Tachycardia, unspecified
CPT/HCPCS: 36415; 70450; 71045; 72125; 80053; 83735; 85025; 93005; 93010; 96361; 96374; 99284; J2405

== ENCOUNTER 2025-06-13 17:37 | Emergency (ER) | payer MEDICARE, MEDICAID, SELFPAY ==
[2024-09-05 02:35] VITALS: BMI 33.3
[2025-06-13] VITALS (21 sets, daily range): BP systolic 128–146; BP diastolic 55–63; PULSE 46–73; RESP 11–16; TEMP 36.9; O2SAT 89–97
--- NOTE | 2025-06-13 17:46 | DI.CT.S_ITS ---
PROCEDURE: CT CERVICAL SPINE WO CON INDICATIONS: unwit GLF, hit head, neck pain TECHNIQUE: Noncontrast 3 mm thick sections acquired from the skull base to the T4 level. Sagittal and coronal reformats were then constructed. For radiation dose reduction, the following was used: automated exposure control, adjustment of mA and/or kV according to patient size. COMPARISON: [facility], CT, CT CERVICAL SPINE WO CON, 05/06/2025, 6:36. FINDINGS: Image quality: Excellent. Bones: No fractures or dislocations. Loss of disc height, degenerative endplate changes and bilateral facet hypertrophic changes are noted throughout cervical spine. Visualized superior ribs are intact. Soft tissues: Prevertebral soft tissues are normal in thickness. No paravertebral hematomas. No apical pneumothoraces. IMPRESSION: 1. No displaced fracture or traumatic subluxation. 2. Moderate spondylitic changes throughout cervical spine. Dictated by: Shad Hernandez M.D. on 06/13/2025 at 18:32 Approved by: Shad Hernandez M.D. on 06/13/2025 at 18:33
--- NOTE | 2025-06-13 17:46 | DI.CT.S_ITS ---
PROCEDURE: CT HEAD/BRAIN WO CON INDICATIONS: unwit GLF, hit head, neck pain TECHNIQUE: Noncontrast 4.5 mm thick angled axial sections acquired from the foramen magnum to the vertex, with coronal and sagittal reformats. For radiation dose reduction, the following was used: automated exposure control, adjustment of mA and/or kV according to patient size. COMPARISON: [facility], CT, CT HEAD/BRAIN WO CON, 05/06/2025, 6:36. FINDINGS: Image quality: Diagnostic. CSF spaces: Basal cisterns are patent. No extra-axial fluid collections. The ventricles are symmetric in size and shape. Brain: No intracranial bleeds or mass effect. There is cerebral volume loss, with resultant ventricular and sulcal prominence. There are periventricular and deep white matter chronic small vessel ischemic changes. There is intracranial internal carotid artery atherosclerosis. Skull and face: Calvarium and visualized facial bones appear intact, without suspicious lesions. Sinuses: Visualized sinuses and mastoids are clear. IMPRESSION: No acute intracranial pathology. Dictated by: Shad Hernandez M.D. on 06/13/2025 at 18:31 Approved by: Shad Hernandez M.D. on 06/13/2025 at 18:32
--- NOTE | 2025-06-13 17:47 | DI.RAD.S_ITS ---
PROCEDURE: XR HUMERUS LT 2V INDICATIONS: fall TECHNIQUE: 2 views of the humerus were acquired. COMPARISON: None. FINDINGS: Bones: No fractures or dislocations. No suspicious bony lesions. Soft tissues: No suspicious soft tissue calcifications. IMPRESSION: No acute humeral fracture or dislocation. Dictated by: Shad Hernandez M.D. on 06/13/2025 at 18:09 Approved by: Shad Hernandez M.D. on 06/13/2025 at 18:10
--- NOTE | 2025-06-13 18:11 | ED.FALL ---
HPI - Fall General Chief Complaint: Fall Stated Complaint: GLF Time Seen by Provider: 06/13/25 18:11 History of Present Illness HPI Narrative: 85-year-old female resident at [facility] has history of dementia, unwitnessed fall at the nursing facility. Complains of pain to left shoulder. Unclear if any other areas of discomfort. History of dementia noted. No available witnesses for this suspected ground level fall. Unclear if any preceding mechanical cause, or if might have been syncopal episode or some other cause. No incontinence urine. Related Data Home Medications ?Medication ?Instructions ?Recorded ?Confirmed albuterol sulfate 90 mcg/actuation 2 puff inhalation TID 03/21/22 09/05/24 aerosol inhaler chlorthalidone 25 mg tablet 12.5 mg PO BEDTIME htn 03/21/22 09/05/24 chlorthalidone 25 mg tablet 25 mg PO QAM 03/21/22 09/05/24 citalopram 10 mg tablet 10 mg PO QAM depression 03/21/22 09/05/24 clopidogrel 75 mg tablet 75 mg PO QAM 03/21/22 09/05/24 gabapentin 300 mg capsule 600 mg PO TID 03/21/22 09/05/24 insulin glargine 100 unit/mL (3 36 unit SUBCUT BID 03/21/22 09/05/24 mL) subcutaneous pen (Lantus Solostar U-100 Insulin) insulin lispro 100 unit/mL See Rx Instructions .Route .COMPLEX 03/21/22 09/05/24 subcutaneous pen (Humalog KwikPen (U-100) Insulin) loratadine 10 mg tablet (Allergy 10 mg PO QAM allergies 03/21/22 09/05/24 Relief (loratadine)) simvastatin 20 mg tablet 20 mg PO BEDTIME 03/21/22 09/05/24 nystatin 100,000 unit/gram topical 1 applic topical BID 08/22/22 09/05/24 powder amlodipine 10 mg tablet 10 mg PO QAM 11/20/22 09/05/24 acetaminophen 500 mg tablet 1,000 mg PO TID Pain 07/16/24 09/05/24 albuterol sulfate 90 mcg/actuation 2 puff inhalation Q2H PRN Wheezing 07/16/24 09/05/24 aerosol inhaler baclofen 10 mg tablet 10 mg PO TID 07/16/24 09/05/24 cyclosporine 0.05 % eye drops in a 1 drp EYE-BOTH BID 07/16/24 09/05/24 dropperette loperamide 2 mg tablet (Imodium 2 mg PO Q6H PRN Diarrhea 07/16/24 09/05/24 A-D) ondansetron HCl 4 mg tablet 4 mg PO Q4H PRN nausea/vomiting 07/16/24 09/05/24 Previous Rx's ?Medication ?Instructions ?Recorded quetiapine 25 mg tablet 12.5 mg (1/2 x 25 mg) PO 1400 #30 09/06/24 tabs Allergies Allergy/AdvReac Type Severity Reaction Status Date / Time Penicillins Allergy Unknown Verified 05/06/25 06:48 procaine (From Novocain) Allergy Unknown Verified 05/06/25 06:48 Patient History Medical History Postmenopausal atrophic vaginitis Recurrent UTI (urinary tract infection) Bacterial UTI Cerebral infarction Dementia Edema Major depression Osteoarthritis Neuropathy Hyperlipidemia Diabetes Hypertension Family History Family/Other Diabetes mellitus Social History marital status: number of children: 2 household members: none alcohol intake frequency: holidays/special occasions only Exam Narrative Exam Narrative: GENERAL: Well-developed patient, in mild distress. HEAD: Atraumatic. Normocephalic. EYES: Pupils equal round and reactive. Extraocular motions intact. No scleral icterus. No injection or drainage. ENT: Nose without bleeding, purulent drainage. Throat without erythema, tonsillar hypertrophy or exudate. Airway patent. NECK: Trachea midline. Non tender CARDIOVASCULAR: Regular rate and rhythm without murmurs, gallops, or rubs. RESPIRATORY: Clear to auscultation. Breath sounds equal bilaterally. No wheezes, rales, or rhonchi. GASTROINTESTINAL: Abdomen soft, non-tender, nondistended. EXTREMITIES: Mild tenderness left mid humerus without gross deformity, distal extremity nontraumatic with good cap refill perfusion. BACK: Nontender without deformity or crepitance. No flank tenderness. NEURO: AOx3. Motor functions grossly nonfocal. SKIN: No rash or erythema of visible areas Initial Vital Signs Initial Vital Signs: Vital Signs Temperature 98.4 F 06/13/25 17:40 Pulse Rate 63 06/13/25 17:40 Respiratory Rate 16 06/13/25 17:40 Blood Pressure 142/62 H 06/13/25 17:40 Pulse Oximetry 94 06/13/25 17:40 Oxygen Delivery Method Room Air 06/13/25 17:40 Course Orders Ordered: ED Orders 06/13/25 21:25 Troponin I Stat Vital Signs Vital signs: Vital Signs - 8 hr 06/13/25 22:00 06/13/25 22:01 06/13/25 22:01 Pulse Rate 51 L 52 L Respiratory Rate 13 14 Blood Pressure 130/55 L Pulse Oximetry 94 94 Oxygen Delivery Method 06/13/25 22:30 06/13/25 22:31 06/13/25 22:31 Pulse Rate 50 L 50 L Respiratory Rate 14 12 Blood Pressure 142/60 H Pulse Oximetry 89 L 97 Oxygen Delivery Method 06/13/25 23:00 06/13/25 23:01 06/13/25 23:01 Pulse Rate 46 L 47 L Respiratory Rate 14 14 Blood Pressure 131/56 L Pulse Oximetry 95 93 Oxygen Delivery Method Room Air 06/13/25 23:30 Pulse Rate 73 Respiratory Rate Blood Pressure Pulse Oximetry Oxygen Delivery Method MDM - Fall Lab Data Attestation: I reviewed the patient's lab results. Lab results narrative: White blood cell count 5800, hemoglobin 11.5, platelets adequate. Glucose 168. BUN 42 with creatinine 1.45. Serum CO2 29. Potassium 3.2 low, sodium level normal. Liver functions unremarkable. Troponin x2 interval sets normal. 06/13/25 19:10 06/13/25 19:10 Labs: Lab Results 06/13/25 06/13/25 Range/Units 19:10 21:25 WBC 5.8 (4.5-11.0) X10^3/uL RBC 3.73 L (4.0-5.2) X10^6/uL Hgb 11.5 L (12.0-16.0) g/dL Hct 34.1 L (36-46) % MCV 91.3 (80-100) fL MCH 30.7 (26-34) PG MCHC 33.6 (30-36) % RDW 13.2 (11.6-14.8) % Plt Count 169 (150-400) X10^3/uL Neut % (Auto) 48.4 L (50-75) % Lymph % (Auto) 36.8 (25-40) % [place] % (Auto) 8.3 (3-14) % Eos % (Auto) 5.6 H (2-4) % Baso % (Auto) 0.9 (0-2) % Neut # (Auto) 2800 (9013-5372) /uL Lymph # (Auto) 2100 (0166-3264) /uL [place] # (Auto) 500 (0-900) /uL Eos # (Auto) 300 (0-450) /uL Baso # (Auto) 100 (0-100) /uL Sodium 141 (137-145) mmol/L Potassium 3.2 L (3.4-5.1) mmol/L Chloride 103 (98-107) mmol/L Carbon Dioxide 29 (22-32) mmol/L BUN 42 H (7-17) mg/dL Creatinine 1.45 H (0.52-1.04) mg/dL Estimated GFR 36 L (>60) mL/min BUN/Creatinine Ratio 29.0 H (6-22) Glucose 168 H (70-99) mg/dL Calcium 9.2 (8.4-10.2) mg/dL Total Bilirubin 0.4 (0.2-1.3) mg/dL AST 24 (14-36) IU/L ALT 14 (<35) IU/L Alkaline Phosphatase 111 (38-126) U/L Total Creatine Kinase 99 (30-135) U/L Troponin I < 0.012 < 0.012 (0.01-0.034) ng/mL Total Protein 7.0 (6.3-8.2) g/dL Albumin 4.1 (3.5-5.0) g/dL Globulin 2.9 (1.7-4.1) g/dL Albumin/Globulin Ratio 1.4 (1.0-2.8) Lipase 76 (23-300) U/L Imaging Data Chest x-ray: Radiologist's Impression: [address] [address] XRay Report Signed Patient: Ramonita Nesbitt MR#: [id number] : 1940 Acct:[id number] Age/Sex: 85 / F Date of Service: 06/13/25 Loc: ED Accession Number: [id number] Procedure: XR chest 1V Ordering Provider: Immanuel Kaufman MD PROCEDURE: XR CHEST 1V INDICATIONS: chest pain TECHNIQUE: One view of the chest was acquired. COMPARISON: [facility], CR, XR CHEST 1V, 05/06/2025, 7:32. FINDINGS: Surgical changes and devices: None. Lungs and pleura: Mild pulmonary vascular congestion is seen. No focal infiltrate. No pleural effusions or pneumothorax. Mediastinum: Tortuous thoracic aorta. Heart size is enlarged. Bones and chest wall: No suspicious bony lesions. Overlying soft tissues appear unremarkable. IMPRESSION: Cardiomegaly and mild congestion. No definite focal infiltrate. No pleural effusion or pneumothorax. Dictated by: Shad Hernandez M.D. on 06/13/2025 at 19:04 Approved by: Shad Hernandez M.D. on 06/13/2025 at 19:05 Left humerus x-ray series: Radiologist's Impression: [place] [address] XRay Report Signed Patient: Ramonita Nesbitt MR#: [id number] : 1940 Acct:[id number] Age/Sex: 85 / F Date of Service: 06/13/25 Loc: ED Accession Number: [id number] Procedure: XR humerus LT 2V Ordering Provider: Jay Sumner MD PROCEDURE: XR HUMERUS LT 2V INDICATIONS: fall TECHNIQUE: 2 views of the humerus were acquired. COMPARISON: None. FINDINGS: Bones: No fractures or dislocations. No suspicious bony lesions. Soft tissues: No suspicious soft tissue calcifications. IMPRESSION: No acute humeral fracture or dislocation. Dictated by: Shad Hernandez M.D. on 06/13/2025 at 18:09 Approved by: Shad Hernandez M.D. on 06/13/2025 at 18:10 CT scan - head: Radiologist's Impression: [address] [address] [address] Scan Report Signed Patient: Ramonita Nesbitt MR#: [id number] : 1940 Acct:[id number] Age/Sex: 85 / F Date of Service: 06/13/25 Loc: ED Accession Number: [id number] Procedure: CT head/brain wo con Ordering Provider: Jay Sumner MD PROCEDURE: CT HEAD/BRAIN WO CON INDICATIONS: unwit GLF, hit head, neck pain TECHNIQUE: Noncontrast 4.5 mm thick angled axial sections acquired from the foramen magnum to the vertex, with coronal and sagittal reformats. For radiation dose reduction, the following was used: automated exposure control, adjustment of mA and/or kV according to patient size. COMPARISON: [facility], CT, CT HEAD/BRAIN WO CON, 05/06/2025, 6:36. FINDINGS: Image quality: Diagnostic. CSF spaces: Basal cisterns are patent. No extra-axial fluid collections. The ventricles are symmetric in size and shape. Brain: No intracranial bleeds or mass effect. There is cerebral volume loss, with resultant ventricular and sulcal prominence. There are periventricular and deep white matter chronic small vessel ischemic changes. There is intracranial internal carotid artery atherosclerosis. Skull and face: Calvarium and visualized facial bones appear intact, without suspicious lesions. Sinuses: Visualized sinuses and mastoids are clear. IMPRESSION: No acute intracranial pathology. Dictated by: Shad Hernandez M.D. on 06/13/2025 at 18:31 Approved by: Shad Hernandez M.D. on 06/13/2025 at 18:32 CT - cervical spine: Radiologist's Impression: [place] [address] CT Scan Report Signed Patient: Ramonita Nesbitt MR#: [id number] : 1940 Acct:[id number] Age/Sex: 85 / F Date of Service: 06/13/25 Loc: ED Accession Number: [id number] Procedure: CT cervical spine wo con Ordering Provider: Jay Sumner MD PROCEDURE: CT CERVICAL SPINE WO CON INDICATIONS: unwit GLF, hit head, neck pain TECHNIQUE: Noncontrast 3 mm thick sections acquired from the skull base to the T4 level. Sagittal and coronal reformats were then constructed. For radiation dose reduction, the following was used: automated exposure control, adjustment of mA and/or kV according to patient size. COMPARISON: [facility], CT, CT CERVICAL SPINE WO CON, 05/06/2025, 6:36. FINDINGS: Image quality: Excellent. Bones: No fractures or dislocations. Loss of disc height, degenerative endplate changes and bilateral facet hypertrophic changes are noted throughout cervical spine. Visualized superior ribs are intact. Soft tissues: Prevertebral soft tissues are normal in thickness. No paravertebral hematomas. No apical pneumothoraces. IMPRESSION: 1. No displaced fracture or traumatic subluxation. 2. Moderate spondylitic changes throughout cervical spine. Dictated by: Shad Hernandez M.D. on 06/13/2025 at 18:32 Approved by: Shad Hernandez M.D. on 06/13/2025 at 18:33 [facility] Narrative Medical decision making narrative: 85-year-old female with history of dementia had unwitnessed fall at nursing care facility. Left arm pain. Some tenderness left humerus without gross deformity. Labs pending including EKG and chest x-ray. CT head and cervical spine imaging ordered from triage, along with left humerus x-ray series. Lab data: White blood cell count 5800, hemoglobin 11.5, platelets adequate. Glucose 168. BUN 42 with creatinine 1.45. Serum CO2 29. Potassium 3.2 low, sodium level normal. Liver functions unremarkable. Troponin x2 interval sets normal. Chest x-ray negative, no acute changes. See radiology report. Left x-ray series, no acute changes. See radiology report. CT head noncontrast. See radiology report. CT cervical spine noncontrast. See radiology report. (06/14/25, 0530) Late entry, serum potassium 3.2 low noted, no oral/IV repletion was given while here in the emergency department, charge nurse to contact [facility] to give 40 mEq oral dose at their facility). Discharge Plan Departure Patient Disposition: Home Clinical Impression: Fall from ground level, Contusion of left arm Activity Restrictions/Additional Instructions: Unwitnessed fall at nursing facility. CT head/brain negative for acute changes, CT cervical spine negative for acute changes. X-ray left humerus bone negative for fracture injuries. Chest x-ray negative for acute changes. Screening labs unremarkable. Troponin blood testing in EKGs negative. Further evaluation as an outpatient. Return for now back to home [facility] for further evaluation. Recheck with clinic physician outpatient physician on Sunday. Return to this/nearest emergency department for any change worsening symptoms or any concerns prior. Prescriptions: No Action quetiapine 25 mg Tablet 12.5 mg PO 1400 Qty: 30 0RF citalopram 10 mg Tablet 10 mg PO QAM clopidogrel 75 mg Tablet 75 mg PO QAM chlorthalidone 25 mg Tablet 25 mg PO QAM chlorthalidone 25 mg Tablet 12.5 mg PO BEDTIME simvastatin 20 mg Tablet 20 mg PO BEDTIME gabapentin 300 mg Capsule 600 mg PO TID albuterol sulfate 90 mcg/actuation Hfa Aerosol Inhaler 2 puff INHALATION TID loratadine [Allergy Relief (loratadine)] 10 mg Tablet 10 mg PO QAM insulin lispro [Humalog KwikPen Insulin] 100 unit/mL Insulin Pen See Rx Instructions .ROUTE .COMPLEX Rx Instructions: RX instructions in chart daily dose and sliding scale insulin glargine [Lantus Solostar U-100 Insulin] 100 unit/mL (3 mL) Insulin Pen 36 unit SUBCUT BID Rx Instructions: Hold if blood sugar less than 80 ondansetron HCl 4 mg Tablet 4 mg PO Q4H PRN (Reason: nausea/vomiting) loperamide [Imodium A-D] 2 mg Tablet 2 mg PO Q6H PRN (Reason: Diarrhea) acetaminophen 500 mg tablet 1,000 mg PO TID baclofen 10 mg tablet 10 mg PO TID albuterol sulfate 90 mcg/actuation Hfa Aerosol Inhaler 2 puff INHALATION Q2H PRN (Reason: Wheezing) cyclosporine 0.05 % dropperette 1 drp EYE-BOTH BID nystatin 100,000 unit/gram powder 1 applic topical BID amlodipine 10 mg tablet 10 mg PO QAM Rx Instructions: Hold for systolic less than 100 and HR less than 60 Referrals: Angle Fenton MD [Primary Care Provider, Medical] Stand Alone Forms: Patient Portal/API
--- NOTE | 2025-06-13 18:27 | DI.RAD.S_ITS ---
PROCEDURE: XR CHEST 1V INDICATIONS: chest pain TECHNIQUE: One view of the chest was acquired. COMPARISON: [facility], CR, XR CHEST 1V, 05/06/2025, 7:32. FINDINGS: Surgical changes and devices: None. Lungs and pleura: Mild pulmonary vascular congestion is seen. No focal infiltrate. No pleural effusions or pneumothorax. Mediastinum: Tortuous thoracic aorta. Heart size is enlarged. Bones and chest wall: No suspicious bony lesions. Overlying soft tissues appear unremarkable. IMPRESSION: Cardiomegaly and mild congestion. No definite focal infiltrate. No pleural effusion or pneumothorax. Dictated by: Shad Hernandez M.D. on 06/13/2025 at 19:04 Approved by: Shad Hernandez M.D. on 06/13/2025 at 19:05
[2025-06-13 19:21] LABS: Add Manual Diff / Slide Review NO; Hematocrit 34.1 % (36-46); Hemoglobin 11.5 g/dL (12.0-16.0); Lymphocytes Absolute Auto 2100 /uL (1100-4500); Mean Corpuscular HGB Conc 33.6 % (30-36); Mean Corpuscular Hemoglobin 30.7 PG (26-34); Mean Corpuscular Volume 91.3 fL (80-100); Platelet Count 169 X10^3/uL (150-400)
[2025-06-13 19:34] LABS: Alanine Aminotransferase 14 IU/L (<35); Albumin 4.1 g/dL (3.5-5.0); Albumin Globulin Ratio 1.4 (1.0-2.8); Alkaline Phosphatase 111 U/L (38-126); Blood Urea Nitrogen 42 mg/dL (7-17); Calcium 9.2 mg/dL (8.4-10.2); Carbon Dioxide 29 mmol/L (22-32); Chloride 103 mmol/L (98-107); Creatine Kinase 99 U/L (30-135); Estimated Glomerular Filt Rate 36 mL/min (>60); Globulin 2.9 g/dL (1.7-4.1); Glucose 168 mg/dL (70-99); HEMOLYSIS < 15 (0-50); Lipase 76 U/L (23-300); Potassium 3.2 mmol/L (3.4-5.1); Sodium 141 mmol/L (137-145); Total Protein 7.0 g/dL (6.3-8.2)
[2025-06-13 19:45] LABS: Troponin I < 0.012 ng/mL (0.01-0.034)
--- NOTE | 2025-06-13 20:02 | PC.NURSE ---
Pt resting quietly with eyes closed, resps even and not labored. No distress noted at this time. Pt rouses to verbal stimuli but remains sleepy. Pt responds to pain question and states No but is slow to other questioning. Pt connected to cardiac, resp, blood pressure, and pulse ox monitors with alarms on and audible. Call light within reach.
[2025-06-13 22:06] LABS: Troponin I < 0.012 ng/mL (0.01-0.034)
--- NOTE | 2025-06-13 23:25 | PC.NURSE ---
Pt given ice water 240 ml.
== END 2025-06-14 00:15 | disposition home or self-care (01) ==
PROVIDERS: Emergency Provider Emergency Medicine; PCP Internal Medicine
DX: S40.022A Contusion of left upper arm, initial encounter (principal); M54.2 Cervicalgia; R07.9 Chest pain, unspecified; S09.90XA Unspecified injury of head, initial encounter; W19.XXXA Unspecified fall, initial encounter
CPT/HCPCS: 70450; 71045; 72125; 73060; 80053; 82550; 83690; 84484; 85025; 99283; 99284

== ENCOUNTER → 2025-06-24 06:08 | Outpatient (ROUT) | payer MEDICARE, MEDICAID, SELFPAY ==
[2024-09-05 02:35] VITALS: BMI 33.3
[2025-06-24 07:51] LABS: Hematocrit 34.4 % (36-46); Hemoglobin 11.3 g/dL (12.0-16.0); Mean Corpuscular HGB Conc 33.0 % (30-36); Mean Corpuscular Hemoglobin 29.9 PG (26-34); Mean Corpuscular Volume 90.7 fL (80-100); Platelet Count 180 X10^3/uL (150-400)
[2025-06-24 08:11] LABS: Hemoglobin A1C% w Est Avg Glu 7.6 % (4.0-6.0)
[2025-06-24 08:26] LABS: Blood Urea Nitrogen 41 mg/dL (7-17); Calcium 9.0 mg/dL (8.4-10.2); Carbon Dioxide 29 mmol/L (22-32); Chloride 99 mmol/L (98-107); Cholesterol 100 mg/dL (140-199); Estimated Glomerular Filt Rate 30 mL/min (>60); Glucose 165 mg/dL (70-99); HDL Cholesterol 38 mg/dL (40-60); HEMOLYSIS < 15 (0-50); Potassium 3.3 mmol/L (3.4-5.1); Sodium 138 mmol/L (137-145); Triglycerides 183 mg/dL (35-150)
== END ==
PROVIDERS: Visit Provider Registered Nurse
DX: E11.9 Type 2 diabetes mellitus without complications (principal); R60.9 Edema, unspecified; D64.9 Anemia, unspecified; E78.5 Hyperlipidemia, unspecified; F03.90 Unspecified dementia, unspecified severity, without behavioral disturbance, psychotic disturbance, mood disturbance, and anxiety
CPT/HCPCS: 36415; 80048; 80061; 83036; 85027

== ENCOUNTER 2025-08-20 07:08 | Emergency (ER) | payer MEDICARE, MEDICAID, SELFPAY ==
[2024-09-05 02:35] VITALS: BMI 33.3
[2025-08-20] VITALS (15 sets, daily range): BP systolic 157–204; BP diastolic 70–84; PULSE 49–85; RESP 16–18; TEMP 36.7; O2SAT 90–96; BMI 34.0
--- NOTE | 2025-08-20 07:59 | ED.FALL ---
HPI - Fall General Chief Complaint: Fall Stated Complaint: Fall Left Hip Pain Time Seen by Provider: 08/20/25 07:16 Source: EMS Mode of arrival: EMS History of Present Illness HPI Narrative: Patient is an 85-year-old female history of dementia lives it [facility], CVA diabetes CKD hypertension hyperlipidemia presenting today with left hip pain. She may have had an unwitnessed fall at [facility]. Not on anticoagulation but does take Plavix no evidence of head trauma or injury. Staff at facility thinks she may have a UTI they did a dip of her urine. sHe is afebrile. She is really unable to provide history but is answering questions and moving all extremities Related Data Home Medications ?Medication ?Instructions ?Recorded ?Confirmed albuterol sulfate 90 mcg/actuation 2 puff inhalation TID 03/21/22 09/05/24 aerosol inhaler chlorthalidone 25 mg tablet 12.5 mg PO BEDTIME htn 03/21/22 09/05/24 chlorthalidone 25 mg tablet 25 mg PO QAM 03/21/22 09/05/24 citalopram 10 mg tablet 10 mg PO QAM depression 03/21/22 09/05/24 clopidogrel 75 mg tablet 75 mg PO QAM 03/21/22 09/05/24 gabapentin 300 mg capsule 600 mg PO TID 03/21/22 09/05/24 insulin glargine 100 unit/mL (3 36 unit SUBCUT BID 03/21/22 09/05/24 mL) subcutaneous pen (Lantus Solostar U-100 Insulin) insulin lispro 100 unit/mL See Rx Instructions .Route .COMPLEX 03/21/22 09/05/24 subcutaneous pen (Humalog KwikPen (U-100) Insulin) loratadine 10 mg tablet (Allergy 10 mg PO QAM allergies 03/21/22 09/05/24 Relief (loratadine)) simvastatin 20 mg tablet 20 mg PO BEDTIME 03/21/22 09/05/24 nystatin 100,000 unit/gram topical 1 applic topical BID 08/22/22 09/05/24 powder amlodipine 10 mg tablet 10 mg PO QAM 11/20/22 09/05/24 acetaminophen 500 mg tablet 1,000 mg PO TID Pain 07/16/24 09/05/24 albuterol sulfate 90 mcg/actuation 2 puff inhalation Q2H PRN Wheezing 07/16/24 09/05/24 aerosol inhaler baclofen 10 mg tablet 10 mg PO TID 07/16/24 09/05/24 cyclosporine 0.05 % eye drops in a 1 drp EYE-BOTH BID 07/16/24 09/05/24 dropperette loperamide 2 mg tablet (Imodium 2 mg PO Q6H PRN Diarrhea 07/16/24 09/05/24 A-D) ondansetron HCl 4 mg tablet 4 mg PO Q4H PRN nausea/vomiting 07/16/24 09/05/24 Previous Rx's ?Medication ?Instructions ?Recorded quetiapine 25 mg tablet 12.5 mg (1/2 x 25 mg) PO 1400 #30 09/06/24 tabs cefdinir 300 mg capsule 300 mg PO Q12H #10 caps 08/20/25 Allergies Allergy/AdvReac Type Severity Reaction Status Date / Time Penicillins Allergy Unknown Verified 08/20/25 07:20 procaine (From Novocain) Allergy Unknown Verified 08/20/25 07:20 Patient History Medical History Postmenopausal atrophic vaginitis Recurrent UTI (urinary tract infection) Bacterial UTI Cerebral infarction Dementia Edema Major depression Osteoarthritis Neuropathy Hyperlipidemia Diabetes Hypertension Family History Family/Other Diabetes mellitus Social History marital status: number of children: 2 household members: none alcohol intake frequency: holidays/special occasions only Exam Initial Vital Signs Initial Vital Signs: Vital Signs Pulse Oximetry 93 08/20/25 07:16 GENERAL: Alert pleasantly confused 85-year-old female and in no acute distress. HEENT: Head atraumatic,EOMI, pupils reactive, face symmetric, moist mucous membranes CARDIOVASCULAR: Regular rate and rhythm without murmurs, rubs or gallops. RESPIRATORY: Breath sounds equal bilaterally, no wheezes rales or rhonchi. ABDOMEN: Soft, nontender. Normoactive bowel sounds all 4 quadrants. No guarding or rebound. : No CVA tenderness EXTREMITIES: Normal range of motion, no clubbing or edema. Neurovascularly intact Mild left hip pain but she is able to lift canal pain with internal external rotation legs rub equal leg pelvis is stable NEUROLOGICAL: Alert and oriented x1. 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 Course Orders Ordered: ED Orders 08/20/25 08:12 XR hip w pel LT 2V Stat 08/20/25 08:48 CBC Auto Diff [Complete Blood Count AUTO DIFF] Stat CMP [Comprehensive Metabolic Panel] Stat 08/20/25 10:54 UA Complete [Urinalysis and Microscopic] Stat Urine Culture Stat 08/20/25 13:38 Clostridium Difficile Tox PCR Stat Discontinued Medications Acetaminophen (Acetaminophen 325 Mg Tablet) 975 mg PO NOW ONE Stop: 08/20/25 11:54 Last Admin: 08/20/25 12:27 Dose: 975 mg Documented By: SAMEER Cefdinir (Cefdinir 300 Mg Capsule) 300 mg PO NOW ONE Stop: 08/20/25 11:55 Last Admin: 08/20/25 12:27 Dose: 300 mg Documented By: SAMEER Vital Signs Vital signs: Vital Signs - 8 hr 08/20/25 08:00 08/20/25 08:01 08/20/25 08:01 Pulse Rate 50 L 49 L Respiratory Rate Blood Pressure 176/74 H Pulse Oximetry 91 92 08/20/25 08:33 08/20/25 08:34 08/20/25 08:34 Pulse Rate 54 L 55 L Respiratory Rate Blood Pressure 204/84 H Pulse Oximetry 91 92 08/20/25 09:00 08/20/25 09:01 08/20/25 09:01 Pulse Rate 52 L 52 L Respiratory Rate Blood Pressure 184/77 H Pulse Oximetry 92 94 08/20/25 09:30 08/20/25 09:30 08/20/25 10:00 Pulse Rate 57 L 55 L Respiratory Rate Blood Pressure 188/80 H Pulse Oximetry 96 93 08/20/25 10:01 08/20/25 10:01 08/20/25 14:11 Pulse Rate 54 L 85 Respiratory Rate 16 Blood Pressure 193/75 H Pulse Oximetry 92 MDM - Fall Lab Data 08/20/25 08:48 08/20/25 08:48 Labs: Lab Results 08/20/25 08/20/25 08/20/25 Range/Units 08:48 10:54 13:38 WBC 6.9 (4.5-11.0) X10^3/uL RBC 4.19 (4.0-5.2) X10^6/uL Hgb 12.7 (12.0-16.0) g/dL Hct 37.8 (36-46) % MCV 90.2 (80-100) fL MCH 30.2 (26-34) PG MCHC 33.5 (30-36) % RDW 14.1 (11.6-14.8) % Plt Count 153 (150-400) X10^3/uL Neut % (Auto) 60.3 (50-75) % Lymph % (Auto) 28.0 (25-40) % [place] % (Auto) 7.1 (3-14) % Eos % (Auto) 3.9 (2-4) % Baso % (Auto) 0.7 (0-2) % Neut # (Auto) 4200 (7208-1813) /uL Lymph # (Auto) 1900 (7788-7960) /uL [place] # (Auto) 500 (0-900) /uL Eos # (Auto) 300 (0-450) /uL Baso # (Auto) 0 (0-100) /uL Sodium 143 (137-145) mmol/L Potassium 3.9 (3.4-5.1) mmol/L Chloride 108 H (98-107) mmol/L Carbon Dioxide 24 (22-32) mmol/L BUN 35 H (7-17) mg/dL Creatinine 1.39 H (0.52-1.04) mg/dL Estimated GFR 37 L (>60) mL/min BUN/Creatinine Ratio 25.2 H (6-22) Glucose 136 H (70-99) mg/dL Calcium 9.2 (8.4-10.2) mg/dL Total Bilirubin 0.5 (0.2-1.3) mg/dL AST 31 (14-36) IU/L ALT 17 (<35) IU/L Alkaline Phosphatase 80 (38-126) U/L Total Protein 8.0 (6.3-8.2) g/dL Albumin 4.5 (3.5-5.0) g/dL Globulin 3.5 (1.7-4.1) g/dL Albumin/Globulin Ratio 1.3 (1.0-2.8) Urine Color Yellow Urine Appearance Clear Urine pH 5.5 (4.5-8.0) Ur Specific [place] 1.025 (1.000-1.035) Urine Protein Negative (Negative) Urine Glucose (UA) 3+ H (Negative) g/dL Urine Ketones Negative (NEGATIVE) Urine Occult Blood Negative (Negative) Urine Nitrate Positive H (Negative) Urine Bilirubin Negative (NEGATIVE) Urine Urobilinogen 0.2 (0.2) E.U./dL Ur Leukocyte Esterase Trace H (NEGATIVE) Urine RBC 0-1/hpf (0-5/HPF) Urine WBC 5-10/hpf H (0-5/HPF) Ur Squamous Epith Cells 1-5 /hpf (0-5/HPF) Urine Bacteria Moderate (10-30) H (None) WBC Casts 1-5/lpf H (None) Ur Culture Indicated? Specimen cultured Vol Urine Centrifuged 10ml (spun) C. difficile Tox (PCR) Negative for c. diff (Negative) Imaging Data Extremity x-ray #1: Radiologist's Impression: PROCEDURE: XR HIP W PEL IF DONE LT 2V INDICATIONS: fall pain TECHNIQUE: AP pelvis with lateral view(s) of the left hip(s). COMPARISON: None. FINDINGS: Bones: No fractures or dislocations. Pelvic ring appears intact. No suspicious bony lesions. Moderate bilateral degenerative hip joint space narrowing. Soft tissues: The visualized bowel gas pattern is normal. No suspicious soft tissue calcifications. IMPRESSION: No visualized acute fracture or dislocation. However, if clinical concern and/or pain persist, short interval imaging followup in 7-10 days is recommended, as occult injury cannot be definitively excluded. Dictated by: Magaly Rueda M.D. on 08/20/2025 at 8:47 MDM Narrative Medical decision making narrative: Patient 85-year-old female history of dementia lives at [facility] sent for some left hip pain and concern for UTI. Blood work has been reviewed no evidence of sepsis no leukocytosis electrolyte abnormality MICHAEL Urine is positive for nitrates Left hip X-ray reviewed no fracture Patient attempted ambulation initially and did not do well. However she was given Tylenol cefdinir she was given lunch and tried again she is able to ambulate with minimal assistance using a walker which is her baseline mobility. Records reviewed that she had Proteus mirabilis UTI in July 2024 with multi-drug resistance including resistance to fluoroquinolones Macrobid Bactrim. And she is allergic to penicillin. She was therefore given cefdinir. At this time she is not me admission she is at her baseline and can be treated as an outpatient for her UTI. She is also weight-bearing on her hip and does not need any advanced imaging Discharge Plan Departure Patient Disposition: Home Clinical Impression: Acute UTI Instructions: DI for Urinary Tract Infection (UTI) Activity Restrictions/Additional Instructions: *You have been diagnosed with UTI *What to do: At this time blood work and x-ray are reassuring. She walked with a walker in the emergency depart *Continue to take medications as directed Cefdinir 1 tablet twice a day for 5 days *Follow up with your primary care provider in 2-3 days or call [phone] *Return to ER if you should have increasing weakness confusion or any new, worsening or concerning symptoms Prescriptions: New cefdinir 300 mg capsule 300 mg PO Q12H Qty: 10 0RF No Action quetiapine 25 mg Tablet 12.5 mg PO 1400 Qty: 30 0RF citalopram 10 mg Tablet 10 mg PO QAM clopidogrel 75 mg Tablet 75 mg PO QAM chlorthalidone 25 mg Tablet 25 mg PO QAM chlorthalidone 25 mg Tablet 12.5 mg PO BEDTIME simvastatin 20 mg Tablet 20 mg PO BEDTIME gabapentin 300 mg Capsule 600 mg PO TID albuterol sulfate 90 mcg/actuation Hfa Aerosol Inhaler 2 puff INHALATION TID loratadine [Allergy Relief (loratadine)] 10 mg Tablet 10 mg PO QAM insulin lispro [Humalog KwikPen Insulin] 100 unit/mL Insulin Pen See Rx Instructions .ROUTE .COMPLEX Rx Instructions: RX instructions in chart daily dose and sliding scale insulin glargine [Lantus Solostar U-100 Insulin] 100 unit/mL (3 mL) Insulin Pen 36 unit SUBCUT BID Rx Instructions: Hold if blood sugar less than 80 ondansetron HCl 4 mg Tablet 4 mg PO Q4H PRN (Reason: nausea/vomiting) loperamide [Imodium A-D] 2 mg Tablet 2 mg PO Q6H PRN (Reason: Diarrhea) acetaminophen 500 mg tablet 1,000 mg PO TID baclofen 10 mg tablet 10 mg PO TID albuterol sulfate 90 mcg/actuation Hfa Aerosol Inhaler 2 puff INHALATION Q2H PRN (Reason: Wheezing) cyclosporine 0.05 % dropperette 1 drp EYE-BOTH BID nystatin 100,000 unit/gram powder 1 applic topical BID amlodipine 10 mg tablet 10 mg PO QAM Rx Instructions: Hold for systolic less than 100 and HR less than 60 Stand Alone Forms: Patient Portal/API
--- NOTE | 2025-08-20 08:12 | DI.RAD.S_ITS ---
PROCEDURE: XR HIP W PEL IF DONE LT 2V INDICATIONS: fall pain TECHNIQUE: AP pelvis with lateral view(s) of the left hip(s). COMPARISON: None. FINDINGS: Bones: No fractures or dislocations. Pelvic ring appears intact. No suspicious bony lesions. Moderate bilateral degenerative hip joint space narrowing. Soft tissues: The visualized bowel gas pattern is normal. No suspicious soft tissue calcifications. IMPRESSION: No visualized acute fracture or dislocation. However, if clinical concern and/or pain persist, short interval imaging followup in 7-10 days is recommended, as occult injury cannot be definitively excluded. Dictated by: Magaly Rueda M.D. on 08/20/2025 at 8:47 Approved by: Magaly Rueda M.D. on 08/20/2025 at 8:48
--- NOTE | 2025-08-20 08:12 | PC.NURSE ---
no apparent injuries to hip or other extremities and pt denying pain
[2025-08-20 08:54] LABS: Add Manual Diff / Slide Review NO; Hematocrit 37.8 % (36-46); Hemoglobin 12.7 g/dL (12.0-16.0); Lymphocytes Absolute Auto 1900 /uL (1100-4500); Mean Corpuscular HGB Conc 33.5 % (30-36); Mean Corpuscular Hemoglobin 30.2 PG (26-34); Mean Corpuscular Volume 90.2 fL (80-100); Platelet Count 153 X10^3/uL (150-400)
[2025-08-20 09:06] LABS: Alanine Aminotransferase 17 IU/L (<35); Albumin 4.5 g/dL (3.5-5.0); Albumin Globulin Ratio 1.3 (1.0-2.8); Alkaline Phosphatase 80 U/L (38-126); Blood Urea Nitrogen 35 mg/dL (7-17); Calcium 9.2 mg/dL (8.4-10.2); Carbon Dioxide 24 mmol/L (22-32); Chloride 108 mmol/L (98-107); Estimated Glomerular Filt Rate 37 mL/min (>60); Globulin 3.5 g/dL (1.7-4.1); Glucose 136 mg/dL (70-99); Sodium 143 mmol/L (137-145); Total Protein 8.0 g/dL (6.3-8.2)
[2025-08-20 09:07] LABS: HEMOLYSIS 55 (0-50); Potassium 3.9 mmol/L (3.4-5.1)
[2025-08-20 11:08] LABS: Appearance Urine UA CLEAR; Bilirubin Urine UA NEGATIVE (NEGATIVE); Color Urine UA YELLOW; Glucose Urine UA 3+ g/dL (Negative); Ketones Urine UA NEGATIVE (NEGATIVE); Leukocyte Esterase Urine UA TRACE (NEGATIVE); Nitrite Urine UA POSITIVE (Negative); Occult Blood Urine UA NEGATIVE (Negative); Protein Urine UA NEGATIVE (Negative); Specific Gravity Urine UA 1.025 (1.000-1.035); Urobilinogen Urine UA 0.2 E.U./dL (0.2)
[2025-08-20 11:15] LABS: pH Urine UA 5.5 (4.5-8.0)
[2025-08-20 11:19] LABS: Culture Indicated Urine Specimen Cultured
[2025-08-20] MEDS: CEFDINIR 300 MG CAPSULE PO (12:27)
[2025-08-20] MEDS: ACETAMINOPHEN 325 MG TABLET 975 MG PO (12:27)
--- NOTE | 2025-08-20 13:04 | PC.NURSE ---
pt able to stand with minima assistance and ambulate with tww at this time
[2025-08-20 14:36] LABS: Clostridium Difficile Tox PCR Negative for C. diff (Negative)
== END 2025-08-20 14:14 | disposition home or self-care (01) ==
PROVIDERS: Emergency Provider Emergency Medicine
DX: N39.0 Urinary tract infection, site not specified (principal); M25.552 Pain in left hip; W19.XXXA Unspecified fall, initial encounter
CPT/HCPCS: 73502; 80053; 81001; 85025; 87077; 87086; 87186; 87493; 99283; 99284

== ENCOUNTER 2025-09-27 14:00 | Emergency (ER) | payer MEDICARE, MEDICAID, SELFPAY ==
[2024-09-05 02:35] VITALS: BMI 33.3
[2025-09-27] VITALS (18 sets, daily range): BP systolic 150–201; BP diastolic 61–114; PULSE 51–90; RESP 11–29; TEMP 36.2; O2SAT 95–98
--- NOTE | 2025-09-27 14:24 | EKG_ITS ---
[facility] [address] [place] [address] Test Date: 2025-09-27 Pat Name: Ramonita Nesbitt Department: [facility] Room: Gender: Female [employer]cher [employer]: : 1940 Requested By: Order Number: [id number] Reading MD: Richard Galicia MD Measurements Intervals [place] Rate: 58 P: 90 ME: 200 QRS: 13 QRSD: 94 T: 87 QT: 432 QTc: 424 Interpretive Statements Sinus bradycardia Nonspecific ST and T wave abnormality Electronically Signed On 09-28-2025 8:03:58 PST by Richard Galicia MD
--- NOTE | 2025-09-27 14:24 | DI.CT.S_ITS ---
PROCEDURE: CT CERVICAL SPINE WO CON INDICATIONS: fall with neck pain TECHNIQUE: Noncontrast 3 mm thick sections acquired from the skull base to the T4 level. Sagittal and coronal reformats were then constructed. For radiation dose reduction, the following was used: automated exposure control, adjustment of mA and/or kV according to patient size. COMPARISON: [facility], CT, CT CERVICAL SPINE WO CON, 06/13/2025, 17:57. FINDINGS: Image quality: Excellent. Bones: No fractures or dislocations. Visualized superior ribs are intact. Multilevel uncovertebral hypertrophy with facet arthropathy. Soft tissues: Prevertebral soft tissues are normal in thickness. No paravertebral hematomas. No apical pneumothoraces. IMPRESSION: No displaced fracture or traumatic subluxation. Dictated by: Mike Acevedo M.D. on 09/27/2025 at 14:58 Approved by: Mike Acevedo M.D. on 09/27/2025 at 15:00
--- NOTE | 2025-09-27 14:24 | DI.CT.S_ITS ---
PROCEDURE: CT HEAD/BRAIN WO CON INDICATIONS: fall with head hit TECHNIQUE: Noncontrast 4.5 mm thick angled axial sections acquired from the foramen magnum to the vertex, with coronal and sagittal reformats. For radiation dose reduction, the following was used: automated exposure control, adjustment of mA and/or kV according to patient size. COMPARISON: [facility], CT, CT HEAD/BRAIN WO CON, 06/13/2025, 17:57. FINDINGS: Image quality: Diagnostic. CSF spaces: Basal cisterns are patent. No extra-axial fluid collections. Ventricles are normal in size and shape. Brain: No midline shift. No intracranial mass effect or hemorrhage. [place]- white matter interface is normal. Diffuse parenchymal volume loss with expansion CSF containing spaces. Periventricular white matter hypodensity suggestive of chronic microvascular ischemic disease. Skull and face: Calvarium and visualized facial bones are intact, without suspicious lesions. Sinuses: Visualized sinuses and mastoids are clear. IMPRESSION: No acute intracranial pathology. Dictated by: Mike Acevedo M.D. on 09/27/2025 at 14:57 Approved by: Mike Acevedo M.D. on 09/27/2025 at 14:58
--- NOTE | 2025-09-27 14:24 | DI.RAD.S_ITS ---
PROCEDURE: XR CHEST 1V INDICATIONS: Chest Pain TECHNIQUE: One view of the chest was acquired. COMPARISON: [facility], CR, XR CHEST 1V, 06/13/2025, 18:23. FINDINGS: Surgical changes and devices: None. Lungs and pleura: Diffuse interstitial opacities. No focal airspace consolidation. No pleural effusion. No pneumothorax. Mediastinum: Mediastinal contours appear normal. Heart size is normal. Bones and chest wall: No suspicious bony lesions. Overlying soft tissues appear unremarkable. IMPRESSION: No acute cardiopulmonary abnormality is seen. Dictated by: Mike Acevedo M.D. on 09/27/2025 at 14:34 Approved by: Mike Acevedo M.D. on 09/27/2025 at 14:37
--- NOTE | 2025-09-27 14:30 | DI.RAD.S_ITS ---
PROCEDURE: XR HIP W PEL IF DONE RT 2V INDICATIONS: fall TECHNIQUE: 2 views of the hip were acquired. COMPARISON: [facility], CR, XR HIP W PEL LT 2V, 08/20/2025, 8:12. FINDINGS: Bones: No fractures or dislocations. No suspicious bony lesions. The visualized pelvic ring appears intact. Trochanteric enthesophytes. Soft tissues: No suspicious soft tissue calcifications or masses. IMPRESSION: No acute bony abnormality. Dictated by: Mike Acevedo M.D. on 09/27/2025 at 14:33 Approved by: Mike Acevedo M.D. on 09/27/2025 at 14:34
[2025-09-27 15:58] LABS: Add Manual Diff / Slide Review NO; Hematocrit 34.7 % (36-46); Hemoglobin 11.7 g/dL (12.0-16.0); Lymphocytes Absolute Auto 1700 /uL (1100-4500); Mean Corpuscular HGB Conc 33.7 % (30-36); Mean Corpuscular Hemoglobin 30.1 PG (26-34); Mean Corpuscular Volume 89.3 fL (80-100); Platelet Count 156 X10^3/uL (150-400)
[2025-09-27 16:07] LABS: INR 1.0 (0.9-1.3); Prothrombin Time 11.4 SECONDS (9.4-12.5)
[2025-09-27 16:09] LABS: Alanine Aminotransferase 14 IU/L (<35); Albumin 4.1 g/dL (3.5-5.0); Albumin Globulin Ratio 1.3 (1.0-2.8); Alkaline Phosphatase 86 U/L (38-126); Blood Urea Nitrogen 28 mg/dL (7-17); Calcium 9.2 mg/dL (8.4-10.2); Carbon Dioxide 30 mmol/L (22-32); Chloride 105 mmol/L (98-107); Creatine Kinase 67 U/L (30-135); Estimated Glomerular Filt Rate 34 mL/min (>60); Globulin 3.1 g/dL (1.7-4.1); Glucose 144 mg/dL (70-99); HEMOLYSIS < 15 (0-50); Lipase 68 U/L (23-300); Magnesium 1.7 mg/dL (1.6-2.3); Potassium 3.3 mmol/L (3.4-5.1); Sodium 142 mmol/L (137-145); Total Protein 7.2 g/dL (6.3-8.2)
[2025-09-27 16:10] LABS: Lactate (Lactic Acid) 1.7 mmol/L (0.7-2.1); PTT Partial Thromboplastin Tim 28 SECONDS (25.1-36.5)
[2025-09-27 16:21] LABS: NT-proBNP (BNP-Adult 18+) 264 pg/mL (<450); Troponin I < 0.012 ng/mL (0.01-0.034)
--- NOTE | 2025-09-27 16:46 | ED.FALL ---
HPI - Fall General Chief Complaint: Fall Stated Complaint: Fall Time Seen by Provider: 09/27/25 15:18 Source: EMS Mode of arrival: Wheelchair History of Present Illness HPI Narrative: Patient is an 85-year-old female history of dementia lives in memory Care, CVA diabetes chronic kidney disease hypertension hyperlipidemia presenting to day with multiple falls. She was diagnosed with UTI over 1 month ago, in his now had 3 falls in the last 24 hours. No significant injury but is continuing to complain of some left hip pain. She does sometimes walk with a walker. Difficult to understand he is overall poor historian. Related Data Home Medications ?Medication ?Instructions ?Recorded ?Confirmed albuterol sulfate 90 mcg/actuation 2 puff inhalation TID 03/21/22 09/05/24 aerosol inhaler chlorthalidone 25 mg tablet 12.5 mg PO BEDTIME htn 03/21/22 09/05/24 chlorthalidone 25 mg tablet 25 mg PO QAM 03/21/22 09/05/24 citalopram 10 mg tablet 10 mg PO QAM depression 03/21/22 09/05/24 clopidogrel 75 mg tablet 75 mg PO QAM 03/21/22 09/05/24 gabapentin 300 mg capsule 600 mg PO TID 03/21/22 09/05/24 insulin glargine 100 unit/mL (3 36 unit SUBCUT BID 03/21/22 09/05/24 mL) subcutaneous pen (Lantus Solostar U-100 Insulin) insulin lispro 100 unit/mL See Rx Instructions .Route .COMPLEX 03/21/22 09/05/24 subcutaneous pen (Humalog KwikPen (U-100) Insulin) loratadine 10 mg tablet (Allergy 10 mg PO QAM allergies 03/21/22 09/05/24 Relief (loratadine)) simvastatin 20 mg tablet 20 mg PO BEDTIME 03/21/22 09/05/24 nystatin 100,000 unit/gram topical 1 applic topical BID 08/22/22 09/05/24 powder amlodipine 10 mg tablet 10 mg PO QAM 11/20/22 09/05/24 acetaminophen 500 mg tablet 1,000 mg PO TID Pain 07/16/24 09/05/24 albuterol sulfate 90 mcg/actuation 2 puff inhalation Q2H PRN Wheezing 07/16/24 09/05/24 aerosol inhaler baclofen 10 mg tablet 10 mg PO TID 07/16/24 09/05/24 cyclosporine 0.05 % eye drops in a 1 drp EYE-BOTH BID 07/16/24 09/05/24 dropperette loperamide 2 mg tablet (Imodium 2 mg PO Q6H PRN Diarrhea 07/16/24 09/05/24 A-D) ondansetron HCl 4 mg tablet 4 mg PO Q4H PRN nausea/vomiting 07/16/24 09/05/24 Previous Rx's ?Medication ?Instructions ?Recorded quetiapine 25 mg tablet 12.5 mg (1/2 x 25 mg) PO 1400 #30 09/06/24 tabs cefdinir 300 mg capsule 300 mg PO Q12H #10 caps 08/20/25 Allergies Allergy/AdvReac Type Severity Reaction Status Date / Time Penicillins Allergy Unknown Verified 08/20/25 07:20 procaine (From Novocain) Allergy Unknown Verified 08/20/25 07:20 Patient History Medical History Postmenopausal atrophic vaginitis Recurrent UTI (urinary tract infection) Bacterial UTI Cerebral infarction Dementia Edema Major depression Osteoarthritis Neuropathy Hyperlipidemia Diabetes Hypertension Family History Family/Other Diabetes mellitus Social History marital status: number of children: 2 household members: none alcohol intake frequency: holidays/special occasions only Exam Initial Vital Signs Initial Vital Signs: Vital Signs Temperature 97.2 F L 09/27/25 14:03 Pulse Rate 51 L 09/27/25 14:03 Respiratory Rate 12 09/27/25 14:03 Blood Pressure 150/61 H 09/27/25 14:03 Pulse Oximetry 95 09/27/25 14:03 Oxygen Delivery Method Room Air 09/27/25 14:03 GENERAL: Alert pleasant 85-year-old and in no acute distress. HEENT: Head atraumatic,EOMI, pupils reactive, face symmetric, moist mucous membranes CARDIOVASCULAR: Regular rate and rhythm without murmurs, rubs or gallops. RESPIRATORY: Breath sounds equal bilaterally, no wheezes rales or rhonchi. ABDOMEN: Soft, nontender. Normoactive bowel sounds all 4 quadrants. No guarding or rebound. EXTREMITIES: Normal range of motion, no clubbing or edema. Neurovascularly intact NEUROLOGICAL: Alert and oriented x1. Stuttering speech Cranial nerves II through XII grossly intact. Keeper Helper strength equal bilaterally SKIN: Warm, dry, no laceration, no petechiae, no rashes or lesions. Course Orders Ordered: ED Orders 09/27/25 11:48 Complete Blood Count AUTO DIFF Stat Comprehensive Metabolic Panel Stat Lactate (Lactic Acid) Stat Lipase Stat Magnesium Stat NT-proBNP (BNP-Adult 18+) Stat PTT Partial Thromboplastin Leobardo Stat Prothrombin Time INR Stat Troponin & CK Cardiac Panel Stat 09/27/25 14:24 CT cervical spine wo con Stat CT head/brain wo con Stat XR chest 1V Stat EKG-12 Lead Stat 09/27/25 14:30 XR hip w pel RT 2V Stat 09/27/25 15:48 Blood Culture Stat Discontinued Medications Aspirin (Aspirin 81 Mg Chew Tab) 324 mg PO NOW ONE Stop: 09/27/25 14:25 Last Admin: 09/27/25 15:56 Dose: Not Given Documented By: JONY Vital Signs Vital signs: Vital Signs - 8 hr 09/27/25 14:03 09/27/25 14:03 09/27/25 14:04 Temperature 97.2 F L Pulse Rate 51 L 56 L Respiratory Rate 12 Blood Pressure 150/61 H 150/61 H Pulse Oximetry 95 97 Oxygen Delivery Method Room Air 09/27/25 14:04 09/27/25 14:30 09/27/25 15:00 Temperature Pulse Rate 54 L 62 53 L Respiratory Rate 13 13 Blood Pressure Pulse Oximetry 97 95 96 Oxygen Delivery Method 09/27/25 15:11 09/27/25 15:11 09/27/25 15:30 Temperature Pulse Rate 54 L 55 L Respiratory Rate Blood Pressure 194/78 H Pulse Oximetry 96 97 Oxygen Delivery Method 09/27/25 15:31 09/27/25 15:31 09/27/25 16:00 Temperature Pulse Rate 55 L 55 L Respiratory Rate 12 12 Blood Pressure 177/73 H Pulse Oximetry 96 96 Oxygen Delivery Method 09/27/25 16:01 09/27/25 16:01 09/27/25 16:30 Temperature Pulse Rate 55 L 56 L Respiratory Rate 11 L Blood Pressure 163/96 H Pulse Oximetry 97 98 Oxygen Delivery Method 09/27/25 16:31 09/27/25 16:31 09/27/25 17:00 Temperature Pulse Rate 55 L 61 Respiratory Rate 11 L 14 Blood Pressure 189/77 H Pulse Oximetry 98 98 Oxygen Delivery Method 09/27/25 17:00 09/27/25 17:04 09/27/25 17:04 Temperature Pulse Rate 58 L Respiratory Rate 11 L Blood Pressure 195/114 H 201/85 H Pulse Oximetry 98 Oxygen Delivery Method 09/27/25 17:30 09/27/25 17:33 09/27/25 17:33 Temperature Pulse Rate 78 63 Respiratory Rate 29 H 13 Blood Pressure 178/73 H Pulse Oximetry Oxygen Delivery Method 09/27/25 17:43 09/27/25 18:00 Temperature Pulse Rate 90 57 L Respiratory Rate 20 18 Blood Pressure Pulse Oximetry 98 Oxygen Delivery Method MDM - Fall Lab Data 09/27/25 11:48 09/27/25 11:48 Labs: Lab Results 09/27/25 Range/Units 11:48 WBC 6.1 (4.5-11.0) X10^3/uL RBC 3.89 L (4.0-5.2) X10^6/uL Hgb 11.7 L (12.0-16.0) g/dL Hct 34.7 L (36-46) % MCV 89.3 (80-100) fL MCH 30.1 (26-34) PG MCHC 33.7 (30-36) % RDW 13.7 (11.6-14.8) % Plt Count 156 (150-400) X10^3/uL Neut % (Auto) 61.7 (50-75) % Lymph % (Auto) 27.6 (25-40) % Weakley % (Auto) 6.0 (3-14) % Eos % (Auto) 4.3 H (2-4) % Baso % (Auto) 0.4 (0-2) % Neut # (Auto) 3800 (5226-6878) /uL Lymph # (Auto) 1700 (5063-9143) /uL Weakley # (Auto) 400 (0-900) /uL Eos # (Auto) 300 (0-450) /uL Baso # (Auto) 0 (0-100) /uL PT 11.4 (9.4-12.5) SECONDS INR 1.0 (0.9-1.3) APTT 28 (25.1-36.5) SECONDS Sodium 142 (137-145) mmol/L Potassium 3.3 L (3.4-5.1) mmol/L Chloride 105 (98-107) mmol/L Carbon Dioxide 30 (22-32) mmol/L BUN 28 H (7-17) mg/dL Creatinine 1.50 H (0.52-1.04) mg/dL Estimated GFR 34 L (>60) mL/min BUN/Creatinine Ratio 18.7 (6-22) Glucose 144 H (70-99) mg/dL Lactate 1.7 (0.7-2.1) mmol/L Calcium 9.2 (8.4-10.2) mg/dL Magnesium 1.7 (1.6-2.3) mg/dL Total Bilirubin 0.3 (0.2-1.3) mg/dL AST 23 (14-36) IU/L ALT 14 (<35) IU/L Alkaline Phosphatase 86 (38-126) U/L Total Creatine Kinase 67 (30-135) U/L Troponin I < 0.012 (0.01-0.034) ng/mL NT-Pro-B Natriuret Pep 264 (<450) pg/mL Total Protein 7.2 (6.3-8.2) g/dL Albumin 4.1 (3.5-5.0) g/dL Globulin 3.1 (1.7-4.1) g/dL Albumin/Globulin Ratio 1.3 (1.0-2.8) Lipase 68 (23-300) U/L Imaging Data CT scan - head: Radiologist's Impression: PROCEDURE: CT HEAD/BRAIN WO CON INDICATIONS: fall with head hit TECHNIQUE: Noncontrast 4.5 mm thick angled axial sections acquired from the foramen magnum to the vertex, with coronal and sagittal reformats. For radiation dose reduction, the following was used: automated exposure control, adjustment of mA and/or kV according to patient size. COMPARISON: [facility], CT, CT HEAD/BRAIN WO CON, 06/13/2025, 17:57. FINDINGS: Image quality: Diagnostic. CSF spaces: Basal cisterns are patent. No extra-axial fluid collections. Ventricles are normal in size and shape. Brain: No midline shift. No intracranial mass effect or hemorrhage. Church-white matter interface is normal. Diffuse parenchymal volume loss with expansion CSF containing spaces. Periventricular white matter hypodensity suggestive of chronic microvascular ischemic disease. Skull and face: Calvarium and visualized facial bones are intact, without suspicious lesions. Sinuses: Visualized sinuses and mastoids are clear. IMPRESSION: No acute intracranial pathology. Dictated by: Mike Acevedo M.D. on 09/27/2025 at 14:57 Chest x-ray: Radiologist's Impression: PROCEDURE: XR CHEST 1V INDICATIONS: Chest Pain TECHNIQUE: One view of the chest was acquired. COMPARISON: [facility], CR, XR CHEST 1V, 06/13/2025, 18:23. FINDINGS: Surgical changes and devices: None. Lungs and pleura: Diffuse interstitial opacities. No focal airspace consolidation. No pleural effusion. No pneumothorax. Mediastinum: Mediastinal contours appear normal. Heart size is normal. Bones and chest wall: No suspicious bony lesions. Overlying soft tissues appear unremarkable. IMPRESSION: No acute cardiopulmonary abnormality is seen. Dictated by: Mike Acevedo M.D. on 09/27/2025 at 14:34 CT - cervical spine: Radiologist's Impression: PROCEDURE: CT CERVICAL SPINE WO CON INDICATIONS: fall with neck pain TECHNIQUE: Noncontrast 3 mm thick sections acquired from the skull base to the T4 level. Sagittal and coronal reformats were then constructed. For radiation dose reduction, the following was used: automated exposure control, adjustment of mA and/or kV according to patient size. COMPARISON: [facility], CT, CT CERVICAL SPINE WO CON, 06/13/2025, 17:57. FINDINGS: Image quality: Excellent. Bones: No fractures or dislocations. Visualized superior ribs are intact. Multilevel uncovertebral hypertrophy with facet arthropathy. Soft tissues: Prevertebral soft tissues are normal in thickness. No paravertebral hematomas. No apical pneumothoraces. IMPRESSION: No displaced fracture or traumatic subluxation. Dictated by: Mike Acevedo M.D. on 09/27/2025 at 14:58 Extremity x-ray #1: Radiologist's Impression: PROCEDURE: XR HIP W PEL IF DONE RT 2V INDICATIONS: fall TECHNIQUE: 2 views of the hip were acquired. COMPARISON: [facility], CR, XR HIP W PEL LT 2V, 08/20/2025, 8:12. FINDINGS: Bones: No fractures or dislocations. No suspicious bony lesions. The visualized pelvic ring appears intact. Trochanteric enthesophytes. Soft tissues: No suspicious soft tissue calcifications or masses. IMPRESSION: No acute bony abnormality. Dictated by: Mike Acevedo M.D. on 09/27/2025 at 14:33 ECG Data Attestation: I personally reviewed and interpreted this ECG as follows: Prior ECG tracings: available for review Interpretation: Normal sinus rhythm rate 58 OR interval 200 QRS [address] changes no T-wave inversions previous EKGs shows atrial fibrillation so much improved MDM Narrative Medical decision making narrative: MDM CC: Frequent falls Complicating co-morbidities: Dementia lives at [facility] Data collected from: Nursing, attempted to call both sons Epifanio has a phone number [phone] who does not have a voicemail set up. Dog [phone] is an incorrect phone up Medical records reviewed: Previous ED visit showed the patient had a UTI Klebsiella and E coli Differential considered: Infection CVA intracranial hemorrhage electrolyte abnormalities Exam documented above, pertinent findings include: Alert pleasant 85-year-old female she is stuttering by her speech unclear if this is baseline for her. She is able to follow commands she is able to stand and walk with a walker. Unclear what baseline is for her. Attempted to call family Lab Test results independently reviewed as above. Pertinent findings: CBC no leukocytosis no anemia Electrolytes mild hypokalemia potassium 3.3 creatinine 1.5 baseline is 1.39 Lactate 1.7 Bilirubin liver enzymes within normal limits Troponin negative Independently reviewed EKG as above sinus rhythm Imaging studies independently reviewed: Head CT no intracranial hemorrhage Cervical spine CT no fracture Chest x-ray no acute cardiopulmonary process Hip x-ray no fracture Consultations: [ ] Treatments: None Re-evaluations: Patient is a able to stand and walk with a walker. Discussion: Patient 85-year-old female has advanced dementia stutters, think this might be baseline for her attempted to call family unable to confirm. Blood work is overall reassuring no evidence of sepsis. Unclear why she has fallen so many times that thinks that she does have pain in her left hip but there is no fracture she is able to stand and weightbear on it. At this time discharge back to [facility] Discharge Plan Departure Patient Disposition: Home Clinical Impression: Dementia, Fall Instructions: How to Prevent Falls Activity Restrictions/Additional Instructions: *You have been diagnosed with falls dementia *What to do: At this time workup in the emergency department overall reassuring. Maybe falling secondary to pain in the left hip *Continue to take medications as directed Continue Tylenol as needed for pain *Follow up with your primary care provider in 2-3 days or call [phone] *Return to ER if you should have increased confusion increasing falls or any new, worsening or concerning symptoms Prescriptions: No Action quetiapine 25 mg Tablet 12.5 mg PO 1400 Qty: 30 0RF citalopram 10 mg Tablet 10 mg PO QAM clopidogrel 75 mg Tablet 75 mg PO QAM chlorthalidone 25 mg Tablet 25 mg PO QAM chlorthalidone 25 mg Tablet 12.5 mg PO BEDTIME simvastatin 20 mg Tablet 20 mg PO BEDTIME gabapentin 300 mg Capsule 600 mg PO TID albuterol sulfate 90 mcg/actuation Hfa Aerosol Inhaler 2 puff INHALATION TID loratadine [Allergy Relief (loratadine)] 10 mg Tablet 10 mg PO QAM insulin lispro [Humalog KwikPen Insulin] 100 unit/mL Insulin Pen See Rx Instructions .ROUTE .COMPLEX Rx Instructions: RX instructions in chart daily dose and sliding scale insulin glargine [Lantus Solostar U-100 Insulin] 100 unit/mL (3 mL) Insulin Pen 36 unit SUBCUT BID Rx Instructions: Hold if blood sugar less than 80 ondansetron HCl 4 mg Tablet 4 mg PO Q4H PRN (Reason: nausea/vomiting) loperamide [Imodium A-D] 2 mg Tablet 2 mg PO Q6H PRN (Reason: Diarrhea) acetaminophen 500 mg tablet 1,000 mg PO TID baclofen 10 mg tablet 10 mg PO TID albuterol sulfate 90 mcg/actuation Hfa Aerosol Inhaler 2 puff INHALATION Q2H PRN (Reason: Wheezing) cyclosporine 0.05 % dropperette 1 drp EYE-BOTH BID cefdinir 300 mg capsule 300 mg PO Q12H Qty: 10 0RF nystatin 100,000 unit/gram powder 1 applic topical BID amlodipine 10 mg tablet 10 mg PO QAM Rx Instructions: Hold for systolic less than 100 and HR less than 60 Stand Alone Forms: Patient Portal/API
--- NOTE | 2025-09-27 17:43 | PC.NURSE ---
pt ambulated with this nurse/1PA with FWW and gaitbelt, needed queing but ambulated without difficulty around room and back into bed
== END 2025-09-27 19:00 | disposition home or self-care (01) ==
PROVIDERS: Emergency Provider Emergency Medicine
DX: F03.90 Unspecified dementia, unspecified severity, without behavioral disturbance, psychotic disturbance, mood disturbance, and anxiety (principal); M25.552 Pain in left hip; S09.90XA Unspecified injury of head, initial encounter; R07.9 Chest pain, unspecified; M54.2 Cervicalgia; R29.6 Repeated falls; W19.XXXA Unspecified fall, initial encounter
CPT/HCPCS: 36415; 70450; 71045; 72125; 73502; 80053; 82550; 83605; 83690; 83735; 83880; 84484; 85025; 85610; 85730; 87040; 93005; 99283; 99284